=== PATIENT | female | born 1945 | race African-American/Black ===

== ENCOUNTER → 2020-05-03 09:38 | Outpatient (BNVA) | payer MEDICARE, SELFPAY | PROVIDERS: PCP Internal Medicine; Referring Provider Internal Medicine; Visit Provider Internal Medicine Cardiovascular Disease | DX: I50.22 Chronic systolic (congestive) heart failure (principal); I42.8 Other cardiomyopathies; I48.0 Paroxysmal atrial fibrillation; Z79.899 Other long term (current) drug therapy; Z95.818 Presence of other cardiac implants and grafts; Z45.02 Encounter for adjustment and management of automatic implantable cardiac defibrillator | CPT/HCPCS: 99212 ==

== ENCOUNTER 2020-05-27 10:33 | Outpatient (REF) | payer MEDICARE, SELFPAY ==
[2020-05-27 13:47] LABS: Hematocrit 39.3 % (37-47); Hemoglobin 12.1 g/dl (12.0-16.0); Mean Corpuscular HGB Conc 30.8 g/dl (31.0-35.0); Mean Corpuscular Hemoglobin 27.8 pg (27.0-33.0); Mean Corpuscular Volume 90.1 fL (80-98); Mean Platelet Volume 11.4 fL (9.4-12.3); Platelet Count 170 X10*3/uL (160-400); Red Blood Count 4.36 X10*6/uL (4.20-5.50); Red Cell Distribution Width 13.9 % (11.0-16.0); White Blood Count 3.6 X10*3/uL (4.8-10.8)
[2020-05-27 14:15] LABS: B Type Natriuretic Peptide 44 pg/mL (<100)
== END 2020-05-27 10:34 | disposition home or self-care (01) ==
LOC: HO.10HDL 10:33
PROVIDERS: Visit Provider Internal Medicine Cardiovascular Disease
DX: I13.0 Hypertensive heart and chronic kidney disease with heart failure and stage 1 through stage 4 chronic kidney disease, or unspecified chronic kidney disease (principal); N18.9 Chronic kidney disease, unspecified; I50.22 Chronic systolic (congestive) heart failure; Z95.810 Presence of automatic (implantable) cardiac defibrillator; I48.0 Paroxysmal atrial fibrillation
CPT/HCPCS: 36415; 83880; 85027

== ENCOUNTER → 2020-07-27 12:47 | Outpatient (BNVA) | payer OTHER, SELFPAY | PROVIDERS: Visit Provider Internal Medicine Cardiovascular Disease | DX: Z45.02 Encounter for adjustment and management of automatic implantable cardiac defibrillator (principal); I50.22 Chronic systolic (congestive) heart failure; I42.8 Other cardiomyopathies; I48.0 Paroxysmal atrial fibrillation | CPT/HCPCS: 93005 ==

== ENCOUNTER → 2021-01-18 08:28 | Outpatient (REF) | payer OTHER, SELFPAY ==
--- NOTE | 2021-01-18 08:32 | CA_ITS ---
Transthoracic Echocardiogram Patient (Last, First, Middle): Gale Oden, Gender: Female Date of : 1945 Age: 75 Procedure Date: 01/18/2021 Procedure Type: Transthoracic Echocardiogram Location: OP Height: 157.48 cm Weight: 87.09 kg BSA: 1.88 m2 Heart Rate: bpm BP: 138 / 76 mmHg [employer]ia Food Server: Ruba MD: Toño Noel MD Regulatory Affairs Spec: Toño Noel MD Symptoms: I50.22 - Chronic systolic (congestive) heart failure Study Quality: Good ECG Rhythm: Sinus Conclusions: - 1. Moderately dilated left ventricle with moderate LV systolic dysfunction with pseudonormal filling pattern 2. Mild aortic and mild mitral regurgitation 3. mild left atrial enlargement 4. Mildly elevated right ventricular systolic pressure 5. No gross pericardial effusion Findings Left Ventricle Moderately increased left ventricular cavity size. There is normal left ventricular wall thickness. The left ventricular systolic function is moderately decreased. The visually estimated ejection fraction is between 35 40%. There is moderate global hypokinesis. Spectral Doppler is indicative of a pseudonormal filling pattern. Elevated left ventricular end diastolic pressure. E/E prime ratio is between 8 and 15 consistent with indeterminate filling pressures. Right Ventricle Normal right ventricular cavity size and systolic function. Atria The left atrium is mildly dilated. There is no evidence of interatrial shunt. The right atrium is likely dilated. Aortic Valve There is mild thickening of the aortic valve. There is no aortic valve stenosis. There is mild aortic valve regurgitation. Mitral Valve There is mild anterior and posterior mitral leaflet thickening. There is mild mitral valve regurgitation. There is no mitral valve stenosis. Pulmonic Valve The pulmonic valve is likely normal. There is trace pulmonic valve regurgitation. Tricuspid Valve There is mild tricuspid valve regurgitation. Normal right atrial pressure. Mild pulmonary hypertension is present. Great Vessels All visible segments of the aorta are normal in size. The pulmonary artery was not well visualized. Venous The inferior vena cava is normal in size and collapses greater than 50% with inspiration. Pericardium/Pleural There is no evidence of pericardial effusion. Prior Study Comparison Changes noted compared to prior study dated: 12/15/2019. LV systolic function is marginally improved Measurements 2D Linear Measurements RVIDd: 4.20 RVIDd Index: 2.23 IVSd: 0.86 0.6-0.9/0.6-1.0 cm LVIDd: 6.33 3.9-5.3/4.2-5.9 cm LVIDd Index: 3.37 2.4-3.2/2.2-3.1 cm/m2 LVIDs: 5.30 2.0-3.6 cm LVPWd: 1.12 0.7-1.1 cm Ao Root: 3.00 2.1-3.5 cm LA Diam: 5.10 2.7-3.8/3.0-4.0 cm LAIDs Index: 2.71 1.5-2.3 cm/m2 LV Mass: 333.46 67-162/88-224 g LV Mass Index: 177.37 43-95/49-115 g/m2 LVOT Diam: 2.20 3.0+(-)1.3 cm 2D Systolic Function EF 4C: 40.00 >55% EF 2C: 44.20 >55% EF BiP: 41.30 >55% Mitral Valve MV Pk E: 0.80 MV PK A: 0.48 MV Decel Time: 235.00 E/A: 1.70 E'Lateral: 9.30 E'Medial: 3.68 E/E' Med: 21.70 E/E' Lat: 8.60 MR Vol - PW Dopp: 12.53 MR VTI: 1.79 MR ERO: 7.00 MR Alias Khoa: 0.31 MR RAD: 0.40 Aortic Valve AoV Pk Khoa: 1.95 AoV Mn Khoa: 1.25 AoV VTI: 0.48 AoV Pk Grad: 15.00 Aov Mn Grad: 8.00 [place] Cont.VTI: 1.33 LVOT LVOT Pk Khoa: 0.69 LVOT Mn Khoa: 0.51 LVOT VTI: 0.17 LVOT Pk Grad: 2.00 LVOT Mn Grad: 1.00 LVOT Diam: 2.20 LVOT Area: 3.80 Diastolic Function MV Pk E: 0.80 MV Pk A: 0.48 E/A: 1.70 E'Medial: 3.68 E/E' Med: 21.70 E' Laterial: 9.30 E/E' Lat: 8.60 Right Ventricle TAPSE (mm): 17.00 TVS' Khoa: 5.70 Tricuspid Valve TR Pk Khoa: 3.08 TR Pk Grad: 38.00 RA Press: 3.00 RVSP: 41.00 Great Vessels Aorta Ao Root-2D: 3.00 2.0-3.7 cm Ao Asc: 3.50 2.1-3.4 cm Ao Arch: 3.00 Updated in Other Vendor System with Status of Final Toño Noel MD electronically signed on 01/19/2021 2:46:44 PM with status of Final
== END ==
LOC: HO.CARD 08:28
PROVIDERS: PCP Internal Medicine; Visit Provider Internal Medicine Cardiovascular Disease
DX: I42.8 Other cardiomyopathies (principal); I48.0 Paroxysmal atrial fibrillation; I50.22 Chronic systolic (congestive) heart failure
CPT/HCPCS: 93306

== ENCOUNTER → 2021-01-27 08:41 | Outpatient (BNVA) | payer OTHER, SELFPAY | PROVIDERS: PCP Internal Medicine; Visit Provider Internal Medicine Cardiovascular Disease | DX: I50.22 Chronic systolic (congestive) heart failure (principal); I48.0 Paroxysmal atrial fibrillation; I13.0 Hypertensive heart and chronic kidney disease with heart failure and stage 1 through stage 4 chronic kidney disease, or unspecified chronic kidney disease; I10 Essential (primary) hypertension; I42.8 Other cardiomyopathies; I49.01 Ventricular fibrillation; N18.9 Chronic kidney disease, unspecified; Z95.810 Presence of automatic (implantable) cardiac defibrillator | CPT/HCPCS: 93005 ==

== ENCOUNTER → 2021-02-28 11:44 | Outpatient (BNVA) | payer OTHER, SELFPAY | PROVIDERS: PCP Internal Medicine; Visit Provider Internal Medicine Cardiovascular Disease ==

== ENCOUNTER 2021-07-18 08:22 | Outpatient (REF) | payer OTHER, SELFPAY ==
--- NOTE | ~2021-07-18 | XR_ITS ---
EXAMINATION: XR CHEST CLINICAL INFORMATION: Paroxysmal A. fib COMPARISON: Chest x-ray 11/24/2019 TECHNIQUE: 2 views of the chest were obtained. FINDINGS: Cardiac silhouette is stable in size. Unchanged orientation of single pacing wire projecting superficial to the sternum. The lungs are well aerated. There is no lobar consolidation. No pleural effusion or pneumothorax. Surgical clips project over the left axilla. Mild to moderate degenerative changes of the spine. Partially visualized retrievable IVC filter. XR/XR chest 2V IMPRESSION: No acute pulmonary pathology.
[2021-07-18 09:51] LABS: Hematocrit 39.1 % (37.0-47.0); Mean Corpuscular HGB Conc 30.7 g/dl (31.0-35.0); Mean Corpuscular Volume 88.1 fL (80.0-98.0); Mean Platelet Volume 11.4 fL (9.4-12.3); Platelet Count 186 X10*3/uL (160-400); Red Blood Count 4.44 X10*6/uL (4.20-5.50)
[2021-07-18 10:15] LABS: Alanine Aminotransferase 13 U/L (0-31); Albumin Level 4.2 g/dL (3.5-5.0); Alkaline Phosphatase 61 U/L (39-117); Anion Gap 11 (12-20); Aspartate Amino Transferase 18 U/L (5-31); Bilirubin Direct < 0.2 mg/dL (0.0-0.5); Bilirubin Total 0.5 mg/dL (0.0-1.0); Blood Urea Nitrogen 19 mg/dL (9-16); Calcium 9.8 mg/dL (8.4-10.2); Carbon Dioxide 32 mmol/L (22-29); Chloride 103 mmol/L (96-108); Estimated Glomerular Filt Rate 39; Glucose Random 99 mg/dL (60-115); Magnesium 2.2 mg/dL (1.6-2.6); Potassium 4.2 mmol/L (3.3-5.1); Sodium 142 mmol/L (135-145); Total Protein 7.4 g/dL (6.5-8.0)
[2021-07-18 10:36] LABS: TSH reflex Free T4 3.98 uIU/mL (0.32-4.0)
== END 2021-07-18 08:23 | disposition home or self-care (01) ==
LOC: HO.XRAY 08:22
PROVIDERS: PCP Internal Medicine; Visit Provider Internal Medicine Cardiovascular Disease
DX: I48.0 Paroxysmal atrial fibrillation (principal); I50.22 Chronic systolic (congestive) heart failure; Z95.810 Presence of automatic (implantable) cardiac defibrillator
CPT/HCPCS: 36415; 71046; 80048; 80076; 83735; 84443; 85027; 93005

== ENCOUNTER → 2021-08-02 12:18 | Outpatient (BNVA) | payer OTHER, SELFPAY | PROVIDERS: Visit Provider Internal Medicine Cardiovascular Disease ==

== ENCOUNTER 2021-10-24 12:21 | Outpatient (REF) | payer OTHER, SELFPAY ==
--- NOTE | ~2021-10-24 | XR_ITS ---
EXAMINATION: XR CHEST CLINICAL INFORMATION: Chronic systolic CHF COMPARISON: Chest x-ray 07/18/2021 TECHNIQUE: 2 views of the chest were obtained. FINDINGS: The lungs are somewhat expanded and clear of acute pneumonic process. There is no pleural effusion or thickening. Heart size is borderline enlarged. There is a solitary pacing electrode midline anterior to sternum is unchanged. The hardware lies along the left lateral chest wall. The pulmonary vascularity is normal. There are left axillary can from previous intervention. No gross bony abnormality seen. The soft tissues are normal. XR/XR chest 2V IMPRESSION: No acute pulmonary process. No major change from 07/18/2021.
[2021-10-24 13:10] LABS: Hematocrit 37.2 % (37.0-47.0); Hemoglobin 11.5 g/dl (12.0-16.0); Mean Corpuscular HGB Conc 30.9 g/dl (31.0-35.0); Mean Corpuscular Hemoglobin 27.4 pg (27.0-33.0); Mean Corpuscular Volume 88.6 fL (80.0-98.0); Mean Platelet Volume 11.2 fL (9.4-12.3); Platelet Count 265 X10*3/uL (160-400); Red Cell Distribution Width 13.7 % (11.0-16.0); White Blood Count 6.6 X10*3/uL (4.8-10.8)
[2021-10-24 13:34] LABS: Alanine Aminotransferase 15 U/L (0-31); Albumin Level 4.4 g/dL (3.5-5.0); Alkaline Phosphatase 83 U/L (39-117); Anion Gap 13 (12-20); Aspartate Amino Transferase 17 U/L (5-31); Bilirubin Direct 0.2 mg/dL (0.0-0.5); Bilirubin Total 0.5 mg/dL (0.0-1.0); Blood Urea Nitrogen 24 mg/dL (9-16); Calcium 10.1 mg/dL (8.4-10.2); Carbon Dioxide 35 mmol/L (22-29); Chloride 97 mmol/L (96-108); Estimated Glomerular Filt Rate 32; Glucose Random 88 mg/dL (60-115); Potassium 3.6 mmol/L (3.3-5.1); Sodium 141 mmol/L (135-145)
[2021-10-24 13:37] LABS: B Type Natriuretic Peptide 124 pg/mL (<100)
== END 2021-10-24 12:22 | disposition home or self-care (01) ==
LOC: HO.XRAY 12:21
PROVIDERS: PCP Internal Medicine; Visit Provider Internal Medicine Cardiovascular Disease
DX: I48.0 Paroxysmal atrial fibrillation (principal); I50.22 Chronic systolic (congestive) heart failure
CPT/HCPCS: 36415; 71046; 80048; 80076; 83880; 85027; 99212

== ENCOUNTER → 2021-10-26 08:29 | Outpatient (REF) | payer OTHER, SELFPAY ==
--- NOTE | 2021-10-26 08:32 | CA_ITS ---
Transthoracic Echocardiogram Patient (Last, First, Middle): Gale Oden, Gender: Female Date of : 1945 Age: 76 Procedure Date: 10/26/2021 Procedure Type: Transthoracic Echocardiogram Location: OP Height: 157.48 cm Weight: 83.46 kg BSA: 1.84 m2 Heart Rate: bpm BP: 112 / 70 mmHg Religious Studies Professor: GRACE Referring MD: Toño Noel MD Symptoms: I42.9 - Cardiomyopathy, unspecified Study Quality: Fair ECG Rhythm: Sinus Conclusions: - The left ventricular systolic function is moderately decreased. The calculated ejection fraction is 38% by biplane method. - Evidence suggests grade III (severe) diastolic dysfunction. - Moderate pulmonary hypertension is present. Findings Left Ventricle Moderately increased left ventricular cavity size. There is mildly increased left ventricular wall thickness. The left ventricular systolic function is moderately decreased. The calculated ejection fraction is 38% by biplane method. There is moderate global hypokinesis. E/E prime ratio is >15, consistent with elevated filling pressures. Evidence suggests grade III (severe) diastolic dysfunction. Right Ventricle Normal right ventricular cavity size and systolic function. Tricuspid Valve There is moderate tricuspid valve regurgitation. The right ventricular systolic pressure is 49 mmHg. Moderate pulmonary hypertension is present. Venous The inferior vena cava is normal in size and collapses greater than 50% with inspiration. Prior Study Comparison No significant change compared to prior study dated: 01/18/2021. Measurements 2D Linear Measurements IVSd: 1.14 0.6-0.9/0.6-1.0 cm LVIDd: 6.22 3.9-5.3/4.2-5.9 cm LVIDd Index: 3.38 2.4-3.2/2.2-3.1 cm/m2 LVIDs: 5.03 2.0-3.6 cm LVPWd: 1.07 0.7-1.1 cm LV Mass: 372.77 67-162/88-224 g LV Mass Index: 202.59 43-95/49-115 g/m2 2D Systolic Function EF 4C: 33.70 >55% EF 2C: 41.10 >55% EF BiP: 38.00 >55% Mitral Valve MV Pk E: 1.02 MV PK A: 0.46 MV Decel Time: 280.00 E/A: 2.20 E'Lateral: 7.51 E'Medial: 5.11 E/E' Med: 20.00 E/E' Lat: 13.60 PHT: 82.00 MVA PHT: 2.68 Decel Cross: 3.64 Diastolic Function MV Pk E: 1.02 MV Pk A: 0.46 E/A: 2.20 E'Medial: 5.11 E/E' Med: 20.00 E' Laterial: 7.51 E/E' Lat: 13.60 Tricuspid Valve TR Pk Khoa: 3.39 TR Pk Grad: 46.00 RA Press: 3.00 RVSP: 49.00 Updated in Other Vendor System with Status of Final Claudio Newman MD electronically signed on 10/28/2021 2:13:39 PM with status of Final
== END ==
LOC: HO.CARD 08:29
PROVIDERS: PCP Internal Medicine; Visit Provider Internal Medicine Cardiovascular Disease
DX: I42.9 Cardiomyopathy, unspecified (principal); I50.22 Chronic systolic (congestive) heart failure
CPT/HCPCS: 93308

== ENCOUNTER 2022-01-03 12:54 | Outpatient (REF) | payer OTHER, SELFPAY ==
[2022-01-03 13:37] LABS: COVID-19 Test Negative (Negative)
== END 2022-01-03 12:55 | disposition home or self-care (01) ==
LOC: HO.LAB 12:54
PROVIDERS: Visit Provider Internal Medicine
DX: Z20.822 Contact with and (suspected) exposure to COVID-19 (principal)
CPT/HCPCS: 87635; C9803

== ENCOUNTER → 2022-01-12 07:29 | Outpatient (REF) | payer OTHER, SELFPAY ==
--- NOTE | 2022-01-12 07:31 | CA_ITS ---
Transthoracic Echocardiogram Patient (Last, First, Middle): Gale Oden, Gender: Female Date of : 1945 Age: 76 Procedure Date: 01/12/2022 Procedure Type: Transthoracic Echocardiogram Location: OP Height: 157.48 cm Weight: 86.18 kg BSA: 1.87 m2 Heart Rate: bpm BP: 145 / 86 mmHg Cnc Mill And Lathe Operator: DALI Referring MD: Toño Noel MD Operations Intern: Toño Noel MD Symptoms: I50.22 - Chronic systolic (congestive) heart failure Study Quality: Fair ECG Rhythm: Sinus Conclusions: - 1. Mildly dilated left ventricle with [id number] LV systolic dysfunction with grade 2 diastolic dysfunction with LVEF of 40-45% 2. Moderately dilated left atrium 3. Eyva-nd-irdvifyw mitral regurgitation and mild aortic regurgitation 4. Moderately elevated right ventricular systolic pressure 5. No pericardial effusion Findings Left Ventricle Mildly increased left ventricular cavity size. There is normal left ventricular wall thickness. The left ventricular systolic function is mild to moderately decreased. The visually estimated ejection fraction is between 40-45%. Spectral Doppler is indicative of a pseudonormal filling pattern. E/E prime ratio is >15, consistent with elevated filling pressures. Evidence suggests grade II (moderate) diastolic dysfunction. Right Ventricle Normal right ventricular cavity size and systolic function. Atria The left atrium is moderately dilated. There is no evidence of interatrial shunt. The right atrium is mildly dilated. Aortic Valve There is mild calcification of the aortic valve. There is no aortic valve stenosis. There is mild aortic valve regurgitation. Mitral Valve There is mild anterior and posterior mitral leaflet thickening. There is mild to moderate mitral valve regurgitation. There is no mitral valve stenosis. Pulmonic Valve The pulmonic valve is likely normal. Tricuspid Valve Normal tricuspid valve structure. There is mild to moderate tricuspid valve regurgitation. Normal right atrial pressure. Moderate pulmonary hypertension is present. Great Vessels All visible segments of the aorta are normal in size. The pulmonary artery was not well visualized. Venous The inferior vena cava is normal in size and collapses greater than 50% with inspiration. Pericardium/Pleural There is no evidence of pericardial effusion. Prior Study Comparison Changes noted compared to prior study dated: 10/26/2021. LV systolic function is marginally improved Measurements 2D Linear Measurements IVSd: 1.20 0.6-0.9/0.6-1.0 cm LVIDd: 5.89 3.9-5.3/4.2-5.9 cm LVIDd Index: 3.15 2.4-3.2/2.2-3.1 cm/m2 LVIDs: 5.50 2.0-3.6 cm LVPWd: 1.02 0.7-1.1 cm LA Diam: 4.10 2.7-3.8/3.0-4.0 cm LAIDs Index: 2.19 1.5-2.3 cm/m2 LV Mass: 342.24 67-162/88-224 g LV Mass Index: 183.02 43-95/49-115 g/m2 LVOT Diam: 2.10 3.0+(-)1.3 cm 2D Systolic Function EF 4C: 46.80 >55% EF 2C: 44.00 >55% Mitral Valve MV Pk E: 1.13 MV PK A: 0.53 MV Decel Time: 188.00 E/A: 2.20 E'Lateral: 9.14 E'Medial: 4.79 E/E' Med: 23.60 E/E' Lat: 12.40 PHT: 55.00 MVA PHT: 4.00 Decel [place]: 6.01 MR Vol - PW Dopp: 10.50 MR VTI: 2.10 MR ERO: 5.00 MR Alias Khoa: 0.42 MR RAD: 0.30 Aortic Valve AoV Pk Khoa: 1.82 AoV Mn Khoa: 1.36 AoV VTI: 0.45 AoV Pk Grad: 13.00 Aov Mn Grad: 8.00 [place] Cont.VTI: 1.60 AI Pk Khoa: 4.15 AI [place]: 1.79 LVOT LVOT Pk Khoa: 0.85 LVOT Mn Khoa: 0.59 LVOT VTI: 0.21 LVOT Pk Grad: 3.00 LVOT Mn Grad: 2.00 LVOT Diam: 2.10 LVOT Area: 3.46 Diastolic Function MV Pk E: 1.13 MV Pk A: 0.53 E/A: 2.20 E'Medial: 4.79 E/E' Med: 23.60 E' Laterial: 9.14 E/E' Lat: 12.40 Right Ventricle TAPSE (mm): 23.50 TVS' Khoa: 8.92 Tricuspid Valve TR Pk Khoa: 3.75 TR Pk Grad: 56.00 RA Press: 3.00 RVSP: 59.00 Great Vessels Aorta Sinus of Valsalva: 3.20 2.0-3.5 cm Ao Asc: 3.60 2.1-3.4 cm Updated in Other Vendor System with Status of Final Toño Noel MD electronically signed on 01/13/2022 5:54:35 PM with status of Final
== END ==
LOC: HO.CARD 07:29
PROVIDERS: PCP Internal Medicine; Visit Provider Internal Medicine
DX: I50.22 Chronic systolic (congestive) heart failure (principal)
CPT/HCPCS: 93306

== ENCOUNTER → 2022-01-23 12:09 | Outpatient (BNVA) | payer OTHER, SELFPAY | PROVIDERS: PCP Internal Medicine; Referring Provider Internal Medicine; Visit Provider Internal Medicine Cardiovascular Disease | DX: I50.22 Chronic systolic (congestive) heart failure (principal); I48.0 Paroxysmal atrial fibrillation; Z95.810 Presence of automatic (implantable) cardiac defibrillator; Z79.899 Other long term (current) drug therapy | CPT/HCPCS: 93005; 99212 ==

== ENCOUNTER 2022-01-26 11:26 | Outpatient (REF) | payer OTHER, SELFPAY ==
[2022-01-26 12:37] LABS: Anion Gap 16 (12-20); Blood Urea Nitrogen 20 mg/dL (9-16); Calcium 9.3 mg/dL (8.4-10.2); Carbon Dioxide 29 mmol/L (22-29); Chloride 101 mmol/L (96-108); Estimated Glomerular Filt Rate 33; Glucose Random 95 mg/dL (60-115); Potassium 3.5 mmol/L (3.3-5.1); Sodium 142 mmol/L (135-145)
[2022-01-26 12:40] LABS: B Type Natriuretic Peptide 151 pg/mL (<100)
== END 2022-01-26 11:27 | disposition home or self-care (01) ==
LOC: HO.LAB 11:26
PROVIDERS: PCP Internal Medicine; Visit Provider Internal Medicine Cardiovascular Disease
DX: I50.22 Chronic systolic (congestive) heart failure (principal)
CPT/HCPCS: 36415; 80048; 83880

== ENCOUNTER 2022-05-12 15:10 | Outpatient (REF) | payer OTHER, SELFPAY ==
[2022-05-12 15:47] LABS: COVID-19 Test Negative (Negative); IDNOW Serial# 16C4AD1C
== END 2022-05-12 15:11 | disposition home or self-care (01) ==
LOC: HO.LAB 15:10
PROVIDERS: Visit Provider Internal Medicine
DX: Z20.822 Contact with and (suspected) exposure to COVID-19 (principal)
CPT/HCPCS: 87635; C9803

== ENCOUNTER → 2022-08-01 11:57 | Outpatient (BNVA) | payer OTHER, SELFPAY | PROVIDERS: PCP Internal Medicine; Referring Provider Internal Medicine; Visit Provider Internal Medicine Cardiovascular Disease | DX: Z45.02 Encounter for adjustment and management of automatic implantable cardiac defibrillator (principal); I50.22 Chronic systolic (congestive) heart failure; I48.0 Paroxysmal atrial fibrillation | CPT/HCPCS: 93005; 99212 ==

== ENCOUNTER 2022-08-12 14:21 | Emergency (ER) | payer OTHER, SELFPAY ==
--- NOTE | ~2022-08-12 | US_ITS ---
EXAMINATION: US VENOUS ULTRASOUND WITH DOPPLER LOWER EXTREMITY, RIGHT CLINICAL INFORMATION: Right lower extremity pain. COMPARISON: Bilateral lower extremity DVT ultrasound 11/22/2013. TECHNIQUE: Ultrasound of the deep veins is performed from the hip to the calf with compression sonography and color and pulse Doppler assessment. Spectral analysis with color-flow imaging is performed. FINDINGS: There is normal venous compression and respiratory variation and augmented flow. The visualized common femoral vein, superficial femoral vein, profunda femoral vein, popliteal vein, and the trifurcation region shows no evidence of deep venous thrombosis. There is no significant popliteal fossa cyst. If the patient's symptoms persist, followup ultrasound in 5 days 7 days might be of value to exclude proximal propagation from a non-visualized calf vein. US/US venous duplex LE RT IMPRESSION: No DVT demonstrated in the right lower extremity.
--- NOTE | ~2022-08-12 | XR_ITS ---
EXAMINATION: XR HIP, RIGHT CLINICAL INFORMATION: Right hip pain COMPARISON: None TECHNIQUE: Two views of the right hip. FINDINGS: AP pelvis: There is normal symmetry of bilateral hip joints and SI joints. No visible acute fracture, dislocation or subluxation seen. The pubic symphysis is normal. XR/XR hip RT w [id number] IMPRESSION: Normal AP pelvis and right hip.
[2022-08-12 14:24] VITALS: BP 135/96; PULSE 56; RESP 17; TEMP 35.7; O2SAT 96; BMI 34.5
--- NOTE | 2022-08-12 14:24 | ED.GENADULT ---
HPI - General Adult General Chief complaint: Extremity Problem <Ashley Treadwell CNP - Last Filed: 08/12/22 15:00> Stated complaint: leg pain no known inj <Ashley Treadwell CNP - Last Filed: 08/12/22 15:00> Time Seen by Provider: 08/12/22 15:19 <Ashley Treadwell CNP - Last Filed: 08/12/22 15:00> History of Present Illness HPI narrative: Patient complains of right gluteal pain radiating down to the right foot for 2-3 days with no injury there is no weakness no incontinence no changes to bowel or bladder no dysuria, no fever no IV drug use There is some pain to the right calf and it does ache, she does have a remote history of a DVT, she has no shortness of breath denies any calf swelling or redness and she has no chest pain <ALEX Moore - Last Filed: 08/12/22 18:05> Related Data Home medications: Home Medications Medication Instructions Recorded Confirmed ferrous sulfate 325 mg (65 mg 325 mg PO DAILY 07/27/20 08/01/22 iron) tablet Previous Rx's Medication Instructions Recorded aspirin 81 mg tablet,delayed 81 mg PO DAILY #90 tabs 12/02/21 release carvedilol 12.5 mg tablet 12.5 mg PO BID 90 days #180 tabs 12/27/21 torsemide 20 mg tablet 40 mg PO BID 90 days #360 tabs 01/16/22 sacubitril 24 mg-valsartan 26 mg 1 tab PO BID #60 tabs 05/22/22 tablet (Entresto) amiodarone 200 mg tablet 200 mg PO DAILY #90 tabs 05/29/22 acetaminophen 500 mg capsule 1,000 mg PO TID PRN pain #30 caps 08/12/22 oxycodone 5 mg tablet 5 mg PO Q6H PRN pain #14 tabs 08/12/22 <Ashley Treadwell CNP - Last Filed: 08/12/22 15:00> Allergies/adverse reactions: Allergies Allergy/AdvReac Type Severity Reaction Status Date / Time valacyclovir [VALACYCLOVIR] Allergy Intermediate AMS Verified 07/18/21 08:27 rivaroxaban [From Xarelto] AdvReac Severe GI bleed Verified 07/18/21 08:27 PHENOTHYLINE Allergy Unknown BLISTERS Uncoded 07/18/21 08:27 <Ashley Treadwell CNP - Last Filed: 08/12/22 15:00> FORMERLY [facility] Past Medical History Source: nursing notes reviewed <ALEX Moore - Last Filed: 08/12/22 18:05> Medical History: Medical History Chronic HFrEF (heart failure with reduced ejection fraction) CKD (chronic kidney disease) GI bleed HTN (hypertension) ICD (implantable cardioverter-defibrillator) in place Nonischemic cardiomyopathy Paroxysmal atrial fibrillation Presence of Watchman left atrial appendage closure device VF (ventricular fibrillation) <Ashley Treadwell CNP - Last Filed: 08/12/22 15:00> Surgical History: Surgical History History of cardiac pacemaker (~2017) <Ashley Treadwell CNP - Last Filed: 08/12/22 15:00> Family History Family History: Family History Father No problems noted. Mother No problems noted. <Ashley Treadwell CNP - Last Filed: 08/12/22 15:00> Social History Social History: Social History Alcohol intake: never Patient Tobacco Use Status: Never used Tobacco Advance Directives: Yes Advance Directives Information Provided: No Advance Directives on File: No <Ashley Treadwell CNP - Last Filed: 08/12/22 15:00> Physical Exam ED Vital Signs: Vital Signs - 24 hr 08/12/22 14:24 Temperature 96.3 F L Pulse Rate 56 Respiratory Rate 17 Blood Pressure 135/96 H Pulse Oximetry 96 Oxygen Delivery Method Room Air BMI result Body Mass Index 34.5 <Ashley Treadwell CNP - Last Filed: 08/12/22 15:00> Vital Signs - 24 hr 08/12/22 14:24 Temperature 96.3 F L Pulse Rate 56 Respiratory Rate 17 Blood Pressure 135/96 H Pulse Oximetry 96 Oxygen Delivery Method Room Air BMI result Body Mass Index 34.5 <ALEX Moore - Last Filed: 08/12/22 18:05> General appearance no distress comfortable cooperative Head is normocephalic atraumatic Neck is supple nontender Chest clear to auscultation bilateral no respiratory distress Heart no murmur Abdomen soft nontender The back there was right gluteal tenderness, skin was normal there is no focal bony tenderness no CVA tenderness, there was some discomfort with bending Extremities is full range of motion x4 The right calf was mildly tender but there was no redness or swelling Skin no rash Neuro gait and balance are normal, motor is 5/5 x4 and symmetrical, patient can walk on toes walk on heels, sensation is intact and symmetrical <ALEX Moore - Last Filed: 08/12/22 18:05> Course Course Course Narrative: This is an RME: Additional HPI, ROS, PE not included below will be deferred to primary provider. Patient is a 77-year-old female who presents to the emergency department for evaluation of a traumatic right leg pain. Pain some left mid calf extending all the way up itchy the hip with the lateral aspect. Onset was 3 weeks ago and has been intermittent. Described as a numb and aching pain. Yesterday pain became more severe and is intolerable today. At time is made worse with movement of right hip. Denies any precipitating injury or fall. Was evaluated by primary care provider 2 weeks ago received prescription for tizanidine, which has not provided any relief. Denies any back pain, bladder bowel dysfunction. Ambulatory with steady gait. <Ashley Treadwell CNP - Last Filed: 08/12/22 15:00> This is an RME: Additional HPI, ROS, PE not included below will be deferred to primary provider. Patient is a 77-year-old female who presents to the emergency department for evaluation of a traumatic right leg pain. Pain some left mid calf extending all the way up itchy the hip with the lateral aspect. Onset was 3 weeks ago and has been intermittent. Described as a numb and aching pain. Yesterday pain became more severe and is intolerable today. At time is made worse with movement of right hip. Denies any precipitating injury or fall. Was evaluated by primary care provider 2 weeks ago received prescription for tizanidine, which has not provided any relief. Denies any back pain, bladder bowel dysfunction. Ambulatory with steady gait. Ultrasound was done of the right leg because of the calf pain and the history of DVT, ultrasound was negative There were no neurologic deficits no changes to bowel or bladder and well-appearing patient likely has a pinched nerve in the gluteal area and sciatica and was discharged to follow with her doctor ambulating easily uncomfortable <ALEX Moore - Last Filed: 08/12/22 18:05> Medications Administered Discontinued Medications Generic Name Dose Route Start Last Admin Trade Name Freq PRN Reason Stop Dose Admin Acetaminophen 975 mg 08/12/22 16:56 08/12/22 17:06 Acetaminophen 325 Mg Tablet PO 08/12/22 16:57 975 mg ONCE ONE Administration <Ashlye Treadwell CNP - Last Filed: 08/12/22 15:00> Medications Administered Discontinued Medications Generic Name Dose Route Start Last Admin Trade Name Freq PRN Reason Stop Dose Admin Acetaminophen 975 mg 08/12/22 16:56 08/12/22 17:06 Acetaminophen 325 Mg Tablet PO 08/12/22 16:57 975 mg ONCE ONE Administration <ALEX Moore - Last Filed: 08/12/22 18:05> Discharge Plan Discharge Clinical Impression: Sciatica <Ashley Treadwell CNP - Last Filed: 08/12/22 15:00> Patient Disposition: Home, Self-Care <Ashley Treadwell CNP - Last Filed: 08/12/22 15:00> Additional Instructions: Ultrasound of the leg was negative meaning there is no DVT Your exam is consistent with a pinched nerve in the gluteal or low back area causing sciatica which is pain shooting down the leg Follow with primary doctor Return to ER any time for any worse condition or any concerns <Ashley Treadwell CNP - Last Filed: 08/12/22 15:00> Prescriptions: New oxycodone 5 mg tablet 5 mg PO Q6H PRN (Reason: pain) Qty: 14 0RF Rx Instructions: Partial Fill upon patient request. acetaminophen 500 mg capsule 1,000 mg PO TID PRN (Reason: pain) Qty: 30 0RF No Action aspirin 81 mg tablet,delayed release (DR/EC) 81 mg PO DAILY Qty: 90 3RF carvedilol 12.5 mg tablet 12.5 mg PO BID 90 Days Qty: 180 2RF torsemide 20 mg tablet 40 mg PO BID 90 Days Qty: 360 1RF Entresto 24-26 mg tablet 1 tab PO BID Qty: 60 6RF amiodarone 200 mg tablet 200 mg PO DAILY Qty: 90 2RF ferrous sulfate 325 mg (65 mg iron) tablet 325 mg PO DAILY <Ashley Treadwell CNP - Last Filed: 08/12/22 15:00>
[2022-08-12] MEDS: Acetaminophen 325 MG TABLET 975 MG PO (17:06)
== END 2022-08-12 18:27 | disposition home or self-care (01) ==
PROVIDERS: Emergency Provider Emergency Medicine; PCP Internal Medicine
DX: M54.41 Lumbago with sciatica, right side (principal); M79.661 Pain in right lower leg; I48.0 Paroxysmal atrial fibrillation; I13.0 Hypertensive heart and chronic kidney disease with heart failure and stage 1 through stage 4 chronic kidney disease, or unspecified chronic kidney disease; N18.9 Chronic kidney disease, unspecified; I50.30 Unspecified diastolic (congestive) heart failure; Z86.718 Personal history of other venous thrombosis and embolism; Z79.82 Long term (current) use of aspirin; Z79.899 Other long term (current) drug therapy
CPT/HCPCS: 73502; 93971; 99283; 99284

== ENCOUNTER 2022-08-22 12:20 | Emergency (ER) | payer OTHER, SELFPAY ==
--- NOTE | ~2022-08-22 | CT_ITS ---
EXAMINATION: CT LUMBAR SPINE WITHOUT CONTRAST CLINICAL INFORMATION: Back pain radiating to the right leg. COMPARISON: 03/08/2018 TECHNIQUE: Multidetector volumetric imaging of the lumbar spine performed without IV contrast. Coronal and sagittal reformatted images are obtained and reviewed. This CT examination was performed using dose optimization techniques as appropriate, variously including the following: *Automated exposure control *Adjustment of mA and/or kV according to patient size (this includes techniques or standardized protocols for targeted exams where dose is matched to indication/reason for exam; i.e. extremities or head) *Use of iterative reconstruction technique DLP; 527 mGy-cm FINDINGS: No fracture or subluxation. Vertebral body height and alignment maintained. Disc space narrowing at L1-L2, L4-L5, and L5-S1 with vacuum disc phenomenon as well. Evaluation of the disc levels is limited on this CT . Small disc bulge at L1-L2 without spinal canal or neuroforaminal narrowing. Small bulge at L3-L4 without spinal canal or neuroforaminal narrowing. Small disc bulge at L4-L5 with mild narrowing of the spinal canal. No significant neuroforaminal narrowing. Mild facet arthropathy throughout. The sacroiliac joints are symmetric. The visualized sacrum is intact. Normal bowel gas pattern. Colonic diverticulosis noted. IVC filter. Scattered atherosclerotic calcifications. CT/CT lumbar spine wo IV con IMPRESSION: No acute osseous abnormality. Mild degenerative changes throughout the lumbar spine. Mild spinal canal narrowing at L4-L5. No significant neuroforaminal narrowing.
[2022-08-22 12:51] VITALS: BP 106/61; PULSE 64; RESP 18; TEMP 37.2; O2SAT 98; BMI 34.7
--- NOTE | 2022-08-22 16:28 | ED.BACK ---
HPI - Back Pain/Injury General Chief Complaint: Back Pain/Injury Stated Complaint: severe pain R side of body Time Seen by Provider: 08/22/22 15:39 Source: patient and family Mode of arrival: ambulatory Limitations: no limitations History of Present Illness HPI Narrative: 77yoF with a PMHx of hypertension, nonischemic cardiomyopathy, atrial fibrillation, ventricular fibrillation, Watchman left atrial appendage closure device, ICD, CKD and CHF who is presenting to the ER with friend at bedside who is an Internal Medicine retired MD with complaints of persistent lower back pain/hip/buttocks pain that is radiating down her right leg worse with ambulation. Reports that she is having significant pain with walking although she is able to walk she is not having any weakness. She denies any dizziness, change in vision, rashes, recent falls or trauma, paresthesias, chest pain or shortness of breath, abdominal pain, flank pain, dysuria, hematuria, abnormal vaginal discharge, black or bloody stools, diarrhea constipation, urinary bowel incontinence or retention, saddle anesthesias, IV drug use, recent travel or falls, lower extremity edema or calf tenderness or any other symptoms complaints or concerns at this time. MD elicited complaint: back pain Pertinent past history: prior back pain Onset (ago): week(s) (3 weeks worse in past few days ) Timing: constant and progressively worsening Severity: moderate Similar Symptoms Previously: Yes Quality: sharp and aching Location: lumbar spine and right lower back Radiation: right leg below the knee Exacerbating factors: movement, walking and lifting Relieving factors: immobilization Associated symptoms: denies other symptoms Treatments prior to arrival: other (She has taken Motrin, Tylenol and muscle relaxants and no symptomatic relief) Work related injury: No Related Data Home Medications Medication Instructions Recorded Confirmed ferrous sulfate 325 mg (65 mg 325 mg PO DAILY 07/27/20 08/01/22 iron) tablet Previous Rx's Medication Instructions Recorded aspirin 81 mg tablet,delayed 81 mg PO DAILY #90 tabs 12/02/21 release carvedilol 12.5 mg tablet 12.5 mg PO BID 90 days #180 tabs 12/27/21 torsemide 20 mg tablet 40 mg PO BID 90 days #360 tabs 01/16/22 sacubitril 24 mg-valsartan 26 mg 1 tab PO BID #60 tabs 05/22/22 tablet (Entresto) amiodarone 200 mg tablet 200 mg PO DAILY #90 tabs 05/29/22 acetaminophen 500 mg capsule 1,000 mg PO TID PRN pain #14 caps 08/12/22 acetaminophen 500 mg capsule 1,000 mg PO TID PRN pain #30 caps 08/12/22 oxycodone 5 mg tablet 5 mg PO Q6H PRN pain #10 tabs 08/12/22 oxycodone 5 mg tablet 5 mg PO Q6H PRN pain #14 tabs 08/12/22 acetaminophen 500 mg tablet 1,000 mg PO QID PRN fever or pain 08/22/22 (Tylenol Extra Strength) #14 tabs cyclobenzaprine 10 mg tablet 10 mg PO Q8H #14 tabs 08/22/22 oxycodone 5 mg tablet 5 mg PO Q6H PRN pain #14 tabs 08/22/22 prednisone 20 mg tablet 40 mg PO DAILY inflammation 5 days 08/22/22 #10 tabs Allergies Allergy/AdvReac Type Severity Reaction Status Date / Time valacyclovir [VALACYCLOVIR] Allergy Intermediate AMS Verified 07/18/21 08:27 rivaroxaban [From Xarelto] AdvReac Severe GI bleed Verified 07/18/21 08:27 PHENOTHYLINE Allergy Unknown BLISTERS Uncoded 07/18/21 08:27 Review of Systems Review of Systems: Constitutional : No trauma, No Weight loss, No Fever, No Chills, ENT/Mouth : No Hearing loss, No Ear Pain, No Nasal Congestion, No Sinus Pain, No Hoarseness, No sore throat, No Rhinorrhea, No Swallowing Difficulty Cardiovascular : No Chest Pain, No SOB Respiratory : No Cough, No Dyspnea Gastrointestinal : No Nausea, No Vomiting, No Diarrhea, No abdominal Pain, No Hematochezia, No Melena Genitourinary : No Dysuria, No Urinary Frequency, No Hematuria, No Urinary or Bowel Incontinence/retention Musculoskeletal : + Back pain, No neck pain, No joint stiffness, No joint swelling Skin : No Skin Lesions, No rash or signs of infection Neuro : No Weakness, No Numbness, No Paresthesias, No headache, no loss of bowel or bladder incontinence, no saddle anesthesia, Focal weakness, + radiation Denies history of IV drug usage. Yes all other systems are reviewed and are negative PMFSH Past Medical History Attestation statement: The following information was validated with the patient. Source: old records reviewed, obtained from family and nursing notes reviewed Medical History Chronic HFrEF (heart failure with reduced ejection fraction) CKD (chronic kidney disease) GI bleed HTN (hypertension) ICD (implantable cardioverter-defibrillator) in place Nonischemic cardiomyopathy Paroxysmal atrial fibrillation Presence of Watchman left atrial appendage closure device VF (ventricular fibrillation) Surgical History History of cardiac pacemaker (~2018) Family History Family History Father No problems noted. Mother No problems noted. Social History Social History Alcohol intake: never Patient Tobacco Use Status: Never used Tobacco Advance Directives: No Advance Directives Information Provided: Yes Physical Exam Vital Signs: Vital Signs: Last Vital Signs Temp 98.9 F 08/22/22 12:51 Pulse 64 08/22/22 12:51 Resp 18 08/22/22 12:51 BP 106/61 08/22/22 12:51 Pulse Ox 98 08/22/22 12:51 O2 Del Method 08/22/22 12:51 BMI result Body Mass Index 34.7 vital signs have been reviewed as normal and appeared to be correct. Blood pressure normal. Heart rate normal. Respiration rate normal. Temperature normal. Oxygen saturation normal. Appearance: Alert. Oriented X3. No acute distress. Head: Normal external exam. Normocephalic. Atraumatic. No Travis signs noted. No raccoon eyes noted Eyes: PERRLA. EOMI. Conjunctiva and sclera normal. Eyelids normal. ENT: EAC normal. TM's Normal. Pharynx normal. Uvula midline. Moist mucous membranes. No trismus noted. No drooling noted. No muffled voice noted. Neck: Normal inspection. Neck supple. FROM. No adenopathy. Thyroid Normal. No meningeal signs. No neck mass noted. CVS: Normal heart rate and rhythm. Heart sound normal. No murmurs noted. Pulses normal throughout. Respiratory: No respiratory distress. Painless inspiration. Breath sounds normal. No wheezes/rales/rhonchi noted. Chest nontender. No accessory muscle usage noted or decreased air movement noted. Abdomen: Soft and nontender. Bowel sounds normal in all 4 quadrants. No distention noted. No organomegaly noted. No visible injury noted. Back: No CVA tenderness. Full range of motion noted. No obvious deformities, or edema. Mild para-spinal muscular tenderness from lumbar region to coccyx. Full ROM in back and lower extremities. 5/5 strength hip extension/flexion, abduction, adduction. Mild Lumbar pain with hip flexion against resistance. Straight leg raise test negative on right; Straight leg raise test negative on left; Reflexes normal ankle and knee bilaterally; EHL motor strength normal bilaterally. No rashes/lesion/induration/fluctuance or signs infection noted. Skin: Skin warm and dry. Normal skin color. Normal skin turgor. No rashes/lesions/lacerations noted. Extremities: No lower extremity edema. Extremities exhibit normal range of motion. Extremities nontender. Neuro: Oriented X 3. No motor deficit. No sensory deficit. Reflexes normal. Patient has a normal steady gait. Course Course Course Narrative: Pt c likely muscular pain, but could be herniated disc. Neuro exam shows no deficits. Not c/w AAA/epidural abscess/dissection.No high risk Hx (Incont, fever, immunosupp, recent surgery/LP, coag, signif trauma, wt loss, puls mass, TB, or IVDU) to warrant MRI today. Not c/w Pyelo/UTI/kidney stone/spinal fx. Not cauda equina syndrome. Patient reports she has not had any imaging of her lower back only of her hip and pelvis and ultrasound of her lower leg when she was seen here on 08/12/2022 therefore at this time else CT scan was obtained and revealed bulging this and degenerative changes of lumbar spine otherwise no other acute processes. Patient was given symptomatic treatment and patient reports mild symptomatic relief at this time. Will DC home with pain medication instructions to follow up with spinal surgeon and to return if any new or worsening symptoms. Patient with friend at bedside who is an MD understand agree the plan. Medications Administered Discontinued Medications Generic Name Dose Route Start Last Admin Trade Name Freq PRN Reason Stop Dose Admin Diazepam 2 mg 08/22/22 15:52 08/22/22 16:32 Diazepam 2 Mg Tablet PO 08/22/22 15:53 2 mg ONCE ONE Administration Ketorolac Tromethamine 30 mg 08/22/22 15:52 08/22/22 16:31 Ketorolac Tromethamine 30 Mg/Ml Vial IM 08/22/22 15:53 30 mg ONCE ONE Administration Methylprednisolone Sodium Succinate 60 mg 08/22/22 15:52 08/22/22 16:31 Methylprednisolone Sod Succ 125 Mg/2 Ml Vial IM 08/22/22 15:53 60 mg ONCE ONE Administration Oxycodone HCl 5 mg 08/22/22 15:52 08/22/22 16:31 Oxycodone Hcl Immed Release 5 Mg Tablet PO 08/22/22 15:53 5 mg ONCE ONE Administration Medical Decision Making Independent Interpretation I performed an independent interpretation of an: CT Scan (CT scan of lumbar spine reviewed by myself discussed with patient ) Radiology Impression Discussion of test interpretation with radiology: I have reviewed the radiologist's reading. Radiologist Impression: FINDINGS: No fracture or subluxation. Vertebral body height and alignment maintained. Disc space narrowing at L1-L2, L4-L5, and L5-S1 with vacuum disc phenomenon as well. Evaluation of the disc levels is limited on this CT . Small disc bulge at L1-L2 without spinal canal or neuroforaminal narrowing. Small bulge at L3-L4 without spinal canal or neuroforaminal narrowing. Small disc bulge at L4-L5 with mild narrowing of the spinal canal. No significant neuroforaminal narrowing. Mild facet arthropathy throughout. The sacroiliac joints are symmetric. The visualized sacrum is intact. Normal bowel gas pattern. Colonic diverticulosis noted. IVC filter. Scattered atherosclerotic calcifications.? CT/CT lumbar spine wo IV con IMPRESSION: No acute osseous abnormality. Mild degenerative changes throughout the lumbar spine. Mild spinal canal narrowing at L4-L5. No significant neuroforaminal narrowing. ? Independent Historian Clinical information obtained from an independent historian. History obtained from or confirmed by: Friend External Record Review External record reviewed: Inpatient record, Office record, Outpatient record, Prior outpatient labs, Prior outpatient radiology, Primary care record and Outside ED record All patient labs/imaging prior visits and notes that are accessible in our system reviewed by myself Prescription Management I considered prescription management with: Pain Medication (Patient will be discharged with oxycodone, prednisone and Flexeril) Chronic Conditions Patient?s care impacted by: Hypertension and Other (CKD, CHF) Discharge Plan Discharge Clinical Impression: Lumbar radiculopathy, Sciatica, Bulging lumbar disc, Degenerative joint disease (DJD) of lumbar spine Patient Disposition: Home, Self-Care Instructions: Lumbar Radiculopathy (ED), Degenerative Disc Disease (ED), Lower Back Exercises (ED) Prescriptions: New acetaminophen [Tylenol Extra Strength] 500 mg tablet 1,000 mg PO QID PRN (Reason: fever or pain) Qty: 14 0RF cyclobenzaprine 10 mg tablet 10 mg PO Q8H Qty: 14 0RF oxycodone 5 mg tablet 5 mg PO Q6H PRN (Reason: pain) Qty: 14 0RF Rx Instructions: Partial Fill upon patient request. prednisone 20 mg tablet 40 mg PO DAILY 5 Days Qty: 10 0RF No Action aspirin 81 mg tablet,delayed release (DR/EC) 81 mg PO DAILY Qty: 90 3RF carvedilol 12.5 mg tablet 12.5 mg PO BID 90 Days Qty: 180 2RF torsemide 20 mg tablet 40 mg PO BID 90 Days Qty: 360 1RF Entresto 24-26 mg tablet 1 tab PO BID Qty: 60 6RF amiodarone 200 mg tablet 200 mg PO DAILY Qty: 90 2RF oxycodone 5 mg tablet 5 mg PO Q6H PRN (Reason: pain) Qty: 14 0RF Rx Instructions: Partial Fill upon patient request. acetaminophen 500 mg capsule 1,000 mg PO TID PRN (Reason: pain) Qty: 30 0RF oxycodone 5 mg tablet 5 mg PO Q6H PRN (Reason: pain) Qty: 10 0RF Rx Instructions: Partial Fill upon patient request. acetaminophen 500 mg capsule 1,000 mg PO TID PRN (Reason: pain) Qty: 14 0RF ferrous sulfate 325 mg (65 mg iron) tablet 325 mg PO DAILY Referrals: Yoana Mckeon MD [Primary Care Provider] - 2 days
[2022-08-22] MEDS: methylPREDNISolone Sod Succ 125 MG/2 ML VIAL 60 MG IM (16:31)
[2022-08-22] MEDS: Ketorolac Tromethamine 30 MG/ML VIAL IM (16:31)
[2022-08-22] MEDS: oxyCODONE HCl Immed Release 5 MG TABLET PO (16:31)
[2022-08-22] MEDS: diazePAM 2 MG TABLET PO (16:32)
== END 2022-08-22 16:41 | disposition home or self-care (01) ==
PROVIDERS: Emergency Provider Emergency Medicine; PCP Internal Medicine
DX: M47.26 Other spondylosis with radiculopathy, lumbar region (principal); M54.41 Lumbago with sciatica, right side; I13.0 Hypertensive heart and chronic kidney disease with heart failure and stage 1 through stage 4 chronic kidney disease, or unspecified chronic kidney disease; N18.9 Chronic kidney disease, unspecified; I50.22 Chronic systolic (congestive) heart failure; I48.0 Paroxysmal atrial fibrillation; Z79.82 Long term (current) use of aspirin; Z79.899 Other long term (current) drug therapy
CPT/HCPCS: 72131; 96372; 99283; 99284; J1885; J2930

== ENCOUNTER 2022-10-03 10:36 | Outpatient (REF) | payer OTHER, SELFPAY ==
--- NOTE | ~2022-10-03 | XR_ITS ---
EXAMINATION: XR CHEST CLINICAL INFORMATION: I48.0 - Paroxysmal atrial fibrillation. On amiodarone therapy. COMPARISON: Chest radiographs 10/24/2021, 07/18/2021. TECHNIQUE: 2 views of the chest were obtained. FINDINGS: The cardiopericardial silhouette is borderline enlarged similar to prior exam. Vascularity normal. There is a defibrillator generator and lead overlying the chest similar to prior study. There are no interval fibrotic changes. No coarsening interstitial markings, airspace consolidation, groundglass opacity. The costophrenic sulci are clear. No effusion. The hilar and mediastinal contours and bony structures are similar to prior exam. XR/XR chest 2V IMPRESSION: No acute intrathoracic disease. No fibrotic changes, airspace opacity, or effusion.
== END 2022-10-03 10:37 | disposition home or self-care (01) ==
LOC: HO.XRAY 10:36
PROVIDERS: PCP Internal Medicine; Visit Provider Internal Medicine Cardiovascular Disease
DX: I48.0 Paroxysmal atrial fibrillation (principal)
CPT/HCPCS: 71046

== ENCOUNTER → 2023-01-17 07:46 | Outpatient (REF) | payer OTHER, SELFPAY ==
--- NOTE | 2023-01-17 07:50 | CA_ITS ---
Transthoracic Echocardiogram Patient (Last, First, Middle): Gale Oden, Gender: Female Date of : 1945 Age: 77 Procedure Date: 01/17/2023 Procedure Type: Transthoracic Echocardiogram Location: OP Height: 157.48 cm Weight: 86.18 kg BSA: 1.87 m2 Heart Rate: bpm BP: 130 / 80 mmHg Pulp And Paper Tester: TO Referring MD: Toño Noel MD Flatcar Whacker: Toño Noel MD Symptoms: I50.22 - Chronic systolic (congestive) heart failure Study Quality: Fair ECG Rhythm: Sinus Conclusions: - 1. Mildly dilated left ventricle with LVEF of 45-50% with through normal filling pattern 2. Moderate biatrial enlargement 3. Mild aortic regurgitation stenosis 4. Mild mitral regurgitation 5. Upper limits of normal RV systolic pressure 6. Mildly dilated ascending aorta 3.7 cm 7. No gross pericardial effusion Findings Left Ventricle Mildly increased left ventricular cavity size. There is normal left ventricular wall thickness. The left ventricular systolic function is mildly decreased. The visually estimated ejection fraction is between 45-50%. Spectral Doppler is indicative of a pseudonormal filling pattern. E/E prime ratio is between 8 and 15 consistent with indeterminate filling pressures. Peak GLS is -13.7%, which is moderately reduced. Right Ventricle Mildly increased right ventricular cavity size. There is normal right ventricular systolic function. Atria The left atrium is moderately dilated. Interatrial shunt cannot be excluded. The right atrium is moderately dilated. Aortic Valve The aortic valve was not well visualized. There is mild calcification of the aortic valve. There is mild aortic valve stenosis. There is mild aortic valve regurgitation. Mitral Valve There is mild anterior and posterior mitral leaflet thickening. There is mild mitral valve regurgitation. There is no mitral valve stenosis. Pulmonic Valve The pulmonic valve is likely normal. Tricuspid Valve Normal tricuspid valve structure. There is mild to moderate tricuspid valve regurgitation. The right ventricular systolic pressure is 37 mmHg. Normal right atrial pressure. There is no evidence of pulmonary hypertension. Great Vessels The pulmonary artery was not well visualized. There is mild dilatation of the ascending aorta measuring 3.70 cm. Venous The inferior vena cava is normal in size and collapses greater than 50% with inspiration. Pericardium/Pleural There is no evidence of pericardial effusion. Prior Study Comparison Changes noted compared to prior study dated: 01/12/2022. LV systolic function is marginally improved. RV systolic pressure have improved Measurements 2D Linear Measurements IVSd: 1.26 0.6-0.9/0.6-1.0 cm LVIDd: 6.28 3.9-5.3/4.2-5.9 cm LVIDd Index: 3.36 2.4-3.2/2.2-3.1 cm/m2 LVIDs: 4.97 2.0-3.6 cm LVPWd: 0.95 0.7-1.1 cm LA Diam: 4.20 2.7-3.8/3.0-4.0 cm LAIDs Index: 2.25 1.5-2.3 cm/m2 LV Mass: 377.73 67-162/88-224 g LV Mass Index: 202.00 43-95/49-115 g/m2 LVOT Diam: 2.00 3.0+(-)1.3 cm 2D Systolic Function EF 4C: 49.20 >55% EF 2C: 41.50 >55% EF BiP: 46.20 >55% Mitral Valve MV VTI: 0.35 MV Pk Khoa: 0.99 MV Mn Khoa: 0.57 MV Pk Grad: 4.00 MV Mn Grad: 1.00 MV Pk E: 0.73 MV PK A: 0.53 MV Decel Time: 332.00 E/A: 1.40 E'Lateral: 10.20 E'Medial: 4.24 E/E' Med: 17.20 E/E' Lat: 7.10 PHT: 97.00 MVA PHT: 2.27 MVA Continuity: 1.77 Decel Cottle: 2.20 Aortic Valve AoV Pk Khoa: 2.27 AoV Mn Khoa: 1.51 AoV VTI: 0.52 AoV Pk Grad: 21.00 Aov Mn Grad: 10.00 [place] Cont.VTI: 1.17 LVOT LVOT Pk Khoa: 0.80 LVOT Mn Khoa: 0.54 LVOT VTI: 0.20 LVOT Pk Grad: 3.00 LVOT Mn Grad: 1.00 LVOT Diam: 2.00 LVOT Area: 3.14 Diastolic Function MV Pk E: 0.73 MV Pk A: 0.53 E/A: 1.40 E'Medial: 4.24 E/E' Med: 17.20 E' Laterial: 10.20 E/E' Lat: 7.10 Right Ventricle TAPSE (mm): 23.90 TVS' Khoa: 7.45 Tricuspid Valve TR Pk Khoa: 2.92 TR Pk Grad: 34.00 RA Press: 3.00 RVSP: 37.00 Great Vessels Aorta Sinus of Valsalva: 3.09 2.0-3.[address] [place]: 2.15 1.7-3.4 cm Ao Asc: 3.70 2.1-3.4 cm Updated in Other Vendor System with Status of Final Toño Noel MD electronically signed on 01/17/2023 3:45:00 PM with status of Final
== END ==
LOC: HO.CARD 07:46
PROVIDERS: PCP Internal Medicine; Visit Provider Internal Medicine Cardiovascular Disease
DX: I50.22 Chronic systolic (congestive) heart failure (principal)
CPT/HCPCS: 93306; 93356

== ENCOUNTER → 2023-01-17 07:50 | Outpatient (BNV) | payer OTHER, SELFPAY | PROVIDERS: PCP Internal Medicine; Visit Provider Internal Medicine Cardiovascular Disease | DX: I35.2 Nonrheumatic aortic (valve) stenosis with insufficiency (principal) | CPT/HCPCS: 93306 ==

== ENCOUNTER 2023-01-29 12:11 | Outpatient (AMB) | payer OTHER, SELFPAY ==
[2023-01-29 13:03] VITALS: BP 114/70; PULSE 59; BMI 33.5
--- NOTE | 2023-01-29 13:03 | A.OFFVIS_ITS ---
Intake Vital Signs 01/29/23 13:03 Height 5 ft 2 in Weight 183 lb BMI 33.5 BP 114/70 Blood Pressure Location Lt brachial Position Sitting Pulse 59 Intake Visit Reasons: [facility] Intake Note: [facility] Claims Processor Required: No Allergies valacyclovir [VALACYCLOVIR] Allergy (Intermediate, Verified 01/29/23 13:05) AMS rivaroxaban [From Xarelto] Adverse Reaction (Severe, Verified 01/29/23 13:05) GI bleed PHENOTHYLINE Allergy (Unknown, Uncoded 07/18/21 08:27) BLISTERS Medication List - Last Reviewed 01/29/23 by Marlin Villarreal acetaminophen 1,000 mg (2 x 500 mg) PO TID PRN acetaminophen 1,000 mg (2 x 500 mg) PO TID PRN acetaminophen (Tylenol Extra Strength) 1,000 mg (2 x 500 mg) PO QID PRN amiodarone 200 mg PO DAILY aspirin 81 mg PO DAILY carvedilol 12.5 mg PO BID 90 days cyclobenzaprine 10 mg PO Q8H ferrous sulfate 325 mg PO DAILY oxycodone 5 mg PO Q6H PRN oxycodone 5 mg PO Q6H PRN oxycodone 5 mg PO Q6H PRN prednisone 40 mg (2 x 20 mg) PO DAILY 5 days sacubitril-valsartan 24-26 mg (Entresto) 1 tab PO BID torsemide 40 mg (2 x 20 mg) PO BID 90 days HPI HPI Comments History of Present Illness Details Gale comes for follow-up. She has been doing very well from cardiac perspective. She has not had worsening heart failure symptoms. She remains very active and denies any worsening shortness of breath. No orthopnea, PND, leg edema. Currently taking all her medications. No palpitations, lightheadedness, syncope, ICD discharge. No prolonged irregular heartbeat. No neurologic events. [facility] Medical History Chronic HFrEF (heart failure with reduced ejection fraction) CKD (chronic kidney disease) GI bleed HTN (hypertension) ICD (implantable cardioverter-defibrillator) in place Nonischemic cardiomyopathy Paroxysmal atrial fibrillation Presence of Watchman left atrial appendage closure device VF (ventricular fibrillation) Surgical History History of cardiac pacemaker (~2018) Family History Father No problems noted. Mother No problems noted. Social History Alcohol intake: never Patient Tobacco Use Status: Never used Tobacco Review of Systems ENT Reports dizziness Card Denies chest pain, Denies chest pain at rest, Denies chest pain with activity, Denies rapid heart rate, Denies pedal edema, Denies edema, Denies leg edema, Denies lightheadedness, Denies palpitations, Denies dyspnea, Denies dyspnea on exertion and Denies orthopnea Resp Denies cough, Denies dyspnea and Denies dyspnea on exertion GI Denies hematochezia and Denies change in stool character Musc Denies abnormal gait, Reports limited range of motion, Reports muscle cramps, Denies muscle weakness, Denies numbness, Denies radiating pain into limb, Denies stiffness and Denies tingling Neuro Denies abnormal gait, Reports dizziness, Denies numbness and Denies tingling Endo Denies palpitations Physical Exam Vital Signs: Last Vital Signs Pulse 59 01/29/23 13:03 BP 114/70 01/29/23 13:03 BMI result Body Mass Index 33.5 Const General: cooperative, comfortable, no acute distress, alert and awake Nutritional Appearance: obese Orientation/consciousness: patient oriented x3 Limitations: no limitations Neck Neck: Yes trachea midline, Yes supple and Yes no JVD Chest Chest palpation & inspection: other (Bilateral mastectomies) Resp Effort & Inspection: normal respiratory effort Auscultation: clear to auscultation bilaterally Cardio Jugular venous distension: no JVD Rate: regular rate Rhythm: regular rhythm Heart sounds: S1 normal heart sound present, S2 normal heart sound present, no click, no gallops, Murmur heart sound present systolic early, decrescendo and crescendo and no rubs GI Auscultation: normal bowel sounds Skin General skin exam: no rashes or lesions noted Neuro General: patient oriented x3 and no focal motor deficits Extrem General: Yes no clubbing, cyanosis or edema Office Procedures Cardiac Device Check Cardiac Device Check Details: [employer] subcutaneous ICD in place. Sensing impedances excellent. Softer was updated due to recent advisory. Battery life is at 37%. Two very brief episodes of atrial fibrillation noted. [id number] Device Interrogation, implantable defibrillator Procedure code (CPT) selection complete EKG Details: EKG shows sinus bradycardia first-degree AV block with left axis deviation [id number], Complete Assessment & Plan Assessment & Plan (1) Chronic HFrEF (heart failure with reduced ejection fraction): Code(s): I50.22 - Chronic systolic (congestive) heart failure Plan: Heart failure with reduced ejection fraction with much improved LV ejection fraction current neurohormonal modulation with maintenance of rhythm. She is doing very well from this perspective. Continue current neurohormonal modulation with carvedilol as well as Entresto therapy. Continue current diuretic dose but will reduce torsemide to total of 60 mg daily. Management of heart failure was discussed daily weight monitoring avoidance of salt loading was discussed. Advised to call me any worsening symptoms. Will check for blood work today. (2) Paroxysmal atrial fibrillation: Code(s): I48.0 - Paroxysmal atrial fibrillation Plan: Paroxysmal atrial fibrillation, remained suppressed. She is on amiodarone therapy for VF. She has done well with amiodarone therapy with maintenance rhythm. Continue the same. Annual check for amiodarone toxicity should be pursued. Status post Watchman device. Continue low-dose aspirin therapy. (3) ICD (implantable cardioverter-defibrillator) in place: Code(s): Z95.810 - Presence of automatic (implantable) cardiac defibrillator Plan: ICD in place initially placed for primary prevention, status post VF event and currently on amiodarone therapy. Currently being used for secondary prevention. Will check remotely for battery check. Follow up in the clinic in 1 year's time. (4) Aortic stenosis: Code(s): I35.0 - Nonrheumatic aortic (valve) stenosis Plan: Aortic stenosis mild. Continue monitor clinically. Follow-up echocardiogram in 1 year's time. Continue aggressive risk factor modification. Blood pressure is currently well optimized advised to monitor blood pressure at home maintain a log. Goal LDL less than 100 mg/dL. Will follow up in the clinic in 6 months time, sooner p.r.n.. Thank you for allowing me to partake in her care Orders: Orders Basic Metabolic Panel Today I50.22 - Chronic systolic (congestive) heart failure B Type Natriuretic Peptide Today I50.22 - Chronic systolic (congestive) heart failure Liver Panel Today I50.22 - Chronic systolic (congestive) heart failure Magnesium Today I50.22 - Chronic systolic (congestive) heart failure, I50.30 - Unspecified diastolic (congestive) heart failure TSH reflex Free T4 Today I50.22 - Chronic systolic (congestive) heart failure Complete Blood Count no Diff Today I50.22 - Chronic systolic (congestive) heart failure Coding Level of Care Code Est Pt Level 4 (19227) Diagnoses Chronic HFrEF (heart failure with reduced ejection fraction) I50.22 Paroxysmal atrial fibrillation I48.0 ICD (implantable cardioverter-defibrillator) in place Z95.810 Aortic stenosis I35.0 CPT Codes Cardiac Device Check - Cardiac Device 9: [id number] Device Interrogation, implantable defibrillator ([id number]) EKG - CPT: 23356-[id number], Complete ([id number])
== END 2023-01-29 13:18 | disposition home or self-care (01) ==
LOC: HO.HCS 12:12
PROVIDERS: PCP Internal Medicine; Referring Provider Internal Medicine; Visit Provider Internal Medicine Cardiovascular Disease
DX: I50.22 Chronic systolic (congestive) heart failure (principal); I48.0 Paroxysmal atrial fibrillation; Z95.810 Presence of automatic (implantable) cardiac defibrillator; I35.0 Nonrheumatic aortic (valve) stenosis; I44.0 Atrioventricular block, first degree
CPT/HCPCS: 93010; 93289; 99214

== ENCOUNTER → 2023-01-29 12:11 | Outpatient (BNVA) | payer OTHER, SELFPAY | PROVIDERS: PCP Internal Medicine; Referring Provider Internal Medicine; Visit Provider Internal Medicine Cardiovascular Disease | DX: I44.0 Atrioventricular block, first degree (principal); I48.0 Paroxysmal atrial fibrillation; I35.0 Nonrheumatic aortic (valve) stenosis; I13.0 Hypertensive heart and chronic kidney disease with heart failure and stage 1 through stage 4 chronic kidney disease, or unspecified chronic kidney disease; I50.22 Chronic systolic (congestive) heart failure; N18.9 Chronic kidney disease, unspecified; Z79.891 Long term (current) use of opiate analgesic; Z79.82 Long term (current) use of aspirin; Z79.52 Long term (current) use of systemic steroids; Z45.02 Encounter for adjustment and management of automatic implantable cardiac defibrillator | CPT/HCPCS: 93005; 99212 ==

== ENCOUNTER 2023-02-16 05:41 | Emergency (ER) | payer OTHER, SELFPAY ==
--- NOTE | ~2023-02-16 | XR_ITS ---
EXAMINATION: XR CHEST CLINICAL INFORMATION: Cough. COMPARISON: 10/03/2022 TECHNIQUE: 2 views of the chest were obtained. FINDINGS: The cardiac silhouette is enlarged but stable. There is no focal lung consolidation or pleural effusion. Left axillary surgical clips are noted. There is no acute osseous abnormality or soft tissue abnormality. Defibrillator generator overlies the left chest wall stable in position compared to previous. XR/XR chest 2V IMPRESSION: No active cardiopulmonary disease. No significant change compared to most recent exam.
[2023-02-16 05:55] VITALS: BP 107/53; PULSE 58; RESP 18; TEMP 36.4; O2SAT 98; BMI 33.5
[2023-02-16 06:08] VITALS: BP 125/65; PULSE 55; RESP 18; TEMP 37.2; O2SAT 95
--- NOTE | 2023-02-16 07:07 | ED.URI ---
HPI - URI/Sore Throat General Chief Complaint: Upper Respiratory Symptoms Stated Complaint: Coughing Time Seen by Provider: 02/16/23 07:02 Source: patient and old records reviewed Mode of arrival: ambulatory Limitations: no limitations History of Present Illness HPI Narrative: 77 yo female with PMH of nonischemic cardiomyopathy, aortic stenosis, PAF, ICD, HTN, CKD notes she went to a last week and on Sunday developed runny nose and a lot of snot she has no chest pain, fevers, n/v/d or difficulty breathing. She is vaccinated against COVID she did test positive for COVID but unsure of symptoms. She came in mostly due to nasal drainage and cough at night. She tried to call her doctor last weekend but no one called back to get paxlovid. Day 8 of symptoms. MD elicited complaint: cough and rhinorrhea Onset (ago): day(s) (8) Consistency: intermittent Severity: mild Description of mucous: clear and watery Able to tolerate fluids by mouth: Yes Exacerbating factors: nothing Relieving factors: nothing Context: sick contacts Associated symptoms: rhinorrhea and cough Treatments prior to arrival: none Related Data Home Medications Medication Instructions Recorded Confirmed ferrous sulfate 325 mg (65 mg 325 mg PO DAILY 07/27/20 01/29/23 iron) tablet Previous Rx's Medication Instructions Recorded carvedilol 12.5 mg tablet 12.5 mg PO BID 90 days #180 tabs 12/27/21 sacubitril 24 mg-valsartan 26 mg 1 tab PO BID #60 tabs 05/22/22 tablet (Entresto) amiodarone 200 mg tablet 200 mg PO DAILY #90 tabs 05/29/22 acetaminophen 500 mg capsule 1,000 mg (2 x 500 mg) PO TID PRN 08/12/22 pain #14 caps acetaminophen 500 mg capsule 1,000 mg (2 x 500 mg) PO TID PRN 08/12/22 pain #30 caps oxycodone 5 mg tablet 5 mg PO Q6H PRN pain #10 tabs 08/12/22 oxycodone 5 mg tablet 5 mg PO Q6H PRN pain #14 tabs 08/12/22 acetaminophen 500 mg tablet 1,000 mg (2 x 500 mg) PO QID PRN 08/22/22 (Tylenol Extra Strength) fever or pain #14 tabs cyclobenzaprine 10 mg tablet 10 mg PO Q8H #14 tabs 08/22/22 oxycodone 5 mg tablet 5 mg PO Q6H PRN pain #14 tabs 08/22/22 prednisone 20 mg tablet 40 mg (2 x 20 mg) PO DAILY 08/22/22 inflammation 5 days #10 tabs aspirin 81 mg tablet,delayed 81 mg PO DAILY #90 tabs 01/19/23 release torsemide 20 mg tablet 40 mg (2 x 20 mg) PO .COMPLEX 90 01/29/23 days #360 tabs benzonatate 100 mg capsule 100 mg PO TID PRN cough #20 caps 02/16/23 Allergies Allergy/AdvReac Type Severity Reaction Status Date / Time valacyclovir [VALACYCLOVIR] Allergy Intermediate AMS Verified 01/29/23 13:05 rivaroxaban [From Xarelto] AdvReac Severe GI bleed Verified 01/29/23 13:05 PHENOTHYLINE Allergy Unknown BLISTERS Uncoded 07/18/21 08:27 Review of Systems Review of Systems: Constitutional : No Fever, No Chills, No Fatigue ENT/Mouth : No sore throat, pos Rhinorrhea Eyes: No Eye Pain, No Swelling, No Redness Cardiovascular : No Chest Pain, No SOB, No Dyspnea on Exertion Respiratory :pos Cough, No Sputum Gastrointestinal : No Nausea, No Vomiting, No Diarrhea, No abdominal Pain Genitourinary : No Dysuria, No Urinary Frequency, No Hematuria, Musculoskeletal : No joint pain, No Myalgias, No Joint Swelling Skin : No Skin Lesions, No rash Neuro : No Weakness, No Numbness, No Dizziness, no Headache All other systems reviewed and are negative [facility] Past Medical History Attestation statement: The following information was validated with the patient. Source: old records reviewed Medical History GI bleed HTN (hypertension) CKD (chronic kidney disease) VF (ventricular fibrillation) ICD (implantable cardioverter-defibrillator) in place Paroxysmal atrial fibrillation Nonischemic cardiomyopathy Chronic HFrEF (heart failure with reduced ejection fraction) Presence of Watchman left atrial appendage closure device Surgical History History of cardiac pacemaker (~2017) Family History Family History Father No problems noted. Mother No problems noted. Social History Social History Alcohol intake: never Patient Tobacco Use Status: Never used Tobacco Advance Directives: No Advance Directives Information Provided: No Physical Exam Vital Signs: Vital Signs: Last Vital Signs Temp 98.9 F 02/16/23 06:08 Pulse 55 02/16/23 06:08 Resp 18 02/16/23 06:08 BP 125/65 02/16/23 06:08 Pulse Ox 95 02/16/23 06:08 O2 Del Method Room Air 02/16/23 06:08 BMI result Body Mass Index 33.5 Appearance: Alert. Oriented X3. No acute distress. Eyes: Pupils equal, round and reactive to light. ENT: Pharynx normal. TMs normal bilaterally - clear nasal drainage Neck: Normal inspection. Neck supple. CVS: Normal heart rate and rhythm. Pulses normal. Respiratory: No respiratory distress. Breath sounds normal. Abdomen: Soft and nontender. Skin: Skin warm and dry. Normal skin color. Normal skin turgor. Extremities: No lower extremity edema. No calf ttp Neuro: Oriented X 3. No motor deficit. No sensory deficit. Medical Decision Making Medical Decision Making [facility] Narrative: 77 yo female with PMH of nonischemic cardiomyopathy, aortic stenosis, PAF, ICD, HTN, CKD here with c/o URI symptoms but no CP/SOB and COVID test at home she is vaccinated. She is on day 8 of symptoms not a candidate for Paxlovid. At this time will confirm COVID test. She looks not toxic and is not hypoxic. She can be managed at home symptomatically. Differential Diagnosis Differential Diagnoses: The differential diagnosis associated with the presentation includes sinusitis, viral syndrome, pneumonia, COVID Admission/Observation Consideration of admission/observation: Escalation of care including admission/observation considered no hypoxia clear lungs can be managed as outpatient Lab Data [facility] Lab Attestation statement: I reviewed the patient's lab results. Labs: Lab Results 02/16/23 Range/Units 07:22 COVID-19 (AHMET) Positive A (Negative) COVID-19 Clin Com See Note Independent Interpretation I performed an independent interpretation of an: Plain X-Ray (no pneumonia) Radiology Impression Discussion of test interpretation with radiology: I have reviewed the radiologist's reading. External Record Review External record reviewed: Inpatient record Prescription Management I considered prescription management with: Antiviral (day 8 of symptoms) Discharge Plan Discharge Clinical Impression: COVID-19 Patient Disposition: Home, Self-Care Instructions: COVID-19 (Coronavirus Disease 2019) (ED) Additional Instructions: the next two days are important - please monitor your breathing. if you feel so short of breath and cannot walk to your own bathroom seek medical care. your COVID test is positive. If you have chest pain, confusion, vomiting and cannot eat or drink seek medical care. you are unfortunately out of the window for paxlovid as you are on day 8 of symptoms. fortunately your chest xray is negative. you can use honey hot water and lemon for your cough or try the medication we gave your. there is not treatment for this other than time. Prescriptions: New benzonatate 100 mg capsule 100 mg PO TID PRN (Reason: cough) Qty: 20 0RF No Action carvedilol 12.5 mg tablet 12.5 mg PO BID 90 Days Qty: 180 2RF Entresto 24-26 mg tablet 1 tab PO BID Qty: 60 6RF amiodarone 200 mg tablet 200 mg PO DAILY Qty: 90 2RF aspirin 81 mg tablet,delayed release (DR/EC) 81 mg PO DAILY Qty: 90 3RF oxycodone 5 mg tablet 5 mg PO Q6H PRN (Reason: pain) Qty: 14 0RF Rx Instructions: Partial Fill upon patient request. acetaminophen 500 mg capsule 1,000 mg PO TID PRN (Reason: pain) Qty: 30 0RF oxycodone 5 mg tablet 5 mg PO Q6H PRN (Reason: pain) Qty: 10 0RF Rx Instructions: Partial Fill upon patient request. acetaminophen 500 mg capsule 1,000 mg PO TID PRN (Reason: pain) Qty: 14 0RF acetaminophen [Tylenol Extra Strength] 500 mg tablet 1,000 mg PO QID PRN (Reason: fever or pain) Qty: 14 0RF cyclobenzaprine 10 mg tablet 10 mg PO Q8H Qty: 14 0RF oxycodone 5 mg tablet 5 mg PO Q6H PRN (Reason: pain) Qty: 14 0RF Rx Instructions: Partial Fill upon patient request. prednisone 20 mg tablet 40 mg PO DAILY 5 Days Qty: 10 0RF ferrous sulfate 325 mg (65 mg iron) tablet 325 mg PO DAILY torsemide 20 mg tablet 40 mg PO .COMPLEX 90 Days Qty: 360 1RF Rx Instructions: 40 mg orally Two tabs in the morning and 1 tab at noon time;
[2023-02-16 07:36] LABS: COVID-19 Test Positive (Negative); IDNOW Serial# 6674DD1D
== END 2023-02-16 08:13 | disposition home or self-care (01) ==
PROVIDERS: Emergency Provider Emergency Medicine; PCP Internal Medicine
DX: U07.1 COVID-19 (principal); I13.0 Hypertensive heart and chronic kidney disease with heart failure and stage 1 through stage 4 chronic kidney disease, or unspecified chronic kidney disease; N18.9 Chronic kidney disease, unspecified; I50.9 Heart failure, unspecified
CPT/HCPCS: 71046; 87635; 99283

== ENCOUNTER → 2023-04-01 23:59 | Outpatient (BNV) | payer OTHER, SELFPAY ==
--- NOTE | 2023-04-03 15:18 | A.OFFVIS_ITS ---
Intake Intake Visit Reasons: Remote ICD Check- [facility] Allergies valacyclovir [VALACYCLOVIR] Allergy (Intermediate, Verified 04/03/23 13:15) AMS rivaroxaban [From Xarelto] Adverse Reaction (Severe, Verified 04/03/23 13:15) GI bleed PHENOTHYLINE Allergy (Unknown, Uncoded 04/03/23 13:15) BLISTERS PFSH Medical History GI bleed HTN (hypertension) CKD (chronic kidney disease) VF (ventricular fibrillation) ICD (implantable cardioverter-defibrillator) in place Paroxysmal atrial fibrillation Nonischemic cardiomyopathy Chronic HFrEF (heart failure with reduced ejection fraction) Presence of Watchman left atrial appendage closure device Surgical History History of cardiac pacemaker (~2018) Family History Father No problems noted. Mother No problems noted. Social History (System 04/03/23 @ 13:15 by Selina Walker) Alcohol intake: never Patient Tobacco Use Status: Never used Tobacco Office Procedures Cardiac Device Check Cardiac Device Check Details: Remote subcutaneous ICD report generated 04/01/2023. Battery life is at 35%. Impedance is within acceptable limits. No arrhythmias noted [id number] Cardiac Interrogation, implant defibrillator w/interim Procedure code (CPT) selection complete Coding Level of Care Code Procedure Only CPT Codes Cardiac Device Check - Cardiac Device 13: [id number] Cardiac Interrogation, implant defibrillator w/interim ([id number])
== END ==
PROVIDERS: PCP Internal Medicine; Visit Provider Internal Medicine Cardiovascular Disease
DX: I25.5 Ischemic cardiomyopathy (principal); Z95.810 Presence of automatic (implantable) cardiac defibrillator
CPT/HCPCS: 93295

== ENCOUNTER 2023-04-02 06:59 | Outpatient (REF) | payer OTHER, SELFPAY ==
[2023-04-02 07:48] LABS: Hematocrit 36.9 % (37.0-47.0); Hemoglobin 11.4 g/dl (12.0-16.0); Mean Corpuscular HGB Conc 30.9 g/dl (31.0-35.0); Mean Corpuscular Hemoglobin 27.1 pg (27.0-33.0); Mean Corpuscular Volume 87.9 fL (80.0-98.0); Mean Platelet Volume 11.2 fL (9.4-12.3); Platelet Count 207 X10*3/uL (160-400); Red Cell Distribution Width 14.7 % (11.0-16.0); White Blood Count 4.4 X10*3/uL (4.8-10.8)
[2023-04-02 08:32] LABS: B Type Natriuretic Peptide 144 pg/mL (<100)
[2023-04-02 08:36] LABS: Alanine Aminotransferase 13 U/L (0-31); Albumin Level 4.3 g/dL (3.5-5.0); Alkaline Phosphatase 67 U/L (39-117); Anion Gap 13 (12-20); Aspartate Amino Transferase 17 U/L (5-31); Bilirubin Direct 0.2 mg/dL (0.0-0.5); Bilirubin Total 0.5 mg/dL (0.0-1.0); Blood Urea Nitrogen 21 mg/dL (9-16); Calcium 10.1 mg/dL (8.4-10.2); Carbon Dioxide 30 mmol/L (22-29); Chloride 104 mmol/L (96-108); Estimated Glomerular Filt Rate 41; Glucose Random 89 mg/dL (60-115); Magnesium 1.9 mg/dL (1.6-2.6); Potassium 3.9 mmol/L (3.3-5.1); Sodium 143 mmol/L (135-145); Total Protein 7.8 g/dL (6.5-8.0)
[2023-04-02 08:52] LABS: TSH reflex Free T4 4.43 uIU/mL (0.32-4.0)
[2023-04-02 09:33] LABS: Free T4 (Free Thyroxine) 1.04 ng/dL (0.71-1.85)
== END 2023-04-02 07:00 | disposition home or self-care (01) ==
LOC: HO.LAB 06:59
PROVIDERS: PCP Internal Medicine; Visit Provider Internal Medicine Cardiovascular Disease
DX: I50.22 Chronic systolic (congestive) heart failure (principal); I50.30 Unspecified diastolic (congestive) heart failure
CPT/HCPCS: 36415; 80048; 80076; 83735; 83880; 84439; 84443; 85027

== ENCOUNTER → 2023-07-02 23:59 | Outpatient (BNV) | payer OTHER, SELFPAY ==
--- NOTE | 2023-07-03 12:29 | MHC.OFFVIS ---
Intake Intake Visit Reasons: Remote ICD Check- [employer] Allergies valacyclovir [VALACYCLOVIR] Allergy (Intermediate, Verified 04/03/23 13:15) AMS rivaroxaban [From Xarelto] Adverse Reaction (Severe, Verified 04/03/23 13:15) GI bleed PHENOTHYLINE Allergy (Unknown, Uncoded 04/03/23 13:15) BLISTERS PFSH Medical History GI bleed HTN (hypertension) CKD (chronic kidney disease) VF (ventricular fibrillation) ICD (implantable cardioverter-defibrillator) in place Paroxysmal atrial fibrillation Nonischemic cardiomyopathy Chronic HFrEF (heart failure with reduced ejection fraction) Presence of Watchman left atrial appendage closure device Surgical History History of cardiac pacemaker (~2018) Family History Father No problems noted. Mother No problems noted. Social History (System 04/03/23 @ 13:15 by Selina Walker) Alcohol intake: never Patient Tobacco Use Status: Never used Tobacco Office Procedures Cardiac Device Check Cardiac Device Check Details: Remote ICD report generated 07/03/2023. Battery life is at 13%. Schedule for pulse generator change on 07/04/2023. No significant episodes of atrial fibrillation noted. Sensing configuration is stable [id number] Cardiac Interrogation, implant defibrillator w/interim Procedure code (CPT) selection complete Assessment & Plan Assessment & Plan (1) ICD (implantable cardioverter-defibrillator) battery depletion: Code(s): Z45.02 - Encounter for adjustment and management of automatic implantable cardiac defibrillator Plan: See above Coding Level of Care Code Procedure Only Diagnoses ICD (implantable cardioverter-defibrillator) battery depletion Z45.02 CPT Codes Cardiac Device Check - Cardiac Device 13: [id number] Cardiac Interrogation, implant defibrillator w/interim ([id number])
== END ==
PROVIDERS: PCP Internal Medicine; Visit Provider Internal Medicine Cardiovascular Disease
DX: I42.8 Other cardiomyopathies (principal); Z95.810 Presence of automatic (implantable) cardiac defibrillator
CPT/HCPCS: 93295

== ENCOUNTER 2023-07-14 07:50 | Outpatient (REF) | payer OTHER, SELFPAY ==
[2023-07-14 08:25] LABS: MANUAL DIFF FLAG NO
[2023-07-14 09:15] LABS: Basophils Percent Auto 0.7 % (0-2); Eosinophils Absolute Auto 0.1 X10*3/uL (0.0-0.4); Eosinophils Percent Auto 1.4 % (0-4); Hematocrit 37.8 % (37.0-47.0); Hemoglobin 11.8 g/dl (12.0-16.0); Imm Gran Abs Auto 0.01 X10*3/uL (0.00-0.03); Imm Gran Pct Auto 0.2 % (0.0-0.4); Lymphocytes Absolute Auto 1.5 X10*3/uL (1.2-4.9); Lymphocytes Percent Auto 35.9 % (20-40); Mean Corpuscular HGB Conc 31.2 g/dl (31.0-35.0); Mean Corpuscular Hemoglobin 27.6 pg (27.0-33.0); Mean Corpuscular Volume 88.3 fL (80.0-98.0); Mean Platelet Volume 11.9 fL (9.4-12.3); Monocytes Absolute Auto 0.3 X10*3/uL (0.1-1.2); Monocytes Percent Auto 8.1 % (2-11); Neutrophils Absolute Auto 2.2 x10*3/uL (2.0-8.3); Neutrophils Percent Auto 53.7 % (45-73); Platelet Count 187 X10*3/uL (160-400); Red Blood Count 4.28 X10*6/uL (4.20-5.50); Red Cell Distribution Width 14.5 % (11.0-16.0); White Blood Count 4.2 X10*3/uL (4.8-10.8)
[2023-07-14 09:17] LABS: Prothrombin Time 11.7 SEC (11.1-13.3)
[2023-07-14 10:09] LABS: Anion Gap 14 (12-20); Blood Urea Nitrogen 28 mg/dL (9-16); Calcium 9.9 mg/dL (8.4-10.2); Carbon Dioxide 30 mmol/L (22-29); Chloride 103 mmol/L (96-108); Estimated Glomerular Filt Rate 38; Glucose Random 91 mg/dL (60-115); Potassium 4.2 mmol/L (3.3-5.1); Sodium 143 mmol/L (135-145)
== END 2023-07-14 07:51 | disposition home or self-care (01) ==
LOC: HO.LAB 07:50
PROVIDERS: Visit Provider Internal Medicine Cardiovascular Disease
DX: Z45.02 Encounter for adjustment and management of automatic implantable cardiac defibrillator (principal)
CPT/HCPCS: 36415; 80048; 85025; 85610

== ENCOUNTER 2023-07-18 10:15 | Day surgery (SDC) | payer OTHER, SELFPAY ==
--- NOTE | 2023-07-17 08:57 | HO.ANESPROP2 ---
HPI - Anesthesia Eval Consult details Narrative: 78yo for ICD Generator Change ICD in situ for post-VF event, Nonischemic CMP Afib s/p watchman PMFSH Active Problems Active Problems: All Active Problems (Updated 05/15/23 @ 17:59 by Yolie Neil, CLOTH CHECKER-C) ICD (implantable cardioverter-defibrillator) battery depletion (Acute) COVID-19 (Acute) Aortic stenosis (Acute) Chronic HFrEF (heart failure with reduced ejection fraction) (Acute) Nonischemic cardiomyopathy (Acute) Paroxysmal atrial fibrillation (Acute) ICD (implantable cardioverter-defibrillator) in place (Acute) Presence of Watchman left atrial appendage closure device (Acute) HTN (hypertension) (Acute) CKD (chronic kidney disease) (Acute) Past Medical History Medical History GI bleed HTN (hypertension) CKD (chronic kidney disease) VF (ventricular fibrillation) ICD (implantable cardioverter-defibrillator) in place Paroxysmal atrial fibrillation Nonischemic cardiomyopathy Chronic HFrEF (heart failure with reduced ejection fraction) Presence of Watchman left atrial appendage closure device Family History Family History Father No problems noted. Mother No problems noted. Surgical History Surgical History (Updated 07/18/23 @ 10:40 by Mai Lucero RN) H/O mastectomy History of cardiac pacemaker (~2018) Social History Social History (System 04/03/23 @ 13:15 by Selina Walker) Alcohol intake: never Patient Tobacco Use Status: Never used Tobacco Use of substances other than those prescribed or required for medical reasons: No Are you DNR?: No Advance Directives: No Advance Directives Information Provided: Yes Patient : No Meds Allergies Allergy/AdvReac Type Severity Reaction Status Date / Time valacyclovir [VALACYCLOVIR] Allergy Intermediate AMS Verified 07/18/23 10:32 rivaroxaban [From Xarelto] AdvReac Severe GI bleed Verified 07/18/23 10:32 PHENOTHYLINE Allergy Unknown BLISTERS Uncoded 07/18/23 10:32 Home Medications Medication Instructions Recorded Confirmed Last Taken Type ferrous sulfate 325 mg (65 mg 325 mg PO DAILY 07/27/20 07/18/23 07/18/23 History iron) tablet Exam Pertinent Lab Results Pertinent Lab Results: Laboratory Tests 07/14/23 08:23 WBC 4.2 L Hgb 11.8 L Hct 37.8 Plt Count 187 Sodium 143 Potassium 4.2 Chloride 103 Carbon Dioxide 30 H BUN 28 H Creatinine 1.35 Narrative Narrative: Cardiac Device Check 02/2023 Details: [employer] subcutaneous ICD in place. Sensing impedances excellent. Softer was updated due to recent advisory. Battery life is at 37%. Two very brief episodes of atrial fibrillation noted. [id number] Device Interrogation, implantable defibrillator Procedure code (CPT) selection complete EKG 02/2023 Details: EKG shows sinus bradycardia first-degree AV block with left axis deviation ECHO 01/2023 Conclusions: - 1. Mildly dilated left ventricle with LVEF of 45-50% with through normal filling pattern 2. Moderate biatrial enlargement 3. Mild aortic regurgitation stenosis 4. Mild mitral regurgitation 5. Upper limits of normal RV systolic pressure 6. Mildly dilated ascending aorta 3.7 cm 7. No gross pericardial effusion Assessment and Plan Assessment Anesthesia Assessment: Chart Reviewed
[2023-07-18 10:27] VITALS: BMI 32.2
[2023-07-18 10:41] VITALS: BP 139/82; PULSE 62; RESP 16; TEMP 36.4; O2SAT 98
[2023-07-18] MEDS: Lactated Ringers 1,000 ML 50 ML IVCONT (10:43)
--- NOTE | 2023-07-18 11:19 | P.CONAN_ITS ---
[facility] Active Problems Active Problems: All Active Problems (Updated 05/15/23 @ 17:59 by Yolie Neil NP-C) ICD (implantable cardioverter-defibrillator) battery depletion (Acute) COVID-19 (Acute) Aortic stenosis (Acute) Chronic HFrEF (heart failure with reduced ejection fraction) (Acute) Nonischemic cardiomyopathy (Acute) Paroxysmal atrial fibrillation (Acute) ICD (implantable cardioverter-defibrillator) in place (Acute) Presence of Watchman left atrial appendage closure device (Acute) HTN (hypertension) (Acute) CKD (chronic kidney disease) (Acute) Past Medical History Medical History GI bleed HTN (hypertension) CKD (chronic kidney disease) VF (ventricular fibrillation) ICD (implantable cardioverter-defibrillator) in place Paroxysmal atrial fibrillation Nonischemic cardiomyopathy Chronic HFrEF (heart failure with reduced ejection fraction) Presence of Watchman left atrial appendage closure device Functional capacity: independent ambulation Patient : No Family History Family History Father No problems noted. Mother No problems noted. Family history of problems with anesthesia: No Surgical History Surgical History (Updated 07/18/23 @ 10:40 by Mai Lucero, RN) H/O mastectomy History of cardiac pacemaker (~2017) History of Problems with Anesthesia: No Social History Social History (System 04/03/23 @ 13:15 by Selina Walker) Alcohol intake: never Patient Tobacco Use Status: Never used Tobacco Meds Allergies Allergy/AdvReac Type Severity Reaction Status Date / Time valacyclovir [VALACYCLOVIR] Allergy Intermediate AMS Verified 07/18/23 10:32 rivaroxaban [From Xarelto] AdvReac Severe GI bleed Verified 07/18/23 10:32 PHENOTHYLINE Allergy Unknown BLISTERS Uncoded 07/18/23 10:32 Active Medications: Current Medications Lactated Ringer's (Lr) 1,000 mls @ 50 mls/hr IVCONT .Q20H DURAN Last Admin: 07/18/23 10:43 Dose: 50 mls/hr Home Medications Medication Instructions Recorded Confirmed Last Taken Type ferrous sulfate 325 mg (65 mg 325 mg PO DAILY 07/27/20 07/18/23 07/18/23 History iron) tablet Exam Height,Weight and Vital Signs: Height 5 ft 2.5 in Weight 81.193 kg Last Vital Signs Temp 97.6 F 07/18/23 10:41 Pulse 62 07/18/23 10:41 Resp 16 07/18/23 10:41 BP 139/82 07/18/23 10:41 Pulse Ox 98 07/18/23 10:41 O2 Del Method Room Air 07/18/23 10:41 Airway Mallampati Class: II TM Dist: >3cm Neck ROM: Full Denture: Upper Heart: RRR Lungs: CTA Assessment and Plan Assessment Anesthesia Assessment: Anesthesia Plan Discussed Final Anesthetic Review Family History of Problems with Anesthesia: No History of Problems with Anesthesia: No NPO: Yes ASA Class: III Final Preanesthetic Review: Meds/Allgs Chart Reviewed, Consent Obtained/Reviewed and Anes Risks/Benef Reviewed Patient Risk: Intermediate Procedure Risk: Low Anesthetic Plan Anesthetic Plan: MAC: Disposition: Standard PACU
--- NOTE | 2023-07-18 12:29 | P.OP_ITS ---
Operative Note Operative Note Date of Service: 07/18/23 Narrative: NAME OF PROCEDURE: ? Subcutaneous ICD Generator Changeout INDICATION FOR PROCEDURE:??Device at [facility] ? SEDATION:??Monitored Anaesthesia Control Description of Procedure:??Patient was identified brought to the electrophysiology laboratory in a postabsorptive state.??The left sided chest region extending laterally to the left posterior axillary line and through the left axilla. was prepped and draped in usual sterile fashion,?The initial incision was made lateral to the left of the pectoralis major muscle in a diagonal approach and was carried to the level of the pectoralis fascia in a diagonal approach and was carried to the level of the muscle.? Dissection was then carried down posteriorly along the thoracic cage deep to the latissimus omayra si muscle, where hemostasis was assured inside the pocket to accommodate the ICD pulse generator. The patient received IV Antibiotics prior to the case for surgical prophylaxis. Hemostasis was obtained with electrocautery. With further careful dissection the leads were freed from adhesions in the pocket. The old pulse generator was extracted. The new ICD pulse generator was programmed and was attached to the lead, with the lead being appropriately and fully inserted into the header of the device and the set screw was tightened using the torque wrench.? The ICD was then placed into the ICD pocket with the lead posterior to the pulse generator.? The head of the ICD was secured to the latissimus dorsi fascia using Ethibond suture.?Patient was adequately sedated and DFT was done which was successful The pockets were then closed with 3 layers of absorbable sutures.?? Patient tolerated the procedure well.??There were no complications. ? IMPLANTED HARDWARE:?? Pulse generator:??[employer] [place] Narrative , model name is [email or web address] MRI S- ICD, EXPLANTED HARDWARE: Pulse generator:??[employer] [place] Narrative , model name is [email or web address] MRI S-ICD, ? IMPRESSION: ? Subcutaneous ICD Generator Changeout? Successful DFT testing PLAN: ? 1.?Routine postprocedure monitoring. 2.?Likely Discharge today
[2023-07-18 13:49] VITALS: BP 99/51; PULSE 59; RESP 16; TEMP 36.1; O2SAT 98
[2023-07-18 14:04] VITALS: BP 114/60; PULSE 50; RESP 16; O2SAT 100
[2023-07-18 14:17] VITALS: BP 113/56; PULSE 50; RESP 16; TEMP 36.2; O2SAT 99
== END 2023-07-18 15:32 | disposition home or self-care (01) ==
PROVIDERS: PCP Internal Medicine; Visit Provider Internal Medicine Cardiovascular Disease
PROC: 0JPT0PZ Removal of Cardiac Rhythm Related Device from Trunk Subcutaneous Tissue and Fascia, Open Approach (ICD-10-PCS; principal; 2023-07-18 12:00)
DX: Z45.02 Encounter for adjustment and management of automatic implantable cardiac defibrillator (principal); I13.0 Hypertensive heart and chronic kidney disease with heart failure and stage 1 through stage 4 chronic kidney disease, or unspecified chronic kidney disease; I50.22 Chronic systolic (congestive) heart failure; N18.9 Chronic kidney disease, unspecified; I48.0 Paroxysmal atrial fibrillation; I49.01 Ventricular fibrillation; I42.8 Other cardiomyopathies; Z95.818 Presence of other cardiac implants and grafts; Z88.8 Allergy status to other drugs, medicaments and biological substances
CPT/HCPCS: 33262; C1722; J0665; J0690; J2250; J2371; J2704; J3010; J3370

== ENCOUNTER 2023-07-31 12:33 | Outpatient (AMB) | payer OTHER, SELFPAY ==
--- NOTE | 2023-07-31 12:48 | MHC.OFFVIS ---
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: No Allergies valacyclovir [VALACYCLOVIR] Allergy (Intermediate, Verified 07/18/23 10:32) AMS rivaroxaban [From Xarelto] Adverse Reaction (Severe, Verified 07/18/23 10:32) GI bleed PHENOTHYLINE Allergy (Unknown, Uncoded 07/18/23 10:32) BLISTERS Medication List - Last Reconciled 07/31/23 by Toño Noel MD amiodarone 200 mg PO DAILY aspirin 81 mg PO DAILY atorvastatin 40 mg PO DAILY carvedilol 12.5 mg PO BID ferrous sulfate 325 mg PO DAILY sacubitril-valsartan 24-26 mg (Entresto) 1 tab PO BID 90 days torsemide 40 mg orally Two tabs in the morning and 1 tab at noon time; 90 days HPI HPI Comments History of Present Illness Details Gale comes for follow-up. She has been doing very well from cardiac perspective. Last echocardiogram 6 months ago showed mildly reduced LV ejection fraction of 45-50%. She is doing well. No heart failure symptoms. No palpitations, lightheadedness, syncope. ICD battery change, batteries working well. She denies any bleeding issues or neurologic events. No orthopnea, PND, leg edema. Not exercising regularly. [facility] Medical History (Updated 07/31/23 @ 13:28 by Toño Noel MD) ICD (implantable cardioverter-defibrillator) battery depletion GI bleed HTN (hypertension) CKD (chronic kidney disease) VF (ventricular fibrillation) ICD (implantable cardioverter-defibrillator) in place Paroxysmal atrial fibrillation Nonischemic cardiomyopathy Chronic HFrEF (heart failure with reduced ejection fraction) Presence of Watchman left atrial appendage closure device Surgical History H/O mastectomy History of cardiac pacemaker (~2018) Family History Father No problems noted. Mother No problems noted. Social History Alcohol intake: never Patient Tobacco Use Status: Never used Tobacco Review of Systems Const Denies chills, Denies fatigue, Denies fever(s), Denies frequent falls, Denies weakness, Denies weight gain and Denies weight loss ENT Denies dizziness Card Denies chest pain, Denies leg edema, Denies lightheadedness, Denies palpitations, Denies dyspnea, Denies dyspnea on exertion, Denies orthopnea and Denies other (loss of consciousness) Resp Denies cough, Denies dyspnea and Denies dyspnea on exertion GI Denies hematochezia and Denies change in stool character Musc Denies abnormal gait, Denies muscle weakness, Denies numbness, Denies radiating pain into limb and Denies tingling Neuro Denies abnormal gait, Denies dizziness, Denies frequent falls, Denies numbness, Denies tingling and Denies weakness Endo Denies fatigue and Denies palpitations Physical Exam Vital Signs: Last Vital Signs Pulse 56 07/31/23 12:49 BP 120/70 07/31/23 12:49 BMI result Body Mass Index 32.5 Const General: cooperative, comfortable, no acute distress, alert and awake Nutritional Appearance: obese Orientation/consciousness: patient oriented x3 Limitations: no limitations Neck Neck: Yes trachea midline, Yes supple and Yes no JVD Chest Chest palpation & inspection: other (Bilateral mastectomies) Resp Effort & Inspection: normal respiratory effort Auscultation: clear to auscultation bilaterally Cardio Jugular venous distension: no JVD Rate: regular rate Rhythm: regular rhythm Heart sounds: S1 normal heart sound present, S2 normal heart sound present, no click, no gallops, Murmur heart sound present systolic early, decrescendo and crescendo and no rubs GI Auscultation: normal bowel sounds Skin General skin exam: no rashes or lesions noted Neuro General: patient oriented x3 and no focal motor deficits Extrem General: Yes no clubbing, cyanosis or edema Office Procedures Cardiac Device Check Cardiac Device Check Details: Subcutaneous [employer] ICD in place. System impedance is within normal limits battery life is 100%. No arrhythmias noted. [id number] Device Interrogation, implantable defibrillator Procedure code (CPT) selection complete EKG Details: EKG shows normal sinus rhythm first-degree AV block with incomplete left bundle-branch block with left axis deviation with ST T wave changes suggestive of repolarization abnormality 60824-[id number], Complete Assessment & Plan Assessment & Plan (1) Chronic HFrEF (heart failure with reduced ejection fraction): Code(s): I50.22 - Chronic systolic (congestive) heart failure Plan: Heart failure with reduced ejection fraction, clinically euvolemic and well compensated with NYHA class 1 symptoms. LV ejection fraction is improved with neurohormonal modulation. Continue current Entresto as well as carvedilol therapy. Continue current diuretic regimen. Daily weight monitoring avoidance of salt loading was discussed. Importance of regular physical activity was discussed. Additional diuretics as need be. Advised to call me with any worsening symptoms. Follow-up echocardiogram in 6 months time. (2) Paroxysmal atrial fibrillation: Code(s): I48.0 - Paroxysmal atrial fibrillation Plan: Paroxysmal atrial fibrillation status post cardioversion currently on amiodarone therapy with maintenance rhythm. Has done well with rhythm control approach will continue pursue rhythm control approach. Status post Watchman device. Currently on aspirin therapy. Annual check for toxicity. (3) ICD (implantable cardioverter-defibrillator) in place: Code(s): Z95.810 - Presence of automatic (implantable) cardiac defibrillator Plan: ICD in place working well with new battery. Battery life is excellent. On amiodarone for both AFib but also for VF with ICD discharge. Doing well with no recurrent ventricular arrhythmias. Avoidance of stimulants was discussed. Follow up remotely and in the clinic in 6 months time. (4) Aortic stenosis: Code(s): I35.0 - Nonrheumatic aortic (valve) stenosis Plan: Aortic stenosis which is mild. Advised to continue to monitor. Continue aspirin therapy. Continue aggressive vascular risk factor modification. Continue high-intensity statin therapy with target goal LDL less than 70 mg/dL. Follow up in the clinic in 6 months time, sooner p.r.n.. Thank you for allowing me to partake in the care Coding Level of Care Code Est Pt Level 4 (59076) Diagnoses Chronic HFrEF (heart failure with reduced ejection fraction) I50.22 Paroxysmal atrial fibrillation I48.0 ICD (implantable cardioverter-defibrillator) in place Z95.810 Aortic stenosis I35.0 CPT Codes Cardiac Device Check - Cardiac Device 9: [id number] Device Interrogation, implantable defibrillator ([id number]) EKG - CPT: 86215-Dbdlicoialpvblvuw, Complete ([id number])
[2023-07-31 12:49] VITALS: BP 120/70; PULSE 56; BMI 32.5
== END 2023-07-31 13:33 | disposition home or self-care (01) ==
PROVIDERS: PCP Internal Medicine; Visit Provider Internal Medicine Cardiovascular Disease
DX: I50.22 Chronic systolic (congestive) heart failure (principal); I48.0 Paroxysmal atrial fibrillation; Z95.810 Presence of automatic (implantable) cardiac defibrillator; I35.0 Nonrheumatic aortic (valve) stenosis; I44.0 Atrioventricular block, first degree
CPT/HCPCS: 93010; 93289; 99214

== ENCOUNTER → 2023-07-31 12:33 | Outpatient (BNVA) | payer OTHER, SELFPAY | PROVIDERS: PCP Internal Medicine; Visit Provider Internal Medicine Cardiovascular Disease | DX: Z45.02 Encounter for adjustment and management of automatic implantable cardiac defibrillator (principal); I50.22 Chronic systolic (congestive) heart failure; I48.0 Paroxysmal atrial fibrillation; I35.0 Nonrheumatic aortic (valve) stenosis | CPT/HCPCS: 93005; 99212 ==

== ENCOUNTER → 2023-10-01 23:59 | Outpatient (BNV) | payer OTHER, SELFPAY ==
--- NOTE | 2023-10-02 16:38 | MHC.OFFVIS ---
Intake Visit Reasons: Remote ICD check- [employer] Allergies valacyclovir [VALACYCLOVIR] Allergy (Intermediate, Verified 07/18/23 10:32) AMS rivaroxaban [From Xarelto] Adverse Reaction (Severe, Verified 07/18/23 10:32) GI bleed PHENOTHYLINE Allergy (Unknown, Uncoded 07/18/23 10:32) BLISTERS PFSH Medical History (Updated 07/31/23 @ 13:28 by Toño Noel MD) ICD (implantable cardioverter-defibrillator) battery depletion GI bleed HTN (hypertension) CKD (chronic kidney disease) VF (ventricular fibrillation) ICD (implantable cardioverter-defibrillator) in place Paroxysmal atrial fibrillation Nonischemic cardiomyopathy Chronic HFrEF (heart failure with reduced ejection fraction) Presence of Watchman left atrial appendage closure device Surgical History H/O mastectomy History of cardiac pacemaker (~2017) Family History Father No problems noted. Mother No problems noted. Social History Alcohol intake: never Patient Tobacco Use Status: Never used Tobacco Office Procedures Cardiac Device Check Cardiac Device Check Details: Remote subcutaneous ICD report generated 10/01/2023. Battery life is at 98%. No significant arrhythmias detected. Sensing parameters are adequate [id number] Cardiac Interrogation, implant defibrillator w/interim Procedure code (CPT) selection complete Assessment & Plan Assessment & Plan (1) ICD (implantable cardioverter-defibrillator) in place: Code(s): Z95.810 - Presence of automatic (implantable) cardiac defibrillator Category: Medical Plan: See above Coding Level of Care Code Procedure Only Diagnoses ICD (implantable cardioverter-defibrillator) in place Z95.810 CPT Codes Cardiac Device Check - Cardiac Device 13: [id number] Cardiac Interrogation, implant defibrillator w/interim ([id number])
== END ==
PROVIDERS: PCP Internal Medicine; Visit Provider Internal Medicine Cardiovascular Disease
DX: Z45.02 Encounter for adjustment and management of automatic implantable cardiac defibrillator (principal)
CPT/HCPCS: 93295

== ENCOUNTER → 2023-12-31 23:59 | Outpatient (BNV) | payer OTHER, SELFPAY ==
--- NOTE | 2024-01-02 15:30 | MHC.OFFVIS ---
Intake Visit Reasons: Remote device check- [employer] Allergies valacyclovir [VALACYCLOVIR] Allergy (Intermediate, Verified 07/18/23 10:32) AMS rivaroxaban [From Xarelto] Adverse Reaction (Severe, Verified 07/18/23 10:32) GI bleed PHENOTHYLINE Allergy (Unknown, Uncoded 07/18/23 10:32) BLISTERS PFSH Medical History (Updated 07/31/23 @ 13:28 by Toño Noel MD) ICD (implantable cardioverter-defibrillator) battery depletion GI bleed HTN (hypertension) CKD (chronic kidney disease) VF (ventricular fibrillation) ICD (implantable cardioverter-defibrillator) in place Paroxysmal atrial fibrillation Nonischemic cardiomyopathy Chronic HFrEF (heart failure with reduced ejection fraction) Presence of Watchman left atrial appendage closure device Surgical History H/O mastectomy History of cardiac pacemaker (~2018) Family History Father No problems noted. Mother No problems noted. Social History Alcohol intake: never Patient Tobacco Use Status: Never used Tobacco Office Procedures Cardiac Device Check Cardiac Device Check Details: Remote ICD report generated 12/31/2023. Battery life is at 95%. Sensing factors are adequate [id number] Cardiac Interrogation, implant defibrillator w/interim Procedure code (CPT) selection complete Assessment & Plan Assessment & Plan (1) ICD (implantable cardioverter-defibrillator) in place: Code(s): Z95.810 - Presence of automatic (implantable) cardiac defibrillator Category: Medical Plan: See above Coding Level of Care Code Procedure Only Diagnoses ICD (implantable cardioverter-defibrillator) in place Z95.810 CPT Codes Cardiac Device Check - Cardiac Device 13: [id number] Cardiac Interrogation, implant defibrillator w/interim ([id number])
== END ==
PROVIDERS: PCP Internal Medicine; Visit Provider Internal Medicine Cardiovascular Disease
DX: Z45.02 Encounter for adjustment and management of automatic implantable cardiac defibrillator (principal)
CPT/HCPCS: 93295

== ENCOUNTER → 2024-01-25 10:51 | Outpatient (REF) | payer OTHER, SELFPAY ==
--- NOTE | 2024-01-25 10:53 | CA_ITS ---
Transthoracic Echocardiogram Patient (Last, First, Middle): Gale Oden, Gender: Female Date of : 1945 Age: 78 Procedure Date: 01/25/2024 Procedure Type: Transthoracic Echocardiogram Location: OP Height: 157.48 cm Weight: 84.82 kg BSA: 1.86 m2 Heart Rate: 54 bpm BP: 140 / 80 mmHg Commercial Development Manager: BRADY Referring MD: Toño Noel MD Symptoms: I50.22 - Chronic systolic (congestive) heart failure Study Quality: Fair ECG Rhythm: Bradycardia Conclusions: - The left ventricular systolic function is mildly decreased. The visually estimated ejection fraction is between 40-45%. - The left atrium is severely dilated. - Early aortic stenosis. - There is mild mitral valve regurgitation. - There is mild tricuspid valve regurgitation. - There is mild dilatation of the ascending aorta measuring 3.90 cm. Findings Left Ventricle Normal left ventricular cavity size. There is mildly increased left ventricular wall thickness. The left ventricular systolic function is mildly decreased. The visually estimated ejection fraction is between 40-45%. There is mild global hypokinesis. Evidence suggests grade II (moderate) diastolic dysfunction. LV peak GLS -13.3%. Right Ventricle Normal right ventricular cavity size. There is mildly decreased right ventricular systolic function. Atria The left atrium is severely dilated. The right atrium is mildly dilated. Aortic Valve There is a normal trileaflet aortic valve. There is mild calcification of the aortic valve. There is no aortic valve regurgitation. Early aortic stenosis. Mitral Valve The mitral valve appears normal. There is mild mitral valve regurgitation. There is no mitral valve stenosis. Pulmonic Valve The pulmonic valve is likely normal. Tricuspid Valve There is mild tricuspid valve regurgitation. There is no evidence of pulmonary hypertension. Great Vessels The aortic arch is normal in size. There is mild dilatation of the ascending aorta measuring 3.90 cm. Small plaque is seen in the sino tubular ridge. Venous The inferior vena cava is normal in size and collapses greater than 50% with inspiration. Pericardium/Pleural There is no evidence of pericardial effusion. Prior Study Comparison No significant change compared to prior study dated: 01/17/2023. Measurements 2D Linear Measurements IVSd: 1.03 0.6-0.9/0.6-1.0 cm LVIDd: 5.13 3.9-5.3/4.2-5.9 cm LVIDd Index: 2.76 2.4-3.2/2.2-3.1 cm/m2 LVIDs: 3.98 2.0-3.6 cm LVPWd: 1.08 0.7-1.1 cm LA Diam: 4.50 2.7-3.8/3.0-4.0 cm LAIDs Index: 2.42 1.5-2.3 cm/m2 LV Mass: 254.28 67-162/88-224 g LV Mass Index: 136.71 43-95/49-115 g/m2 LVOT Diam: 2.40 3.0+(-)1.3 cm 2D Systolic Function EF 4C: 40.70 >55% EF 2C: 49.30 >55% EF BiP: 44.00 >55% Mitral Valve MV Pk E: 1.00 MV PK A: 0.49 MV Decel Time: 210.00 E/A: 2.00 E'Lateral: 13.10 E'Medial: 5.22 E/E' Med: 19.10 E/E' Lat: 7.60 PHT: 62.00 MVA PHT: 3.55 Decel Bent: 4.75 Aortic Valve AoV Pk Khoa: 2.17 AoV Mn Khoa: 1.52 AoV VTI: 0.53 AoV Pk Grad: 19.00 Aov Mn Grad: 11.00 [place] Cont.VTI: 2.09 LVOT LVOT Pk Khoa: 1.05 LVOT Mn Khoa: 0.71 LVOT VTI: 0.25 LVOT Pk Grad: 4.00 LVOT Mn Grad: 2.00 LVOT Diam: 2.40 LVOT Area: 4.52 Diastolic Function MV Pk E: 1.00 MV Pk A: 0.49 E/A: 2.00 E'Medial: 5.22 E/E' Med: 19.10 E' Laterial: 13.10 E/E' Lat: 7.60 Right Ventricle TAPSE (mm): 15.70 TVS' Khoa: 7.72 Tricuspid Valve TR Pk Khoa: 2.76 TR Pk Grad: 30.00 RA Press: 3.00 RVSP: 33.00 Great Vessels Aorta Sinus of Valsalva: 3.30 2.0-3.5 cm Ao Asc: 3.90 2.1-3.4 cm Ao Arch: 3.50 Pulmonary Valve PV Pk Khoa: 1.05 Peak PV Grad: 4.00 Updated in Other Vendor System with Status of Final Claudio Newman MD electronically signed on 01/27/2024 12:27:44 PM with status of Final
== END ==
LOC: HO.CARD 10:51
PROVIDERS: PCP Internal Medicine; Visit Provider Internal Medicine Cardiovascular Disease
DX: I50.22 Chronic systolic (congestive) heart failure (principal)
CPT/HCPCS: 93306; 93356

== ENCOUNTER → 2024-01-25 10:53 | Outpatient (BNV) | payer OTHER, SELFPAY | PROVIDERS: PCP Internal Medicine; Visit Provider Internal Medicine | DX: I35.0 Nonrheumatic aortic (valve) stenosis (principal); I34.0 Nonrheumatic mitral (valve) insufficiency; I36.1 Nonrheumatic tricuspid (valve) insufficiency | CPT/HCPCS: 93306; 93356 ==

== ENCOUNTER 2024-01-28 12:13 | Outpatient (AMB) | payer OTHER, SELFPAY ==
[2024-01-28 12:42] VITALS: BP 110/70; PULSE 56
--- NOTE | 2024-01-28 12:42 | MHC.OFFVIS ---
Vital Signs 01/28/24 12:42 Height 5 ft 2.5 in BMI Reason not done Patient refused/unable BP 110/70 Blood Pressure Location Lt brachial Position Sitting Pulse 56 Pulse Source Monitor Intake Visit Reasons: 6 mth w/ [facility] s/p; echo Intake Note: 6 mth f/up echo Business Intelligence Etl Developer Required: No Accompanied by: Self / Same As Patient Allergies valacyclovir [VALACYCLOVIR] Allergy (Intermediate, Verified 07/18/23 10:32) AMS rivaroxaban [From Xarelto] Adverse Reaction (Severe, Verified 07/18/23 10:32) GI bleed PHENOTHYLINE Allergy (Unknown, Uncoded 07/18/23 10:32) BLISTERS Medication List - Last Reconciled 01/28/24 by Toño Noel MD amiodarone 200 mg PO DAILY aspirin 81 mg PO DAILY atorvastatin 40 mg PO DAILY carvedilol 12.5 mg PO BID ferrous sulfate 325 mg PO DAILY sacubitril-valsartan 24-26 mg (Entresto) 1 tab PO BID 90 days torsemide 40 mg orally Two tabs in the morning and 1 tab at noon time; 90 days HPI Comments Details: Gale comes for follow-up. She has been doing very well. She has not been exercising routinely because of recent weather but says that she finds no restriction. Recent echocardiogram shows stable LV ejection fraction 40-45% with early mild aortic stenosis. She denies any prolonged palpitation irregular heartbeat. Denies any worsening shortness of breath, orthopnea, PND, leg edema. Denies any exertional chest pain. No lightheadedness, syncope, ICD discharge. Takes all her medications. [facility] Medical History ICD (implantable cardioverter-defibrillator) battery depletion GI bleed HTN (hypertension) CKD (chronic kidney disease) VF (ventricular fibrillation) ICD (implantable cardioverter-defibrillator) in place Paroxysmal atrial fibrillation Nonischemic cardiomyopathy Chronic HFrEF (heart failure with reduced ejection fraction) Presence of Watchman left atrial appendage closure device Surgical History H/O mastectomy History of cardiac pacemaker (~2018) Family History Father No problems noted. Mother No problems noted. Social History Alcohol intake: never Patient Tobacco Use Status: Never used Tobacco Review of Systems Const Denies chills, Denies fatigue, Denies fever(s), Denies frequent falls, Denies weakness, Denies weight gain and Denies weight loss ENT Denies dizziness Card Denies chest pain, Denies leg edema, Denies lightheadedness, Denies palpitations, Denies dyspnea and Denies dyspnea on exertion Resp Denies cough, Denies dyspnea and Denies dyspnea on exertion GI Denies hematochezia Musc Denies abnormal gait, Denies muscle weakness, Denies numbness, Denies radiating pain into limb and Denies tingling Neuro Denies abnormal gait, Denies dizziness, Denies frequent falls, Denies numbness, Denies tingling and Denies weakness Endo Denies fatigue and Denies palpitations Physical Exam Vital Signs: Last Vital Signs Pulse 56 01/28/24 12:42 BP 110/70 01/28/24 12:42 Const General: cooperative, comfortable, no acute distress, alert and awake Nutritional Appearance: obese Orientation/consciousness: patient oriented x3 Limitations: no limitations Neck Neck: Yes trachea midline, Yes supple and Yes no JVD Chest Chest palpation & inspection: other (Bilateral mastectomies) Resp Effort & Inspection: normal respiratory effort Auscultation: clear to auscultation bilaterally Cardio Jugular venous distension: no JVD Rate: regular rate Rhythm: regular rhythm Heart sounds: S1 normal heart sound present, S2 normal heart sound present, no click, no gallops, Murmur heart sound present systolic early, decrescendo and crescendo and no rubs GI Auscultation: normal bowel sounds Skin General skin exam: no rashes or lesions noted Neuro General: patient oriented x3 and no focal motor deficits Extrem General: Yes no clubbing, cyanosis or edema Office Procedures Cardiac Device Check Cardiac Device Check Details: [employer] subcutaneous ICD in place. Battery status is at 95%. Few brief episodes of atrial fibrillation noted. System impedance is within normal limits. 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 Heart failure symptoms have remained stable and she has done well. Continue current treatment with carvedilol as well as Entresto. Use torsemide for decongestive therapy. Management of heart failure was discussed importance of regular physical activity was discussed with her. Daily weight monitoring avoidance of salt loading was discussed. Additional torsemide as need be. Continue rhythm control approach. (2) Paroxysmal atrial fibrillation: Code(s): I48.0 - Paroxysmal atrial fibrillation Category: Medical Plan: Paroxysmal atrial fibrillation overall significantly improved burden with amiodarone therapy. Continue amiodarone therapy. Annual check for amiodarone toxicity. Status post Watchman device for recurrent significant bleeding episodes. Has done well and currently on low-dose aspirin therapy. Continue rhythm control approach. (3) ICD (implantable cardioverter-defibrillator) in place: Code(s): Z95.810 - Presence of automatic (implantable) cardiac defibrillator Category: Medical Plan: ICD in place for primary prevention status post ICD discharge for VFib event. On amiodarone therapy for the same. Continue the same. Continue check for amiodarone toxicity on a annual basis. Will continue monitor remotely as well as in office in 6 months. (4) Aortic stenosis: Code(s): I35.0 - Nonrheumatic aortic (valve) stenosis Category: Medical Plan: Aortic stenosis which is mild. Continue low-dose aspirin therapy. Continue aggressive blood pressure control which is currently well optimized. Continue statin therapy target goal LDL less than 70 mg/dL. Will follow up in the clinic in 6 months time, sooner p.r.n.. Thank you for allowing me to partake in his care Orders: Orders Basic Metabolic Panel Today I48.0 - Paroxysmal atrial fibrillation TSH reflex Free T4 Today I48.0 - Paroxysmal atrial fibrillation XR chest 2V Today I48.0 - Paroxysmal atrial fibrillation Complete Blood Count no Diff Today I48.0 - Paroxysmal atrial fibrillation Liver Panel Today I48.0 - Paroxysmal atrial fibrillation Coding Level of Care Code Est Pt Level 4 (94764) Diagnoses Chronic HFrEF (heart failure with reduced ejection fraction) I50.22 Paroxysmal atrial fibrillation I48.0 ICD (implantable cardioverter-defibrillator) in place Z95.810 Aortic stenosis I35.0 CPT Codes Cardiac Device Check - Cardiac Device 9: [id number] Device Interrogation, implantable defibrillator ([id number]) EKG - CPT: 72154-Dryryehptagmdtiub, Complete ([id number])
== END 2024-01-28 13:09 | disposition home or self-care (01) ==
PROVIDERS: PCP Internal Medicine; Visit Provider Internal Medicine Cardiovascular Disease
DX: I50.22 Chronic systolic (congestive) heart failure (principal); I48.0 Paroxysmal atrial fibrillation; Z95.810 Presence of automatic (implantable) cardiac defibrillator; I35.0 Nonrheumatic aortic (valve) stenosis; I44.0 Atrioventricular block, first degree
CPT/HCPCS: 93010; 93260; 99214

== ENCOUNTER → 2024-01-28 12:13 | Outpatient (BNVA) | payer OTHER, SELFPAY | PROVIDERS: PCP Internal Medicine; Visit Provider Internal Medicine Cardiovascular Disease | DX: I48.0 Paroxysmal atrial fibrillation (principal); I35.0 Nonrheumatic aortic (valve) stenosis; I50.22 Chronic systolic (congestive) heart failure; Z95.810 Presence of automatic (implantable) cardiac defibrillator | CPT/HCPCS: 93005; 99212 ==

== ENCOUNTER 2024-02-05 06:57 | Outpatient (REF) | payer OTHER, SELFPAY ==
--- NOTE | ~2024-02-05 | XR_ITS ---
EXAMINATION: XR CHEST CLINICAL INFORMATION: Paroxysmal A. fib. COMPARISON: Chest radiograph dated 02/16/2023. TECHNIQUE: 2 views of the chest were obtained. FINDINGS: Minimal linear scarring within the left midlung. No large consolidation. Stable cardiomediastinal silhouette. No pleural effusion or pneumothorax. Left chest wall stimulator with its lead overlying the central mediastinum. Left axilla surgical clips. XR/XR chest 2V IMPRESSION: No acute cardiopulmonary findings. Electronically signed by: Sam Will MD 02/25/2024 08:56 PM EDT
[2024-02-05 07:32] LABS: Hematocrit 37.5 % (37.0-47.0); Hemoglobin 11.7 g/dl (12.0-16.0); Mean Corpuscular HGB Conc 31.2 g/dl (31.0-35.0); Mean Corpuscular Hemoglobin 27.5 pg (27.0-33.0); Mean Platelet Volume 11.5 fL (9.4-12.3); Platelet Count 165 X10*3/uL (160-400); Red Blood Count 4.26 X10*6/uL (4.20-5.50); Red Cell Distribution Width 14.4 % (11.0-16.0); White Blood Count 4.3 X10*3/uL (4.8-10.8)
[2024-02-05 07:59] LABS: Alanine Aminotransferase 16 U/L (0-31); Albumin Level 4.4 g/dL (3.5-5.0); Alkaline Phosphatase 63 U/L (39-117); Anion Gap 14 (12-20); Aspartate Amino Transferase 20 U/L (5-31); Bilirubin Direct 0.2 mg/dL (0.0-0.5); Bilirubin Total 0.5 mg/dL (0.0-1.0); Blood Urea Nitrogen 16 mg/dL (9-16); Calcium 9.9 mg/dL (8.4-10.2); Carbon Dioxide 31 mmol/L (22-29); Chloride 103 mmol/L (96-108); Estimated Glomerular Filt Rate 39; Glucose Random 100 mg/dL (60-115); Potassium 3.4 mmol/L (3.3-5.1); Sodium 145 mmol/L (135-145); Total Protein 7.7 g/dL (6.5-8.0)
[2024-02-05 08:16] LABS: TSH reflex Free T4 3.19 uIU/mL (0.32-4.0)
== END 2024-02-05 06:58 | disposition home or self-care (01) ==
LOC: HO.LAB 06:57
PROVIDERS: PCP Internal Medicine; Visit Provider Internal Medicine Cardiovascular Disease
DX: I48.0 Paroxysmal atrial fibrillation (principal)
CPT/HCPCS: 36415; 71046; 80048; 80076; 84443; 85027

== ENCOUNTER → 2024-03-31 23:59 | Outpatient (BNV) | payer OTHER, SELFPAY ==
--- NOTE | 2024-04-14 17:10 | MHC.OFFVIS ---
Intake Visit Reasons: Remote device check- [employer] Allergies valacyclovir [VALACYCLOVIR] Allergy (Intermediate, Verified 07/18/23 10:32) AMS rivaroxaban [From Xarelto] Adverse Reaction (Severe, Verified 07/18/23 10:32) GI bleed PHENOTHYLINE Allergy (Unknown, Uncoded 07/18/23 10:32) BLISTERS PFSH Medical History ICD (implantable cardioverter-defibrillator) battery depletion GI bleed HTN (hypertension) CKD (chronic kidney disease) VF (ventricular fibrillation) ICD (implantable cardioverter-defibrillator) in place Paroxysmal atrial fibrillation Nonischemic cardiomyopathy Chronic HFrEF (heart failure with reduced ejection fraction) Presence of Watchman left atrial appendage closure device Surgical History H/O mastectomy History of cardiac pacemaker (~2018) Family History Father No problems noted. Mother No problems noted. Social History Alcohol intake: never Patient Tobacco Use Status: Never used Tobacco Office Procedures Cardiac Device Check Cardiac Device Check Details: Remote ICD function generated 04/03/2024. ICD function is adequate. Battery life is at 92%. No arrhythmias detected [id number] Cardiac Interrogation, implant defibrillator w/interim Procedure code (CPT) selection complete Assessment & Plan Assessment & Plan (1) ICD (implantable cardioverter-defibrillator) in place: Code(s): Z95.810 - Presence of automatic (implantable) cardiac defibrillator Category: Medical Plan: See above Coding Level of Care Code Procedure Only Diagnoses ICD (implantable cardioverter-defibrillator) in place Z95.810 CPT Codes Cardiac Device Check - Cardiac Device 13: [id number] Cardiac Interrogation, implant defibrillator w/interim ([id number])
== END ==
PROVIDERS: PCP Internal Medicine; Visit Provider Internal Medicine Cardiovascular Disease
DX: Z45.02 Encounter for adjustment and management of automatic implantable cardiac defibrillator (principal)
CPT/HCPCS: 93295

== ENCOUNTER → 2024-06-30 23:59 | Outpatient (BNV) | payer OTHER, SELFPAY ==
--- NOTE | 2024-07-01 13:41 | MHC.OFFVIS ---
Intake Visit Reasons: REmote ICD check- [employer] Allergies valacyclovir [VALACYCLOVIR] Allergy (Intermediate, Verified 07/18/23 10:32) AMS rivaroxaban [From Xarelto] Adverse Reaction (Severe, Verified 07/18/23 10:32) GI bleed PHENOTHYLINE Allergy (Unknown, Uncoded 07/18/23 10:32) BLISTERS PFSH Medical History ICD (implantable cardioverter-defibrillator) battery depletion GI bleed HTN (hypertension) CKD (chronic kidney disease) VF (ventricular fibrillation) ICD (implantable cardioverter-defibrillator) in place Paroxysmal atrial fibrillation Nonischemic cardiomyopathy Chronic HFrEF (heart failure with reduced ejection fraction) Presence of Watchman left atrial appendage closure device Surgical History H/O mastectomy History of cardiac pacemaker (~2017) Family History Father No problems noted. Mother No problems noted. Social History Alcohol intake: never Patient Tobacco Use Status: Never used Tobacco Office Procedures Cardiac Device Check Cardiac Device Check Details: Remote ICD report generated 06/30/2023. ICD function is adequate. Battery life is 90%. No arrhythmias noted [id number] Cardiac Interrogation, implant defibrillator w/interim Procedure code (CPT) selection complete Assessment & Plan Assessment & Plan (1) ICD (implantable cardioverter-defibrillator) in place: Code(s): Z95.810 - Presence of automatic (implantable) cardiac defibrillator Category: Medical Plan: See above Coding Level of Care Code Procedure Only Diagnoses ICD (implantable cardioverter-defibrillator) in place Z95.810 CPT Codes Cardiac Device Check - Cardiac Device 13: [id number] Cardiac Interrogation, implant defibrillator w/interim ([id number])
== END ==
PROVIDERS: PCP Internal Medicine; Visit Provider Internal Medicine Cardiovascular Disease
DX: Z45.02 Encounter for adjustment and management of automatic implantable cardiac defibrillator (principal)
CPT/HCPCS: 93295

== ENCOUNTER 2024-07-29 12:21 | Outpatient (AMB) | payer OTHER, SELFPAY ==
[2024-07-29 12:49] VITALS: BP 120/70
--- NOTE | 2024-07-29 12:49 | MHC.OFFVIS ---
Vital Signs 07/29/24 12:49 Height 5 ft 2.5 in BP 120/70 Blood Pressure Location Lt brachial Position Sitting Intake Visit Reasons: 6 mth f/up Intake Note: 6 month follow-up with [employer] check and ekg feeling good Ropewalk Rope Maker Required: No Allergies valacyclovir [VALACYCLOVIR] Allergy (Intermediate, Verified 07/18/23 10:32) AMS rivaroxaban [From Xarelto] Adverse Reaction (Severe, Verified 07/18/23 10:32) GI bleed PHENOTHYLINE Allergy (Unknown, Uncoded 07/18/23 10:32) BLISTERS Medication List - Last Reconciled 07/29/24 by Toño Noel MD amiodarone 200 mg PO DAILY 90 days aspirin 81 mg PO DAILY 90 days atorvastatin 40 mg PO DAILY carvedilol 12.5 mg PO BID ferrous sulfate 325 mg PO DAILY sacubitril-valsartan 24-26 mg (Entresto) 1 tab PO BID 90 days torsemide 40 mg orally Two tabs in the morning and 1 tab at noon time; 90 days HPI Comments Details: Gale comes for follow-up. She has been doing very well from cardiac perspective. She denies any worsening cardiac symptoms. Denies any prolonged irregular heartbeat or palpitations. Denies any lightheadedness, syncope, ICD discharge. Denies any worsening heart failure symptoms with no evidence of orthopnea, PND, leg edema. Denies any exertional chest pain. Takes all her medications. No bleeding issues or neurologic events. [facility] Medical History ICD (implantable cardioverter-defibrillator) battery depletion GI bleed HTN (hypertension) CKD (chronic kidney disease) VF (ventricular fibrillation) ICD (implantable cardioverter-defibrillator) in place Paroxysmal atrial fibrillation Nonischemic cardiomyopathy Chronic HFrEF (heart failure with reduced ejection fraction) Presence of Watchman left atrial appendage closure device Surgical History H/O mastectomy History of cardiac pacemaker (~2018) Family History Father No problems noted. Mother No problems noted. Social History Alcohol intake: never Patient Tobacco Use Status: Never used Tobacco Review of Systems Const Denies chills, Denies fatigue, Denies fever(s), Denies frequent falls, Denies weakness, Denies weight gain and Denies weight loss ENT Denies dizziness Card Denies chest pain, Denies leg edema, Denies lightheadedness, Denies palpitations, Denies dyspnea, Denies dyspnea on exertion, Denies orthopnea and Denies other (loss of consciousness) Resp Denies cough, Denies dyspnea and Denies dyspnea on exertion GI Denies hematochezia and Denies change in stool character Musc Denies abnormal gait, Denies muscle weakness, Denies numbness, Denies radiating pain into limb and Denies tingling Neuro Denies abnormal gait, Denies dizziness, Denies frequent falls, Denies numbness, Denies tingling and Denies weakness Endo Denies fatigue and Denies palpitations Physical Exam Vital Signs: Last Vital Signs BP 120/70 07/29/24 12:49 Const General: cooperative, comfortable, no acute distress, alert and awake Nutritional Appearance: obese Orientation/consciousness: patient oriented x3 Limitations: no limitations Neck Neck: Yes trachea midline, Yes supple and Yes no JVD Chest Chest palpation & inspection: other (Bilateral mastectomies) Resp Effort & Inspection: normal respiratory effort Auscultation: clear to auscultation bilaterally Cardio Jugular venous distension: no JVD Rate: regular rate Rhythm: regular rhythm Heart sounds: S1 normal heart sound present, S2 normal heart sound present, no click, no gallops, Murmur heart sound present systolic early, decrescendo and crescendo and no rubs GI Auscultation: normal bowel sounds Skin General skin exam: no rashes or lesions noted Neuro General: patient oriented x3 and no focal motor deficits Extrem General: Yes no clubbing, cyanosis or edema Office Procedures Cardiac Device Check Cardiac Device Check Details: [employer] scientific subcutaneous ICD in place. Battery status is good at 89%. Couple of episodes of atrial fibrillation noted self-limiting. Sensing configurations are adequate. 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 Clinically euvolemic and well compensated current diuretic dose. Daily weight monitoring avoidance salt loading was discussed additional diuretics as need be. Continue neurohormonal modulation with carvedilol as well as Entresto. Semi annual renal function test should be pursued. Advised to call me with worsening symptoms. Continue rhythm control approach. (2) Paroxysmal atrial fibrillation: Code(s): I48.0 - Paroxysmal atrial fibrillation Category: Medical Plan: Paroxysmal atrial fibrillation, currently suppressed on amiodarone therapy. Amiodarone was also being used for prevention of recurrent ventricular arrhythmias. detention possibility of toxicity was discussed. Status post Watchman device. Continue low-dose aspirin therapy. (3) ICD (implantable cardioverter-defibrillator) in place: Code(s): Z95.810 - Presence of automatic (implantable) cardiac defibrillator Category: Medical Plan: ICD in place, working well. Reprogrammed for adequate function. Follow-up remotely as well as in the clinic in 6 months time. (4) Aortic stenosis: Code(s): I35.0 - Nonrheumatic aortic (valve) stenosis Category: Medical Plan: Aortic stenosis which is mild. Continue to monitor clinically. Continue risk factor modifications above. Follow-up echocardiogram in 6 months time. Will follow up in the clinic in 6 months time, sooner p.r.n.. Thank you for allowing me to partake in his care Orders: Orders CA echo transthoracic complete 6 Months I42.8 - Other cardiomyopathies Basic Metabolic Panel Today I48.0 - Paroxysmal atrial fibrillation Coding Level of Care Code Est Pt Level 4 (49565) Complex EM visit Add On G2211 Diagnoses Chronic HFrEF (heart failure with reduced ejection fraction) I50.22 Paroxysmal atrial fibrillation I48.0 ICD (implantable cardioverter-defibrillator) in place Z95.810 Aortic stenosis I35.0 CPT Codes Cardiac Device Check - Cardiac Device 9: [id number] Device Interrogation, implantable defibrillator ([id number]) EKG - CPT: 33291-Izgwnsxrrfhzplfwq, Complete ([id number])
--- OUTSIDE RECORDS SUMMARY | 2024-07-29 13:13 | XMS_ITS | Encounter Summary ---
Author Organization [facility] Address [address] [place] [address] Care Team Providers Care Data Entry Representative Name Role Phone Yoana Mckeon MD Primary Care Provider Reason for Visit * Reason Comments Atrial Fibrillation GOUT Encounter Details Date Type Department Care Team (Late st Contact Info) Description 07/10/2024 8:15 AM EST Office Visit Adult Medicine [facility] [address] [place] [address] Yoana Mckeon MD [address] [place] [id number] Longstanding persistent atrial fibrillation (CMS/HCC) (Primary Dx); Chronic HFrEF (heart failure with reduced ejection fraction) (CMS/HCC); Hypercholesterolemia; Non-ischemic cardiomyopathy (CMS/HCC); Vitamin D deficiency; Need for prophylactic vaccination and inoculation against influenza; Crohn's disease without complication, unspecified gastrointestinal tract location (CMS/HCC) Social History Tobacco Use Types Packs/Day Years Used Date Smoking Tobacco: Never Smokeless Tobacco: Never Tobacco Cessation:Counseling Given: Not Answered Alcohol Use Standard Drinks/Week Comments Never 0 [...] Sign Reading Time Taken Comments Blood Pressure 120/68 07/10/2024 9:06 AM EST Pulse 56 07/10/2024 9:06 AM EST Temperature 36.2 ??C (97.1 ??F) 07/10/2024 9:06 AM ES T Respiratory Rate 16 07/10/2024 9:06 AM EST Oxygen Saturation 97% 07/10/2024 9:06 AM EST Inhaled Oxygen Concentration - - Weight 79.2 kg (174 lb 8 oz) 07/10/2024 9:06 AM EST Height 158.8 cm (5' 2.5 ) 07/10/2024 9:06 AM EST Body Mass Index 31.41 07/10/2024 9:06 AM EST documented in this encounter Ordered Prescriptions Prescription Sig Dispense Quantity Refills Last Filled Start Date End Date torsemide (DEMADEX) 20 mg tablet 1 tab am 2 tabs pm 270 tablet 1 07/10/2024 atorvastatin (LIPITOR) 40 mg tablet Take 1 tablet (40 mg total) by mouth at bedtime. 90 each 1 07/10/2024 carvediloL (COREG) 12.5 mg tablet Take 1 tablet (12.5 mg total) by mouth 2 (two) times a day. 180 tablet 1 07/10/2024 PARoxetine (PAXIL) 10 mg tablet Take 1 tablet (10 mg total) by mouth 1 (one) time each day in the morning. 90 tablet 1 07/10/2024 documented in this encounter Progress Notes * Yoana Mckeon MD - 07/10/2024 8:15 AM EST Chief Complaint: Chief Complaint Patient presents with Atrial Fibrillation GOUT IDENTIFIER: Gale Oden is a 79 y.o. old female HPI She comes for evaluation with atrial fibrillation, cardiomyopathy and congestive heart failure, elevated cholesterol, chron's disease, breast cancer. She has an ICD in place that has not fired. She denies any GI issues or bleeding, is declining GI evaluation at present. She continues with chronic torsemide, Entresto and amiodarone, not having any episodes of palpitations, chest pain or shortness of breath. She does not believe she has been taking paroxetine but she would like to start back on it. She continues on Lipitor for her cholesterol as well as Coreg. She has not yet had the flu vaccine which is given to her today and has not yet had the RSV vaccine which is recommended to her today as well. ROS: General: No malaise, significant weight loss or fever Respiratory: No cough, wheezing or shortness of breath Cardiovascular: No chest pain, palpitations, no orthopnea Past Medical History: Patient Active Problem List Diagnosis Date Noted Gout 03/26/2023 Chronic HFrEF (heart failure with reduced ejection fraction) ([facility]) 04/05/2022 Post herpetic neuralgia 03/07/2019 Nonsustained ventricular tachycardia ([facility]) 02/06/2019 Vitamin D deficiency 05/29/2018 Atrial fibrillation ([facility]) 04/29/2018 Tuberculosis 04/29/2018 AICD (automatic cardioverter/defibrillator) present 08/09/2017 Lower GI bleed 04/23/2014 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 COLONOSCOPY 09/24/2008 : Up to cecum, adequate preparation, multiple polypoid lesions at cecum(bx, not removed):inflammatory changes and prominet submucosal adipose tissue,no adenoma. Polyp and ulceration descending-bx andtattoo:Ulcerated inflammatory polyp, rectal polyp remove COLONOSCOPY 04/1999 MASTECTOMY left, breast cancer UPPER GASTROINTESTINAL ENDOSCOPY 04/16/2014 ; small . Family History: Family History Problem Relation Name Age of Onset Breast cancer Aunt great mat great aunt Hypertension Mother lupus Diabetes Brother hypertension, CAD, Other (Other: dermoid lupus) Sister arthritis Diabetes Maternal Grandmother hypertension Hypertension Son 2 sons Other (Other: unknown) Father Other (Other: lupus) Brother Other (Other: sarcoid) Brother hypertension Hypertension Brother CAD Hypertension Sister arthritis Ovarian cancer Other first cousin Liver cancer Brother Breast cancer Mother's side mat cousin 57 Colon cancer Neg Hx Social History: Social History Tobacco Use Smoking status: Never Smokeless tobacco: Never Substance Use Topics Alcohol use: Never Allergies: Amoxicillin-pot clavulanate and Phenolphthalein Medications: Outpatient Medications Marked as Taking for the 07/10/24 encounter (Office Visit) with Yoana Mckeon MD Medication Sig Dispense Refill amiodarone (PACERONE) 200 mg tablet Take 200 mg by mouth daily. aspirin 81 mg EC tablet Take 81 mg by mouth daily. atorvastatin (LIPITOR) 40 mg tablet Take 1 tablet (40 mg total) by mouth at bedtime. 90 each 1 carvediloL (COREG) 12.5 mg tablet Take 1 tablet (12.5 mg total) by mouth 2 (two) times a day. 180 tablet 1 diclofenac (VOLTAREN) 1 % topical gel APPLY 4 GRAMS TOPICALLY TO AFFECTED AREA FOUR TIMES DAILY NEEDED ferrous sulfate 325 mg (65 mg elemental iron) tablet Take 325 mg by mouth daily. lidocaine (LIDODERM) 5 % patch UNWRAP AND APPLY 1 PATCH TO SKIN EVERY DAY 12 HOURS ON AND 12 HOURS OFF PARoxetine (PAXIL) 10 mg tablet Take 1 tablet (10 mg total) by mouth 1 (one) time each day in the morning. 90 tablet 1 sacubitriL-valsartan (Entresto) 24-26 mg per tablet Take 1 tablet by mouth 2 (two) times a day. torsemide (DEMADEX) 20 mg tablet 1 tab am 2 tabs pm 270 tablet 1 [DISCONTINUED] atorvastatin (LIPITOR) 40 mg tablet Take 1 Tablet by mouth daily for 360 days. [DISCONTINUED] carvediloL (COREG) 12.5 mg tablet Take 1 tablet (12.5 mg total) by mouth 2 (two) times a day. [DISCONTINUED] torsemide (DEMADEX) 20 mg tablet Take 3 Tablets by mouth daily. 1 tab qa, & 2 tabs afternoon Medication Discontinued/Reordered: Medications Discontinued During This Encounter Medication Reason atorvastatin (LIPITOR) 40 mg tablet Reorder torsemide (DEMADEX) 20 mg tablet Reorder PARoxetine (PAXIL) 10 mg tablet Reorder carvediloL (COREG) 12.5 mg tablet Reorder Vitals: Blood pressure 120/68, pulse 56, temperature 36.2 ??C (97.1 ??F), temperature source Temporal, resp. rate 16, height 1.588 m (62.5 ), weight 79.2 kg (174 lb 8 oz), SpO2 97%. Body mass index is 31.41 kg/m??.Plan is deferred because the patient is aged 65 or older and a weight gain/reduction plan would complicate other health conditions Physical Exam: General: patient is in no acute distress. Neck supple without adenopathy, no thyromegaly. Lungs clear with auscultation. Heart: regular S1S2 without murmur, rub or gallop. Extremities without cyanosis, clubbing or edema. Labs: Lipid studies, CBC, chemistries ordered Impression: 1. Longstanding persistent atrial fibrillation (CMS/HCC) 2. Chronic HFrEF (heart failure with reduced ejection fraction) (CMS/HCC) 3. Hypercholesterolemia 4. Non-ischemic cardiomyopathy (CMS/HCC) 5. Vitamin D deficiency 6. Need for prophylactic vaccination and inoculation against influenza 7. Crohn's disease without complication, unspecified gastrointestinal tract location (CMS/HCC) Assessment and Plan: She is updated with flu vaccine and recommended to pursue the RSV vaccine through the pharmacy. Bhaskar start back on paroxetine and continue through cardiology on the amiodarone and Entresto, lab work to be done today as noted. She is not having any symptoms suggestive of cardiac decompensation, continue with low-cholesterol diet and vitamin D replacement. She is up-to-date with oncology with regards to breast cancer. She will start back on the paroxetine, return in 6 months, sooner if needed. Myself and my colleagues have maintained a long-term, longitudinal relationship with this patient, overseeing care of chronic conditions including cardiomyopathy, congestive heart failure, atrial fibrillation, Crohn's disease, vitamin D deficiency, elevated cholesterol. This care relationship has si gnificantly influenced my decision making and treatment plans during today's encounter. * Sheryl Dickens MA - 07/10/2024 8:15 AM EST INFLUENZA VACCINE The patient acknowledges that they will be receiving the Influenza (Flu) vaccine today: yes Flu vaccine formulation is: Fluad High Dose (for age 65 and over): Patient denies allergy to eggs, neomycin, kanamycin, hydrocortisone or previous flu vaccine. yes Immunization tab reviewed: Patient acknowledges they have NOT received a flu vaccine for the . yes Denies history of Guillain-Aurora Syndrome (severe muscle weakness). yes Acknowledges reviewing the VIS Seasonal Flu (copy made available). yes Patient Denies moderate or severe illness or fever of >100 degrees F. yes Agrees to wait in the office/car for 20 minutes after receiving the influenza injection. yes No restriction for Influenza vaccine administered IM See Imm/Inj tab. Electronically signed by: Sheryl Dickens MA 07/10/2024 12:59 PM EST documented in this encounter Plan of Treatment Upcoming Encounters Date Type Department Care Team (Late st Contact Info) Description 01/12/2025 8:15 AM EDT Office Visit Adult Medicine [facility] [address] [place] [address] Yoana Mckeon MD [address] [place] [address] 02/25/2025 1:15 PM EDT [facility] [address] [place] [address] Danna Medina MD [address] [place] [address] documented as of this encounter Results * (ABNORMAL) Lipid panel with reflex to direct LDL (07/14/2024 8:05 AM EST) Cholesterol 242(H) 0 - 200 mg/dL LAB CHEMISTRY METHOD 07/14/2024 11:09 AM [facility] Triglycerides 89 0 - 150 mg/dL LAB CHEMISTRY METHOD 07/14/2024 11:09 AM [facility] HDL 82 >=40 mg/dL LAB CHEMISTRY METHOD 07/14/2024 11:09 AM [facility] LDL Calculated 142(H) 0 - 100 mg/dL LAB CHEMISTRY METHOD 07/14/2024 11:09 AM [facility] VLDL Cholesterol Mynor 17.8 mg/dL LAB CHEMISTRY METHOD 07/14/2024 11:09 AM [facility] Non HDL Chol. (LDL+VLDL) 160(H) <145 mg/dL LAB CHEMISTRY METHOD 07/14/2024 11:09 AM [facility] Chol/HDL Ratio 3.0 0.0 - 4.4 LAB CHEMISTRY METHOD 07/14/2024 11:09 AM [facility] Blood Venous blood specimen / Unknown Venipuncture / Unknown 07/14/2024 8:05 AM EST 07/14/2024 8:05 AM EST us Yoana Mckeon MD LAB BLOOD ORDERABLES Final Resul t [facility] [address] [place] [address], * (ABNORMAL) Basic metabolic panel (07/14/2024 8:05 AM EST) Sodium 139 133 - 145 mmol/L LAB CHEMISTRY METHOD 07/14/2024 11:09 AM [facility] Potassium 3.9 3.5 - 5.5 mmol/L LAB CHEMISTRY METHOD 07/14/2024 11:09 AM [facility] Chloride 104 96 - 110 mmol/L LAB CHEMISTRY METHOD 07/14/2024 11:09 AM [facility] CO2 30 21 - 32 mmol/L LAB CHEMISTRY METHOD 07/14/2024 11:09 AM [facility] Anion Gap 5 3 - 11 LAB CHEMISTRY METHOD 07/14/2024 11:09 AM [facility] Glucose 101(H) 70 - 100 mg/dL LAB CHEMISTRY METHOD 07/14/2024 11:09 AM [facility] BUN 27(H) 5 - 25 mg/dL LAB CHEMISTRY METHOD 07/14/2024 11:09 AM [facility] Creatinine 1.51(H) 0.50 - 1.10 mg/dL LAB CHEMISTRY METHOD 07/14/2024 11:09 AM [facility] eGFR 35(L) >=60 mL/min/1. 73m2 LAB CHEMISTRY METHOD 07/14/2024 11:09 AM EST [facility] Comment:Calculation based on the??Chronic Kidney Disease Epidemiology Collaboration (CKD-EPI) equation refit??without adjustment for race. BUN/Creatinine Ratio 17.9 LAB CHEMISTRY METHOD 07/14/2024 11:09 AM [facility] Calcium 9.6 8.5 - 10.5 mg/dL LAB CHEMISTRY METHOD 07/14/2024 11:09 AM EST [facility] Blood Venous blood specimen / Unknown Venipuncture / Unknown 07/14/2024 8:05 AM EST 07/14/2024 8:05 AM EST us Yoana Mckeon MD LAB BLOOD ORDERABLES Final Resul t [facility] [address] [place] [address], documented in this encounter Visit Diagnoses Diagnosis Longstanding persistent atrial fibrillation (CMS/HCC)- Primary Chronic HFrEF (heart failure with reduced ejection fraction) (CMS/HCC) Hypercholesterolemia Pure hypercholesterolemia Non-ischemic cardiomyopathy (CMS/HCC) Other primary cardiomyopathies Vitamin D deficiency Need for prophylactic vaccination and inoculation against influenza Crohn's disease without complication, unspecified gastrointestinal tract location (CMS/HCC) documented in this encounter Discontinued Medications Medication Sig Discontinue Reason Start Date End Da te atorvastatin (LIPITOR) 40 mg tablet Take 1 Tablet by mouth daily for 360 days. Reorder 07/16/2023 07/10/2024 torsemide (DEMADEX) 20 mg tablet Take 3 Tablets by mouth daily. 1 tab qa, & 2 tabs afternoon Reorder 07/10/2024 PARoxetine (PAXIL) 10 mg tablet Take 1 tablet (10 mg total) by mouth 1 (one) time each day in the morning. Reorder 06/30/2022 07/10/2024 carvediloL (COREG) 12.5 mg tablet Take 1 tablet (12.5 mg total) by mouth 2 (two) times a day. Reorder 12/27/2021 07/10/2024 documented as of this encounter Orders Immunization/Injection Count Last Ordered Date First Ordered Date INFLUENZA TRIVALENT, 0.5ML ( FLUAD) 65YO AND OLDER 1 07/10/2024 documented in this encounter Care Teams Data Entry Representative Relationship Specialty Start Date End Date Yoana Mckeon MD [address] [place] [address] PCP - General 03/02/1997 documented as of this encounter
--- OUTSIDE RECORDS SUMMARY | 2024-07-29 13:13 | XMS_ITS | Encounter Summary ---
Author Organization [facility] Address [address] [place] [address] Care Team Providers Care Transmission And Coordination Engineer Name Role Phone Yoana Mckeon MD Primary Care Provider [phone] Encounter Details Date Type Department Care Team (Late st Contact Info) Description 03/18/2024 8:18 AM EDT Hospital Encounter TH HISTORIC ENCOUNTERS EASTERN CONVERSION ONLY Davion Garcia MD [address] [place] [id number] Social History Tobacco Use Types Packs/Day Years [...] HPI: Patient is a very pleasant 78-year-old -Swiss female, who had invasive carcinoma of left breast diagnosed 33 years ago, patient had mastectomy, patient couple years ago found to have 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 ? 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 78-year-old -Swiss female who had locally advanced invasive carcinoma [...] 8:15 AM EDT Office Visit Adult Medicine [facility] [address] [place] [address] Yoana Mckeon MD [address] [place] [address] 02/25/2025 1:15 PM EDT Office Visit [facility] [address] [place] [phone] Danna Medina MD [address] [place] [address] documented as of this encounter Visit Diagnoses Not on filedocumented in this encounter Care Teams Transmission And Coordination Engineer Relationship Specialty Start Date End Date Yoana Mckeon MD [address] [place] [id number] PCP - General 03/02/1997 documented as of this encounter
--- OUTSIDE RECORDS SUMMARY | 2024-07-29 13:13 | XMS_ITS | Clinical Summary ---
Author Organization [facility] Address [address] [place] [id number] Care Team Providers Care Internal Wholesaler Name Role Phone Yoana Mckeon MD Primary Care Provider [phone] Allergies Active Allergy Reactions Criticality Noted Date Comments Other Unknown/Patient and Family Unable to Define Medium 03/15/2018 Phenethylamine Medications Medication Sig Dispensed Refills Start Date End Date Status cetirizine (ZyrTEC) 10 MG tabletIndications:A bnormal LFTs Take 1 tablet (10 mg total) by mouth daily. 30 tablet 04/05/2018 Active ethambutol (MYAMBUTOL) 400 mg tabletIndications:A bnormal LFTs Take 2 tablets (800 mg total) by mouth every 24 hours around the clock. 60 tablet 04/05/2018 Active isoniazid (NYDRAZID) 300 MG tabletIndications:A bnormal LFTs Take 1 tablet (300 mg total) by mouth every 24 hours around the clock. 30 tablet 04/04/2018 Active pyrazinamide 500 MG tabletIndications:A bnormal LFTs Take 4 tablets (2,000 mg total) by mouth every 24 hours around the clock. 120 tablet 04/05/2018 Active riFAmpin (RIFADIN) 300 MG capsuleIndications: Abnormal LFTs Take 2 capsules (600 mg total) by mouth every 24 hours around the clock. Take on an empty stomach with a glass of water. 60 capsule 04/05/2018 Active carvedilol (COREG) 3.125 MG tabletIndications:A bnormal LFTs Take 1 tablet (3.125 mg total) by mouth 2 (two) times a day with meals. 60 tablet 04/04/2018 Active digoxin (LANOXIN) 0.25 mg tabletIndications:A bnormal LFTs Take 1 tablet (0.25 mg total) by mouth daily. 30 tablet 04/04/2018 Active miconazole (ZEASORB-AF) 2 % powderIndications:A bnormal LFTs Apply topically 2 (two) times a day. 43 g 04/04/2018 Active furosemide (LASIX) 40 MG tabletIndications:A bnormal LFTs Take 1 tablet (40 mg total) by mouth daily. 30 tablet 04/04/2018 Active nystatin (MYCOSTATIN) 749923 UNIT/ML suspensionIndicatio ns:Abnormal LFTs Take 5 mL (500,000 Units total) by mouth 4 (four) times a day. 60 mL 04/04/2018 Active fluticasone (FloNASE) 50 mcg/spray nasal sprayIndications:Ab normal LFTs 1 spray into each nostril daily. 15.8 Bottle 04/05/2018 Active ergocalciferol (VITAMIN D2,DRISDOL) 55376 units CapIndications:Abno rmal LFTs Take 1 capsule (50,000 Units total) by mouth once a week. 4 capsule 04/04/2018 Active pyridoxine (B-6) 50 MG tabletIndications:A bnormal LFTs Take 1 tablet (50 mg total) by mouth daily. 30 tablet 04/05/2018 Active rivaroxaban (XARELTO) 15 MG tabletIndications:A bnormal LFTs Take 1 tablet (15 mg total) by mouth every evening with dinner. Take with meals. 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/21/2018 Pancytopenia 03/16/2018 Chronic HFrEF (heart failure with reduced ejection fraction) 03/16/2018 Diarrhea 03/16/2018 Chronic a-fib 03/16/2018 HTN (hypertension) 03/16/2018 Jaundice 03/15/2018 Resolved Problems Problem Noted Date Diagnosed Date Resolved Date Fever 03/20/2018 08/23/2023 Immunizations Name Administration Dates Next Due Influenza Inactivated/Split Preservative Free IM 03/29/2018() Family History Medical History Relation Name Comments Liver cancer Brother 2 Lupus Other Niece Polymyositis Sister Rheumatoid arthritis Sister Relation Name Status Comments Brother 1 had connective tissue disease Brother 2 Mother Other Niece (Age 23) Sister Alive Social History Tobacco Use Types Packs/Day Years Used Date Smoking Tobacco: Never Smokeless Tobacco: Never Alcohol Use Standard Drinks/Week Comments No 0 (1 standard drink = 0.6 oz pur e alcohol) AUDIT-C Answer Date Recorded Frequency of Alcohol Consumption Never 03/15/2018 Average Number of Drinks Not on file 018 Frequency of Binge Drinking Not on file 10/2017 Sex and Gender Information Value Date Recorded Sex Assigned at Not on file Gender Identity Not on file Sexual Orientation Not on file Last Filed Vital Signs Vital Sign Reading Time Taken Comments Blood Pressure 108/56 04/05/2018 1:31 PM EDT Pulse 62 04/05/2018 1:31 PM EDT Temperature 38 ??C (100.4 ??F) 04/05/2018 1:31 PM EDT Respiratory Rate 18 04/05/2018 1:31 PM EDT Oxygen Saturation 100% 04/05/2018 1:31 PM EDT Inhaled Oxygen Concentration - - Weight 73.3 kg (161 lb 11.2 oz) 04/04/2018 5:27 AM EDT Height 157.5 cm (5' 2 ) 03/26/2018 8:51 AM EDT Body Mass Index 29.58 03/26/2018 8:51 AM EDT Plan of Treatment Health Maintenance Due Date Last Done Comments Hepatitis C Virus Screening 1945 DTaP/Tdap/Td Vaccines (1 - Tdap) 1965 Pneumococcal Vaccines 50+ (1 of 2 - PCV) 1965 Zoster (Shingles) Vaccine (1 of 2) 1996 DXA Bone Density (Females,Ag es 65 and older) 2011 RSV Vaccine 60 years and old er and Patients (1 - 1-dose 75+ series) 2021 Influenza Vaccine 01/10/2024 COVID-19 Vaccine ( - 2023-2 5 season) 2024 Hepatitis B Vaccines Aged Out No long er eligible based on patient's age to complete this topic Advance Directives * Full Code (Latest Code Status on File) Date Activated Date Inactivated Comments 03/15/2018 1:04 PM Care Teams Internal Wholesaler Relationship Specialty Start Date End Date Yoana Mckeon MD [address] [place] [address] PCP - General 03/15/18
--- OUTSIDE RECORDS SUMMARY | 2024-07-29 13:13 | XMS_ITS | Clinical Summary ---
Author Organization [facility] [address] [place] [address] [place] [phone] Phone Care Team Providers Care Hall Worker Name Role Phone Yoana Mckeon MD Primary Care Provider [phone] Allergies Active Allergy Reactions Criticality Noted Date Comments Amoxicillin-Pot Clavulanate 07/08/19 19 rash Phenolphthalein 05/23/2005 Medications diclofenac (VOLTAREN) 1 % topical gel APPLY 4 GRAMS TOPICALLY TO AFFECTED AREA FOUR TIMES DAILY NEEDED 4 Active lidocaine (LIDODERM) 5 % patch UNWRAP AND APPLY 1 PATCH TO SKIN EVERY DAY 12 HOURS ON AND 12 HOURS OFF 4 Active sacubitriL-vals dawood (Entresto) 24-26 mg per tablet Take 1 tablet by mouth 2 (two) times a day. 1 Active aspirin 81 mg EC tablet Take 81 mg by mouth daily. 1 Active amiodarone (PACERONE) 200 mg tablet Take 200 mg by mouth daily. 9 Active ferrous sulfate 325 mg (65 mg elemental iron) tablet Take 325 mg by mouth daily. Active PARoxetine (PAXIL) 10 mg tablet Take 1 tablet (10 mg total) by mouth 1 (one) time each day in the morning. 90 tablet 1 5 Active carvediloL (COREG) 12.5 mg tablet Take 1 tablet (12.5 mg total) by mouth 2 (two) times a day. 180 tablet 1 5 Active atorvastatin (LIPITOR) 40 mg tablet Take 1 tablet (40 mg total) by mouth at bedtime. 90 each 1 5 Active torsemide (DEMADEX) 20 mg tablet 1 tab am 2 tabs pm 270 tablet 1 5 Active atorvastatin (LIPITOR) 40 mg tablet Take 1 Tablet by mouth daily for 360 days. 4 07/10/19 25 Discontinu ed(Reorder ) torsemide (DEMADEX) 20 mg tablet Take 3 Tablets by mouth daily. 1 tab qa, & 2 tabs afternoon 07/10/19 25 Discontinu ed(Reorder ) PARoxetine (PAXIL) 10 mg tablet Take 1 tablet (10 mg total) by mouth 1 (one) time each day in the morning. 3 07/10/19 25 Discontinu ed(Reorder ) carvediloL (COREG) 12.5 mg tablet Take 1 tablet (12.5 mg total) by mouth 2 (two) times a day. 2 07/10/19 25 Discontinu ed(Reorder ) Active Problems Problem Noted Date Diagnosed Date Gout 03/26/2023 Chronic HFrEF (heart failure with reduced ejection fraction) 04/05/2022 Overview (03/26/2024): Dr. 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 Garcia) Hypercholesterolemia 05/23/2005 Non-ischemic cardiomyopathy 05/23/2005 Overview (03/26/2024): 01/2021: EF 35-45% (Dr. Nole) 08/2016: EF 15-20% 11/2013: EF 40-45% Encounters Date Type Department Care Team Description 07/10/2024 8:15 AM EST Office Visit Adult Medicine [address] [phone] Yoana Mckeon MD Longstanding persistent atrial fibrillation (CMS/HCC) (Primary Dx); Chronic HFrEF (heart failure with reduced ejection fraction) (CMS/HCC); Hypercholesterolemia; Non-ischemic cardiomyopathy (CMS/HCC); Vitamin D deficiency; Need for prophylactic vaccination and inoculation against influenza; Crohn's disease without complication, unspecified gastrointestinal tract location (CMS/HCC) from Last 3 Months Immunizations Name Administration Dates Next Due Influenza trivalent, 0.5mL ( Fluad) 65yo and older 07/10/2024,03/26/2023,04/05/2022,2020,03/18/2020,03/06/2019,03/08/2017,1 ,03/17/2014 PPD Test 12/08/2009 Pfizer SARS-CoV-2 COVID-19, mRNA, LNP-S, preservative free 03/22/2022,03/22/2021,08/12/2020,2020 Pneumococcal conjugate 13 va lent (Prevnar 13, PCV13) 2mo and older 03/08/2017 Td Tetanus diptheria (Tdvax) 7yo and older 08/09/2017,11/09/1997 Tdap Tetanus diptheria acell ular pertussis (Boostrix; Adacel) 7yo and older 11/06/2007 Zoster recombinant (Shingrix ) 19yo and older 02/17/2021,12/22/2019 Surgical History Surgery Date Site/Laterality Comments MASTECTOMY left, breast cancer COLONOSCOPY 04/2014 done at ; old crohns in cecum. COLONOSCOPY 09/24/2008 : Up to cecum, adequate preparation, multiple polypoid lesions at cecum(bx, not removed):inflammatory changes and prominet submucosal adipose tissue,no adenoma. Polyp and ulceration descending-bx and tattoo:Ulcerated inflammatory polyp, rectal polyp remove COLONOSCOPY 04/1999 UPPER GASTROINTESTINAL ENDOSCOPY 04/16/2014 ; small HH. BREAST BIOPSY lt.bx.-cancer 1990 Medical History Medical History Date Comments Congestive heart failure, unspecified 05/23/2005 Pure hypercholesterolemia 05/23/2005 AICD (automatic cardioverter/defibrillator) present 08/09/2017 Atrial fibrillation ([facility]) 04/29/2018 Vitamin D deficiency 05/29/2018 Tuberculosis 04/29/2018 Nonsustained ventricular tac hycardia ([facility]/HCC) 02/06/201901/27 syncope, AICD fired Post herpetic neuralgia 03/07/2019 Gout 03/26/2023 Breast cancer ([facility]) 05/23/2005 1991: Le ft mastectomy, chemo with adriamycin - declines BRCA testing 07/2021: right breast carcinoma in situ; right mastectomy 02/2022: declining aromatase inhibitor therapy (Dr. Garcia) Crohn's disease ([facility]/HCC) 12/08/2008 In rem ission Non-ischemic cardiomyopathy ([facility]/HCC) 05/23/200501/2021: EF 35-45% (Dr. Noel) 08/2016: EF 15-20% 11/2013: EF 40-45% Family History Medical History Relation Name Comments Breast cancer Aunt great mat great aunt Diabetes Brother 1 hypertension, C AD, Other: lupus Brother 2 Other: sarcoid Brother 3 hypertension Hypertension Brother 4 CAD Liver cancer Brother 5 Other: unknown Father Diabetes Maternal Grandmother hyperte nsion Hypertension Mother lupus Breast cancer Mother's side mat cousin 57 Ovarian cancer Other first cousin Other: dermoid lupus Sister 1 arthrit is Hypertension Sister 2 arthritis Hypertension Son 2 sons Colon cancer Neg Hx Relation Name Status Comments Aunt great mat Brother 1 Brother 2 Brother 3 Brother 4 Brother 5 Father Maternal Grandmother Mother Mother's side mat cousin 57 Alive Other Sister 1 Sister 2 Son Social History Tobacco Use Types Packs/Day Years [...] on file Sexual Orientation Not on file Obstetrics History Last Filed Vital Signs Vital Sign Reading [...] Mass Index 31.41 07/10/2024 9:06 AM EST Plan of Treatment Upcoming Encounters Date Type Department Care Team (Late st Contact Info) Description 01/12/2025 8:15 AM EDT Office Visit Adult Medicine [facility] [address] [place] [phone] Yoana Mckeon MD [address] [place] [address] 02/25/2025 1:15 PM EDT Office Visit Breast [facility] [address] [place] [phone] Danna Medina MD [address] [place] [address] Health Maintenance Due Date Last Done Comments Pneumococcal Vaccine: 50+ Years (2 of 2 - PPSV23) 05/03/2017 03/08/2017 RSV Immunization Patients 60+ Years Old (1 - 1-dose 75+ series) 2021 Falls Risk Assessment 05/19/2022 Hepatitis C Screening 05/19/2022 Osteoporosis Screening (Bone Density Screening) 05/19/2022 Social Influencers of Health Screening 05/19/2022 COVID-19 Vaccine ( season) 2024 08/02/2023, 03/22/2022, 03/22/2021, Additional history exists Depression Screening 07/16/2024 07/16/2023 Hypertension/CHF/CAD Annual BMP Blood Test 07/14/2025 07/14/2024, 10/31/2023, 10/31/2023 DTaP,Tdap,and Td Vaccines (4 - Td or Tdap) 08/10/2027 08/09/2017, 11/06/2007, 11/09/1997 Cholesterol Screening (Lipid Panel) 07/14/2029 07/14/2024, 10/31/2023, 10/31/2023 Zoster Vaccines Completed 02/17/2021, 12/22/2019 Influenza Vaccine Completed 07/10/2024, , 04/05/2022, Additional history exists HIB Vaccines Aged Out No longer eligi ble based on patient's age to complete this topic HPV Vaccines Aged Out No longer eligi ble based on patient's age to complete this topic Hepatitis A Vaccines Aged Out No long er eligible based on patient's age to complete this topic Hepatitis B Vaccines Aged Out No long er eligible based on patient's age to complete this topic IPV Vaccines Aged Out No longer eligi ble based on patient's age to complete this topic MMR Vaccines Aged Out No longer eligi ble based on patient's age to complete this topic Meningococcal ACWY Vaccine Aged Out N o longer eligible based on patient's age to complete this topic Meningococcal B Vacine Aged Out No lo nger eligible based on patient's age to complete this topic RSV Immunization Patients Under 20 months Aged Out No longer eligible based on patient's age to complete this topic Varicella Vaccines Aged Out No longer eligible based on patient's age to complete this topic Procedures Procedure Name Priority Date/Time Associated Diagnosis Comments CBC WITH AUTO DIFFERENTIAL Routine 07/14/2024 8:05 AM EST Longstanding persistent atrial fibrillation (CMS/HCC) Chronic HFrEF (heart failure with reduced ejection fraction) (CMS/HCC) LIPID PANEL WITH REFLEX TO DIRECT LDL Routine 07/14/2024 8:05 AM EST Hypercholesterolemia BASIC METABOLIC PANEL Routine 07/14/2024 8:05 AM EST Chronic HFrEF (heart failure with reduced ejection fraction) (CMS/HCC) CBC AND DIFFERENTIAL Routine 07/14/2024 8:05 AM EST Longstanding persistent atrial fibrillation (CMS/HCC) Chronic HFrEF (heart failure with reduced ejection fraction) (CMS/HCC) HM DEPRESSION SCREENING Routine 07/16/2023 from Last 3 Months or Most Recently Relevant to Health Maintenance Results * (ABNORMAL) Lipid panel with reflex to direct LDL (07/14/2024 8:05 AM EST) Cholesterol 242(H) 0 - 200 mg/dL LAB CHEMISTRY METHOD 07/14/2024 11:09 AM [facility] Triglycerides 89 0 - 150 mg/dL LAB CHEMISTRY METHOD 07/14/2024 11:09 AM [facility] HDL 82 >=40 mg/dL LAB CHEMISTRY METHOD 07/14/2024 11:09 AM [facility] LDL Calculated 142(H) 0 - 100 mg/dL LAB CHEMISTRY METHOD 07/14/2024 11:09 AM [facility] VLDL Cholesterol Mynor 17.8 mg/dL LAB CHEMISTRY METHOD 07/14/2024 11:09 AM [facility] Non HDL Chol. (LDL+VLDL) 160(H) <145 mg/dL LAB CHEMISTRY METHOD 07/14/2024 11:09 AM [facility] Chol/HDL Ratio 3.0 0.0 - 4.4 LAB CHEMISTRY METHOD 07/14/2024 11:09 AM [facility] Blood Venous blood specimen / Unknown Venipuncture / Unknown 07/14/2024 8:05 AM EST 07/14/2024 8:05 AM EST us Yoana Mckeon MD LAB BLOOD ORDERABLES Final Resul t [facility] [address] [place] [address], * (ABNORMAL) CBC auto differential (07/14/2024 8:05 AM EST) WBC 4.3(L) 4.8 - 10.8 K/mcL LAB HEMETOLOGY METHOD 07/14/2024 10:37 AM [facility] RBC 4.30 3.80 - 4.80 M/mcL LAB HEMETOLOGY METHOD 07/14/2024 10:37 AM [facility] Hemoglobin 11.5 11.5 - 16.0 g/dL LAB HEMETOLOGY METHOD 07/14/2024 10:37 AM [facility] Hematocrit 38.5 35.0 - 47.0 % LAB HEMETOLOGY METHOD 07/14/2024 10:37 AM [facility] MCV 89.7 79.0 - 98.0 FL LAB HEMETOLOGY METHOD 07/14/2024 10:37 AM [facility] MCH 26.8(L) 27.0 - 32.0 pcg LAB HEMETOLOGY METHOD 07/14/2024 10:37 AM [facility] MCHC 29.9(L) 32.0 - 37.0 g/dL LAB HEMETOLOGY METHOD 07/14/2024 10:37 AM [facility] RDW 14.6 11.0 - 15.0 % LAB HEMETOLOGY METHOD 07/14/2024 10:37 AM [facility] Platelets 180 130 - 400 K/mcL LAB HEMETOLOGY METHOD 07/14/2024 10:37 AM [facility] MPV 11.8(H) 7.0 - 11.0 FL LAB HEMETOLOGY METHOD 07/14/2024 10:37 AM [facility] NRBC 0.0 <1.0 % LAB HEMETOLOGY METHOD 07/14/2024 10:37 AM [facility] NRBC Absolute 0.00 <0.10 K/mcL LAB HEMETOLOGY METHOD 07/14/2024 10:37 AM [facility] Neutrophils Relative 59.6 % LAB HEMETOLOGY METHOD 07/14/2024 10:37 AM [facility] Lymphocytes Relative 29.1 % LAB HEMETOLOGY METHOD 07/14/2024 10:37 AM [facility] Monocytes Relative 6.9 % LAB HEMETOLOGY METHOD 07/14/2024 10:37 AM [facility] Eosinophils Relative 2.3 % LAB HEMETOLOGY METHOD 07/14/2024 10:37 AM [facility] Basophils Relative 0.7 % LAB HEMETOLOGY METHOD 07/14/2024 10:37 AM [facility] Immature Granulocytes Relative 1.4 % LAB HEMETOLOGY METHOD 07/14/2024 10:37 AM [facility] Neutrophils Absolute 2.58 1.50 - 7.00 K/mcL LAB HEMETOLOGY METHOD 07/14/2024 10:37 AM [facility] Lymphocytes Absolute 1.26 1.00 - 5.00 K/mcL LAB HEMETOLOGY METHOD 07/14/2024 10:37 AM [facility] Monocytes Absolute 0.30 0.20 - 1.00 K/mcL LAB HEMETOLOGY METHOD 07/14/2024 10:37 AM [facility] Eosinophils Absolute 0.10 0.00 - 0.50 K/mcL LAB HEMETOLOGY METHOD 07/14/2024 10:37 AM [facility] Basophils Absolute 0.03 0.00 - 0.20 K/[facility] LAB HEMETOLOGY METHOD 07/14/2024 10:37 AM [facility] Immature Granulocytes Absolute 0.06(H) 0.00 - 0.03 K/[facility] LAB HEMETOLOGY METHOD 07/14/2024 10:37 AM EST [facility] Blood Venous blood specimen / Unknown Venipuncture / Unknown 07/14/2024 8:05 AM EST 07/14/2024 8:05 AM EST us Yoana Mckeon MD LAB BLOOD ORDERABLES Final Resul t [facility] [address] [place] [address], * (ABNORMAL) Basic metabolic panel (07/14/2024 8:05 AM EST) Sodium 139 133 - 145 mmol/L LAB CHEMISTRY METHOD 07/14/2024 11:09 AM [facility] Potassium 3.9 3.5 - 5.5 mmol/L LAB CHEMISTRY METHOD 07/14/2024 11:09 AM [facility] Chloride 104 96 - 110 mmol/L LAB CHEMISTRY METHOD 07/14/2024 11:09 AM [facility] CO2 30 21 - 32 mmol/L LAB CHEMISTRY METHOD 07/14/2024 11:09 AM [facility] Anion Gap 5 3 - 11 LAB CHEMISTRY METHOD 07/14/2024 11:09 AM [facility] Glucose 101(H) 70 - 100 mg/dL LAB CHEMISTRY METHOD 07/14/2024 11:09 AM [facility] BUN 27(H) 5 - 25 mg/dL LAB CHEMISTRY METHOD 07/14/2024 11:09 AM [facility] Creatinine 1.51(H) 0.50 - 1.10 mg/dL LAB CHEMISTRY METHOD 07/14/2024 11:09 AM [facility] eGFR 35(L) >=60 mL/min/1. 73m2 LAB CHEMISTRY METHOD 07/14/2024 11:09 AM [facility] Comment:Calculation based on the??Chronic Kidney Disease Epidemiology Collaboration (CKD-EPI) equation refit??without adjustment for race. BUN/Creatinine Ratio 17.9 LAB CHEMISTRY METHOD 07/14/2024 11:09 AM [facility] Calcium 9.6 8.5 - 10.5 mg/dL LAB CHEMISTRY METHOD 07/14/2024 11:09 AM [facility] Blood Venous blood specimen / Unknown Venipuncture / Unknown 07/14/2024 8:05 AM EST 07/14/2024 8:05 AM EST us Yoana Mckeon MD LAB BLOOD ORDERABLES Final Resul t [facility] [address] [place] [address], * Depression Screening (07/16/2023) Health system Depression Screening abstracted Historical Provider HEALTH MAINTENANCE Final Result from Last 3 Months or Most Recently Relevant to Health Maintenance Insurance MEDICAID - [place] [facility] Care Teams Hall Worker Relationship Specialty Start Date End Date Yoana Mckeon MD [address] [place] [address] PCP - General 03/02/1997
--- OUTSIDE RECORDS SUMMARY | 2024-07-29 13:14 | XMS_ITS ---
Author Name Kandis [facility]. Karissa Address [address] [place] [address] Phone [phone] [facility] Care Team Providers Care Human Resource Officer Name Role Phone Karissa Marquis Unavailable [phone] Unavailable Unavailable Unavailable RAUL BIRD Unavailable [phone] KHADIJAH FRY Unavailable [phone] Unavailable Unavailable Unavailable Yoana Mckeon Unavailable [phone] Reason for Referral Not Available Allergies, adverse reactions, alerts Allergen Type Reaction Severity Status Onset Date Augmentin Allergy to substance (disorder) Unknown Active N/A Phenolphthalein Allergy to substance (disorder) Un known Active N/A History of medication use Medication Class Instructions Start Date End Date Aspirin EC 81 mg Tab delayed rel take 1 tablet by mouth daily 2022-03-31 No Data Available Aspirin Low Dose 81 mg Tab delayed rel TAKE 1 TABLET BY MOUTH EVERY DAY 2020-10-11 No Data Available Entresto 24/26 mg Tab TAKE 1 TABLET BY M OUTH TWICE DAILY 2021-09-21 No Data Available Amiodarone 200 mg Tab TAKE 1 TABLET BY M OUTH DAILY 2021-11-04 No Data Available Carvedilol 12.5 mg Tab TAKE 1 TABLET BY MOUTH TWICE DAILY 2021-12-27 No Data Available Torsemide 20 mg Tab TAKE 2 TABLETS BY MO UTH TWICE DAILY 2022-01-16 No Data Available Lidocaine 5 % Patch UNWRAP AND APPLY 1 P ATCH TO SKIN EVERY DAY 12 HOURS ON AND 12 HOURS OFF 2022-02-22 No Data Available Arthritis Pain Relieving 0.0 75 % Crm APPLY EXTERNALLY TO THE AFFECTED AREA FOUR TIMES DAILY 2022-02-22 No Data Available PARoxetine 10 mg Tab TAKE 1 TABLET BY MO UT EVERY MORNING 2022-06-30 2022-10-17 Ketorolac Tromethamine 0.5 % Solution INSTILL 1 DROP IN RIGHT EYE THREE TIMES DAILY. START 2 DAYS BEFORE SURGERY 2022-07-11 2022-10-17 Atorvastatin Calcium 40 mg Tab TAKE 1 TA BLET BY MOUTH DAILY 2022-07-13 No Data Available oxyCODONE 5 mg Tab TAKE 1 TABLET BY ADEEL TH EVERY 6 HOURS NEEDED FOR PAIN 2022-08-12 No Data Available Acetaminophen Extra Strength 500 mg Tab TAKE 2 TABLET BY MOUTH FOUR TIMES DAILY NEEDED FOR FEVER OR PAIN 2022-08-12 No Data Available predniSONE 20 mg Tab TAKE 2 TABLETS BY M OUTH DAILY FOR 5 DAYS FOR INFLAMMATION 2022-08-17 2022-10-17 Cyclobenzaprine 10 mg Tab TAKE 1 TABLET BY MOUTH EVERY 8 HOURS 2022-08-22 No Data Available ALPRAZolam 0.5 mg Tab TAKE 1 TABLET BY M OUTH 1 HOUR PRIOR TO INJECTION 2022-08-24 2022-10-17 Amoxicillin 500 mg Tab TAKE 4 TABLETS BY MOUTH DIRECTED DAY OF INJECTION 2022-08-24 No Data Available Gabapentin 300 mg Cap TAKE 1 CAPSULE BY MOUTH EVERY DAY AT BEDTIME prn 2022-08-24 No Data Available BINAXNOW COVID-[address] KIT TEST DIRECTED TODAY 2022-09-21 2022-10-17 Ketorolac Tromethamine 0.5 % Solution INSTILL 1 DROP IN RIGHT EYE THREE TIMES DAILY. START 2 DAYS BEFORE SURGERY 2022-07-11 No Data Available Benzonatate 100 mg Cap TAKE 1 CAPSULE BY MOUTH THREE TIMES DAILY NEEDED FOR COUGH 2023-02-16 No Data Available predniSONE 20 mg Tab No Data Available 2023-02-20 No Data Available Diclofenac Sodium 1 % Gel 4 grams topica lly to affected area 4 times per day PRN 2023-06-19 No Data Available Iron 325 (65 Fe) MG Tab 1 tablet po daily 2024-03-26 No Data Available Problem List Problem Status Onset Date Resolved Date Sacroiliitis, not elsewhere classifiedOsteoarthritis A ctive 2022-10-17 N/A Post herpetic neuralgia Active 2023-06-19 N/A Crohn's disease, unspecified, without complications Ac tive 2024-03-26 N/A 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 Active 2022-03-31 N/A Gout Active 2024-03-26 N/A Atrial fibrillation & Hyperc oagulability due to atrial fibrillation Active 2022-04-03 N/A History of breast cancer Active 2022-03-31 N/A History of ventricular fibrillation Active 03-26 N/A Obesity Active 2024-03-26 N/A Other problems related to nh dical facilities and other health care Active 2024-03-26 N/A Chronic kidney disease, stage 3b Active N/A Encounters Encounters Type Facility Date of Service Diagnosis/Co mplaint Medication List Documented (1159F) [facility] ([place] Medication List Documented (1159F) [facility] Medication List Documented (1159F) [facility] Medication List Documented (1159F) [facility] Medication List Documented (1159F) [facility] Medication List Documented (1159F) [facility] Unspecified systolic (conges tive) heart failureUnspecified atrial fibrillationChronic kidney disease, unspecifiedPersonal history of malignant neoplasm of breast Medication List Documented (1159F) [facility] ([place] Medication List Documented (1159F) [facility] No Data Available [facility] Hyp hrt & chr kdny dis w hrt fail and stg 1-4/unsp chr kdnyUnspecified systolic (congestive) heart failureChronic kidney disease, stage 3bSecondary hyperaldosteronismMalignant neoplasm of unspecified site of unspecified female breastOther thrombophiliaUnspecified atrial fibrillationSacroiliitis, not elsewhere classifiedUnspecified osteoarthritis, unspecified site No Data Available [facility] No Data Available [facility] No Data Available [facility] No Data Available [facility] No Data Available [facility] No Data Available [facility] ([place] 10[place]17/[place] No Data Available [facility] No Data Available [facility] No Data Available [facility] Estab. patient 10-29min; 1 minor problem; add add modifier 95 for video, modifier 93 for phone [facility] 02[place]2023 Hypertensive heart disease w ith heart failureUnspecified systolic (congestive) heart failureSecondary hyperaldosteronismSacroiliitis, not elsewhere classifiedUnspecified osteoarthritis, unspecified site Estab. patient 10-29min; 1 minor problem; add add modifier 95 for video, modifier 93 for phone [facility] [place] 02/26/2023 Estab. patient 10-29min; 1 minor problem; add add modifier 95 for video, modifier 93 for phone [facility] [place] 02/26/2023 Estab. patient 10-29min; 1 minor problem; add add modifier 95 for video, modifier 93 for phone [facility] [place] 02/26/2023 Estab. patient 10-29min; 1 minor problem; add add modifier 95 for video, modifier 93 for phone [facility] [place] 02/26/2023 Estab. patient 10-29min; 1 minor problem; add add modifier 95 for video, modifier 93 for phone [facility] [place] 02/26/2023 Unlisted special service; to be used for medical record reviews and reporting CPTII codes (1111F, etc) [facility] ([place] 05/10/2023 Unspecified systolic (conges tive) heart failureHyp hrt & chr kdny dis w hrt fail and stg 1-4/unsp chr kdnySecondary hyperaldosteronismPersonal history of malignant neoplasm of breastChronic kidney disease, stage 3bOther thrombophiliaUnspecified atrial fibrillationSacroiliitis, not elsewhere classifiedUnspecified osteoarthritis, unspecified siteOther reduced mobility Unlisted special service; to be used for medical record reviews and reporting CPTII codes (1111F, etc) [facility] ([place]10/2023 Unlisted special service; to be used for medical record reviews and reporting CPTII codes (1111F, etc) [facility] ([place]/10/2023 Unlisted special service; to be used for medical record reviews and reporting CPTII codes (1111F, etc) [facility] ([place] 05/10/2023 Unlisted special service; to be used for medical record reviews and reporting CPTII codes (1111F, etc) [facility] ([place] 06/19/2023 Hyp hrt & chr kdny dis w hrt fail and stg 1-4/unsp chr kdnyUnspecified systolic (congestive) heart failureChronic kidney disease, stage 3bSecondary hyperaldosteronismMalignant neoplasm of unspecified site of unspecified female breastOther thrombophiliaUnspecified atrial fibrillationUnspecified osteoarthritis, unspecified siteSacroiliitis, not elsewhere classifiedOther reduced mobilityOther postherpetic nervous system involvement Unlisted special service; to be used for medical record reviews and reporting CPTII codes (1111F, etc) [facility] to be used for medical record reviews and reporting CPTII codes (1111F, etc) [facility] [facility] to be used for medical record reviews and reporting CPTII codes (1111F, etc) [facility] ([place] 06/19/2023 Estab. patient 30-39min; chronic exacerbation, 2 stable chronic or 1 acute illness add add modifier 95 for video, (do not use for phone, instead use [id number]) [facility] ([place] 03/26/2024 Heart failure, unspecifiedSecondary hyperaldosteronismChronic kidney disease, stage 3bUnspecified atrial fibrillationOther thrombophiliaSacroiliitis, not elsewhere classifiedCrohn's disease, unspecified, without complicationsObesity, unspecifiedBody mass index (bmi) 31.0-31.9, adultUnspecified osteoarthritis, unspecified siteOther reduced mobilityOther postherpetic nervous system involvementPersonal history of malignant neoplasm of breastPersonal history of other diseases of the circulatory systemGout, unspecifiedOther problems related to medical facilities and other health care Estab. patient 30-39min; chronic exacerbation, 2 stable chronic or 1 acute illness add add modifier 95 for video, (do not use for phone, instead use [id number]) [facility] ([place] 03[place] Estab. patient 30-39min; chronic exacerbation, 2 stable chronic or 1 acute illness add add modifier 95 for video, (do not use for phone, instead use [id number]) [facility] ([place] 03/26/20[place] Estab. patient 30-39min; chronic exacerbation, 2 stable chronic or 1 acute illness add add modifier 95 for video, (do not use for phone, instead use [id number]) [facility] ([place] 03/26/20[place] Estab. patient 30-39min; chronic exacerbation, 2 stable chronic or 1 acute illness add add modifier 95 for video, (do not use for phone, instead use [id number]) [facility] ([place] 03/26/20[place] Estab. patient 30-39min; chronic exacerbation, 2 stable chronic or 1 acute illness add add modifier 95 for video, (do not use for phone, instead use [id number]) [facility] ([place] 03/26/2024 Estab. patient 30-39min; chronic exacerbation, 2 stable chronic or 1 acute illness add add modifier 95 for video, (do not use for phone, instead use [id number]) [facility] ([place] 03/26/2024 Vital Signs Date of Collection Vitals 2022-03-31 07:07:39 Height - 157.48 cmWe ight - 83.92 kgBody Mass Index (BMI) - 33.84 kg/m2BP Diastolic - 76.0 mm[Hg]BP Systolic - 112.0 mm[Hg] 2022-10-17 07:08:00 Height - 157.48 cmWe ight - 86.18 kgBody Mass Index (BMI) - 34.75 kg/m2BP Diastolic - 60.0 mm[Hg]BP Systolic - 112.0 mm[Hg] 2023-02-26 06:46:46 Weight - 83.01 kgBod y Mass Index (BMI) - 33.47 kg/m2Pain Scale - 4.0 {score} 2023-05-10 08:13:55 Height - 157.48 cmWe ight - 82.55 kgBody Mass Index (BMI) - 33.29 kg/m2 2024-03-26 06:48:28 Weight - 78.02 kgBod y Mass Index (BMI) - 31.46 kg/m2BP Diastolic - 80.0 mm[Hg]BP Systolic - 120.0 mm[Hg]Pain Scale - 0.0 {score} Social History Social History Social History Observation Description Effec tive Time Current Smoking Status Never smoker 2024-07-12 8 Sex Female Gender identity Woman History of Procedures Procedures Service Procedure code Service date Servicing provider Phone# Medication List Documented (1159F) 1159F 2022-03-31 No Data Available No Data Aletha ilable Medication Review by prescribing provider or pharmacist documented (1160F) 1160F 2022-03-31 No Data Available No Data Aletha ilable Functional Status Assessed (1170F) 1170F 2022-03-31 No Data Available No Data Avail able Advance Care Directive Advance care planning discussion documented in the medical record (1158F) 1158F 2022-03-31 No Data Available No Data Availa ble BMI obtained (3008F) 3008F 2022-03-31 No Data Availab le No Data Available New patient,40-59min; chronic exacerbation, 2 stable chronic or 1 acute illness add add modifier 95 for video (do not use for phone, instead use [id number]) 30016 2022-03-31 No Data Available No Data Availa ble SBP < 130 (3074F) 3074F 2022-03-31 No Data Available No Data Available DBP <80 (3078F) 3078F 2022-03-31 No Data Available No Data Available No Data Available 58157 2022-10-17 No Data Available No Data Available Medication List Documented (1159F) 1159F 2022-10-17 No Data Available No Data Aletha ilable Medication Review by prescribing provider or pharmacist documented (1160F) 1160F 2022-10-17 No Data Available No Data Aletha ilable Functional Status Assessed (1170F) 1170F 2022-10-17 No Data Available No Data Avail able Pain Assessment - Pain Documented on a Pain Scale (1125F) 1125F 2022-10-17 No Data Available No Data Aletha ilable Advance Care Directive Advance care planning discussion documented in the medical record (1158F) 1158F 2022-10-17 No Data Available No Data Availa ble BMI obtained (3008F) 3008F 2022-10-17 No Data Availab le No Data Available SBP < 130 (3074F) 3074F 2022-10-17 No Data Available No Data Available DBP <80 (3078F) 3078F 2022-10-17 No Data Available No Data Available Advance care planning discussed and documented ? advance care plan or surrogate decision-maker was documented in the medical record. (1123F) 1123F 2022-10-17 No Data Available No Data Availa ble Estab. patient 10-29min; 1 minor problem; add add modifier 95 for video, modifier 93 for phone 82316 2023-02-26 No Data Available No Data Availa ble Pain Assessment - Pain Documented on a Pain Scale (1125F) 1125F 2023-02-26 No Data Available No Data Aletha ilable BMI obtained (3008F) 3008F 2023-02-26 No Data Availab le No Data Available Medication List Documented (1159F) 1159F 2023-02-26 No Data Available No Data Aletha ilable Medication List Documented (1159F) 1159F 2023-02-26 No Data Available No Data Aletha ilable Functional Status Assessed (1170F) 1170F 2023-02-26 No Data Available No Data Avail able Unlisted special service; to be used for medical record reviews and reporting CPTII codes (1111F, etc) 77793 2023-05-10 No Data Available No Data Availa ble BMI obtained (3008F) 3008F 2023-05-10 No Data Availab le No Data Available Medication List Documented (1159F) 1159F 2023-05-10 No Data Available No Data Aletha ilable Functional Status Assessed (1170F) 1170F 2023-05-10 No Data Available No Data Avail able Unlisted special service; to be used for medical record reviews and reporting CPTII codes (1111F, etc) 61204 2023-06-19 No Data Available No Data Availa ble Medication List Documented (1159F) 1159F 2023-06-19 No Data Available No Data Aletha ilable Functional Status Assessed (1170F) 1170F 2023-06-19 No Data Available No Data Avail able Pain Assessment - Pain Documented on a Pain Scale (1125F) 1125F 2023-06-19 No Data Available No Data Aletha ilable Estab. patient 30-39min; chronic exacerbation, 2 stable chronic or 1 acute illness add add modifier 95 for video, (do not use for phone, instead use [id number]) 80021 2024-03-26 No Data Available No Data Availa ble BMI obtained (3008F) 3008F 2024-03-26 No Data Availab le No Data Available Pain Assessment - NO pain present (1126F) 1126F 2024-03-26 No Data Available No Data A vailable Medication List Documented (1159F) 1159F 2024-03-26 No Data Available No Data Aletha ilable Advance Care Directive Advance care planning discussion documented in the medical record (1158F) 1158F 2024-03-26 No Data Available No Data Availa ble Advance care planning discussed and documented ? advance care plan or surrogate decision-maker was documented in the medical record. (1123F) 1123F 2024-03-26 No Data Available No Data Availa ble Functional Status Assessed (1170F) 1170F 2024-03-26 No Data Available No Data Avail able Functional Status Functional Category Effective Dates Do you feel unsteady on your feet? No 03-04-16 DME used with ambulation: Cane 2024-03-11 6 How many falls within the last 6 months? None 2024-03-26 IADL: Medication Needs Mellisa tance , Meal Prep Needs Assistance , Shopping Needs Assistance , Driving or Public Transport Needs Assistance , Housework Needs Assistance 2024-03-26 Do you worry about falling? No 2024-03-11 6 Near falls within the last 6 months? Non e 2024-03-26 ADL: Bathing Needs Assistanc e , Dressing Needs Assistance , Eating Independent , Ambulation Needs Assistance , Transferring Independent and Toileting Independent 2024-03-26 Social Supports - # of Inter actions with Friends/Family in a typical week: 2024-03-26 Mental Status Status Date Cognition Status: Oriented to Person, Pl kaci and Time 2024-03-26 Assessments Date of Service Assessments 2022-03-31 07:07:39 Heart failure with r educed ejection fraction, NYHA class IIAtrial fibrillationBreast cancerPost herpetic neuralgiaCKD (chronic kidney disease) 2022-10-17 07:08:00 Heart failure with r educed ejection fraction, NYHA class IIHypertensive heart failureSecondary hyperaldosteronismBreast cancerCKD (chronic kidney disease) stage 3, GFR 30-59 ml/minOther thrombophiliaHypercoagulability due to atrial fibrillationSacroiliitis, not elsewhere classifiedOsteoarthritis 2023-02-26 06:46:46 Heart failure with r educed ejection fraction, NYHA class IIHypertensive heart failureSecondary hyperaldosteronismSacroiliitis, not elsewhere classifiedOsteoarthritis 2023-05-10 08:13:55 Heart failure with r educed ejection fraction, NYHA class IIHypertensive heart failureSecondary hyperaldosteronismBreast cancerCKD (chronic kidney disease) stage 3, GFR 30-59 ml/minOther thrombophiliaHypercoagulability due to atrial fibrillationSacroiliitis, not elsewhere classifiedOsteoarthritis 2023-06-19 12:03:45 Heart failure with r educed ejection fraction, NYHA class IIHypertensive heart failureSecondary hyperaldosteronismBreast cancerCKD (chronic kidney disease) stage 3, GFR 30-59 ml/minOther thrombophiliaHypercoagulability due to atrial fibrillationSacroiliitis, not elsewhere classifiedOsteoarthritisPost herpetic neuralgia 2024-03-26 06:48:28 CHF (congestive hear t failure) with Secondary hyperaldosteronismHistory of breast cancerChronic kidney disease, stage 3bAtrial fibrillation & Hypercoagulability due to atrial fibrillationSacroiliitis, not elsewhere classifiedOsteoarthritisPost herpetic neuralgiaCrohn's disease, unspecified, without complicationsHistory of ventricular fibrillationObesityGoutOther problems related to medical facilities and other health care Plan of Care Date of Service Plans 2022-03-31 07:07:39 Medication Review by prescribing provider or pharmacist documented (1160F)Medication List Documented (1159F)Functional Status Assessed (1170F)Advance Care Directive Advance care planning discussion documented in the medical record (1158F)BMI obtained (3008F)SBP < 130 (3074F)DBP <80 (3078F)Televideo new patient,40-59min; chronic exacerbation, 2 stable chronic or 1 acute illness add modifier 95Continue to see PCP. Follow-up with [facility] as needed for any acute or disease education needs that may arise.on torsemide ef 25%amiodaronecarvedilolsp mastectomy in mastectomy was in 1990from shingles 4 years agomed list states gabapentin , but per pt she does not take, unaware of what this ishas used capscacin cream in past but painful continues to struggle with pain from thistorsemide for chfrenally dose meds 2022-10-17 07:08:00 Medication Review by prescribing provider or pharmacist documented (1160F)Medication List Documented (1159F)Functional Status Assessed (1170F)Advance Care Directive Advance care planning discussion documented in the medical record (1158F)BMI obtained (3008F)SBP < 130 (3074F)DBP <80 (3078F)Advance care planning discussed and documented ? advance care plan or surrogate decision-maker was documented in the medical record. (1123F)Phone (patient, parent, or guardian); 21-30 minutes of medical discussion (no modifier 95)Pain Assessment - NO pain documented (1126F)Continue to see PCP. Follow-up with [facility] as needed for any acute or disease education needs that may arise.Amiodarone 200 mg Tab TAKE 1 TABLET BY MOUTH DAILYCarvedilol 12.5 mg Tab TAKE 1 TABLET BY MOUTH TWICE DAILYEntresto 24/26 mg Tab TAKE 1 TABLET BY MOUTH TWICE DAILYTorsemide 20 mg Tab TAKE 2 TABLETS BY MOUTH TWICE DAILYpt reports no issues or s/sx of exacerbation labs and plan of care as per PCP, cardiono acute issues or concernss/p mastectomy mastectomy was in 1990pt to continue follow up and plan of care as per PCP, onctorsemide for chfGFR 43 3avoid nephrotoxic substanceslabs and plan of care as per PCPatrial fibrillation with CHADsVASc score=4 (female gender, >75 years of age, heart failure)daily ASAright hip injection gabapentin prnconservative measures 2023-02-26 06:46:46 BMI obtained (3008F) Medication List Documented (1159F)Pain Assessment - Pain Documented (1125F)Televideo 10-29min; 1 minor problem; add modifier 95Continue to see PCP. Follow-up with [facility] as needed for any acute or disease education needs that may arise 01/01.Contingency plan:Current diuretic usage: NoneNormal oxygen flow rate: NoneFor worsening symptoms: Increase torsemide (Demadex) to 40 mg PO twice daily for 3 days and Order chest x-rayAmiodarone 200 mg Tab TAKE 1 TABLET BY MOUTH DAILYCarvedilol 12.5 mg Tab TAKE 1 TABLET BY MOUTH TWICE DAILYEntresto 24/26 mg Tab TAKE 1 TABLET BY MOUTH TWICE DAILYTorsemide 20 mg Tab TAKE 2 TABLETS BY MOUTH TWICE DAILYpt reports no issues or s/sx of exacerbation labs and plan of care as per PCP, cardio 02/26/23: Stable. Continue current treatment plan as directed. Follow up as indicated.right hip injection gabapentin prnconservative measures 02/26/23: Stable. Encouraged pain management and relaxation techniques as needed. Maintain safety and fall precautions. Follow up as indicated. 2023-05-10 08:13:55 Phone (patient, pare nt, or guardian); 5-10 minutes of medical discussion (no modifier 95)BMI obtained (3008F)Continue to see PCP. Follow-up with [facility] as needed for any acute or disease education needs that may arise 01/01.Contingency plan:Current diuretic usage: NoneNormal oxygen flow rate: NoneFor worsening symptoms: Increase torsemide (Demadex) to 40 mg PO twice daily for 3 days and Order chest x-rayAmiodarone 200 mg Tab TAKE 1 TABLET BY MOUTH DAILYCarvedilol 12.5 mg Tab TAKE 1 TABLET BY MOUTH TWICE DAILYEntresto 24/26 mg Tab TAKE 1 TABLET BY MOUTH TWICE DAILYTorsemide 20 mg Tab TAKE 2 TABLETS BY MOUTH TWICE DAILYpt reports no issues or s/sx of exacerbation labs and plan of care as per PCP, cardio 05/09/23: Stable. Continue current treatment plan as directed. Follow up as indicated.no acute issues or concernss/p mastectomy 09/2021first mastectomy was in 1991pt to continue follow up and plan of care as per PCP, onctorsemide for chfGFR 43 07/12/2022void nephrotoxic substanceslabs and plan of care as per PCPatrial fibrillation with CHADsVASc score=4 (female gender, >75 years of age, heart failure)daily ASAright hip injection gabapentin prnconservative measures 02/26/23: Stable. Encouraged pain management and relaxation techniques as needed. Maintain safety and fall precautions. Follow up as indicated.05/10/23: Requesting bedside commode due to sacroiliitis, hip and back pain, with mobility impairment. DME task placed. Z74.09, M19.90, M46.1 2023-06-19 12:03:45 Phone (patient, pare nt, or guardian); 5-10 minutes of medical discussion (no modifier 95)Continue to see PCP. Follow-up with [facility] as needed for any acute or disease education needs that may arise 01/01.Contingency plan:Current diuretic usage: NoneNormal oxygen flow rate: NoneFor worsening symptoms: Increase torsemide (Demadex) to 40 mg PO twice daily for 3 days and Order chest x-rayAmiodarone 200 mg Tab TAKE 1 TABLET BY MOUTH DAILYCarvedilol 12.5 mg Tab TAKE 1 TABLET BY MOUTH TWICE DAILYEntresto 24/26 mg Tab TAKE 1 TABLET BY MOUTH TWICE DAILYTorsemide 20 mg Tab TAKE 2 TABLETS BY MOUTH TWICE DAILYpt reports no issues or s/sx of exacerbation labs and plan of care as per PCP, cardio Stable. Continue current treatment plan as directed. Follow up as indicated.no acute issues or concernss/p mastectomy mastectomy was in to continue follow up and plan of care as per PCP, onctorsemide for chfGFR 43 3avoid nephrotoxic substanceslabs and plan of care as per PCPatrial fibrillation with CHADsVASc score=4 (female gender, >75 years of age, heart failure)daily ASAright hip injection gabapentin prnconservative measures 02/26/23: Stable. Encouraged pain management and relaxation techniques as needed. Maintain safety and fall precautions. Follow up as indicated.05/10/23: Requesting bedside commode due to sacroiliitis, hip and back pain, with mobility impairment. DME task placed. Z74.09, M19.90, M46.1Voltaren Gel 2024-03-26 06:48:28 Televideo 30-39min; chronic exacerbation, 2 stable chronic or 1 acute illness add modifier 95Functional Status Assessed (1170F)Pain Assessment - NO pain documented (1126F)BMI obtained (3008F)Advance Care Directive Advance care planning discussion documented in the medical record (1158F)Advance care planning discussed and documented ? advance care plan or surrogate decision-maker was documented in the medical record. (1123F)Medication Review by prescribing provider or pharmacist documented (1160F)Medication List Documented (1159F)SBP < 130 (3074F)DBP <80 (3078F)Continue to see PCP. Follow-up with [facility] as needed for any acute or disease education needs that may arise.Rx: Amiodarone ,Carvedilol , Entresto ,Torsemide -important for patient to have a low Na Diet or no sodium, daily weights, no alcohol, no smoking, importance of exercise, and weight loss.no acute issues or concernss/p mastectomy 09/2021first mastectomy was in 1990Patient reports that she is continuing to follow with PCP- but oncologist cleared her last week and doesn't have to follow with him any longer. 03/26/2024Outside care 10/31/2023 gfr = 42Avoid nephrotoxic medications (NSAIDS, high dose Gabapentin, Baclofen, Fleet Enema, Morphine/Codeine)atrial fibrillation with CHADsVASc score=4 (female gender, >75 years of age, heart failure)daily ASAright hip injection gabapentin prnconservative measures 02/26/23: Stable. Encouraged pain management and relaxation techniques as needed. Maintain safety and fall precautions. Follow up as indicated.05/10/23: Requesting bedside commode due to sacroiliitis, hip and back pain, with mobility impairment. DME task placed. Z74.09, M19.90, M46.1Voltaren GelEducation on exercising regularly, eating a healthy diet, and quitting smoking. Reducing stress can also help prevent flare ups. In addition, avoiding problem foods such as :Caffeine, alcohol, and spicy foods may make symptoms worse, reduce dairy, limit fiber, avoid large meals. Stay hydrated and drink plenty of water.Noted in Outside careContinue to follow with PCPBMI: 31.46Education provided as follows: Eat a healthy diet. Limit portion sizes. Do not drink sweetened sodas or tea. Walk as often as able. Follow up with PCP as scheduled.Recommend medication compliance and low purine diet. Avoid beer/alcohol, high fructose corn syrup, wild game meat, red meat, liver, shellfish, shrimp, anchovies, and turkey. Stay well hydrated.HYPERTENSION CONTINGENCY PLANLast updated: 03/26/2024Member to call for the following symptoms: BP >180/100??/ Chest pain??/ Headache/ HR <50??/ HR >100??Planned intervention: Assess for signs of end organ damage (headache, vision changes, chest pain)/ Harvest Worker on proper BP monitoring technique and reassess/ Increase current medication dose:/ Encourage low sodium diet/ Discuss breathing exercises/ Encourage medication adherence Goals Date Goal 2022-03-31 Remember to fu with pcp 2022-03-31 Call me if you have any questions or concerns 2022-03-31 Keep taking medicati ons as prescribed 2023-02-26 Remember to follow u p with PCP and specialists as directed.Call if you have any questions, comments, or concerns.Keep taking your medications as prescribed. 2024-03-26 Continue taking medi cations as directed and keep all follow up appointments with established PCP and Specialist. Health Concerns Date Concern 2024-03-26 Visit completed miller davis audio/video. Informed verbal consent was obtained from this patient to communicate and provide care using virtual and other telecommunications tools. This patient has been explained the risks, if any, related to the encounter. I explained that care provided through video or audio communication cannot replace the need for physical examination or an in-person visit for some disorders or urgent problems. Patient/Guardian agreed to visit via telehealth. Today, patient has chief complaint of: follow up care and comprehensive review. 2024-03-26 Most recent hospital stay(s) or ER visit(s) and precipitating factors: Denies Er or hospital visits
== END 2024-07-29 13:30 | disposition home or self-care (01) ==
PROVIDERS: PCP Internal Medicine; Visit Provider Internal Medicine Cardiovascular Disease
DX: I50.22 Chronic systolic (congestive) heart failure (principal); I48.0 Paroxysmal atrial fibrillation; Z95.810 Presence of automatic (implantable) cardiac defibrillator; I35.0 Nonrheumatic aortic (valve) stenosis; I44.0 Atrioventricular block, first degree
CPT/HCPCS: 93010; 93260; 99214; G2211

== ENCOUNTER → 2024-07-29 12:21 | Outpatient (BNVA) | payer OTHER, SELFPAY | PROVIDERS: PCP Internal Medicine; Visit Provider Internal Medicine Cardiovascular Disease | DX: I50.22 Chronic systolic (congestive) heart failure (principal); I48.0 Paroxysmal atrial fibrillation; I42.8 Other cardiomyopathies; I35.0 Nonrheumatic aortic (valve) stenosis; Z95.810 Presence of automatic (implantable) cardiac defibrillator | CPT/HCPCS: 93005; 99212 ==

== ENCOUNTER 2024-07-31 06:44 | Outpatient (REF) | payer OTHER, SELFPAY ==
--- OUTSIDE RECORDS SUMMARY | 2024-07-31 06:47 | XMS_ITS | Encounter Summary ---
Author Organization [facility] Address [address] [place] [address] Care Team Providers Care Wedger Name Role Phone Yoana Mckeon MD Primary Care Provider [phone] Reason for Visit * Reason Onset Date Comments Faxed Order 04/29/2018 Encounter Details Date Type Department Care Team Description 04/29/2018 Telephone Adult Medicine [address] [phone] Yoana Mckeon MD [address] [place] [address] [phone] Faxed Order Social History Tobacco Use Types Packs/Day Years Used Date Smoking Tobacco: Never Smokeless Tobacco: Never Alcohol Use Standard Drinks/Week Comments No 0 (1 standard drink = 0.6 oz pur e alcohol) Sex Assigned at Date Recorded Not on file Job Start Date Occupation Industry Not on file Not on file Not on file documented as of this encounter Miscellaneous Notes * Telephone Encounter - Sweta Alexandra - 04/29/2018 3:07 PM EST Modified order for Dr Yoana Mckeon's signature documented in this encounter Plan of Treatment Not on file documented as of this encounter Visit Diagnoses Not on filedocumented in this encounter Additional Health Concerns Infection Onset Date Last Indicated Resolved Time COVID-19 Comment:Patient reporting positive test from Sunday 02/1102/11/2023 02/13/2023 documented as of this encounter Care Teams Wedger Relationship Specialty Start Date End Date Yoana Mckeon MD [address] [place] [address] PCP - General 03/02/1997 documented as of this encounter
--- OUTSIDE RECORDS SUMMARY | 2024-07-31 06:47 | XMS_ITS | Encounter Summary ---
Author Organization [facility] Address [address] [place] [address] Care Team Providers Care Svp Programmatic Tv Name Role Phone Yoana Mckeon MD Primary Care Provider Encounter Details Date Type Department Care Team Description 11/21/2013 Night Triage Doc Medical Records [address] [place] [id number] Abstract, Provider Social History Tobacco Use Types Packs/Day Years Used Date Smoking Tobacco: Never Smokeless Tobacco: Never Alcohol Use Standard Drinks/Week Comments No 0 (1 standard drink = 0.6 oz pur e alcohol) Sex Assigned at Date Recorded Not on file Job Start Date Occupation Industry Not on file Not on file Not on file documented as of this encounter Plan of Treatment Not on file documented as of this encounter Visit Diagnoses Not on filedocumented in this encounter Additional Health Concerns Infection Onset Date Last Indicated Resolved Time COVID-19 Comment:Patient reporting positive test from Sunday 02/1102/11/2023 02/13/2023 documented as of this encounter Care Teams Svp Programmatic Tv Relationship Specialty Start Date End Date Yoana Mckeon MD [address] [place] [address] PCP - General 03/02/1997 documented as of this encounter
--- OUTSIDE RECORDS SUMMARY | 2024-07-31 06:47 | XMS_ITS | Encounter Summary ---
Author Organization [facility] Address [address] [place] [address] Care Team Providers Care Systems Integration Engineer Name Role Phone Yoana Mckeon MD Primary Care Provider [phone] Encounter Details Date Type Department Care Team Description 07/23/2017 Hospital Medical Records [address] [place] [address] Christos Nichols MD Social History Tobacco Use Types Packs/Day Years [...] documented as of this encounter Care Teams Systems Integration Engineer Relationship Specialty Start Date End Date Yoana Mckeon MD [address] [place] [address] PCP - General 03/02/1997 documented as of this encounter
--- OUTSIDE RECORDS SUMMARY | 2024-07-31 06:47 | XMS_ITS | Encounter Summary ---
Author Organization [facility] Address [address] [place] [address] Care Team Providers Care Early Morning Name Role Phone Yoana Mckeon MD Primary Care Provider [phone] Encounter Details Date Type Department Care Team Description 05/01/2018 Release of Information Medical Records [address] [place] [address] Abstract, Provider Social History Tobacco Use Types [...] documented as of this encounter Care Teams Early Morning Relationship Specialty Start Date End Date Yoana Mckeon MD [address] [place] [address] PCP - General 03/02/1997 documented as of this encounter
--- OUTSIDE RECORDS SUMMARY | 2024-07-31 06:47 | XMS_ITS | Encounter Summary ---
Author Organization [facility] Address [address] [place] [address] Care Team Providers Care Small Business Sales Representative Name Role Phone Yoana Mckeon MD Primary Care Provider [phone] Encounter Details Date Type Department Care Team Description 07/23/2017 Hospital Medical Records [address] [place] [address] Betty Villarreal NP Social History Tobacco Use Types Packs/Day Years [...] documented as of this encounter Care Teams Small Business Sales Representative Relationship Specialty Start Date End Date Yoana Mckeon MD [address] [place] [address] [phone] PCP - General 03/02/1997 documented as of this encounter
--- OUTSIDE RECORDS SUMMARY | 2024-07-31 06:47 | XMS_ITS | Encounter Summary ---
[facility] Organization [facility] Address [address] [place] [address] Care Team Providers Care Professor Of Social Work Name Role Phone Yoana Mckeon MD Primary Care Provider [phone] Encounter Details Date Type Department Care Team Description 08/02/2017 Home Companion Report Medical Records [address] [place] [address] Toño Noel MD Social History Tobacco Use Types Packs/Day [...] documented as of this encounter Care Teams Professor Of Social Work Relationship Specialty Start Date End Date Yoana Mckeon MD [address] [place] [address] PCP - General 03/02/1997 documented as of this encounter
--- OUTSIDE RECORDS SUMMARY | 2024-07-31 06:47 | XMS_ITS | Encounter Summary ---
[facility] Address [address] [place] [address] Care Team Providers Care Desktop Support Manager Name Role Phone Yoana Mcekon MD Primary Care Provider [phone] Encounter Details Date Type Department Care Team Description 11/22/2013 [facility] Medical Records [address] [place] [address] Donnie Das MD Social History Tobacco Use Types Packs/Day [...] documented as of this encounter Care Teams Desktop Support Manager Relationship Specialty Start Date End Date Yoana Mckeon MD [address] [place] [address] PCP - General 03/02/1997 documented as of this encounter
--- OUTSIDE RECORDS SUMMARY | 2024-07-31 06:47 | XMS_ITS | Encounter Summary ---
Author Organization [facility] Address [address] [place] [address] Care Team Providers Care Travel Med Surg Rn Name Role Phone Yoana Mckeon MD Primary Care Provider [phone] Encounter Details Date Type Department Care Team Description 04/29/2018 Release of Information Medical Records [address] [place] [address] Abstract, Provider Social History Tobacco Use Types [...] documented as of this encounter Care Teams Travel Med Surg Rn Relationship Specialty Start Date End Date Yoana Mckeon MD [address] [place] [address] PCP - General 03/02/1997 documented as of this encounter
--- OUTSIDE RECORDS SUMMARY | 2024-07-31 06:47 | XMS_ITS | Encounter Summary ---
Author Organization [facility] Address [address] [place] [address] Care Team Providers Care Commercial Sheet Metal Foreman Name Role Phone Yoana Mckeon MD Primary Care Provider [phone] Encounter Details Date Type Department Care Team Description 01/15/2020 International Flight Attendant Report Medical Records [address] [place] [address] Homa Nunez MD Social History Tobacco Use Types Packs/Day [...] documented as of this encounter Care Teams Commercial Sheet Metal Foreman Relationship Specialty Start Date End Date Yoana Mckeon MD [address] [place] [address] PCP - General 03/02/1997 documented as of this encounter
--- OUTSIDE RECORDS SUMMARY | 2024-07-31 06:47 | XMS_ITS | Encounter Summary ---
Author Organization [facility] Address [address] [place] [address] Care Team Providers Care Parquet Floor Layer'S Helper Name Role Phone Yoana Mckeon MD Primary Care Provider [phone] Reason for Visit * Reason Onset Date Comments Faxed Refill 09/25/2013 Encounter Details Date Type Department Care Team Description 09/25/2013 Refill Adult Medicine [address] [phone] Yoana Mckeon MD [address] [place] [address] [phone] Faxed Refill Social History Tobacco Use Types Packs/Day Years [...] * Telephone Encounter - Sweta Alexandra - 09/26/2013 1:33 PM EDT Voicemail left for pt to callback to schedule appt * Telephone Encounter - Yoana Mckeon MD - 09/25/2013 11:37 AM EDT She needs appt for December scheduled before I will refill - can have 90 days without refills * Telephone Encounter - Margareth Bronson M.A. - 09/25/2013 11:02 AM EDT Component Value Date CHOL 299 06/16/2013 LDL 218 06/16/2013 HDL 66 06/16/2013 TRIG 78 06/16/2013 SGOT 20 07/19/2012 SGPT 19 07/19/2012 * Telephone Encounter - Sweta Alexandra - 09/25/2013 10:57 AM EDT Patient would like script to be: E-PRESCRIBED/FAXED TO PHARMACY WHEN WAS THE PATIENT'S LAST APPOINTMENT IN ADULT MEDICINE? 06-26-13 WHEN WAS THE LAST TIME THE PATIENT SAW THEIR PCP? Same as above Does patient have an upcoming appointment? No-unable to reach left [facility] to call for appointment due to refill request. Appt due [facility] (THE MEDICATION REQUESTED IS ON THE MED LIST ABOVE) All of the medications requested were on the historical MEDS list Did you check the Pharmacy information above?: YES Patient wants: 90 -day supply Is this a mail order prescription request ? NO Patients current insurance carrier is: Pay[place]: [place] Plan[place] Product Type: MEDICARE [id number] documented in this encounter Plan of Treatment Not on file documented as of this encounter Visit Diagnoses Not on filedocumented in this encounter Additional Health Concerns Infection Onset Date Last Indicated Resolved Time COVID-19 Comment:Patient reporting positive test from Sunday 02/1102/11/2023 02/13/2023 documented as of this encounter Care Teams Parquet Floor Layer'S Helper Relationship Specialty Start Date End Date Yoana Mckeon MD [address] [place] [address] PCP - General 03/02/1997 documented as of this encounter
--- OUTSIDE RECORDS SUMMARY | 2024-07-31 06:47 | XMS_ITS | Encounter Summary ---
Author Organization [facility] Address [address] [place] [address] Care Team Providers Care Fur Tinter Name Role Phone Yoana Mckeon MD Primary Care Provider [phone] Encounter Details Date Type Department Care Team Description 07/24/2017 Hospital Medical Records [address] [place] [address] Bhutanese, Gretta, DO Social History Tobacco Use Types Packs/Day Years [...] documented as of this encounter Care Teams Fur Tinter Relationship Specialty Start Date End Date Yoana Mckeon MD [address] [place] [address] PCP - General 03/02/1997 documented as of this encounter
--- OUTSIDE RECORDS SUMMARY | 2024-07-31 06:47 | XMS_ITS | Encounter Summary ---
Author Organization [facility] Address [address] [place] [address] Care Team Providers Care Combination Machine Tool Setter Name Role Phone Yoana Mckeon MD Primary Care Provider [phone] Encounter Details Date Type Department Care Team Description 02/27/2017 Supervisor Reinforced Steel Placing Report Medical Records [address] [place] [address] Toño Noel MD Social History Tobacco Use [...] documented as of this encounter Care Teams Combination Machine Tool Setter Relationship Specialty Start Date End Date Yoana Mckeon MD [address] [place] [address] PCP - General 03/02/1997 documented as of this encounter
--- OUTSIDE RECORDS SUMMARY | 2024-07-31 06:47 | XMS_ITS | Encounter Summary ---
[facility] Address [address] [place] [address] Care Team Providers Care Tooth Cutter Spur Name Role Phone Yoana Mckeon MD Primary Care Provider [phone] Encounter Details Date Type Department Care Team Description 03/15/2018 Hospital Medical Records [address] [place] [address] Ashlyn Mckeon Social History Tobacco Use Types Packs/Day Years [...] documented as of this encounter Care Teams Tooth Cutter Spur Relationship Specialty Start Date End Date Yoana Mckeon MD [address] [place] [address] [phone] PCP - General 03/02/1997 documented as of this encounter
--- OUTSIDE RECORDS SUMMARY | 2024-07-31 06:47 | XMS_ITS | Clinical Summary ---
Author Organization [facility] [address] [place] [address] [place] [phone] Phone Care Team Providers Care Supervisor Conditioning Yard Name Role Phone Yoana Mckeon MD Primary Care Provider [phone] Allergies Active Allergy Reactions Criticality Noted Date [...] 05/23/2005 Overview (03/26/2024): 01/2021: EF 35-45% (Dr. Noel) 08/2016: EF 15-20% 11/2013: EF 40-45% Encounters Date Type Department Care Team Description 07/10/2024 8:15 AM EST Office Visit Adult Medicine [address] [phone] Yoana Mckeon MD Longstanding persistent atrial fibrillation [...] AICD (automatic cardioverter/defibrillator) present 08/09/2017 Atrial fibrillation ([facility]) 04/29/2018 Vitamin D deficiency 05/29/2018 Tuberculosis 04/29/2018 Nonsustained ventricular tac hycardia ([facility]) 02/06/201901/27 syncope, AICD fired Post herpetic neuralgia 03/07/2019 Gout 03/26/2023 Breast cancer ([facility]) 05/23/2005 1991: Le ft mastectomy, chemo with adriamycin - declines BRCA testing 07/2021: right breast carcinoma in situ; right mastectomy 02/2022: declining aromatase inhibitor therapy (Dr. Garcia) Crohn's disease ([facility]) 12/08/2008 In rem ission Non-ischemic cardiomyopathy ([facility]) 05/23/200501/2021: EF 35-45% (Dr. Noel) 08/2016: EF [...] 8:15 AM EDT Office Visit Adult Medicine [facility] [address] [place] [address] Yoana Mckeon MD [address] [place] [address] 02/25/2025 1:15 PM EDT Office Visit [facility] [address] [place] [phone] Danna Medina MD [address] [facility] [address] [place] [address] Health Maintenance Due Date Last Done Comments [...] mg/dL LAB CHEMISTRY METHOD 07/14/2024 11:09 AM [facility] Triglycerides 89 0 - 150 mg/dL LAB CHEMISTRY METHOD 07/14/2024 11:09 AM [facility] HDL 82 >=40 mg/dL LAB CHEMISTRY METHOD 07/14/2024 11:09 AM [facility] LDL Calculated 142(H) 0 - 100 mg/dL LAB CHEMISTRY METHOD 07/14/2024 11:09 AM [facility] VLDL Cholesterol Mynor 17.8 mg/dL LAB CHEMISTRY METHOD 07/14/2024 11:09 AM [facility] Non HDL Chol. (LDL+VLDL) 160(H) <145 mg/dL LAB CHEMISTRY METHOD 07/14/2024 11:09 AM [facility] Chol/HDL Ratio 3.0 0.0 - 4.4 LAB CHEMISTRY METHOD 07/14/2024 11:09 AM [facility] Blood Venous blood specimen / Unknown Venipuncture / Unknown 07/14/2024 8:05 AM EST 07/14/2024 8:05 AM EST us Yoana Mckeon MD LAB BLOOD ORDERABLES Final Resul t [facility] [address] [place] [address], * (ABNORMAL) CBC auto differential (07/14/2024 8:05 AM EST) WBC 4.3(L) 4.8 - 10.8 K/mcL LAB HEMETOLOGY METHOD 07/14/2024 10:37 AM [facility] RBC 4.30 3.80 - 4.80 M/mcL LAB HEMETOLOGY METHOD 07/14/2024 10:37 AM [facility] Hemoglobin 11.5 11.5 - 16.0 g/dL LAB HEMETOLOGY METHOD 07/14/2024 10:37 AM [facility] Hematocrit 38.5 35.0 - 47.0 % LAB HEMETOLOGY METHOD 07/14/2024 10:37 AM [facility] MCV 89.7 79.0 - 98.0 FL LAB HEMETOLOGY METHOD 07/14/2024 10:37 AM [facility] MCH 26.8(L) 27.0 - 32.0 pcg LAB HEMETOLOGY METHOD 07/14/2024 10:37 AM [facility] MCHC 29.9(L) 32.0 - 37.0 g/dL LAB HEMETOLOGY METHOD 07/14/2024 10:37 AM [facility] RDW 14.6 11.0 - 15.0 % LAB HEMETOLOGY METHOD 07/14/2024 10:37 AM [facility] Platelets 180 130 - 400 K/mcL LAB HEMETOLOGY METHOD 07/14/2024 10:37 AM [facility] MPV 11.8(H) 7.0 - 11.0 FL LAB HEMETOLOGY METHOD 07/14/2024 10:37 AM [facility] NRBC 0.0 <1.0 % LAB HEMETOLOGY METHOD 07/14/2024 10:37 AM [facility] NRBC Absolute 0.00 <0.10 K/mcL LAB HEMETOLOGY METHOD 07/14/2024 10:37 AM [facility] Neutrophils Relative 59.6 % LAB HEMETOLOGY METHOD 07/14/2024 10:37 AM [facility] Lymphocytes Relative 29.1 % LAB HEMETOLOGY METHOD 07/14/2024 10:37 AM [facility] Monocytes Relative 6.9 % LAB HEMETOLOGY METHOD 07/14/2024 10:37 AM [facility] Eosinophils Relative 2.3 % LAB HEMETOLOGY METHOD 07/14/2024 10:37 AM [facility] Basophils Relative 0.7 % LAB HEMETOLOGY METHOD 07/14/2024 10:37 AM [facility] Immature Granulocytes Relative 1.4 % LAB HEMETOLOGY METHOD 07/14/2024 10:37 AM [facility] Neutrophils Absolute 2.58 1.50 - 7.00 K/mcL LAB HEMETOLOGY METHOD 07/14/2024 10:37 AM [facility] Lymphocytes Absolute 1.26 1.00 - 5.00 K/mcL LAB HEMETOLOGY METHOD 07/14/2024 10:37 AM [facility] Monocytes Absolute 0.30 0.20 - 1.00 K/mcL LAB HEMETOLOGY METHOD 07/14/2024 10:37 AM [facility] Eosinophils Absolute 0.10 0.00 - 0.50 K/mcL LAB HEMETOLOGY METHOD 07/14/2024 10:37 AM [facility] Basophils Absolute 0.03 0.00 - 0.20 K/[facility] LAB HEMETOLOGY METHOD 07/14/2024 10:37 AM [facility] Immature Granulocytes Absolute 0.06(H) 0.00 - 0.03 K/[facility] LAB HEMETOLOGY METHOD 07/14/2024 10:37 AM EST [facility] Blood Venous blood specimen / Unknown Venipuncture / Unknown 07/14/2024 8:05 AM EST 07/14/2024 8:05 AM EST us Yoana Mckeon MD LAB BLOOD ORDERABLES Final Resul t [facility] [address] [place] [address], * (ABNORMAL) Basic metabolic panel (07/14/2024 8:05 AM EST) Sodium 139 133 - 145 mmol/L LAB CHEMISTRY METHOD 07/14/2024 11:09 AM [facility] Potassium 3.9 3.5 - 5.5 mmol/L LAB CHEMISTRY METHOD 07/14/2024 11:09 AM [facility] Chloride 104 96 - 110 mmol/L LAB CHEMISTRY METHOD 07/14/2024 11:09 AM [facility] CO2 30 21 - 32 mmol/L LAB CHEMISTRY METHOD 07/14/2024 11:09 AM [facility] Anion Gap 5 3 - 11 LAB CHEMISTRY METHOD 07/14/2024 11:09 AM [facility] Glucose 101(H) 70 - 100 mg/dL LAB CHEMISTRY METHOD 07/14/2024 11:09 AM [facility] BUN 27(H) 5 - 25 mg/dL LAB CHEMISTRY METHOD 07/14/2024 11:09 AM [facility] Creatinine 1.51(H) 0.50 - 1.10 mg/dL LAB CHEMISTRY METHOD 07/14/2024 11:09 AM [facility] eGFR 35(L) >=60 mL/min/1. 73m2 LAB CHEMISTRY METHOD 07/14/2024 11:09 AM [facility] Comment:Calculation based on the??Chronic Kidney Disease Epidemiology Collaboration (CKD-EPI) equation refit??without adjustment for race. BUN/Creatinine Ratio 17.9 LAB CHEMISTRY METHOD 07/14/2024 11:09 AM [facility] Calcium 9.6 8.5 - 10.5 mg/dL LAB CHEMISTRY METHOD 07/14/2024 11:09 AM [facility] Blood Venous blood specimen / Unknown Venipuncture / Unknown 07/14/2024 8:05 AM EST 07/14/2024 8:05 AM EST us Yoana Mckeon MD LAB BLOOD ORDERABLES Final Resul t [facility] [address] [place] [address], * Depression Screening (07/16/2023) [facility] Depression Screening abstracted Historical Provider HEALTH MAINTENANCE Final Result from Last 3 Months or Most Recently Relevant to Health Maintenance Insurance MEDICAID - [place] [facility] Care Teams Supervisor Conditioning Yard Relationship Specialty Start Date End Date Yoana Mckeon MD [address] [place] [address] PCP - General 03/02/1997
--- OUTSIDE RECORDS SUMMARY | 2024-07-31 06:48 | XMS_ITS | Clinical Summary ---
Author Organization [facility] Address [address] [place] [address] Care Team Providers Care Instructional Consultant Name Role Phone Yoana Mckeon MD Primary Care Provider [phone] Allergies Active Allergy Reactions Criticality Noted Date [...] daily. 30 tablet 04/04/2018 Active nystatin (MYCOSTATIN) 873335 UNIT/ML suspensionIndicatio ns:Abnormal LFTs Take 5 mL (500,000 Units total) by mouth 4 (four) times a day. 60 mL 04/04/2018 Active fluticasone (FloNASE) 50 mcg/spray nasal sprayIndications:Ab normal LFTs 1 spray into each nostril daily. 15.8 Bottle 04/05/2018 Active ergocalciferol (VITAMIN D2,DRISDOL) 21357 units CapIndications:Abno rmal LFTs Take 1 capsule [...] Inactivated Comments 03/15/2018 1:04 PM Care Teams Instructional Consultant Relationship Specialty Start Date End Date Yoana Mckeon MD [address] [place] [address] PCP - General 03/15/18
--- OUTSIDE RECORDS SUMMARY | 2024-07-31 06:48 | XMS_ITS | Encounter Summary ---
Author Organization [facility] Address [address] [place] [address] Care Team Providers Care Tool Repair Technician Name Role Phone Yoana Mckeon MD Primary Care Provider Encounter Details Date Type Department Care Team Description 08/21/2018 Business Doc Medical Records [address] [place] [id number] Abstract, Provider Social History Tobacco Use Types [...] documented as of this encounter Care Teams Tool Repair Technician Relationship Specialty Start Date End Date Yoana Mckeon MD [address] [place] [address] PCP - General 03/02/1997 documented as of this encounter
--- OUTSIDE RECORDS SUMMARY | 2024-07-31 06:48 | XMS_ITS | Encounter Summary ---
Author Organization [facility] Address [address] [place] [address] Care Team Providers Care Shuttle Fixer Name Role Phone Yoana Mckeon MD Primary Care Provider [phone] Encounter Details Date Type Department Care Team Description 07/18/2021 Head Paper Tester Report Medical Records [address] [place] [address] Toño Noel MD Social History Tobacco Use [...] documented as of this encounter Care Teams Shuttle Fixer Relationship Specialty Start Date End Date Yoana Mckeon MD [address] [place] [phone] PCP - General 03/02/1997 documented as of this encounter
--- OUTSIDE RECORDS SUMMARY | 2024-07-31 06:48 | XMS_ITS | Encounter Summary ---
Author Organization [facility] Address [address] [place] [address] Care Team Providers Care Metal Ceiling Builder Name Role Phone Yoana Mckeon MD Primary Care Provider [phone] Encounter Details Date Type Department Care Team Description 09/03/2018 Hospital Medical Records [address] [place] [id number] DesiletsPower MD Social History Tobacco Use Types Packs/Day [...] documented as of this encounter Care Teams Metal Ceiling Builder Relationship Specialty Start Date End Date Yoana Mckeon MD [address] [place] [address] PCP - General 03/02/1997 documented as of this encounter
--- OUTSIDE RECORDS SUMMARY | 2024-07-31 06:48 | XMS_ITS | Encounter Summary ---
Author Organization [facility] Address [address] [place] [address] Care Team Providers Care Carpenter Assistant Installer Name Role Phone Yoana Mckeon MD Primary Care Provider [phone] Encounter Details Date Type Department Care Team Description 01/31/2019 Orders Only Adult Medicine [address] [phone] Yoana Mckeon MD [address] [place] [phone] Preoperative examination; Screening for deficiency anemia; watermelon inspector current use of anticoagulant therapy Social History Tobacco Use Types Packs/Day Years [...] on file documented as of this encounter Results * (ABNORMAL) THROMBOPLASTIN TIME, PARTIAL (05/02/2019 10:37 AM EST) Partial Thromboplastin Time 39.5(H) 24.1 - 39.3 sec 05/02/2019 12:45 PM EST [facility] 05/02/2019 10:3 7 AM EST 05/02/2019 10:37 AM EST Yoana Mckeon MD LAB [facility] * (ABNORMAL) PROTHROMBIN TIME (05/02/2019 10:37 AM EST) Prothrombin Time 30.1(H) 10.6 - 13.9 SEC 05/02/2019 12:45 PM EST [facility] INR 2.53 05/02/2019 12:45 PM EST [facility] 05/02/2019 10:3 7 AM EST 05/02/2019 10:37 AM EST Yoana Mckeon MD LAB Performing Organization Address [facility]/ZIP Co de Phone Number [facility] * (ABNORMAL) BASIC METABOLIC PANEL (05/02/2019 10:37 AM EST) GLUCOSE 91 70 - 100 mg/dL 05/02/2019 12:43 PM EST [facility] Comment:Reference range appl icable to fasting specimens only Blood Urea Nitrogen 39(H) 5 - 25 mg/dL 05/02/2019 12:43 PM EST [facility] CREAT 1.71(H) 0.5 - 1.1 mg/dL 05/02/2019 12:43 PM EST [facility] GLOMERULAR FILTRATION RATE 29 05/02/2019 12:43 PM EST [facility] Comment: If patient is -Canadian, multiply result by 1.21 Chronic Kidney Disease: < 60 ml/min/1.73 square meters Kidney Failure: < 15 ml/min/1.73 square meters NA 138 135 - 145 mEq/L 05/02/2019 12:43 PM EST [facility] K 5.0 3.5 - 5.5 mmol/L 05/02/2019 12:43 PM EST [facility] CL 103 96 - 110 mmol/L 05/02/2019 12:43 PM EST [facility] CARBON DIOXIDE (CO2) 32 21 - 32 mmol/L 05/02/2019 12:43 PM EST [facility] ANION GAP 3 3 - 11 05/02/2019 12:43 PM EST [facility] CALCIUM 9.7 8.5 - 10.5 mg/dL 05/02/2019 12:43 PM EST [facility] 05/02/2019 10:3 7 AM EST 05/02/2019 10:37 AM EST Yoana Mckeon MD LAB [facility] * (ABNORMAL) CBC (AUTO DIFF PLATELET) (05/02/2019 10:37 AM EST) WHITE BLOOD COUNT 3.3(L) 4.8 - 10.8 x10-3/uL 05/02/2019 12:28 PM EST [facility] RED BLOOD COUNT 4.6 3.8 - 4.8 x10-6/uL 05/02/2019 12:28 PM EST [facility] Hemoglobin 11.4(L) 11.5 - 16.0 g/dL 05/02/2019 12:28 PM EST [facility] Hematocrit 39.1 35 - 47 % 05/02/2019 12:28 PM EST [facility] MEAN CORPUSCULAR VOLUME 85.2 79 - 98 fL 05/02/2019 12:28 PM EST [facility] MEAN CORPUSCULAR HEMOGLOBIN 24.8(L) 27 - 32 pg 05/02/2019 12:28 PM EST [facility] MEAN CORPUSCULAR HGB CONC 29.2(L) 32 - 37 g/dL 05/02/2019 12:28 PM EST [facility] RED CELL DISTRIBUTION WIDTH 16.3(H) 11 - 15 % 05/02/2019 12:28 PM EST [facility] PLT COUNT 224 130 - 400 x10-3/uL 05/02/2019 12:28 PM EST [facility] MEAN PLATELET VOLUME 12.3(H) 7 - 11 fL 05/02/2019 12:28 PM EST [facility] NRBC % AUTO 0.0 <1 % 05/02/2019 12:28 PM EST [facility] NEUTROPHILS % 56.9 % 05/02/2019 12:28 PM EST [facility] LYMPH % 29.6 % 05/02/2019 12:28 PM EST [facility] MONO % 10.5 % 05/02/2019 12:28 PM EST [facility] EOS % 2.1 % 05/02/2019 12:28 PM EST [facility] BASO % 0.6 % 05/02/2019 12:28 PM EST [facility] IMMATURE GRANULOCYTES % 0.3 % 05/02/2019 12:28 PM EST [facility] NRBC # AUTO 0.00 <0.1 x10-3/uL 05/02/2019 12:28 PM EST [facility] NEUT # 1.90 1.5 - 7.0 x10-3/uL 05/02/2019 12:28 PM EST [facility] LYMPH # 0.99(L) 1 - 5.0 x10-3/uL 05/02/2019 12:28 PM EST [facility] MONO # 0.35 0.2 - 1.0 x10-3/uL 05/02/2019 12:28 PM EST [facility] EOS # 0.07 0 - 0.5 x10-3/uL 05/02/2019 12:28 PM EST [facility] BASO # 0.02 0 - 0.2 x10-3/uL 05/02/2019 12:28 PM EST [facility] IMMATURE GRANULOCYTES # 0.01 0 - 0.03 x10-3/uL 05/02/2019 12:28 PM EST [facility] 05/02/2019 10:3 7 AM EST 05/02/2019 10:37 AM EST Yoana Mckeon MD LAB [facility] documented in this encounter Visit Diagnoses Diagnosis Preoperative examination Preoperative examination, unspecified Screening for deficiency anemia Screening for other and unspecified deficiency anemia watermelon inspector current use of anticoagulant therapy documented in this encounter Additional Health Concerns Infection Onset Date Last Indicated Resolved Time COVID-19 Comment:Patient reporting positive test from Sunday 02/1102/11/2023 02/13/2023 documented as of this encounter Care Teams Carpenter Assistant Installer Relationship Specialty Start Date End Date Yoana Mckeon MD [address] [place] [phone] PCP - General 03/02/1997 documented as of this encounter
--- OUTSIDE RECORDS SUMMARY | 2024-07-31 06:48 | XMS_ITS | Encounter Summary ---
Author Organization [facility] Address [address] [place] [address] Care Team Providers Care Square Cutter Name Role Phone Yoana Mckeon MD Primary Care Provider Encounter Details Date Type Department Care Team Description 09/29/2021 Orders Only Medical Records [address] [place] [address] Danna Medina MD [address] [place] [address] Social History Tobacco Use Types Packs/Day Years Used Date Smoking Tobacco: Never Smokeless Tobacco: Never Alcohol Use Standard Drinks/Week Comments No 0 (1 standard drink = 0.6 oz pur e alcohol) Sex Assigned at Date Recorded Not on file Job Start Date Occupation Industry Not on file Not on file Not on file COVID-19 Exposure Response Date Recorded In the last 10 days, have yo u been in contact with someone who was confirmed or suspected to have Coronavirus/COVID-19? No / Unsure 09/27/2021 9:32 AM EDT documented as of this encounter Plan of Treatment Not on file documented as of this encounter Procedures Procedure Name Priority Date/Time Associated Diagnosis Comments OUTSIDE PATHOLOGY Routine 09/27/2021 documented in this encounter Results * OUTSIDE PATHOLOGY (09/27/2021) Danna Medina MD OUTSIDE LAB documented in this encounter Visit Diagnoses Not on filedocumented in this encounter Additional Health Concerns Infection Onset Date Last Indicated Resolved Time COVID-19 Comment:Patient reporting positive test from Sunday 02/1102/11/2023 02/13/2023 documented as of this encounter Care Teams Square Cutter Relationship Specialty Start Date End Date Yoana Mckeon MD [address] [place] [id number] PCP - General 03/02/1997 documented as of this encounter
--- OUTSIDE RECORDS SUMMARY | 2024-07-31 06:48 | XMS_ITS | Encounter Summary ---
Author Organization [email or web address] Address [address] [place] [address] Care Team Providers Care Bank Credit Card Collection Clerk Name Role Phone Yoana Mckeon MD Primary Care Provider [phone] Encounter Details Date Type Department Care Team Description 06/16/2013 Business Doc Medical Records [address] [place] [id number] Abstract, Provider Social History Tobacco Use Types [...] documented as of this encounter Care Teams Bank Credit Card Collection Clerk Relationship Specialty Start Date End Date Yoana Mckeon MD [address] [place] [address] PCP - General 03/02/1997 documented as of this encounter
--- OUTSIDE RECORDS SUMMARY | 2024-07-31 06:48 | XMS_ITS | Clinical Summary ---
Author Organization [facility] Address [address] [place] [address] Care Team Providers Care Medical Records Assistant Name Role Phone Yoana Mckeon MD Primary Care Provider [phone] Allergies No known active allergies Medications Medication Sig Dispensed Refills Start Date End Date Status sacubitril-valsartan (ENTRESTO) 24-26 MG per tablet Take by mouth. 0 Active carvedilol (COREG) 12.5 MG tablet Take 1 tablet (12.5 mg total) by mouth 2 (two) times a day with meals. 0 Active lidocaine (LIDODERM) 5 % Place 1 patch onto the skin daily. Remove & Discard patch within 12 hours or as directed by MD 0 Active torsemide (DEMADEX) 20 MG tablet Take 1 tablet (20 mg total) by mouth daily. 0 Active aspirin EC 81 MG tablet Take 1 tablet (81 mg total) by mouth daily. 0 Active ferrous sulfate 325 (65 FE) MG tablet Take 1 tablet (325 mg total) by mouth every morning with breakfast. 0 Active atorvastatin (LIPITOR) tablet 40 mg Take 1 tablet (40 mg total) by mouth daily. 0 Active amiodarone (PACERONE) 200 MG tablet Take 1 tablet (200 mg total) by mouth daily. 0 Active Active Problems No known active problems Social History Tobacco Use Types Packs/Day Years Used Date Smoking Tobacco: Never Smokeless Tobacco: Never Alcohol Use Standard Drinks/Week Comments Never 0 (1 standard drink = 0.6 oz pur e alcohol) Sex and Gender Information Value Date Recorded Sex Assigned at Not on file Gender Identity Not on file Sexual Orientation Not on file Job Start Date Occupation Industry Not on file Not on file Not on file Last Filed Vital Signs Vital Sign Reading Time Taken Comments Blood Pressure 138/84 03/18/2024 8:35 AM EDT Pulse 49 03/18/2024 8:35 AM EDT Temperature 35.8 ??C (96.5 ??F) 03/18/2024 8:35 AM ED T Respiratory Rate - - Oxygen Saturation 100% 03/18/2024 8:35 AM EDT Inhaled Oxygen Concentration - - Weight 79.9 kg (176 lb 3.2 oz) 03/18/2024 8:35 A M EDT Height - - Body Mass Index - - Plan of Treatment Health Maintenance Due Date Last Done Comments Hepatitis C Screening 1945 Depression Screening 1958 Preventative Health Evaluation 1964 Fall Risk Assessment 2011 Osteoporosis Screening (DEXA Scan) 2011 Pneumococcal Vaccine (2 of 2 - PPSV23 or PCV20) 05/03/2017 03/08/2017 DTap / Tdap / Td (2 - Td or Tdap) 11/05/2017 11/06/2007 RSV Adult > 60+ Yrs or (1 - 1-dose 75+ series) 2021 COVID-19 Vaccine ( season) 2024 03/22/2022, 03/22/2021, 08/12/2020, Additional history exists Influenza Vaccine (#1) 2024 3, 03/26/2023, 04/05/2022, Additional history exists Shingrix-Zoster Vaccine Completed 02/17/2021, 12/21 Hepatitis B Vaccines Aged Out No long er eligible based on patient's age to complete this topic RSV Ped < 20 months Aged Out No longe r eligible based on patient's age to complete this topic Care Teams Medical Records Assistant Relationship Specialty Start Date End Date Yoana Mckeon MD PCP - General Internal Medicine 08/18/21
--- OUTSIDE RECORDS SUMMARY | 2024-07-31 06:48 | XMS_ITS | Encounter Summary ---
Author Organization [facility] Address [address] [place] [address] Care Team Providers Care Biztalk Administrator Name Role Phone Yoana Mckeon MD Primary Care Provider Encounter Details Date Type Department Care Team Description 01/28/2019 Hospital Medical Records [address] [place] [address] Denny Rosario Social History Tobacco Use Types Packs/Day Years [...] documented as of this encounter Care Teams Biztalk Administrator Relationship Specialty Start Date End Date Yoana Mckeon MD [address] [place] [address] [phone] PCP - General 03/02/1997 documented as of this encounter
--- OUTSIDE RECORDS SUMMARY | 2024-07-31 06:48 | XMS_ITS | Encounter Summary ---
Author Organization [facility] Address [address] [place] [address] Care Team Providers Care Lockstitch Lining Setter Name Role Phone Yoana Mckeon MD Primary Care Provider [phone] Encounter Details Date Type Department Care Team Description 09/06/2018 Telephone OBGYN - [place] [address] Tavia Torres MD Social History Tobacco Use Types Packs/Day [...] encounter Miscellaneous Notes * Telephone Encounter - Tahmina Vasquez M.A. - 09/06/2018 2:29 PM EDT Left patient voicemail to return call, please schedule patient for EMB.-B.A * Telephone Encounter - Tahmina Vasquez M.A. - 09/06/2018 2:29 PM EDT ----- Message from Tavia Torres MD sent at 09/06/2018 10:22 AM EDT ----- Call patient and schedule EMB. Thanks! Spoke with patient yesterday regarding thickened EMS. Recommend EMB for further evaluation. She is in agreement and had the opportunity to ask all questions and concerns. documented in this encounter Plan of Treatment Not on file documented as of this encounter Visit Diagnoses Not on filedocumented in this encounter Additional Health Concerns Infection Onset Date Last Indicated Resolved Time COVID-19 Comment:Patient reporting positive test from Sunday 02/1102/11/2023 02/13/2023 documented as of this encounter Care Teams Lockstitch Lining Setter Relationship Specialty Start Date End Date Yoana Mckeon MD [address] [place] [address] PCP - General 03/02/1997 documented as of this encounter
--- OUTSIDE RECORDS SUMMARY | 2024-07-31 06:48 | XMS_ITS | Encounter Summary ---
Author Organization [facility] Address [address] [place] [address] Care Team Providers Care Wax Bleacher Name Role Phone Yoana Mckeon MD Primary Care Provider [phone] Encounter Details Date Type Department Care Team Description 08/05/2021 Night Triage Doc Medical Records [address] [place] [address] Abstract, Provider Social History Tobacco Use Types Packs/Day Years Used Date Smoking Tobacco: Never Smokeless Tobacco: Never Alcohol Use Standard Drinks/Week Comments No 0 (1 standard drink = 0.6 oz pur e alcohol) Sex Assigned at Date Recorded Not on file Job Start Date Occupation Industry Not on file Not on file Not on file COVID-19 Exposure Response Date Recorded In the last month, have you been in contact with someone who was confirmed or suspected to have Coronavirus / COVID-19? No / Unsure 07/25/2021 3:05 PM EST documented as of this encounter Plan of Treatment Not on file documented as of this encounter Visit Diagnoses Not on filedocumented in this encounter Additional Health Concerns Infection Onset Date Last Indicated Resolved Time COVID-19 Comment:Patient reporting positive test from Sunday 02/1102/11/2023 02/13/2023 documented as of this encounter Care Teams Wax Bleacher Relationship Specialty Start Date End Date Yoana Mckeon MD [address] [place] [address] PCP - General 03/02/1997 documented as of this encounter
--- OUTSIDE RECORDS SUMMARY | 2024-07-31 06:48 | XMS_ITS | Encounter Summary ---
Author Organization [facility] Address [address] [place] [address] Care Team Providers Care Pie Filling Mixer Name Role Phone Yoana Mckeon MD Primary Care Provider [phone] Encounter Details Date Type Department Care Team Description 04/16/2019 Home Health Certification Medical Records [address] [place] [address] Vna, [facility] [address] [place], [place] [id number] Social History Tobacco Use Types Packs/Day Years [...] documented as of this encounter Care Teams Pie Filling Mixer Relationship Specialty Start Date End Date Yoana Mckeon MD [address] [place], [place] [phone] PCP - General 03/02/1997 documented as of this encounter
--- OUTSIDE RECORDS SUMMARY | 2024-07-31 06:48 | XMS_ITS | Encounter Summary ---
Author Organization [facility] Address [address] [place] [address] Care Team Providers Care Internal Carver Name Role Phone Yoana Mckeon MD Primary Care Provider [phone] Encounter Details Date Type Department Care Team Description 02/03/2019 Release of Information Medical Records [address] [place] [address] Abstract, Provider Social History Tobacco Use Types [...] documented as of this encounter Care Teams Internal Carver Relationship Specialty Start Date End Date Yoana Mckeon MD [address] [place] [address] PCP - General 03/02/1997 documented as of this encounter
--- OUTSIDE RECORDS SUMMARY | 2024-07-31 06:48 | XMS_ITS | Encounter Summary ---
Author Organization [facility] Address [address] [place] [address] Care Team Providers Care Equipment Operator Wage Hand Name Role Phone Yoana Mckeon MD Primary Care Provider [phone] Encounter Details Date Type Department Care Team Description 09/12/2018 [facility] Medical Records [address] [place] [address] [facility] Social History Tobacco Use Types Packs/Day Years [...] documented as of this encounter Care Teams Equipment Operator Wage Hand Relationship Specialty Start Date End Date Yoana Mckeon MD [address] [place] [address] [phone] PCP - General 03/02/1997 documented as of this encounter
--- OUTSIDE RECORDS SUMMARY | 2024-07-31 06:48 | XMS_ITS | Encounter Summary ---
Author Organization [facility] Address [address] [place] [address] Care Team Providers Care Lpn Home Health Name Role Phone Yoana Mckeon MD Primary Care Provider [phone] Reason for Visit * Reason Onset Date Comments Annual Wellness Outreach 04/22/2021 Encounter Details Date Type Department Care Team Description 04/22/2021 Telephone Adult Medicine [address] [phone] Nicholas Wang DO Annual Wellness Outreach Social History Tobacco Use Types Packs/Day Years [...] encounter Miscellaneous Notes * Telephone Encounter - Oma Christensen - 04/22/2021 3:46 PM EST Ms. Oden was contacted by telephone. First attempt utr lvm documented in this encounter Plan of Treatment Not on file documented as of this encounter Visit Diagnoses Not on filedocumented in this encounter Additional Health Concerns Infection Onset Date Last Indicated Resolved Time COVID-19 Comment:Patient reporting positive test from Sunday 02/1102/11/2023 02/13/2023 documented as of this encounter Care Teams Lpn Home Health Relationship Specialty Start Date End Date Yoana Mckeon MD [address] [place] [address] PCP - General [birth year]/02/1997 documented as of this encounter
--- OUTSIDE RECORDS SUMMARY | 2024-07-31 06:48 | XMS_ITS | Encounter Summary ---
Author Organization [facility] Address [address] [place] [address] Care Team Providers Care Pulling Machine Operator Name Role Phone Yoana Mckeon MD Primary Care Provider [phone] Encounter Details Date Type Department Care Team Description 04/10/2022 Telephone OBGYN - [facility] [address] [place] [address] Lindy Craig MD [address] [place] [address] [phone] Social History Tobacco Use Types Packs/Day Years [...] Recorded In the last 10 days, have demi doyle been in contact with someone who was confirmed or suspected to have Coronavirus/COVID-19? No / Unsure 04/05/2022 9:52 AM EDT documented as of this encounter Miscellaneous Notes * Telephone Encounter - Lindy Craig MD - 04/14/2022 1:09 PM EDT I called and spoke with Gale re: my recommendation to return to the office for further evaluation. I explained that in reviewing her chart, it seems that we had discussed having a further hysteroscopy for postmenopausal bleeding prior to her endometrial biopsy in 12/2020. However, when the letter was sent to her to inform her of there normal pathology on biopsy, it also included a sentence indicating that no further follow up was needed at this time. I explained that, unfortunately, this is a templated letter and that, as we discussed at her preceding visit, it was instead my intention that she should follow up for further evalution with hysteroscopy to ensure no precancerous or cancerous cells were inside the uterus. I explained that when ALEX Gandhi saw her in the office last week, she contacted me to clarify if she needed follow up or not, and it was discovered that she had not come back for additional evaluation. I apologized for this clerical error and explained that it would still be my recommendation for her to follow up with hysteroscopy based on previous US findings.She stated that she had been feeling angry and upset that this was missed and that she would liketo avoid any further procedures given she has had no further bleeding and is tired of surgery, as she underwent mastectomy earlier this year for recurrence of her breast cancer. I explained that, unfo rtunately, lack of bleeding does not mean she does not have precancerous or cancerous cells in her uterus. She was counseled that at the very least, she would need a repeat pelvic US. If the endometrial lining was very thin (<4mm), no further evaluation would be necessary, but if not, I would still recommend hysteroscopy to ensure there are no precancerous or cancerous cells within the uterus.I explained the hysteroscopy procedure and the anesthesia that would likely be required if necessary. She voiced understanding and was most interested in getting an US performed first. I placed the order and she agreed to call Radiology to get this scheduled. She was counseled that I will call her to discuss results when available and we can discuss next recommended steps. She voiced understanding of the above, was appreciative for the call, and agreed. * Telephone Encounter - Estefany Olivares L.P.N. - 04/13/2022 1:[address] Craig, I spoke with patient she is very confused and frustrated as she doesn't understand why she is receiving a call over a year later to follow up when she received a letter (01/03/21) thather test results were normal . Reports she did not call into the office in regards to this and is upset that it's now been over a year and if something was missed or never done this could affect her health. Denies ever being told that she will need a hysteroscopy and does not want surgery if this is not needed. Denies any current vaginal bleeding. She is aware you are out of the office until 04/18/22. I apologized for the confusion and she is aware I would send a message to you for review. Thank you. * Telephone Encounter - Estefany Olivares L.P.N. - 04/13/2022 1:37 PM EDT Images from the original note were not included. Celina Hough Interior Decorator Paperhanging Triage 3 days ago MH Needs appt/telehealth with Dr. Craig. * Telephone Encounter - Celina Fraser R.N. - 04/10/2022 12:07 PM EDT Call to patient per provider request; advised that Dr. Craig would like for patient to either come in to be seen or to have a telehealth appointment, as she did not follow up for her hysteroscopy. Patient stated she received a letter from Dr. Craig's office that she did not need to have any further testing or be seen any further. Advised that last letter received from 12/24/20 was for recent labwork done : with benign endometrial biopsy result. Patient out at a restaurant, and will stop by. Per provider plan: From 12/23/20 appt: I counseled Gale that based on my sample today when correlated with thickened endometrium on ultrasound, I do not feel this is adequate sampling to rule out hyperplasia or malignancy. We will await biopsy result early next week, but I would recommend she undergo diagnostic hysteroscopy for complete evaluation. She voiced understanding and agreed. documented in this encounter Plan of Treatment Not on file documented as of this encounter Results * SONO PELVIS COMPLETE (06/15/2022 6:48 PM EST) 06/16/2022 11:0 2 AM EST Impressions MATTHEW CHAMPION OTHER EXTERNAL - 06/16/2022 11:05 AM EST abnormal appearance of the endometrium with poorly defined borders heterogeneous echotexture and significant thickening. ??Clinical correlation is recommended. ??Possibility of neoplastic process should be considered. Narrative MATTHEW CHAMPION OTHER EXTERNAL - 06/16/2022 11:05 AM EST Pelvic ultrasound. History:Postmenopausal bleeding. COMPARISON prior pelvic ultrasounds, latest from 11/30/2020. The pelvis was scanned transabdominally for maximum [id number], and then transvaginally for optimum delineation of the uterus and ovaries. The uterus measures 7.3 x 3.2 x 3.6 cm. There is no appreciable myometrial abnormalities. ??Endometrium is poorly defined, heterogeneous in echotexture and markedly thickened measuring up to 1.6 cm. The ovaries are not visualized. Procedure Note Mariangel Gordillo MD - 06/16/2022 Pelvic ultrasound. History:Postmenopausal bleeding. COMPARISON prior pelvic ultrasounds, latest from 11/30/2020. The pelvis was scanned transabdominally for maximum [id number], andthen transvaginally for optimum delineation of the uterus and ovaries. The uterus measures 7.3 x3.2 x 3.6 cm. There is no appreciable myometrial abnormalities. Endometrium is poorly defined,heterogeneous in echotexture and markedly thickened measuring up to 1.6 cm. The ovaries are not visualized. IMPRESSION abnormal appearance of the endometrium with poorly defined bordersheterogeneous echotexture and significant thickening. Clinical correlation isrecommended. Possibility of neoplastic process should be considered. Lindy Craig MD ULTRASOUND [facility] OTHER EXTERNAL documented in this encounter Visit Diagnoses Diagnosis Recurrent postmenopausal bleeding- Primary Postmenopausal bleeding Recurrent postmenopausal bleeding Postmenopausal bleeding documented in this encounter Additional Health Concerns Infection Onset Date Last Indicated Resolved Time COVID-19 Comment:Patient reporting positive test from Sunday 02/1102/11/2023 02/13/2023 documented as of this encounter Care Teams Pulling Machine Operator Relationship Specialty Start Date End Date Yoana Mckeon MD [address] [place] [address] PCP - General 03/02/1997 documented as of this encounter
--- OUTSIDE RECORDS SUMMARY | 2024-07-31 06:48 | XMS_ITS | Encounter Summary ---
Author Organization [facility] Address [address] [place] [address] Care Team Providers Care Telecom Specialist Name Role Phone Yoana Mckeon MD Primary Care Provider [phone] Encounter Details Date Type Department Care Team Description 11/19/2018 Sharepoint Application Architect Report Medical Records [address] [place] [address] Kassie Washington Social History Tobacco Use Types Packs/Day Years [...] documented as of this encounter Care Teams Telecom Specialist Relationship Specialty Start Date End Date Yoana Mckeon MD [address] [place] [address] [phone] PCP - General 03/02/1997 documented as of this encounter
--- OUTSIDE RECORDS SUMMARY | 2024-07-31 06:48 | XMS_ITS | Encounter Summary ---
Author Organization [facility] Address [address] [place] [address] Care Team Providers Care Dinkey Engine Firer Name Role Phone Yoana Mckeon MD Primary Care Provider [phone] Encounter Details Date Type Department Care Team Description 08/27/2018 Records Administrator Report Medical Records [address] [place] [address] Natasha Mann Np Social History Tobacco Use Types Packs/Day Years [...] documented as of this encounter Care Teams Dinkey Engine Firer Relationship Specialty Start Date End Date Yoana Mckeon MD [address] [place] [address] [phone] PCP - General 03/02/1997 documented as of this encounter
--- OUTSIDE RECORDS SUMMARY | 2024-07-31 06:48 | XMS_ITS | Encounter Summary ---
Author Organization [facility] Address [address] [place] [address] Care Team Providers Care Charter Pilot Name Role Phone Yoana Mckeon MD Primary Care Provider [phone] Encounter Details Date Type Department Care Team Description 07/26/2020 Old Medical Records Medical Records [address] [place] [address] Abstract, Provider Social History Tobacco Use Types [...] have Coronavirus / COVID-19? No / Unsure 07/16/2020 9:56 AM EST documented as of this encounter Plan of Treatment Not on file documented as of this encounter Visit Diagnoses Not on filedocumented in this encounter Additional Health Concerns Infection Onset Date Last Indicated Resolved Time COVID-19 Comment:Patient reporting positive test from Sunday 02/1102/11/2023 02/13/2023 documented as of this encounter Care Teams Charter Pilot Relationship Specialty Start Date End Date Yoana Mckeon MD [address] [place] [address] PCP - General [birth year]/02/1997 documented as of this encounter
--- OUTSIDE RECORDS SUMMARY | 2024-07-31 06:48 | XMS_ITS | Encounter Summary ---
Author Organization [facility] Address [address] [place] [address] Care Team Providers Care Fire Extinguisher Sprinkler Inspector Name Role Phone Yoana Mckeon MD Primary Care Provider [phone] Encounter Details Date Type Department Care Team Description 09/22/2021 Hospital Medical Records [address] [place] [address] Danna Medina MD [address] [place] [address] Social History Tobacco Use Types Packs/Day Years [...] suspected to have Coronavirus/COVID-19? No / Unsure 09/14/2021 8:10 AM EDT documented as of this encounter Plan of Treatment Not on file documented as of this encounter Visit Diagnoses Not on filedocumented in this encounter Additional Health Concerns Infection Onset Date Last Indicated Resolved Time COVID-19 Comment:Patient reporting positive test from Sunday 02/1102/11/2023 02/13/2023 documented as of this encounter Care Teams Fire Extinguisher Sprinkler Inspector Relationship Specialty Start Date End Date Yoana Mckeon MD [address] [place] [address] PCP - General 03/02/1997 documented as of this encounter
--- OUTSIDE RECORDS SUMMARY | 2024-07-31 06:48 | XMS_ITS | Encounter Summary ---
Author Organization [facility] Address [address] [place] [address] Care Team Providers Care Elementary Secretary Name Role Phone Yoana Mckeon MD Primary Care Provider [phone] Encounter Details Date Type Department Care Team Description 08/17/2021 Orders Only Medical Records [address] [place] [address] Ora Bill MD [address] [place] [address] Social History Tobacco Use Types Packs/Day Years [...] have Coronavirus / COVID-19? No / Unsure 08/16/2021 2:58 PM EST documented as of this encounter Plan of Treatment Not on file documented as of this encounter Procedures Procedure Name Priority Date/Time Associated Diagnosis Comments OUTSIDE PATHOLOGY Routine 08/15/2021 documented in this encounter Results * OUTSIDE PATHOLOGY (08/15/2021) Ora Bill MD OUTSIDE LAB documented in this encounter Visit Diagnoses Not on filedocumented in this encounter Additional Health Concerns Infection Onset Date Last Indicated Resolved Time COVID-19 Comment:Patient reporting positive test from Sunday 02/1102/11/2023 02/13/2023 documented as of this encounter Care Teams Elementary Secretary Relationship Specialty Start Date End Date Yoana Mckeon MD [address] [place] [address] PCP - General [birth year]/02/1997 documented as of this encounter
--- OUTSIDE RECORDS SUMMARY | 2024-07-31 06:48 | XMS_ITS | Encounter Summary ---
Author Organization [facility] Address [address] [place] [address] Care Team Providers Care Tin Pot Operator Name Role Phone Yoana Mckeon MD Primary Care Provider [phone] Encounter Details Date Type Department Care Team Description 10/06/2021 Medical Lab Scientist Report Medical Records [address] [place] [address] Davion Garcia MD Social History Tobacco Use Types Packs/Day [...] suspected to have Coronavirus/COVID-19? No / Unsure 10/05/2021 1:38 PM EDT documented as of this encounter Plan of Treatment Not on file documented as of this encounter Visit Diagnoses Not on filedocumented in this encounter Additional Health Concerns Infection Onset Date Last Indicated Resolved Time COVID-19 Comment:Patient reporting positive test from Sunday 02/1102/11/2023 02/13/2023 documented as of this encounter Care Teams Tin Pot Operator Relationship Specialty Start Date End Date Yoana Mckeon MD [address] [place] [address] PCP - General [birth year]/02/1997 documented as of this encounter
--- OUTSIDE RECORDS SUMMARY | 2024-07-31 06:48 | XMS_ITS | Encounter Summary ---
Author Organization [facility] Address [address] [place] [address] Care Team Providers Care Windows Server Engineer Name Role Phone Yoaan Mckeon MD Primary Care Provider [phone] Encounter Details Date Type Department Care Team Description 03/17/2019 Old Medical Records Medical Records [address] [place] [address] Abstract, Provider Social History Tobacco Use Types [...] documented as of this encounter Care Teams Windows Server Engineer Relationship Specialty Start Date End Date Yoana Mckeon MD [address] [place] [address] PCP - General 03/02/1997 documented as of this encounter
--- OUTSIDE RECORDS SUMMARY | 2024-07-31 06:48 | XMS_ITS | Encounter Summary ---
Author Organization [facility] Address [address] [place] [address] Care Team Providers Care Film Color Tester Name Role Phone Yoana Mckeon MD Primary Care Provider [phone] Encounter Details Date Type Department Care Team Description 01/27/2019 [facility] Medical Records [address] [place] [address] Betty Villarreal NP Social History Tobacco Use [...] documented as of this encounter Care Teams Film Color Tester Relationship Specialty Start Date End Date Yoana Mckeon MD [address] [place] [address] [phone] PCP - General 03/02/1997 documented as of this encounter
--- OUTSIDE RECORDS SUMMARY | 2024-07-31 06:48 | XMS_ITS | Encounter Summary ---
Author Organization [facility] Address [address] [place] [address] Care Team Providers Care Electrical Equipment Tester Name Role Phone Yoana Mckeon MD Primary Care Provider Encounter Details Date Type Department Care Team Description 01/14/2019 Senior Technical Business Analyst Report Medical Records [address] [place] [address] Social History Tobacco Use Types Packs/Day Years [...] documented as of this encounter Care Teams Electrical Equipment Tester Relationship Specialty Start Date End Date Yoana Mckeon MD [address] [place] [address] [phone] PCP - General 03/02/1997 documented as of this encounter
--- OUTSIDE RECORDS SUMMARY | 2024-07-31 06:48 | XMS_ITS | Encounter Summary ---
Author Organization [facility] Address [address] [place] [address] Care Team Providers Care Cafe Operator Name Role Phone Yoana Mckeon MD Primary Care Provider [phone] Encounter Details Date Type Department Care Team Description 03/04/2019 Old Medical Records Medical Records [address] [place] [address] Abstract, Provider Social History Tobacco Use Types [...] documented as of this encounter Care Teams Cafe Operator Relationship Specialty Start Date End Date Yoana Mckeon MD [address] [place] [address] PCP - General [birth year]/02/1997 documented as of this encounter
--- OUTSIDE RECORDS SUMMARY | 2024-07-31 06:48 | XMS_ITS | Encounter Summary ---
Author Organization [facility] Address [address] [place] [address] Care Team Providers Care Supervisor Testing Name Role Phone Yoana Mckeon MD Primary Care Provider [phone] Reason for Visit * Reason Onset Date Comments VNA Call 04/23/2019 [facility] Encounter Details Date Type Department Care Team Description 04/23/2019 Telephone Adult Medicine [address] [phone] Yoana Mckeon MD [address] [place] [address] [phone] VNA Call (porch[facility]) Social History Tobacco Use Types Packs/Day Years [...] encounter Miscellaneous Notes * Telephone Encounter - Cira Layton R.N. - 04/23/2019 1:53 PM EST Anthony White pt is not going to cardiac rehab. She is seeing cardiology for stress test. FYI * Telephone Encounter - Yoana Mckeon MD - 04/23/2019 1:32 PM EST I do not see mention of cardiac rehab in last cardiology note; please call pt to ask if she is in cardiac rehab if this information is needed. * Telephone Encounter - Merline Shetty R.N. - 04/23/2019 12:21 PM EST Spoke with Odin. Unable to find a note that Pt active ith cardiac rehab. Odin states Pt was discharged from nursing services. * Telephone Encounter - Paty Cobos - 04/23/2019 11:31 AM EST VNA CALL Which [facility]NA office is calling? [facility] Full name of caller: odin The caller is A nurse Is the caller at the patients home?: YES Reason for call: [facility]. Please call Odin @ [phone] Does caller need an urgent call back? yes Was CONTACT Telephone # obtained above?: YES Fax #: documented in this encounter Plan of Treatment Not on file documented as of this encounter Visit Diagnoses Not on filedocumented in this encounter Additional Health Concerns Infection Onset Date Last Indicated Resolved Time COVID-19 Comment:Patient reporting positive test from Sunday 02/1102/11/2023 02/13/2023 documented as of this encounter Care Teams Supervisor Testing Relationship Specialty Start Date End Date Yoana Mckeon MD [address] [place] [address] PCP - General 03/02/1997 documented as of this encounter
--- OUTSIDE RECORDS SUMMARY | 2024-07-31 06:48 | XMS_ITS | Encounter Summary ---
Author Organization [facility] Address [address] [place] [address] Care Team Providers Care Camera Systems Engineer Name Role Phone Yoana Mckeon MD Primary Care Provider [phone] Reason for Visit * Reason Onset Date Comments Bleeding, Post Menopausal 04/15/2019 Encounter Details Date Type Department Care Team Description 04/15/2019 Telephone OBGYN - [address] [id number] Kellie Castellon DO Bleeding, Post Menopausal Social History Tobacco Use Types Packs/Day Years [...] encounter Miscellaneous Notes * Telephone Encounter - Pat Hannah R.N. - 04/15/2019 4:52 PM EST Detailed msg left on pt voicemail. * Telephone Encounter - Kellie Castellon DO - 04/15/2019 4:36 PM EST I do not think anything further needs done before she sees me - I am going to recommend hysteroscopy with [facility]on[facility]C, regardless, because of the imaging result in august and continued bleeding; I can talk to her about this on the , but if bleeding becomes heavier in the meantime please have her call. Thanks! Telephone Information: * Telephone Encounter - Pat Camden Trimble - 04/15/2019 4:00 PM EST I spoke with Gale. She was last seen for PMB on 03/14/19 by . She is now calling stating that she has been having some bleeding going on that started a week ago, not heavy. Says it is enough to fill a panty liner (really thin pads) x 2-3 days. Would change once a day and change again atnight (night one would not be full). Since then she thinks that it is a little heavier though stillonly using two thin panty liners. No pain or cramping. Reports that the blood is bright red, no clots. I reviewed plan from last visit with her. She is asking to see in office before making any decisions, did not want to schedule procedure at this time. I scheduled her for 04/25 at 9am with as she only wants to see her. Is there anythingthat needs to be done prior to her appt with you? Do you want update pelvic sono? - last one done on record was 09/04/2018. Please advise. PLAN: Patients imaging and last visit with dr. Torres reviewed. She had negative EMB in September, and no bleeding until yesterday. Isolated incidence of bleeding after a negative EMB within the past year does not require acute intervention, as long as this episode of bleeding is, in fact, isolated. No bleeding seen on exam today.Patient counseled that, should she have any further episodes of bleeding, I would recommend hysteroscopy with D&C to further evaluate the endometrium. Patient reporetd understanding and will call the office if she notices any further vaginal bleeding so that this procedure can be scheduled. Patient reassured by our conversation and will call with any further questions/concerns. * Telephone Encounter - Lida Bailon - 04/15/2019 3:31 PM EST Chief Complaint/problem: Patient saw Dr Castellon 03/14 for pmb - it stopped for awhile and now has been bleeding again for 5 days - not sure if she should be seen again How long has the patient had this problem? - Pt???s PRODUCT SAFETY HEAD provider: Kellie Castellon, DO Last menstrual period (LMP) or EDC (due date): N/A documented in this encounter Plan of Treatment Not on file documented as of this encounter Visit Diagnoses Not on filedocumented in this encounter Additional Health Concerns Infection Onset Date Last Indicated Resolved Time COVID-19 Comment:Patient reporting positive test from Sunday 02/1102/11/2023 02/13/2023 documented as of this encounter Care Teams Camera Systems Engineer Relationship Specialty Start Date End Date Yoana Mckeon MD [address] [place] [address] PCP - General 03/02/1997 documented as of this encounter
--- OUTSIDE RECORDS SUMMARY | 2024-07-31 06:48 | XMS_ITS | Encounter Summary ---
Author Organization [facility] Address [address] [place] [address] Care Team Providers Care Rivet Sorter Name Role Phone Yoana Mckeon MD Primary Care Provider [phone] Reason for Visit * Reason Onset Date Comments Faxed Order 04/09/2019 Encounter Details Date Type Department Care Team Description 04/09/2019 Telephone Adult Medicine [address] [phone] Yoana Mckeon MD [address] [place] [address] [phone] Faxed Order Social History Tobacco Use Types [...] * Telephone Encounter - Sweta Alexandra - 04/09/2019 11:51 AM EDT Home Health Certification and plan of care for Dr. Yoana Mckeon's signature documented in this encounter Plan of Treatment Not on file documented as of this encounter Visit Diagnoses Not on filedocumented in this encounter Additional Health Concerns Infection Onset Date Last Indicated Resolved Time COVID-19 Comment:Patient reporting positive test from Sunday 02/1102/11/2023 02/13/2023 documented as of this encounter Care Teams Rivet Sorter Relationship Specialty Start Date End Date Yoana Mckeon MD [address] [place] [address] 364[address] PCP - General 03/02/1997 documented as of this encounter
--- OUTSIDE RECORDS SUMMARY | 2024-07-31 06:49 | XMS_ITS | Encounter Summary ---
Author Organization [facility] Address [address] [place] [address] Care Team Providers Care Director Of Food And Nutrition Name Role Phone Yoana Mckeon MD Primary Care Provider [phone] Encounter Details Date Type Department Care Team Description 04/22/2014 Security Software Engineer Report Medical Records [address] [place] [address] Janice Boone MD Social History Tobacco Use Types Packs/Day [...] documented as of this encounter Care Teams Director Of Food And Nutrition Relationship Specialty Start Date End Date Yoana Mckeon MD [address] [place] [address] [phone] PCP - General 03/02/1997 documented as of this encounter
--- OUTSIDE RECORDS SUMMARY | 2024-07-31 06:49 | XMS_ITS | Encounter Summary ---
Author Organization [facility] Address [address] [place] [address] Care Team Providers Care Veneer Grader Name Role Phone Yoana Mckeon MD Primary Care Provider [phone] Encounter Details Date Type Department Care Team Description 09/08/2010 Business Doc Medical Records [address] [place] [address] Abstract, Provider Social History Tobacco Use Types Packs/Day Years Used Date Smoking Tobacco: Never Alcohol Use Standard Drinks/Week Comments [...] documented as of this encounter Care Teams Veneer Grader Relationship Specialty Start Date End Date Yoana Mckeon MD [address] [place] [address] PCP - General 03/02/1997 documented as of this encounter
--- OUTSIDE RECORDS SUMMARY | 2024-07-31 06:49 | XMS_ITS | Encounter Summary ---
Author Organization [employer] [facility] Address [address] [place] [address] Care Team Providers Care Human Resources Representative Name Role Phone Yoana Mckeon MD Primary Care Provider [phone] Encounter Details Date Type Department Care Team Description 11/09/2011 Business Doc Medical Records [address] [place] [address] Abstract, Provider Social History Tobacco Use Types [...] documented as of this encounter Care Teams Human Resources Representative Relationship Specialty Start Date End Date Yoana Mckeon MD [address] [place] [address] PCP - General 03/02/1997 documented as of this encounter
--- OUTSIDE RECORDS SUMMARY | 2024-07-31 06:49 | XMS_ITS | Encounter Summary ---
Author Organization [facility] Address [address] [place] [address] Care Team Providers Care Owner Operator Name Role Phone Yoana Mckeon MD Primary Care Provider [phone] Encounter Details Date Type Department Care Team Description 07/23/2018 Crimp Setter Report Medical Records [address] [place] [address] Social History Tobacco Use Types Packs/Day Years [...] documented as of this encounter Care Teams Owner Operator Relationship Specialty Start Date End Date Yoana Mckeon MD [address] [place] [address] [phone] PCP - General 03/02/1997 documented as of this encounter
--- OUTSIDE RECORDS SUMMARY | 2024-07-31 06:49 | XMS_ITS | Encounter Summary ---
Author Organization [facility] Address [address] [place] [address] Care Team Providers Care Water Quality Control Engineer Name Role Phone Yoana Mckeon MD Primary Care Provider [phone] Encounter Details Date Type Department Care Team Description 06/18/2018 Transitional Living Specialist Report Medical Records [address] [place] [address] Abstract, Provider Social History Tobacco Use Types [...] documented as of this encounter Care Teams Water Quality Control Engineer Relationship Specialty Start Date End Date Yoana Mckeon MD [address] [place] [address] PCP - General 03/02/1997 documented as of this encounter
--- OUTSIDE RECORDS SUMMARY | 2024-07-31 06:49 | XMS_ITS | Encounter Summary ---
Author Organization [facility] Address [address] [place] [address] Care Team Providers Care Estate Planning Attorney Name Role Phone Yoana Mckeon MD Primary Care Provider [phone] Reason for Visit * Reason Onset Date Comments Faxed Order 06/05/2018 Encounter Details Date Type Department Care Team Description 06/05/2018 Telephone Adult Medicine [address] [phone] Yoana Mckeon MD [address] [place] [address] [phone] Faxed Order Social History Tobacco Use Types [...] encounter Miscellaneous Notes * Telephone Encounter - Mana Kiran - 06/05/2018 10:08 AM EST Faxed order received from [facility]. Please sign, and fax back documented in this encounter Plan of Treatment Not on file documented as of this encounter Visit Diagnoses Not on filedocumented in this encounter Additional Health Concerns Infection Onset Date Last Indicated Resolved Time COVID-19 Comment:Patient reporting positive test from Sunday 02/1102/11/2023 02/13/2023 documented as of this encounter Care Teams Estate Planning Attorney Relationship Specialty Start Date End Date Yoana Mckeon MD [address] [place] [address] PCP - General 03/02/1997 documented as of this encounter
--- OUTSIDE RECORDS SUMMARY | 2024-07-31 06:49 | XMS_ITS | Encounter Summary ---
Author Organization [facility] Address [address] [place] [address] Care Team Providers Care Clerk Carrier Name Role Phone Yoana Mckeon MD Primary Care Provider [phone] Encounter Details Date Type Department Care Team Description 02/11/2023 Night Triage Doc Medical Records [address] [place] [address] Abstract, Provider Social History Tobacco Use Types [...] suspected to have Coronavirus/COVID-19? No / Unsure 01/26/2023 8:19 AM EDT documented as of this encounter Plan of Treatment Not on file documented as of this encounter Visit Diagnoses Not on filedocumented in this encounter Additional Health Concerns Infection Onset Date Last Indicated Resolved Time COVID-19 Comment:Patient reporting positive test from Sunday 02/1102/11/2023 02/13/2023 documented as of this encounter Care Teams Clerk Carrier Relationship Specialty Start Date End Date Yoana Mckeon MD [address] [place] [address] [phone] PCP - General 03/02/1997 documented as of this encounter
--- OUTSIDE RECORDS SUMMARY | 2024-07-31 06:49 | XMS_ITS | Encounter Summary ---
Author Organization [facility] Address [address] [place] [address] Care Team Providers Care Online Content Coordinator Name Role Phone Yoana Mckeon MD Primary Care Provider Encounter Details Date Type Department Care Team Description 09/29/2016 Concrete Float Maker Report Medical Records [address] [place] [address] Toño Noel MD Social History Tobacco Use [...] documented as of this encounter Care Teams Online Content Coordinator Relationship Specialty Start Date End Date Yoana Mckeon MD [address] [place] [address] PCP - General 03/02/1997 documented as of this encounter
--- OUTSIDE RECORDS SUMMARY | 2024-07-31 06:49 | XMS_ITS | Encounter Summary ---
Author Organization [facility] Address [address] [place] [address] Care Team Providers Care Sheet Rock Sander Name Role Phone Yoana Mckeon MD Primary Care Provider [phone] Encounter Details Date Type Department Care Team Description 06/29/2022 Orders Only Medical Records [address] [place] [address] Lindy Craig MD [address] [place] [address] [phone] Social History Tobacco Use Types Packs/Day Years [...] suspected to have Coronavirus/COVID-19? No / Unsure 06/15/2022 6:26 PM EST documented as of this encounter Plan of Treatment Not on file documented as of this encounter Procedures Procedure Name Priority Date/Time Associated Diagnosis Comments OUTSIDE PATHOLOGY Routine 06/27/2022 documented in this encounter Results * OUTSIDE PATHOLOGY (06/27/2022) Lindy Craig MD OUTSIDE LAB documented in this encounter Visit Diagnoses Not on filedocumented in this encounter Additional Health Concerns Infection Onset Date Last Indicated Resolved Time COVID-19 Comment:Patient reporting positive test from Sunday 02/1102/11/2023 02/13/2023 documented as of this encounter Care Teams Sheet Rock Sander Relationship Specialty Start Date End Date Yoana Mckeon MD [address] [place] [address] PCP - General 03/02/1997 documented as of this encounter
--- OUTSIDE RECORDS SUMMARY | 2024-07-31 06:49 | XMS_ITS | Encounter Summary ---
Author Organization [facility] Address [address] [place] [address] Care Team Providers Care System Administration Advisor Name Role Phone Yoana Mckeon MD Primary Care Provider [phone] Encounter Details Date Type Department Care Team Description 04/18/2014 Hospital Medical Records [address] [place] [address] Prydeinig, Gretta, DO Social History Tobacco Use Types [...] documented as of this encounter Care Teams System Administration Advisor Relationship Specialty Start Date End Date Yoana Mckeon MD [address] [place] [address] PCP - General 03/02/1997 documented as of this encounter
--- OUTSIDE RECORDS SUMMARY | 2024-07-31 06:49 | XMS_ITS | Encounter Summary ---
Author Organization [facility] Address [address] [place] [address] Care Team Providers Care Chief Revenue Officer Name Role Phone Yoana Mckeon MD Primary Care Provider [phone] Encounter Details Date Type Department Care Team Description 07/15/2019 Release of Information Medical Records [address] [place] [address] Abstract, Provider Social History Tobacco Use Types [...] documented as of this encounter Care Teams Chief Revenue Officer Relationship Specialty Start Date End Date Yoana Mckeon MD [address] [place] [address] PCP - General 03/02/1997 documented as of this encounter
--- OUTSIDE RECORDS SUMMARY | 2024-07-31 06:49 | XMS_ITS | Encounter Summary ---
Author Organization [facility] Address [address] [place] [address] Care Team Providers Care Woodworking Bench Carpenter Name Role Phone Yoana Mckeon MD Primary Care Provider [phone] Encounter Details Date Type Department Care Team Description 09/06/2016 Hospital Medical Records [address] [place] [address] Donnie Das MD Social History Tobacco Use [...] documented as of this encounter Care Teams Woodworking Bench Carpenter Relationship Specialty Start Date End Date Yoana Mckeon MD [address] [place] [address] PCP - General 03/02/1997 documented as of this encounter
--- OUTSIDE RECORDS SUMMARY | 2024-07-31 06:49 | XMS_ITS ---
Author Name [facility] Address [address] [place] [address] Phone [phone] [facility] Care Team Providers Care Farm Crops Teacher Name Role Phone Karissa Marquis Unavailable [phone] Unavailable Unavailable Unavailable RAUL BIRD Unavailable [phone] KHADIJAH FRY Unavailable [phone] Unavailable Unavailable Unavailable Yoana Mckeon Unavailable [phone] Reason for Referral Not Available Allergies, adverse [...] Active 2024-03-26 N/A Other problems related to co dical facilities and other health care Active 2024-03-26 N/A Chronic kidney disease, stage 3b Active N/A Encounters Encounters Type Facility Date of Service Diagnosis/Co mplaint Medication List Documented (1159F) [facility]20[place] Medication List Documented (1159F[place] [facility] Medication List Documented (1159F[place] [facility] Medication List Documented (1159F) [facility] Medication List Documented (1159F) [facility] Medication List Documented (1159F) [facility]20[place] Unspecified systolic (conges tive) heart failureUnspecified atrial fibrillationChronic kidney disease, unspecifiedPersonal history of malignant neoplasm of breast Medication List Documented (1159F) [facility]2022 Medication List Documented (1159F) [facility]2022 No Data Available [facility]/17[place]2022 Hyp hrt & chr kdny dis w hrt fail and stg 1-4/unsp chr kdnyUnspecified systolic (congestive) heart failureChronic kidney disease, stage 3bSecondary hyperaldosteronismMalignant neoplasm of unspecified site of unspecified female breastOther thrombophiliaUnspecified atrial fibrillationSacroiliitis, not elsewhere classifiedUnspecified osteoarthritis, unspecified site No Data Available [facility] [place] 10[place]2022 No Data Available [facility] [place]2022 No Data Available [facility] [place]20[place] No Data Available [facility] [place]20[place] No Data Available [facility] [place] No Data Available [facility] [place] No Data Available [facility] [place]2022 No Data Available [facility] [place] 10/17/2022 No Data Available [facility] [place] 10/17/2022 Estab. patient 10-29min; 1 minor problem; add add modifier 95 for video, modifier 93 for phone [facility] [place] 02/26/2023 Hypertensive heart disease w ith heart failureUnspecified systolic (congestive) heart failureSecondary hyperaldosteronismSacroiliitis, not elsewhere classifiedUnspecified osteoarthritis, unspecified site Estab. patient 10-29min; 1 minor problem; add add modifier 95 for video, modifier 93 for phone [facility] [place] 02/26/2023 Estab. patient 10-29min; 1 minor problem; add add modifier 95 for video, modifier 93 for phone [facility] [place] 02/26/2023 Estab. patient 10-29min; 1 minor problem; add add modifier 95 for video, modifier 93 for phone [facility] [place] 02/26/2023 Estab. patient 10-29min; 1 minor problem; add add modifier 95 for video, modifier 93 for phone [facility] [place] 02/26/2023 Estab. patient 10-29min; 1 minor problem; add add modifier 95 for video, modifier 93 for phone [facility] [place] 02/26/2023 Unlisted special service; to be used for medical record reviews and reporting CPTII codes (1111F, etc) [facility] [place] 05/10/2023 Unspecified systolic (conges tive) heart failureHyp hrt & chr kdny dis w hrt fail and stg 1-4/unsp chr kdnySecondary hyperaldosteronismPersonal history of malignant neoplasm of breastChronic kidney disease, stage 3bOther thrombophiliaUnspecified atrial fibrillationSacroiliitis, not elsewhere classifiedUnspecified osteoarthritis, unspecified siteOther reduced mobility Unlisted special service; to be used for medical record reviews and reporting CPTII codes (1111F, etc) [facility] ([place] 05/10/2023 Unlisted special service; to be used for medical record reviews and reporting CPTII codes (1111F, etc) [facility] [place] 05/10/2023 Unlisted special service; to be used for medical record reviews and reporting CPTII codes (1111F, etc) [facility] [place] 05/10/2023 Unlisted special service; to be used for medical record reviews and reporting CPTII codes (1111F, etc) [facility] [place] 06/19/2023 Hyp hrt & chr kdny dis w hrt fail and stg 1-4/unsp chr kdnyUnspecified systolic (congestive) heart failureChronic kidney disease, stage 3bSecondary hyperaldosteronismMalignant neoplasm of unspecified site of unspecified female breastOther thrombophiliaUnspecified atrial fibrillationUnspecified osteoarthritis, unspecified siteSacroiliitis, not elsewhere classifiedOther reduced mobilityOther postherpetic nervous system involvement Unlisted special service; to be used for medical record reviews and reporting CPTII codes (1111F, etc) [facility] [facility]; to be used for medical record reviews and reporting CPTII codes (1111F, etc) [facility] [place] [facility]20[facility] to be used for medical record reviews and reporting CPTII codes (1111F, etc) [facility] ([place] 06/19/2023 Estab. patient 30-39min; chronic exacerbation, 2 stable chronic or 1 acute illness add add modifier 95 for video, (do not use for phone, instead use 66938-07) [facility] ([place] 03/26/2024 Heart failure, unspecifiedSecondary hyperaldosteronismChronic kidney disease, [...] (do not use for phone, instead use 70668-56) [facility] [place] 03/26/2024 Estab. patient 30-39min; chronic exacerbation, 2 stable chronic or 1 acute illness add add modifier 95 for video, (do not use for phone, instead use 42653-32) [facility] [place] 03/26/2024 Estab. patient 30-39min; chronic exacerbation, 2 stable chronic or 1 acute illness add add modifier 95 for video, (do not use for phone, instead use 82636-18) [facility] [place] 03/26/2024 Estab. patient 30-39min; chronic exacerbation, 2 stable chronic or 1 acute illness add add modifier 95 for video, (do not use for phone, instead use 86774-46) [facility] [place] 03/26/2024 Estab. patient 30-39min; chronic exacerbation, 2 stable chronic or 1 acute illness add add modifier 95 for video, (do not use for phone, instead use 98129-73) [facility] [place] 03/26/2024 Estab. patient 30-39min; chronic exacerbation, 2 stable chronic or 1 acute illness add add modifier 95 for video, (do not use for phone, instead use 61510-86) [facility] [place] 03/26/2024 Vital Signs Date of Collection Vitals [...] tive Time Current Smoking Status Never smoker 2024-07-13 0 Sex Female Gender identity Woman History of [...] (do not use for phone, instead use 98105-30) 74292 2022-03-31 No Data Available No Data Availa ble SBP < 130 (3074F) 3074F 2022-03-31 No Data Available No Data Available DBP <80 (3078F) 3078F 2022-03-31 No Data Available No Data Available No Data Available 35522 2022-10-17 No Data Available No Data Available [...] 95 for video, modifier 93 for phone 56975 2023-02-26 No Data Available No Data Availa [...] reviews and reporting CPTII codes (1111F, etc) 48986 2023-05-10 No Data Available No Data Availa ble BMI obtained (3008F) 3008F 2023-05-10 No Data Availab le No Data Available Medication List Documented (1159F) 1159F 2023-05-10 No Data Available No Data Aletha ilable Functional Status Assessed (1170F) 1170F 2023-05-10 No Data Available No Data Avail able Unlisted special service; to be used for medical record reviews and reporting CPTII codes (1111F, etc) 00272 2023-06-19 No Data Available No Data Availa [...] (do not use for phone, instead use 01624-10) 45486 2024-03-26 No Data Available No Data Availa [...] organ damage (headache, vision changes, chest pain)/ Concrete Panel Installer on proper BP monitoring technique and reassess/ [...]
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
--- OUTSIDE RECORDS SUMMARY | 2024-07-31 06:49 | XMS_ITS | Encounter Summary ---
Author Organization [facility] Address [address] [place] [address] Care Team Providers Care Advertising Display Rotator Name Role Phone Yoana Mckeon MD Primary Care Provider [phone] Encounter Details Date Type Department Care Team Description 04/16/2014 Hospital Medical Records [address] [place] [address] Janice Boone MD Social History Tobacco Use [...] documented as of this encounter Care Teams Advertising Display Rotator Relationship Specialty Start Date End Date Yoana Mckeon MD [address] [place] [address] [phone] PCP - General 03/02/1997 documented as of this encounter
--- OUTSIDE RECORDS SUMMARY | 2024-07-31 06:49 | XMS_ITS | Encounter Summary ---
Author Organization [employer] [facility] Address [address] [place] [address] Care Team Providers Care Gameplay Programmer Name Role Phone Yoana Mckeon MD Primary Care Provider [phone] Encounter Details Date Type Department Care Team Description 06/28/2018 Strategic Consultant Report Medical Records [address] [place] [address] Abstract, Provider Social History Tobacco Use Types [...] documented as of this encounter Care Teams Gameplay Programmer Relationship Specialty Start Date End Date Yoana Mckeon MD [address] [place] [address] PCP - General 03/02/1997 documented as of this encounter
--- OUTSIDE RECORDS SUMMARY | 2024-07-31 06:49 | XMS_ITS | Encounter Summary ---
Author Organization [facility] Address [address] [place] [address] Care Team Providers Care Geodesist Name Role Phone Yoana Mckeon MD Primary Care Provider [phone] Encounter Details Date Type Department Care Team Description 09/07/2016 Hospital Medical Records [address] [place] [address] Ashlyn Mckeon Social History Tobacco Use Types [...] documented as of this encounter Care Teams Geodesist Relationship Specialty Start Date End Date Yoana Mckeon MD [address] [place] [address] [phone] PCP - General 03/02/1997 documented as of this encounter
--- OUTSIDE RECORDS SUMMARY | 2024-07-31 06:49 | XMS_ITS | Encounter Summary ---
Author Organization [facility] Address [address] [place] [address] Care Team Providers Care Dampener Name Role Phone oYana Mckeon MD Primary Care Provider Reason for Visit * Reason Comments Atrial Fibrillation GOUT Encounter Details Date Type Department Care Team (Late st Contact Info) Description 07/10/2024 8:15 AM EST Office Visit Adult Medicine [facility] [address] [place] [address] Yoana Mckeon MD [address] [place] [address] Longstanding persistent atrial fibrillation (CMS/HCC) (Primary Dx); [...] HFrEF (heart failure with reduced ejection fraction) ([facility]) 04/05/2022 Post herpetic neuralgia 03/07/2019 Nonsustained ventricular tachycardia ([facility]) 02/06/2019 Vitamin D deficiency 05/29/2018 Atrial fibrillation ([facility]) 04/29/2018 Tuberculosis 04/29/2018 AICD (automatic cardioverter/defibrillator) present 08/09/2017 Lower GI bleed 04/23/2014 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 Crohn's disease ([facility]) 12/08/2008 Tubular adenoma 10/08/2008 Breast cancer ([facility]) 05/23/2005 Hypercholesterolemia 05/23/2005 Non-ischemic cardiomyopathy ([facility]) 05/23/2005 Surgical History: Past Surgical History: Procedure [...] for the . yes Denies history of Guillain-Brooklyn Syndrome (severe muscle weakness). yes Acknowledges reviewing [...] 8:15 AM EDT Office Visit Adult Medicine [facility] [address] [place] [address] Yoana Mckeon MD [address] [place] [address] 02/25/2025 1:15 PM EDT Office Visit [facility] Care [facility] [address] [facility] [address] [place] [address] Danna Medina MD [address] [facility] [address] [place] [address] documented as of this encounter Results * (ABNORMAL) Lipid panel with reflex to direct LDL (07/14/2024 8:05 AM EST) Cholesterol 242(H) 0 - 200 mg/dL LAB CHEMISTRY METHOD 07/14/2024 11:09 AM [facility] Triglycerides 89 0 - 150 mg/dL LAB CHEMISTRY METHOD 07/14/2024 11:09 AM [facility] HDL 82 >=40 mg/dL LAB CHEMISTRY METHOD 07/14/2024 11:09 AM [facility] LDL Calculated 142(H) 0 - 100 mg/dL LAB CHEMISTRY METHOD 07/14/2024 11:09 AM [facility] VLDL Cholesterol Mynor 17.8 mg/dL LAB CHEMISTRY METHOD 07/14/2024 11:09 AM [facility] Non HDL Chol. (LDL+VLDL) 160(H) <145 mg/dL LAB CHEMISTRY METHOD 07/14/2024 11:09 AM [facility] Chol/HDL Ratio 3.0 0.0 - 4.4 LAB CHEMISTRY METHOD 07/14/2024 11:09 AM [facility] Blood Venous blood specimen / Unknown Venipuncture / Unknown 07/14/2024 8:05 AM EST 07/14/2024 8:05 AM EST us Yoana Mckeon MD LAB BLOOD ORDERABLES Final Resul t [facility] [address] [place] [address], * (ABNORMAL) Basic metabolic panel (07/14/2024 8:05 AM EST) Sodium 139 133 - 145 mmol/L LAB CHEMISTRY METHOD 07/14/2024 11:09 AM [facility] Potassium 3.9 3.5 - 5.5 mmol/L LAB CHEMISTRY METHOD 07/14/2024 11:09 AM [facility] Chloride 104 96 - 110 mmol/L LAB CHEMISTRY METHOD 07/14/2024 11:09 AM [facility] CO2 30 21 - 32 mmol/L LAB CHEMISTRY METHOD 07/14/2024 11:09 AM [facility] Anion Gap 5 3 - 11 LAB CHEMISTRY METHOD 07/14/2024 11:09 AM [facility] Glucose 101(H) 70 - 100 mg/dL LAB CHEMISTRY METHOD 07/14/2024 11:09 AM [facility] BUN 27(H) 5 - 25 mg/dL LAB CHEMISTRY METHOD 07/14/2024 11:09 AM [facility] Creatinine 1.51(H) 0.50 - 1.10 mg/dL LAB CHEMISTRY METHOD 07/14/2024 11:09 AM [facility] eGFR 35(L) >=60 mL/min/1. 73m2 LAB CHEMISTRY METHOD 07/14/2024 11:09 AM EST [facility] Comment:Calculation based on the??Chronic Kidney Disease Epidemiology Collaboration (CKD-EPI) equation refit??without adjustment for race. BUN/Creatinine Ratio 17.9 LAB CHEMISTRY METHOD 07/14/2024 11:09 AM [facility] Calcium 9.6 8.5 - 10.5 mg/dL LAB CHEMISTRY METHOD 07/14/2024 11:09 AM EST [facility] Blood Venous blood specimen / Unknown Venipuncture / Unknown 07/14/2024 8:05 AM EST 07/14/2024 8:05 AM EST us Yoana Mckeon MD LAB BLOOD ORDERABLES Final Resul t [facility] [address] [place] [address], documented in this encounter Visit Diagnoses Diagnosis [...] 07/10/2024 documented in this encounter Care Teams Dampener Relationship Specialty Start Date End Date Yoana Mckeon MD [address] [place] [address] PCP - General 03/02/1997 documented as of this encounter
--- OUTSIDE RECORDS SUMMARY | 2024-07-31 06:49 | XMS_ITS | Encounter Summary ---
Author Organization [employer] [facility] Address [address] [place] [address] Care Team Providers Care Floor Inspector Name Role Phone Yoana Mckeon MD Primary Care Provider [phone] Encounter Details Date Type Department Care Team Description 02/11/2023 Night Triage Doc Medical Records [address] [place] [id number] Abstract, Provider Social History Tobacco Use Types [...] documented as of this encounter Care Teams Floor Inspector Relationship Specialty Start Date End Date Yonaa Mckeon MD [address] [place] [address] [phone] PCP - General 03/02/1997 documented as of this encounter
--- OUTSIDE RECORDS SUMMARY | 2024-07-31 06:49 | XMS_ITS | Clinical Summary ---
Author Organization [facility] Address [address] [place] [address] Care Team Providers Care Rehabilitation Specialist Name Role Phone Yoana Mckeon MD Primary Care Provider [phone] Allergies Active Allergy Reactions Severity Noted Date Comments Augmentin 07/08/2018 rash Phenolphthalein 05/23/2005 Phenolphthalein 01/10/2023 skin itching Medications Medication Sig Dispensed Refills Start Date End Date Status ferrous sulfate 325 (65 Fe) MG tablet Take 325 mg by mouth daily. 0 Active amiodarone (PACERONE) 200 MG tablet Take 200 mg by mouth daily. 0 04/26/2019 Active ENTRESTO 24-26 MG Tab TAKE 1 TABLET BY MOUTH TWICE DAILY 0 07/13/2020 Active ASPIRIN LOW DOSE 81 MG EC tablet Take 81 mg by mouth daily. 0 06/20/2020 Active carvedilol (COREG) 12.5 MG tablet TAKE 1 TABLET BY MOUTH TWICE DAILY 0 12/27/2021 Active paroxetine (Paxil) 10 MG tablet Take 1 Tablet by mouth every morning. 30 Tablet 3 06/30/2022 Active torsemide (DEMADEX) 20 MG tablet Take 3 Tablets by mouth daily. 1 tab qa, & 2 tabs afternoon 0 Active atorvastatin (LIPITOR) 40 MG tablet Take 1 Tablet by mouth daily for 360 days. 90 Tablet 3 07/16/2023 Active lidocaine (LIDODERM) 5 % UNWRAP AND APPLY 1 PATCH TO SKIN EVERY DAY 12 HOURS ON AND 12 HOURS OFF 90 Patch 1 07/16/2023 Active Diclofenac Sodium 1 % Gel APPLY 4 GRAMS TOPICALLY TO AFFECTED AREA FOUR TIMES DAILY NEEDED 0 06/19/2023 Active Active Problems Patient Care Coordination No te Formatting of this note is d ifferent from the original. Checking Your Weight Please check your weight every day. Please make sure to check your weight at the same time every day. Your Weight Goal Your weight should not change more than 2-3 pounds in a day or 5 pounds in a week Use the Results ?? Write your weight down on a log sheet or record book. Bring them to your appointments Your Results and your Goals Your Result / Date of Completion Your Goal / How Often to Assess BP Readings from Last 1 Encounters: 04/23/14 120/80 Less than 130/80--- once per year Component Value Date LDL 155 12/03/2013 LDL less than 100--- once per year Wt Readings from Last 1 Encounters: 04/23/14 196 lb (88.905 kg) Dry Weight: 203---- daily Heart Ultrasound (Echocardiogram) Every 2 years (discuss with your physician) Health Maintenance Due Topic Date Due ? ? Adult Immunization: Pneumovax For High Risk Patients (#1) 2011 ? ? Chf Care Plan 08/16/2012 Your Action Plan Symptoms Action No shortness of breath, weight gain, chest pain, worsening leg swelling or change in your usual symptoms Continue to weigh yourself daily, take your medicines, eat a low salt diet and go to your doctor appointments Any of These Findings or Symptoms Action Weight gain of 2-3 pounds in a day Weight gain of 5 pounds in a week Increased leg swelling or cough Increased number of pillows to sleep Shortness of breath with activity Call your doctor for instructions Any of These Findings or Symptoms Action Weight gain of more than 5 lbs in 1 week Dizziness or falling Waking at night due to shortness of breath Shortness of breath at rest Chest tightness or wheezing Call your doctor today to report your symptoms and request an appointment Your congestive heart failure is well controlled and no changes are required to your current plan. Check your weight daily. Write down results. Contact me if you experience any barriers to care such as inability to purchase your medication, difficulty getting to your appointments or difficulty understanding your care plan Please get your yearly flu shot Educational Resources [employer] [employer] (www.heart.org) This care plan was created in collaboration with Gale Oden on 04/23/2014 Problem Noted Date Gout 03/26/2023 Chronic HFrEF (heart failure with reduce d ejection fraction) 04/05/2022 Overview: Dr. 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 Garcia) Non-ischemic cardiomyopathy 05/23/2005 Overview: 01/2021: EF 35-45% (Dr. Noel) 08/2016: EF 15-20% 11/2013: EF 40-45% HYPERCHOLESTEROLEMIA 05/23/2005 Resolved Problems Problem Noted Date Resolved Date History of postmenopausal bleeding 06/19/2022 07/03/2022 Recurrent postmenopausal bleeding 07/16/2020 07/03/2022 Last Assessment & Plan: I counseled Gale that based on my sample today when correlated with thickened endometrium on ultrasound, I do not feel this is adequate sampling to rule out hyperplasia or malignancy. We will await biopsy result early next week, but I would recommend she undergo diagnostic hysteroscopy for complete evaluation. She voiced understanding and agreed. Thickened endometrium 09/06/2018 07/03/2022 Last Assessment & Plan: Repeat US Anticoagulated on Coumadin 02/13/201404/23 Overview: PE Status post mastectomy 12/10/2007 7 CONGESTIVE HEART FAILURE 05/23/2005 022 Overview: IMO update Immunizations Name Administration Dates Next Due COVID-19 (Pfizer) 03/22/2022,,08/12/2020,2020 Influenza (> 6 Months) 03/11/2015,03/17/2014 Influenza vaccine high dose age 65 and over 03/26/2023,04/05/2022,03/29/2021,2019,03/06/2019,03/08/2017,03/11/2015,1 PPD-RBMG 12/08/2009 Pneumococcal Conjugate PCV-13 03/08/2017 Shingrix (Recombinant zoster vaccine) 02/17/2021 ,12/22/2019 TD (STATE SUPPLIED FOR ADULT S AND CHILDREN) 08/09/2017,11/09/1997 Tdap 11/06/2007 Family History Medical History Relation Name Comments CA Breast Aunt great mat great aunt Diabetes Brother 1 hypertension, C AD, lupus Brother 2 sarcoid Brother 3 hypertension Hypertension Brother 4 CAD Cancer of the Liver Brother 5 unknown Father Diabetes Maternal Grandmother hyperte nsion Hypertension Mother lupus CA Breast Mother's side mat cousin 57 CA Ovarian Other first cousin dermoid lupus Sister 1 arthritis Hypertension Sister 2 arthritis Hypertension Son 2 sons CA Colon Negative Hx Relation Name Status Comments Aunt great mat Brother 1 Brother 2 Brother 3 Brother 4 Brother 5 Father Maternal Grandmother Mother Mother's side mat cousin 57 Alive Other Sister 1 Sister 2 Son Social History Tobacco Use Types Packs/Day Years Used Date Smoking Tobacco: Never Smokeless Tobacco: Never Tobacco Cessation:Counseling Given: Not Answered Alcohol Use Standard Drinks/Week Comments No 0 (1 standard drink = 0.6 oz pur e alcohol) Sex Assigned at Date Recorded Not on file Job Start Date Occupation Industry Not on file Not on file Not on file Last Filed Vital Signs Vital Sign Reading Time Taken Comments Blood Pressure 137/73 02/20/2024 2:45 PM EDT Pulse 63 02/20/2024 2:45 PM EDT Temperature 37.1 ??C (98.7 ??F) 02/20/2024 2:45 PM ED T Respiratory Rate 14 10/31/2023 8:12 AM EDT Oxygen Saturation 95% 02/22/2022 8:31 AM EDT Inhaled Oxygen Concentration - - Weight 83.9 kg (185 lb) 10/31/2023 8:12 AM EDT Height 157.5 cm (5' 2 ) 10/31/2023 8:12 AM EDT Body Mass Index 33.84 10/31/2023 8:12 AM EDT Plan of Treatment Health Maintenance Due Date Last Done Comments FALL RISK ASSESSMENT 04/05/2023 04/05/2022, 01/30/2018, 09/14/2016, Additional history exists Covid-19 Vaccine ( season) 2024 03/22/2022, 03/22/2021, 08/12/2020, Additional history exists INFLUENZA (#1) 2024 03/26/2023, 03/12, 03/29/2021, Additional history exists BMI CHECK/ADVISE 06/11/2024 02/20/2024, , 07/16/2023, Additional history exists DEPRESSION SCREEN 07/16/2024 07/16/2023, , 04/05/2022, Additional history exists BONE DENSITY SCREENING 03/26/2025 (Refused), 03/18/2020 (Refused), 03/08/2017 (Refused), Additional history exists DTAP/TDAP/TD (3 - Td or Tdap) 08/10/2027 08/09/2017, 11/06/2007, 11/09/1997 CHOLESTEROL SCREENING 10/30/2028 10/31/2023 , 01/26/2023, 07/12/2022, Additional history exists HEPATITIS C SCREENING Addressed 06/16/2013 (Refused ) Overridden with the intention of not completing the topic PNEUMOCOCCAL VACCINE Addressed 03/08/2017, 09/14/2016 (Refused) Overridden with the intention of not completing the topic SHINGLES VACCINE Completed 02/17/2021, 12/22/2019 Additional Health Concerns Infection Onset Date Last Indicated COVID-19 Comment:Patient reporting positive test from Sunday 02/1102/11/2023 02/13/2023 Care Teams Rehabilitation Specialist Relationship Specialty Start Date End Date Yoana Mckeon MD [address] [place] [address] PCP - General 03/02/1997
--- OUTSIDE RECORDS SUMMARY | 2024-07-31 06:49 | XMS_ITS | Encounter Summary ---
Author Organization [employer] [facility] Address [address] [place] [address] Care Team Providers Care Grocery Clerk Checking Name Role Phone Yoana Mckeon MD Primary Care Provider [phone] Encounter Details Date Type Department Care Team Description 08/15/2016 Business Doc Medical Records [address] [place] [address] Abstract, Provider Social History Tobacco Use Types [...] documented as of this encounter Care Teams Grocery Clerk Checking Relationship Specialty Start Date End Date Yoana Mckeon MD [address] [place] [address] PCP - General 03/02/1997 documented as of this encounter
--- OUTSIDE RECORDS SUMMARY | 2024-07-31 06:49 | XMS_ITS | Encounter Summary ---
Author Organization [employer] [facility] Address [address] [place] [address] Care Team Providers Care Marketing Trainee Name Role Phone Yoana Mckeon MD Primary Care Provider [phone] Encounter Details Date Type Department Care Team Description 03/23/2015 Transfer Records Medical Records [address] [place] [address] Social History Tobacco Use Types Packs/Day Years [...] documented as of this encounter Care Teams Marketing Trainee Relationship Specialty Start Date End Date Yoana Mckeon MD [address] [place] [address] PCP - General 03/02/1997 documented as of this encounter
--- OUTSIDE RECORDS SUMMARY | 2024-07-31 06:49 | XMS_ITS | Encounter Summary ---
Author Organization [facility] Address [address] [place] [address] Care Team Providers Care Surveyor Instrument Assistant Name Role Phone Yoana Mckeon MD Primary Care Provider [phone] Encounter Details Date Type Department Care Team (Late st Contact Info) Description 03/18/2024 8:18 AM EDT Hospital Encounter TH HISTORIC ENCOUNTERS EASTERN CONVERSION ONLY Davion Garcia MD [address] [place] [address] Social History Tobacco Use Types Packs/Day Years [...] HPI: Patient is a very pleasant 78-year-old -[place] female, who had invasive carcinoma of left breast diagnosed 33 years ago, patient had mastectomy, patient couple years ago found to have subcentimeter ER/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 [...] DUCT CARCINOMA OF RIGHT FEMALE BREAST 78-year-old -[place] female who had locally advanced invasive carcinoma [...] EDT Office Visit Adult Medicine [facility] [address] [place] [address] Yoana Mckeon MD [address] [place] [address] 02/25/2025 1:15 PM EDT Office Visit [facility] [address] [facility] [address] [place] [phone] Danna Medina MD [address] [facility] [address] [place] [address] documented as of this encounter Visit Diagnoses Not on filedocumented in this encounter Care Teams Surveyor Instrument Assistant Relationship Specialty Start Date End Date Yoana Mckeon MD [address] [place] [address] PCP - General 03/02/1997 documented as of this encounter
--- OUTSIDE RECORDS SUMMARY | 2024-07-31 06:49 | XMS_ITS | Encounter Summary ---
Author Organization [facility] Address [address] [place] [address] Care Team Providers Care Fruit Sprayer Name Role Phone Yonaa Mckeon MD Primary Care Provider Encounter Details Date Type Department Care Team Description 11/26/2019 [facility] Medical Records [address] [place] [address] Toño Noel MD Social History Tobacco Use [...] documented as of this encounter Care Teams Fruit Sprayer Relationship Specialty Start Date End Date Yoana Mckeon MD [address] [place] [address] PCP - General 03/02/1997 documented as of this encounter
--- OUTSIDE RECORDS SUMMARY | 2024-07-31 06:49 | XMS_ITS | Encounter Summary ---
Author Organization [employer] [facility] Address [address] [place] [address] Care Team Providers Care Gas Utility Worker Name Role Phone Yoana Mckeon MD Primary Care Provider [phone] Encounter Details Date Type Department Care Team Description 08/16/2022 Dryland Farmer Report Medical Records [address] [place] [id number] Abstract, Provider Social History Tobacco Use Types [...] suspected to have Coronavirus/COVID-19? No / Unsure 08/09/2022 11:29 AM EST documented as of this encounter Plan of Treatment Not on file documented as of this encounter Visit Diagnoses Not on filedocumented in this encounter Additional Health Concerns Infection Onset Date Last Indicated Resolved Time COVID-19 Comment:Patient reporting positive test from Sunday 02/1102/11/2023 02/13/2023 documented as of this encounter Care Teams Gas Utility Worker Relationship Specialty Start Date End Date Yoana Mckeon MD [address] [place] [address] PCP - General 03/02/1997 documented as of this encounter
--- OUTSIDE RECORDS SUMMARY | 2024-07-31 06:49 | XMS_ITS | Encounter Summary ---
Author Organization [facility] Address [address] [place] [address] Care Team Providers Care Peel Oven Tender Name Role Phone Yoana Mckeon MD Primary Care Provider [phone] Encounter Details Date Type Department Care Team Description 07/31/2019 Unleavened Dough Mixer Report Medical Records [address] [place] [phone] Toño Noel MD Social History Tobacco Use [...] documented as of this encounter Care Teams Peel Oven Tender Relationship Specialty Start Date End Date Yoana Mckeon MD [address] [place] [address] PCP - General 03/02/1997 documented as of this encounter
--- OUTSIDE RECORDS SUMMARY | 2024-07-31 06:49 | XMS_ITS | Encounter Summary ---
Author Organization [facility] Address [address] [place] [address] Care Team Providers Care Resident Care Manager Name Role Phone Yoana Mckeon MD Primary Care Provider [phone] Encounter Details Date Type Department Care Team Description 06/30/2022 Telephone OBGYN - [facility] [address] [place] [address] Lindy Craig MD [address] [place] [address] [phone] Social History Tobacco Use Types Packs/Day Years [...] suspected to have Coronavirus/COVID-19? No / Unsure 07/03/2022 8:40 AM EST documented as of this encounter Miscellaneous Notes * Telephone Encounter - Sandra Ghosh - 08/03/2022 4:57 PM EST I called Gale and left a message on her answering machine asking that she call us to schedule a follow up appointment with Dr Craig. * Telephone Encounter - Lindy Craig MD - 06/30/2022 11:53 AM EST I called Gale re: benign findings on pathology. She was very happy. She notes that she also has hadhot flashes and night sweats for years. Wonders if there is something non-hormonal that she can take. I explained Paxil can be helpful. She desired to try it. She will follow up in 2-3 months. Scheduling will call her. documented in this encounter Plan of Treatment Not on file documented as of this encounter Visit Diagnoses Not on filedocumented in this encounter Additional Health Concerns Infection Onset Date Last Indicated Resolved Time COVID-19 Comment:Patient reporting positive test from Sunday 02/1102/11/2023 02/13/2023 documented as of this encounter Care Teams Resident Care Manager Relationship Specialty Start Date End Date Yoana Mckeon MD [address] [place] [address] PCP - General 03/02/1997 documented as of this encounter
--- OUTSIDE RECORDS SUMMARY | 2024-07-31 06:49 | XMS_ITS | Encounter Summary ---
Author Organization [facility] Address [address] [place] [address] Care Team Providers Care Satellite Technician Name Role Phone Yoana Mckeon MD Primary Care Provider Encounter Details Date Type Department Care Team Description 06/08/2014 Credit Manager Report Medical Records [address] [place] [phone] Janice Boone MD Social History Tobacco Use [...] documented as of this encounter Care Teams Satellite Technician Relationship Specialty Start Date End Date Yoana Mckeon MD [address] [place] [address] [phone] PCP - General 03/02/1997 documented as of this encounter
--- OUTSIDE RECORDS SUMMARY | 2024-07-31 06:49 | XMS_ITS | Encounter Summary ---
Author Organization [facility] Address [address] [place] [address] Care Team Providers Care Case Loader Operator Name Role Phone Yoana Mckeon MD Primary Care Provider [phone] Encounter Details Date Type Department Care Team Description 05/14/2018 Transfer Records Medical Records [address] [place] [address] Abstract, Provider Social History Tobacco Use Types [...] documented as of this encounter Care Teams Case Loader Operator Relationship Specialty Start Date End Date Yoana Mckeon MD [address] [place] [address] PCP - General 03/02/1997 documented as of this encounter
--- OUTSIDE RECORDS SUMMARY | 2024-07-31 06:49 | XMS_ITS | Encounter Summary ---
Author Organization [facility] Address [address] [place] [address] Care Team Providers Care Paper Cone Maker Name Role Phone Yoana Mckeon MD Primary Care Provider [phone] Encounter Details Date Type Department Care Team Description 03/15/2023 [address] Repairer Report Medical Records [address] [place] [address] Davion Garcia MD Social History Tobacco Use [...] documented as of this encounter Care Teams Paper Cone Maker Relationship Specialty Start Date End Date Yoana Mckeon MD [address] [place] [address] PCP - General 03/02/1997 documented as of this encounter
--- OUTSIDE RECORDS SUMMARY | 2024-07-31 06:49 | XMS_ITS | Encounter Summary ---
Author Organization [facility] Address [address] [place] [address] Care Team Providers Care Mutuel Department Manager Name Role Phone Yoana Mckeon MD Primary Care Provider [phone] Encounter Details Date Type Department Care Team Description 11/25/2019 [facility] Medical Records [address] [place] [address] [facility] Social History Tobacco Use Types Packs/Day [...] documented as of this encounter Care Teams Mutuel Department Manager Relationship Specialty Start Date End Date Yoana Mckeon MD [address] [place] [address] [phone] PCP - General 03/02/1997 documented as of this encounter
[2024-07-31 07:37] LABS: Anion Gap 12 (12-20); Blood Urea Nitrogen 23 mg/dL (9-16); Calcium 9.4 mg/dL (8.4-10.2); Carbon Dioxide 32 mmol/L (22-29); Chloride 104 mmol/L (96-108); Estimated Glomerular Filt Rate 40; Glucose Random 87 mg/dL (60-115); Sodium 144 mmol/L (135-145)
== END 2024-07-31 06:45 | disposition home or self-care (01) ==
LOC: HO.LAB 06:44
PROVIDERS: PCP Internal Medicine; Visit Provider Internal Medicine Cardiovascular Disease
DX: I48.0 Paroxysmal atrial fibrillation (principal)
CPT/HCPCS: 36415; 80048

== ENCOUNTER → 2024-09-29 23:59 | Outpatient (BNV) | payer OTHER, SELFPAY ==
--- NOTE | 2024-10-01 12:24 | MHC.OFFVIS ---
Intake Visit Reasons: Remote device check- [employer] Allergies valacyclovir [VALACYCLOVIR] Allergy (Intermediate, Verified 07/18/23 10:32) AMS rivaroxaban [From Xarelto] Adverse Reaction (Severe, Verified 07/18/23 10:32) GI bleed PHENOTHYLINE Allergy (Unknown, Uncoded 07/18/23 10:32) BLISTERS PFSH Medical History ICD (implantable cardioverter-defibrillator) battery depletion GI bleed HTN (hypertension) CKD (chronic kidney disease) VF (ventricular fibrillation) ICD (implantable cardioverter-defibrillator) in place Paroxysmal atrial fibrillation Nonischemic cardiomyopathy Chronic HFrEF (heart failure with reduced ejection fraction) Presence of Watchman left atrial appendage closure device Surgical History H/O mastectomy History of cardiac pacemaker (~2017) Family History Father No problems noted. Mother No problems noted. Social History Alcohol intake: never Patient Tobacco Use Status: Never used Tobacco Office Procedures Cardiac Device Check Cardiac Device Check Details: Remote ICD report generated 09/29/2024. ICD function is adequate. System impedance is stable. Battery life is at 87%. Multiple episodes of atrial fibrillation noted with total burden of 1% [id number] Cardiac Interrogation, implant defibrillator w/interim Procedure code (CPT) selection complete Assessment & Plan Assessment & Plan (1) ICD (implantable cardioverter-defibrillator) in place: Code(s): Z95.810 - Presence of automatic (implantable) cardiac defibrillator Category: Medical Plan: See above Coding Level of Care Code Procedure Only Diagnoses ICD (implantable cardioverter-defibrillator) in place Z95.810 CPT Codes Cardiac Device Check - Cardiac Device 13: [id number] Cardiac Interrogation, implant defibrillator w/interim ([id number])
== END ==
PROVIDERS: PCP Internal Medicine; Visit Provider Internal Medicine Cardiovascular Disease
DX: I48.91 Unspecified atrial fibrillation (principal); Z95.810 Presence of automatic (implantable) cardiac defibrillator
CPT/HCPCS: 93295

== ENCOUNTER → 2024-12-30 23:59 | Outpatient (BNV) | payer OTHER, SELFPAY ==
--- NOTE | 2025-01-01 09:19 | MHC.OFFVIS ---
Intake Visit Reasons: Remote ICD check- [employer] Allergies valacyclovir (VALACYCLOVIR) Allergy (Intermediate, Verified 07/18/23 10:32) AMS rivaroxaban (From Xarelto) Adverse Reaction (Severe, Verified 07/18/23 10:32) GI bleed PHENOTHYLINE Allergy (Unknown, Uncoded 07/18/23 10:32) BLISTERS PFSH Medical History ICD (implantable cardioverter-defibrillator) battery depletion GI bleed HTN (hypertension) CKD (chronic kidney disease) VF (ventricular fibrillation) ICD (implantable cardioverter-defibrillator) in place Paroxysmal atrial fibrillation Nonischemic cardiomyopathy Chronic HFrEF (heart failure with reduced ejection fraction) Presence of Watchman left atrial appendage closure device Surgical History H/O mastectomy History of cardiac pacemaker (~2017) Family History Father No problems noted. Mother No problems noted. Social History Alcohol intake: never Patient Tobacco Use Status: Never used Tobacco Office Procedures Cardiac Device Check Cardiac Device Check Details: Remote subcutaneous ICD report generated 12/30/2024. Battery life is 84%. No arrhythmias detected. Sensing configuration is okay [id number] Cardiac Interrogation, implant defibrillator w/interim Procedure code (CPT) selection complete Assessment & Plan Assessment & Plan (1) ICD (implantable cardioverter-defibrillator) in place: Code(s): Z95.810 - Presence of automatic (implantable) cardiac defibrillator Category: Medical Plan: See above Coding Level of Care Code Procedure Only Diagnoses ICD (implantable cardioverter-defibrillator) in place Z95.810 CPT Codes Cardiac Device Check - Cardiac Device 13: [id number] Cardiac Interrogation, implant defibrillator w/interim ([id number])
== END ==
PROVIDERS: PCP Internal Medicine; Visit Provider Internal Medicine Cardiovascular Disease
DX: Z45.02 Encounter for adjustment and management of automatic implantable cardiac defibrillator (principal)
CPT/HCPCS: 93295

== ENCOUNTER 2025-01-26 13:31 | Outpatient (AMB) | payer OTHER, SELFPAY ==
--- NOTE | 2025-01-26 13:53 | A.OFFVIS_ITS ---
Vital Signs 01/26/25 13:54 Height 5 ft 2.5 in BP 124/62 Blood Pressure Location Lt brachial Position Sitting Pulse 63 Pulse Source Monitor Intake Visit Reasons: [employer] then appt Manager Entry Required: No Allergies valacyclovir (VALACYCLOVIR) Allergy (Intermediate, Verified 01/26/25 13:56) AMS rivaroxaban (From Xarelto) Adverse Reaction (Severe, Verified 01/26/25 13:56) GI bleed PHENOTHYLINE Allergy (Unknown, Uncoded 01/26/25 13:56) BLISTERS Medication List - Last Reconciled 01/26/25 by Yolie Neil, [employer] ERP ARCHITECT-C amiodarone 200 mg PO DAILY 90 days aspirin 81 mg PO DAILY 90 days atorvastatin 40 mg PO DAILY carvedilol 12.5 mg PO BID ferrous sulfate 325 mg PO DAILY sacubitril-valsartan 24-26 mg (Entresto) 1 tab PO BID 90 days torsemide 40 mg orally Two tabs in the morning and 1 tab at noon time; 90 days HPI HPI [facility] [employer] then appt: Details: Gale is a 79-year-old female with past medical history of hypertension, chronic kidney disease, heart failure with reduced EF, nonischemic cardiomyopathy, subcutaneous ICD, paroxysmal atrial fibrillation, Watchman device, mild aortic stenosis who presents for follow-up. Today she reports that she has been doing well since her last visit in July. She has no concerning symptoms to report. No chest discomfort, shortness of breath, heart palpitations, edema. She reports good activity tolerance. 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 Taking all meds as directed. Significant other present. [facility] Medical History ICD (implantable cardioverter-defibrillator) battery depletion GI bleed HTN (hypertension) CKD (chronic kidney disease) VF (ventricular fibrillation) ICD (implantable cardioverter-defibrillator) in place Paroxysmal atrial fibrillation Nonischemic cardiomyopathy Chronic HFrEF (heart failure with reduced ejection fraction) Presence of Watchman left atrial appendage closure device Surgical History H/O mastectomy History of cardiac pacemaker (~2018) Family History Father No problems noted. Mother No problems noted. Social History Alcohol intake: never Patient Tobacco Use Status: Never used Tobacco Review of Systems Const All systems reviewed & are unremarkable except as noted in HPI and below ENT Denies dizziness Card Denies chest pain, Denies chest pain at rest, Denies chest pain with activity, Denies rapid heart rate, Denies pedal edema, Denies edema, Denies leg edema, Denies lightheadedness, Denies palpitations, Denies dyspnea, Denies dyspnea on exertion and Denies orthopnea Resp Denies cough, Denies dyspnea and Denies dyspnea on exertion GI Denies hematochezia and Denies change in stool character Musc Denies abnormal gait, Denies limited range of motion, Denies muscle cramps, Denies muscle weakness, Denies numbness, Denies radiating pain into limb, Denies stiffness and Denies tingling Neuro Denies abnormal gait, Denies dizziness, Denies numbness and Denies tingling Endo Denies palpitations Physical Exam Vital Signs: Last Vital Signs Pulse 63 01/26/25 13:54 BP 124/62 01/26/25 13:54 Const General: cooperative, healthy appearing, comfortable and no acute distress Orientation/consciousness: patient oriented x3 Neck Neck: Yes normal visual inspection Resp Effort & Inspection: normal respiratory effort Auscultation: clear to auscultation bilaterally, no crackles, no rales, no rhonchi and no wheezes Cardio Rate: regular rate Rhythm: regular rhythm Heart sounds: S1 normal heart sound present, S2 normal heart sound present, no gallops, no murmurs and no rubs Neuro General: patient oriented x3 Extrem General: Yes normal to inspection, No no pedal edema and No calf tenderness Psych Appearance: grossly normal Mental Status: mental status grossly normal Speech and movement: Normal speech and movement present Office Procedures Cardiac Device Check Cardiac Device Check Details: Rebelle Bridal was battery 84%, no ventricular alerts, AFib 6% of time, no shocks, shock impedance 90 Ohms [id number] Device Interrogation, implantable defibrillator Procedure code (CPT) selection complete EKG Details: Today, read by me, sinus rhythm with first-degree AV block, LVH with nonspecific intraventricular conduction delay, T-wave abnormality lateral leads -unchanged from prior EKG, rate 63, QTC 493 millisecond [id number], Complete Assessment & Plan Assessment & Plan (1) Paroxysmal atrial fibrillation: Code(s): I48.0 - Paroxysmal atrial fibrillation Category: Medical Plan: History of paroxysmal atrial fibrillation, asymptomatic. Device interrogation today shows AFib burden 6%. She is on amiodarone for rhythm control and carvedilol for heart rate control. Will check labs for amiodarone monitoring including liver and thyroid tests. Will update chest x-ray. Plan to call her with results. Cardiology follow-up 6 months, sooner if needed. (2) Presence of Watchman left atrial appendage closure device: Code(s): Z95.818 - Presence of other cardiac implants and grafts Category: Medical Plan: Watchman device in place. Continue on daily aspirin. (3) ICD (implantable cardioverter-defibrillator) in place: Code(s): Z95.810 - Presence of automatic (implantable) cardiac defibrillator Category: Medical Plan: [place] subcutaneous ICD in place. Interrogation today shows device is functioning normally. Continue remote monitoring. Next office interrogation due in 6 months. 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 She is due for a repeat echocardiogram which is scheduled on 01/28/2025. She is not appear fluid overloaded on exam. Continue carvedilol and Entresto for neurohormonal modulation. Continue torsemide. (5) Aortic stenosis: Code(s): I35.0 - Nonrheumatic aortic (valve) stenosis Category: Medical Plan: Mild aortic stenosis on last echo. Repeat echo being done. (6) Chronic HFrEF (heart failure with reduced ejection fraction): Code(s): I50.22 - Chronic systolic (congestive) heart failure Category: Medical Plan: Stable as above (7) HTN (hypertension): Code(s): I10 - Essential (primary) hypertension Category: Medical Plan: Blood pressure goal less than 130/80. Well controlled at this time. No med changes made. (8) On amiodarone therapy: Code(s): Z79.899 - Other alf (current) drug therapy Category: Medical Plan: On amiodarone to help with rhythm control for paroxysmal AFib. Will check labs and chest x-ray to assess for signs of toxicity. Plan Time spent on chart review, documentation, interview and assessment Orders: Orders Comprehensive Met. Panel Today Z79.899 - Other superintendent container terminal (current) drug therapy XR chest 2V Today Z79.899 - Other alf (current) drug therapy TSH reflex Free T4 Today Z79.899 - Other superintendent container terminal (current) drug therapy Coding Level of Care Code Est Pt Level 4 (83248) Complex EM visit Add On G2211 Diagnoses Paroxysmal atrial fibrillation I48.0 Presence of Watchman left atrial appendage closure device Z95.818 ICD (implantable cardioverter-defibrillator) in place Z95.810 Nonischemic cardiomyopathy I42.8 Aortic stenosis I35.0 Chronic HFrEF (heart failure with reduced ejection fraction) I50.22 HTN (hypertension) I10 On amiodarone therapy Z79.899 CPT Codes Cardiac Device Check - Cardiac Device 9: [id number] Device Interrogation, implantable defibrillator ([id number]) EKG - CPT: 30265-Gfquhqqveopahhxkh, Complete ([id number]) Time Spent (min) 32
[2025-01-26 13:54] VITALS: BP 124/62; PULSE 63
--- OUTSIDE RECORDS SUMMARY | 2025-01-26 14:24 | XMS_ITS | Clinical Summary ---
Author Organization [facility] [address] [place] [address] [place] [phone] Phone Care Team Providers Care Change Analyst Name Role Phone Yoana Mckeon MD Primary Care Provider [phone] Allergies Active Allergy Reactions Criticality Noted Date [...] a day. 180 tablet 1 5 Active torsemide (DEMADEX) 20 mg tablet 1 tab am 2 tabs pm 270 tablet 1 5 Active atorvastatin (LIPITOR) 40 mg tablet TAKE 1 TABLET BY MOUTH EVERY DAY 90 tablet 5 Active Active Problems Problem Noted Date Diagnosed Date Gout 03/26/2023 Chronic HFrEF (heart failure with reduced ejection fraction) ([facility] [place], [facility] V28) 04/05/2022 Overview (03/26/2024): Dr. Noel Post herpetic neuralgia 03/07/2019 Nonsustained ventricular tac hycardia ([facility] V24, [facility] V28) 02/06/2019 Overview (03/26/2024): 01/27 syncope, AICD fired Vitamin D deficiency 05/29/2018 Atrial fibrillation ([facility] V24, [facility] V28) 1 06/29/2017 Overview (03/26/2024): s/p Watchman device Tuberculosis 04/29/2018 AICD (automatic cardioverter/defibrillator) pres ent 08/09/2017 Lower GI bleed 04/23/2014 Overview (03/26/2024): CN and EGD negative for source of bleed 04/24, negative EGD and CN for bleeding source 11/28 - polyps removed 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 Garcia) Hypercholesterolemia 05/23/2005 Non-ischemic cardiomyopathy (CMS/HCC V24, CMS/HC C V28) 05/23/2005 Overview (03/26/2024): 01/2021: EF 35-45% (Dr. Noel) 08/2016: EF 15-20% 11/2013: EF 40-45% Encounters Date Type Department Care Team Description 01/13/2025 Telephone Adult Medicine [address] [phone] Sheryl Dickens [place] missed appt from Last 3 Months Immunizations Name Administration Dates Next Due Influenza trivalent, 0.5mL ( Fluad) 65yo and older 07/10/2024,03/26/2023,04/05/2022,2020,03/18/2020,03/06/2019,03/08/2017,1 ,03/17/2014 PPD Test 12/08/2009 [employer] SARS-CoV-2 COVID-19, mRNA, LNP-S, preservative free 03/22/2022,03/22/2021,08/12/2020,2020 [...] AICD (automatic cardioverter/defibrillator) present 08/09/2017 Atrial fibrillation ([facility] V24, [facility] V28) 04/29/2018 Vitamin D deficiency 05/29/2018 Tuberculosis 04/29/2018 Nonsustained ventricular tac hycardia ([facility] V24, [facility] V28) 02/06/201901/27 syncope, AICD fired Post herpetic neuralgia 03/07/2019 Gout 03/26/2023 Breast cancer ([facility] V24, [facility] V28) 1990: Left mastectomy, chemo with adriamycin - declines BRCA testing 07/2021: right breast carcinoma in situ; right mastectomy 02/2022: declining aromatase inhibitor therapy (Dr. Garcia) Crohn's disease ([facility] V24, [facility] V28) 12/08 In remission Non-ischemic cardiomyopathy ([facility] V24, [facility] V28) 05/23/200501/2021: EF 35-45% (Dr. Fabricio dailey) 08/2016: EF 15-20% 11/2013: EF 40-45% Family [...] 56 07/10/2024 9:06 AM EST Temperature 36.2 C (97.1 F) 07/10/2024 9:06 AM EST Respiratory Rate 16 07/10/2024 9:06 AM EST Oxygen Saturation 97% 07/10/2024 9:06 AM EST Inhaled Oxygen Concentration - - Weight 79.2 kg (174 lb 8 oz) 07/10/2024 9:06 AM EST Height 158.8 cm (5' 2.5 ) 07/10/2024 9:06 AM EST Body Mass Index 31.41 07/10/2024 9:06 AM EST Plan of Treatment Upcoming Encounters Date Type Department Care Team (Late st Contact Info) Description 02/04/2025 9:30 AM EDT Office Visit Adult Medicine [facility] [address] [place] [phone] Yoana Mckeon MD [address] [place] [address] 02/25/2025 1:15 PM EDT Office Visit Breast Care [facility] [address] [place] [phone] Danna Medina MD [address] [phone] Health Maintenance Due Date Last Done Comments Pneumococcal Vaccine: 50+ Years (2 of 2 - PPSV23) 05/03/2017 03/08/2017 RSV Immunization Adult Patients (1 - 1-dose 75+ series) 2021 Falls Risk Assessment 05/19/2022 Hepatitis C Screening 05/19/2022 Osteoporosis Screening (Bone Density Screening) 05/19/2022 Social Influencers of Health Screening 05/19/2022 COVID-19 Vaccine ( season) 2024 08/02/2023, 03/22/2022, 03/22/2021, Additional history exists Depression Screening 06/11/2024 07/16/2023 Influenza Vaccine (#1) 2025 , 03/26/2023, 04/05/2022, Additional history exists Hypertension/CHF/CAD Annual BMP Blood Test 07/14/2025 07/14/2024, 10/31/2023, 10/31/2023 DTaP,Tdap,and Td Vaccines (4 - Td or Tdap) 08/10/2027 08/09/2017, 11/06/2007, 11/09/1997 Cholesterol Screening (Lipid Panel) 07/14/2029 07/14/2024, 10/31/2023, 10/31/2023 Zoster Vaccines Completed 02/17/2021, 12/22/2019 HIB Vaccines Aged Out No longer eligi [...] age to complete this topic Meningococcal B Vaccine Aged Out No l onger eligible based on patient's age to complete this topic RSV Immunization Patients Under 20 months Aged Out No longer eligible based on patient's age to complete this topic Varicella Vaccines Aged Out No longer eligible based on patient's age to complete this topic Procedures Procedure Name Priority Date/Time Associated Diagnosis Comments BASIC METABOLIC PANEL Routine 07/14/2024 8:05 AM EST Chronic HFrEF (heart failure with reduced ejection fraction) (CMS/HCC V24, CMS/HCC V28) LIPID PANEL WITH REFLEX TO DIRECT LDL Routine 07/14/2024 8:05 AM EST Hypercholesterolemi a HM DEPRESSION SCREENING Routine 07/16/2023 from Last 3 Months or Most Recently Relevant to Health Maintenance Results * (ABNORMAL) Lipid panel with reflex to direct LDL (07/14/2024 8:05 AM EST) Cholesterol 242(H) 0 - 200 mg/dL LAB CHEMISTRY METHOD 07/14/2024 11:09 AM [facility] Triglycerides 89 0 - 150 mg/dL LAB CHEMISTRY METHOD 07/14/2024 11:09 AM [facility] HDL 82 >=40 mg/dL LAB CHEMISTRY METHOD 07/14/2024 11:09 AM [facility] LDL Calculated 142(H) 0 - 100 mg/dL LAB CHEMISTRY METHOD 07/14/2024 11:09 AM [facility] VLDL Cholesterol Mynor 17.8 mg/dL LAB CHEMISTRY METHOD 07/14/2024 11:09 AM [facility] Non HDL Chol. (LDL+VLDL) 160(H) <145 mg/dL LAB CHEMISTRY METHOD 07/14/2024 11:09 AM [facility] Chol/HDL Ratio 3.0 0.0 - 4.4 LAB CHEMISTRY METHOD 07/14/2024 11:09 AM [facility] Blood Venous blood specimen / Unknown Venipuncture / Unknown 07/14/2024 8:05 AM EST 07/14/2024 8:05 AM EST us Yoana Mckeon MD LAB BLOOD ORDERABLES Final Resul t [facility] [address] [place] [address], * (ABNORMAL) Basic metabolic panel (07/14/2024 8:05 AM EST) Pathologist [facility] Sodium 139 133 - 145 mmol/L LAB CHEMISTRY METHOD 07/14/2024 11:09 AM [facility] Potassium 3.9 3.5 - 5.5 mmol/L LAB CHEMISTRY METHOD 07/14/2024 11:09 AM [facility] Chloride 104 96 - 110 mmol/L LAB CHEMISTRY METHOD 07/14/2024 11:09 AM [facility] CO2 30 21 - 32 mmol/L LAB CHEMISTRY METHOD 07/14/2024 11:09 AM [facility] Anion Gap 5 3 - 11 LAB CHEMISTRY METHOD 07/14/2024 11:09 AM [facility] Glucose 101(H) 70 - 100 mg/dL LAB CHEMISTRY METHOD 07/14/2024 11:09 AM [facility] BUN 27(H) 5 - 25 mg/dL LAB CHEMISTRY METHOD 07/14/2024 11:09 AM [facility] Creatinine 1.51(H) 0.50 - 1.10 mg/dL LAB CHEMISTRY METHOD 07/14/2024 11:09 AM [facility] eGFR 35(L) >=60 mL/min/1. 73m2 LAB CHEMISTRY METHOD 07/14/2024 11:09 AM [facility] Comment:Calculation based on the Chronic Kidney Disease Epidemiology Collaboration (CKD-EPI) equation refit without adjustment for race. BUN/Creatinine Ratio 17.9 LAB CHEMISTRY METHOD 07/14/2024 11:09 AM [facility] Calcium 9.6 8.5 - 10.5 mg/dL LAB CHEMISTRY METHOD 07/14/2024 11:09 AM [facility] Blood Venous blood specimen / Unknown Venipuncture / Unknown 07/14/2024 8:05 AM EST 07/14/2024 8:05 AM EST us Yoana Mckeon MD LAB BLOOD ORDERABLES Final Resul t [facility] [address] [place] [address], * Depression Screening (07/16/2023) [facility] Depression Screening abstracted us Historical Provider HEALTH MAINTENANCE Final Result from Last 3 Months or Most Recently Relevant to Health [place] [address] MEDICAID - [place] [facility] Care Teams Change Analyst Relationship Specialty Start Date End Date Yoana Mckeon MD [address] [place] [id number] PCP - General 03/02/1997
--- OUTSIDE RECORDS SUMMARY | 2025-01-26 14:24 | XMS_ITS | Clinical Summary ---
Author Organization [facility] Address [address] [place] [address] Care Team Providers Care Certified Genetic Counselor Name Role Phone Yoana Mckeon MD Primary Care Provider [phone] Allergies No known active allergies Medications Medication [...] 49 03/18/2024 8:35 AM EDT Temperature 35.8 C (96.5 F) 03/18/2024 8:35 AM EDT Respiratory Rate - - Oxygen Saturation 100% [...] 08/12/2020, Additional history exists Influenza Vaccine (#1) 2025 3, 03/26/2023, 04/05/2022, Additional history exists Shingrix-Zoster Vaccine Completed 02/17/2021, 12/21 Hepatitis B Vaccines Aged Out No long er eligible based on patient's age to complete this topic RSV Ped < 20 months Aged Out No longe r eligible based on patient's age to complete this topic Care Teams Certified Genetic Counselor Relationship Specialty Start Date End Date Yoana Mckeon MD PCP - General Internal Medicine 08/18/21
--- OUTSIDE RECORDS SUMMARY | 2025-01-26 14:24 | XMS_ITS ---
Author Name Kandis JOSE, MS. Hancock M Address [address] [place] [id number] Phone [phone] [facility] Care Team Providers Care Slagger Name Role Phone Karissa Marquis Unavailable [phone] Unavailable Unavailable Unavailable RAUL BIRD Unavailable [phone] KHADIJAH FRY Unavailable [phone] Yoana Mckeon Unavailable [phone] Reason for Referral Not Available Allergies, adverse [...] mg Tab TAKE 1 TABLET BY MO UTH EVERY MORNING 2022-06-30 2022-10-17 Ketorolac Tromethamine 0.5 [...] DAY OF INJECTION 2022-08-24 No Data Available [employer] COVID-[address] KIT TEST DIRECTED TODAY 2022-09-21 2022-10-17 Benzonatate 100 mg Cap TAKE 1 CAPSULE [...] List Problem Status Onset Date Resolved Date Synopsis Sacroiliitis, not elsewhere classifiedOsteoarthritis Active 2022-10-17 N/A right h ip injection gabapentin prnconservative measures 02/26/23: Stable. Encouraged pain management and relaxation techniques as needed. Maintain safety and fall precautions. Follow up as indicated.05/10/23: Requesting bedside commode due to sacroiliitis, hip and back pain, with mobility impairment. DME task placed. Z74.09, M19.90, M46.1 Post herpetic neuralgia Active 2023-06-19 N/A V oltaren Gel Crohn's disease, unspecified , without complications Active 2024-03-26 N/A Education on exercising regularly, eating a healthy diet, and quitting smoking. Reducing stress can also help prevent flare ups. In addition, avoiding problem foods such as :Caffeine, alcohol, and spicy foods may make symptoms worse, reduce dairy, limit fiber, avoid large meals. Stay hydrated and drink plenty of water. 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 Gout Active 2024-03-26 N/A Recommend medi cation compliance and low purine diet. Avoid beer/alcohol, high fructose corn syrup, wild game meat, red meat, liver, shellfish, shrimp, anchovies, and turkey. Stay well hydrated. Atrial fibrillation & Hypercoagulability due to atrial fibrillation Active 2022-04-03 N/A atrial fibri llation with CHADsVASc score=4 (female gender, >75 years of age, heart failure)daily ASA History of ventricular fibrillation Active 2024-03-26 N/A Noted in Outside careContinue to follow with PCP Obesity Active 2024-03-26 N/A BMI: 31.46Educ ation provided as follows: Eat a healthy diet. Limit portion sizes. Do not drink sweetened sodas or tea. Walk as often as able. Follow up with PCP as scheduled. Other problems related to medical facilities and other health care Active 2024-03-26 N/A HYPERTENSION CONTINGENCY PLANLast updated: 03/26/2024Member to call for the following symptoms: BP >180/100 / Chest pain / Headache/ HR <50 / HR >100 Planned intervention: Assess for signs of end organ damage (headache, vision changes, chest pain)/ Project Technician on proper BP monitoring technique and reassess/ Increase current medication dose:/ Encourage low sodium diet/ Discuss breathing exercises/ Encourage medication adherence Chronic kidney disease, stag e 3b Active 2022-03-31 N/A Outside care 10/31/2023 gfr = 42Avoid nephrotoxic medications (NSAIDS, high dose Gabapentin, Baclofen, Fleet Enema, Morphine/Codeine) History of breast cancer Active 2022-03-31 N/A no acute issues or concernss/p mastectomy 09/2021first mastectomy was in 1990Patient reports that she is continuing to follow with PCP- but oncologist cleared her last week and doesn't have to follow with him any longer. Encounters Encounters Type Facility Date of Service Diagnosis/Co mplaint Medication List Documented (1159F) [facility] Medication List Documented (1159F) [facility] [place] Medication List Documented (1159F) [facility] [place] Medication List Documented (1159F) [facility] [place] Medication List Documented (1159F) [facility] [place] Medication List Documented (1159F) [facility] [place] Unspecified systolic (conges tive) heart failureUnspecified atrial fibrillationChronic kidney disease, unspecifiedPersonal history of malignant neoplasm of breast Medication List Documented (1159F) [facility] [place] Medication List Documented (1159F) [facility] [place] No Data Available [facility] [place]2022 Hyp hrt & chr kdny dis w hrt fail and stg 1-4/unsp chr kdnyUnspecified systolic (congestive) heart failureChronic kidney disease, stage 3bSecondary hyperaldosteronismMalignant neoplasm of unspecified site of unspecified female breastOther thrombophiliaUnspecified atrial fibrillationSacroiliitis, not elsewhere classifiedUnspecified osteoarthritis, unspecified site No Data Available [facility] [place]2022 No Data Available [facility] [place] No Data Available [facility] [place] No Data Available [facility] [place] No Data Available [facility] [place] No Data Available [facility] [place] No Data Available [facility] [place] Data Available [facility] [place] Data Available [facility] [place] Estab. patient 10-29min; 1 minor problem; add add modifier 95 for video, modifier 93 for phone [facility] [place] 02[place]2023 Hypertensive heart disease w ith heart failureUnspecified systolic (congestive) heart failureSecondary hyperaldosteronismSacroiliitis, not elsewhere classifiedUnspecified osteoarthritis, unspecified site Estab. patient 10-29min; 1 minor problem; add add modifier 95 for video, modifier 93 for phone [facility] [place] 02/[place]/2023 Estab. patient 10-29min; 1 minor problem; add add modifier 95 for video, modifier 93 for phone [facility] [place]23 Estab. patient 10-29min; 1 minor problem; add add modifier 95 for video, modifier 93 for phone [facility] [place] 02[place]26/2023 Estab. patient 10-29min; 1 minor problem; add add modifier 95 for video, modifier 93 for phone [facility] [place] 02/[place]23 Estab. patient 10-29min; 1 minor problem; add add modifier 95 for video, modifier 93 for phone [facility] [place] 02/26/2023 Unlisted special service; to be used for medical record reviews and reporting CPTII codes (1111F, etc) [facility] [place]2023 Unspecified systolic (conges tive) heart failureHyp hrt & chr kdny dis w hrt fail and stg 1-4/unsp chr kdnySecondary hyperaldosteronismPersonal history of malignant neoplasm of breastChronic kidney disease, stage 3bOther thrombophiliaUnspecified atrial fibrillationSacroiliitis, not elsewhere classifiedUnspecified osteoarthritis, unspecified siteOther reduced mobility Unlisted special service; to be used for medical record reviews and reporting CPTII codes (1111F, etc) [facility] [place]23 Unlisted special service; to be used for medical record reviews and reporting CPTII codes (1111F, etc) [facility] [place]23 Unlisted special service; to be used for medical record reviews and reporting CPTII codes (1111F, etc) [facility] [place] Unlisted special service; to be used for medical record reviews and reporting CPTII codes (1111F, etc) [facility] [place]2023 Hyp hrt & chr kdny dis w hrt fail and stg 1-4/unsp chr kdnyUnspecified systolic (congestive) heart failureChronic kidney disease, stage 3bSecondary hyperaldosteronismMalignant neoplasm of unspecified site of unspecified female breastOther thrombophiliaUnspecified atrial fibrillationUnspecified osteoarthritis, unspecified siteSacroiliitis, not elsewhere classifiedOther reduced mobilityOther postherpetic nervous system involvement Unlisted special service; to be used for medical record reviews and reporting CPTII codes (1111F, etc) [facility] [place] 06[place]19/2023 Unlisted special service; to be used for medical record reviews and reporting CPTII codes (1111F, etc) [facility] [place]2023 Unlisted special service; to be used for medical record reviews and reporting CPTII codes (1111F, etc) [facility] [place]23 Estab. patient 30-39min; chronic exacerbation, 2 stable chronic or 1 acute illness add add modifier 95 for video, (do not use for phone, instead use 74611-49) [facility] [place]2024 Heart failure, unspecifiedSecondary hyperaldosteronismChronic kidney disease, [...] (do not use for phone, instead use 78086-49) [facility] [place] Estab. patient 30-39min; chronic exacerbation, 2 stable chronic or 1 acute illness add add modifier 95 for video, (do not use for phone, instead use 32993-00) [facility] [place] Estab. patient 30-39min; chronic exacerbation, 2 stable chronic or 1 acute illness add add modifier 95 for video, (do not use for phone, instead use 37707-15) [facility] [place] Estab. patient 30-39min; chronic exacerbation, 2 stable chronic or 1 acute illness add add modifier 95 for video, (do not use for phone, instead use 66761-87) [facility] [place] Estab. patient 30-39min; chronic exacerbation, 2 stable chronic or 1 acute illness add add modifier 95 for video, (do not use for phone, instead use 14074-15) [facility] [place] Estab. patient 30-39min; chronic exacerbation, 2 stable chronic or 1 acute illness add add modifier 95 for video, (do not use for phone, instead use 14438-73) [facility] [place] Estab. patient 20-29min; 1 stable chronic or 2 minor; add add modifier 95 for video, modifier 93 for phone [facility] [place]/2024 Heart failure, unspecifiedSecondary hyperaldosteronismPersonal history of malignant neoplasm of breastChronic kidney disease, stage 3bUnspecified atrial fibrillationOther thrombophiliaSacroiliitis, not elsewhere classifiedUnspecified osteoarthritis, unspecified siteOther reduced mobilityOther postherpetic nervous system involvementCrohn's disease, unspecified, without complicationsPersonal history of other diseases of the circulatory systemObesity, unspecifiedGout, unspecifiedOther problems related to medical facilities and other health careBody mass index (bmi) 32.0-32.9, adult Estab. patient 20-29min; 1 stable chronic or 2 minor; add add modifier 95 for video, modifier 93 for phone [facility] [place] Estab. patient 20-29min; 1 stable chronic or 2 minor; add add modifier 95 for video, modifier 93 for phone [facility] [place] Estab. patient 20-29min; 1 stable chronic or 2 minor; add add modifier 95 for video, modifier 93 for phone [facility] [place] Estab. patient 20-29min; 1 stable chronic or 2 minor; add add modifier 95 for video, modifier 93 for phone [facility] [place]/2024 Estab. patient 20-29min; 1 stable chronic or 2 minor; add add modifier 95 for video, modifier 93 for phone [facility] [place] 09[place]/2024 Estab. patient 20-29min; 1 stable chronic or 2 minor; add add modifier 95 for video, modifier 93 for phone [facility] [place] 09/[place]/2024 Vital Signs Date of Collection Vitals 2022-03-31 [...] - 120.0 mm[Hg]Pain Scale - 0.0 {score} 2024-09-26 07:00:44 Height - 157.48 cmWe ight - 79.38 kgBody Mass Index (BMI) - 32.01 kg/m2BP Diastolic - 70.0 mm[Hg]BP Systolic - 110.0 mm[Hg]Pain Scale - 0.0 {score} Social History Social History Social History Observation Description Effec tive Time Current Smoking Status Never smoker 2025-01-09 8 Sex Female Gender identity Woman History [...] (do not use for phone, instead use 33926-77) 12440 2022-03-31 No Data Available No Data Availa ble SBP < 130 (3074F) 3074F 2022-03-31 No Data Available No Data Available DBP <80 (3078F) 3078F 2022-03-31 No Data Available No Data Available No Data Available 21247 2022-10-17 No Data Available No Data Available [...] Available Advance care planning discussed and documented advance care plan or surrogate decision-maker was documented in the medical record. (1123F) 1123F 2022-10-17 No Data Available No Data Availa ble Estab. patient 10-29min; 1 minor problem; add add modifier 95 for video, modifier 93 for phone 83534 2023-02-26 No Data Available No Data Availa [...] reviews and reporting CPTII codes (1111F, etc) 10062 2023-05-10 No Data Available No Data Availa ble BMI obtained (3008F) 3008F 2023-05-10 No Data Availab le No Data Available Medication List Documented (1159F) 1159F 2023-05-10 No Data Available No Data Aletha ilable Functional Status Assessed (1170F) 1170F 2023-05-10 No Data Available No Data Avail able Unlisted special service; to be used for medical record reviews and reporting CPTII codes (1111F, etc) 64532 2023-06-19 No Data Available No Data Availa [...] (do not use for phone, instead use 46329-30) 31404 2024-03-26 No Data Available No Data Availa [...] ble Advance care planning discussed and documented advance care plan or surrogate decision-maker was documented in the medical record. (1123F) 1123F 2024-03-26 No Data Available No Data Availa ble Functional Status Assessed (1170F) 1170F 2024-03-26 No Data Available No Data Avail able Estab. patient 20-29min; 1 stable chronic or 2 minor; add add modifier 95 for video, modifier 93 for phone 00123 2024-09-26 No Data Available No Data Availa ble Medication List Documented (1159F) 1159F 2024-09-26 No Data Available No Data Aletha ilable Medication Review by prescribing provider or pharmacist documented (1160F) 1160F 2024-09-26 No Data Available No Data Aletha ilable Functional Status Assessed (1170F) 1170F 2024-09-26 No Data Available No Data Avail able Advance Care Directive Advance care planning discussion documented in the medical record (1158F) 1158F 2024-09-26 No Data Available No Data Availa ble Advance care planning discussed and documented advance care plan or surrogate decision-maker was documented in the medical record. (1123F) 1123F 2024-09-26 No Data Available No Data Availa ble Pain Assessment - NO pain present (1126F) 1126F 2024-09-26 No Data Available No Data A vailable Functional Status Functional Category Effective Dates Do you feel unsteady on your feet? No 20 03-04-16 DME used with ambulation: Cane 2024-03-11 [...] to medical facilities and other health care 2024-09-26 07:00:44 Other problems relat ed to medical facilities and other health careCHF (congestive heart failure) with Secondary hyperaldosteronismHistory of breast cancerChronic [...] modifier 95Continue to see PCP. Follow-up with Tammy as needed for any acute or disease [...] <80 (3078F)Advance care planning discussed and documented advance care plan or surrogate decision-maker was documented in the medical record. (1123F)Phone (patient, parent, or guardian); 21-30 minutes of medical discussion (no modifier 95)Pain Assessment - NO pain documented (1126F)Continue to see PCP. Follow-up with Tammy as needed for any acute or disease [...] labs and plan of care as per PCP cardioshelton acute issues or concernss/p mastectomy 09/2021first mastectomy was in 1990pt to continue follow [...] modifier 95Continue to see PCP. Follow-up with Tammy as needed for any acute or disease [...] obtained (3008F)Continue to see PCP. Follow-up with [facility] as [...] or concernss/p mastectomy 09/2021first mastectomy was in 1990pt to continue follow [...] or concernss/p mastectomy 09/2021first mastectomy was in 1990pt to continue follow [...] record (1158F)Advance care planning discussed and documented advance care plan or surrogate decision-maker was documented in the medical record. (1123F)Medication Review by prescribing provider or pharmacist documented (1160F)Medication List Documented (1159F)SBP < 130 (3074F)DBP <80 (3078F)Continue to see PCP. Follow-up with Tammy as needed for any acute or disease [...] to call for the following symptoms: BP >180/100 / Chest pain / Headache/ HR <50 / HR >100 Planned intervention: Assess for signs of end organ damage (headache, vision changes, chest pain)/ Project Technician on proper BP monitoring technique and reassess/ Increase current medication dose:/ Encourage low sodium diet/ Discuss breathing exercises/ Encourage medication adherence 2024-09-26 07:00:44 Functional Status As sessed (1170F)Advance Care Directive Advance care planning discussion documented in the medical record (1158F)Advance care planning discussed and documented advance care plan or surrogate decision-maker was documented in the medical record. (1123F)SBPDBPEstab. patient 20-29min; 1 stable chronic or 2 minor; add add modifier 95 for video, modifier 93 for phoneMedication List Documented (1159F)Medication Review by prescribing provider or pharmacist documented (1160F)Pain Assessment - NO pain present (1126F)Continue to see PCP. [facility] or disease education needs that may arise.<Add contingency plans here>Rx: Amiodarone ,Carvedilol , Entresto ,Torsemide -important for patient to have a low Na Diet or no sodium, daily weights, no alcohol, no smoking, importance of exercise, and weight loss.no acute issues or concernss/p mastectomy 09/2021first mastectomy was in 1990Patient reports that she is continuing to follow with PCP- but oncologist cleared her last week and doesn't have to follow with him any longer.Outside care 10/31/2023 gfr = 42Avoid nephrotoxic medications [...] to call for the following symptoms: BP >180/100 / Chest pain / Headache/ HR <50 / HR >100 Planned intervention: Assess for signs of end organ damage (headache, vision changes, chest pain)/ Project Technician on proper BP monitoring technique and reassess/ [...] PCP and Specialist. Health Concerns Date Concern 2024-09-26 Visit completed usin g audio/video. Patient/Guardian agreed to visit via telehealth. Today, patient has chief complaint of: follow up care and comprehensive review.Reviewed Allergies, Medications, Active Medical conditions, past medical/surgical history, Social history. 2024-09-26 <add details of Adva nce Care Planning conversation using .acp FastKey> Advance Care Plan ConversationDate of Conversation: 09/26/2024Life Limiting Diagnosis: Diagnosis: noneCurrently on Hospice NoCode Status: YES CPR: Attempt ResuscitationGoals of Care: Curative: Attempt to sustain life by all medically effective meansNutrition goals: No decision made about nutrition today; not discussedDo you have a Durable Power of Breaker Up for Healthcare, or Healthcare Proxy Or Guardianship? Yes, POAIf so, Who? sons Syed Calixto and Dee Calixto, Tunde Welch and Ex Nicholas Apple you have a written Advance Directive? Has no formal documentationOther details of discussion: (Who was present, patients description of wishes/goals)Today's plan: Advised patient to discuss wishes with [id number] : AD or surrogate was documented in the medical record. 2024-09-26 Most recent hospital stay(s) or ER visit(s) and precipitating factors: (use <.>1111F if completing PH visit) 2024-09-26 Open HEDIS Measure floyd nj: reviewed
--- OUTSIDE RECORDS SUMMARY | 2025-01-26 14:24 | XMS_ITS | Clinical Summary ---
Author Organization Merged With [facility] Address [address] [place] [id number] Phone Care Team Providers Care Rn Maternity Name Role Phone Unknown, Unknown Primary Care Provider Tami pickard Social History Tobacco Use Types Packs/Day Years Used Date Smoking Tobacco: Never Assessed Comments Unknown Sex and Gender Information Value Date Recorded Sex Assigned at Not on file Legal Sex Female 11:29 AM EDT Gender Identity Not on file Sexual Orientation Not on file Plan of Treatment Not on file Medical Devices Not on file Insurance MEDICARE PART A & B [facility] [place] PART [place] [employer] MED[employer] PART A & B [employer] [place] PART [place] Care Teams Rn Maternity Relationship Specialty Start Date End Date Unknown, Unknown, PCP - General 03/14/18 Additional Source Comments The information contained in this document represents components of the legal health record. It is not the complete legal health record.[facility]
--- OUTSIDE RECORDS SUMMARY | 2025-01-26 14:24 | XMS_ITS | Clinical Summary ---
Author Organization [facility] Address [address] [place] [address] Care Team Providers Care Antique Clock Repairer Name Role Phone Yoana Mckeon MD Primary Care Provider Unavailab le Allergies Active Allergy Reactions Criticality Noted Date Comments Other Unknown/Patient and Family Unable to Define Medium 03/15/2018 Phenethylamine Medications cetirizine (ZyrTEC) 10 MG tabletIndicatio ns:Abnormal LFTs Take 1 tablet (10 mg total) by mouth daily. 30 tablet 8 Active ethambutol (MYAMBUTOL) 400 mg tabletIndicatio ns:Abnormal LFTs Take 2 tablets (800 mg total) by mouth every 24 hours around the clock. 60 tablet 8 Active isoniazid (NYDRAZID) 300 MG tabletIndicatio ns:Abnormal LFTs Take 1 tablet (300 mg total) by mouth every 24 hours around the clock. 30 tablet 8 Active pyrazinamide 500 MG tabletIndicatio ns:Abnormal LFTs Take 4 tablets (2,000 mg total) by mouth every 24 hours around the clock. 120 tablet 8 Active riFAmpin (RIFADIN) 300 MG capsuleIndicati ons:Abnormal LFTs Take 2 capsules (600 mg total) by mouth every 24 hours around the clock. Take on an empty stomach with a glass of water. 60 capsule 8 Active carvedilol (COREG) 3.125 MG tabletIndicatio ns:Abnormal LFTs Take 1 tablet (3.125 mg total) by mouth 2 (two) times a day with meals. 60 tablet 8 Active digoxin (LANOXIN) 0.25 mg tabletIndicatio ns:Abnormal LFTs Take 1 tablet (0.25 mg total) by mouth daily. 30 tablet 8 Active miconazole (ZEASORB-AF) 2 % powderIndicatio ns:Abnormal LFTs Apply topically 2 (two) times a day. 43 g 8 Active furosemide (LASIX) 40 MG tabletIndicatio ns:Abnormal LFTs Take 1 tablet (40 mg total) by mouth daily. 30 tablet 8 Active nystatin (MYCOSTATIN) 415770 UNIT/ML suspensionIndic ations:Abnormal LFTs Take 5 mL (500,000 Units total) by mouth 4 (four) times a day. 60 mL 8 Active fluticasone (FloNASE) 50 mcg/spray nasal sprayIndication s:Abnormal LFTs 1 spray into each nostril daily. 15.8 Bottle 8 Active ergocalciferol (VITAMIN D2,DRISDOL) 22810 units CapIndications: Abnormal LFTs Take 1 capsule (50,000 Units total) by mouth once a week. 4 capsule 8 Active pyridoxine (B-6) 50 MG tabletIndicatio ns:Abnormal LFTs Take 1 tablet (50 mg total) by mouth daily. 30 tablet 8 Active rivaroxaban (XARELTO) 15 MG tabletIndicatio ns:Abnormal LFTs Take 1 tablet (15 mg total) by mouth every evening with dinner. Take with meals. 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 Pancytopenia 03/16/2018 Chronic HFrEF (heart failure with reduced ejection fraction) 03/16/2018 Diarrhea 03/16/2018 Chronic a-fib 03/16/2018 HTN (hypertension) 03/16/2018 Jaundice 03/15/2018 Resolved Problems Problem Noted Date Diagnosed Date Resolved Date Fever 03/20/2018 08/23/2023 Immunizations Immunization Administration Dates Next Due Influenza Inactivated/Split Preservative [...] of Binge Drinking Not on file 10/2017 Comments Unknown Sex and Gender Information Value Date Recorded Sex Assigned at Not on file Legal Sex Female 1:46 PM EDT Gender Identity Not on file Sexual Orientation Not on file Last Filed Vital Signs Vital Sign Reading Time Taken Comments Blood Pressure 108/56 04/05/2018 1:31 PM EDT Pulse 62 04/05/2018 1:31 PM EDT Temperature 38 C (100.4 F) 04/05/2018 1:31 PM EDT Respiratory Rate 18 [...] Patients (1 - 1-dose 75+ series) 2021 COVID-19 Vaccine (1 - 2023-2 5 season) 2024 Influenza Vaccine 01/09/2025 Hepatitis B Vaccines Aged Out No long er eligible based on patient's age to complete this topic Insurance MEDICARE PART A & B [facility] Member Subscriber Plan / Payer (Ef fective 2018-Present) Name:Gale Oden Relation to Subscriber:Self Name:Gale Oden Payer ID:Not on file Group ID:Not on file Type:Not on file Address: [address] [id number] Advance Directives * Full Code (Latest Code Status on File) Date Activated Date Inactivated Comments 03/15/2018 1:04 PM Care Teams Antique Clock Repairer Relationship Specialty Start Date End Date Yoana Mckeon MD PCP - General 03/15/18
== END 2025-01-26 14:30 | disposition home or self-care (01) ==
LOC: HO.HCS 13:32
PROVIDERS: PCP Internal Medicine; Visit Provider Nurse Practitioner Family
DX: I48.0 Paroxysmal atrial fibrillation (principal); Z95.818 Presence of other cardiac implants and grafts; Z95.810 Presence of automatic (implantable) cardiac defibrillator; I42.8 Other cardiomyopathies; I35.0 Nonrheumatic aortic (valve) stenosis; I11.0 Hypertensive heart disease with heart failure; I50.22 Chronic systolic (congestive) heart failure; Z79.899 Other long term (current) drug therapy; I44.0 Atrioventricular block, first degree
CPT/HCPCS: 93010; 93289; 99214; G2211

== ENCOUNTER → 2025-01-26 13:31 | Outpatient (BNVA) | payer OTHER, SELFPAY | PROVIDERS: PCP Internal Medicine; Visit Provider Nurse Practitioner Family | DX: Z45.02 Encounter for adjustment and management of automatic implantable cardiac defibrillator (principal); I48.0 Paroxysmal atrial fibrillation; I42.8 Other cardiomyopathies; I35.0 Nonrheumatic aortic (valve) stenosis; I13.0 Hypertensive heart and chronic kidney disease with heart failure and stage 1 through stage 4 chronic kidney disease, or unspecified chronic kidney disease; I50.22 Chronic systolic (congestive) heart failure; N18.9 Chronic kidney disease, unspecified; Z79.899 Other long term (current) drug therapy | CPT/HCPCS: 93005; 93289; 99212 ==

== ENCOUNTER → 2025-04-06 23:59 | Outpatient (BNV) | payer OTHER, SELFPAY ==
--- NOTE | 2025-04-08 13:00 | A.OFFVIS_ITS ---
Intake Visit Reasons: Remote ICD check- [employer] Allergies valacyclovir (VALACYCLOVIR) Allergy (Intermediate, Verified 01/26/25 13:56) AMS rivaroxaban (From Xarelto) Adverse Reaction (Severe, Verified 01/26/25 13:56) GI bleed PHENOTHYLINE Allergy (Unknown, Uncoded 01/26/25 13:56) BLISTERS PFSH Medical History ICD (implantable cardioverter-defibrillator) battery depletion GI bleed HTN (hypertension) CKD (chronic kidney disease) VF (ventricular fibrillation) ICD (implantable cardioverter-defibrillator) in place Paroxysmal atrial fibrillation Nonischemic cardiomyopathy Chronic HFrEF (heart failure with reduced ejection fraction) Presence of Watchman left atrial appendage closure device Surgical History H/O mastectomy History of cardiac pacemaker (~2017) Family History Father No problems noted. Mother No problems noted. Social History Alcohol intake: never Patient Tobacco Use Status: Never used Tobacco Office Procedures Cardiac Device Check Cardiac Device Check Details: Remote ICD report generated 04/06/2025. ICD function is adequate. Reported episodes of AFib. Will follow up with traditional Holter monitor [id number] Cardiac Interrogation, implant defibrillator w/interim Procedure code (CPT) selection complete Assessment & Plan Assessment & Plan (1) ICD (implantable cardioverter-defibrillator) in place: Code(s): Z95.810 - Presence of automatic (implantable) cardiac defibrillator Category: Medical Plan: See above Coding Level of Care Code Procedure Only Diagnoses ICD (implantable cardioverter-defibrillator) in place Z95.810 CPT Codes Cardiac Device Check - Cardiac Device 13: [id number] Cardiac Interrogation, implant defibrillator w/interim ([id number])
== END ==
PROVIDERS: PCP Internal Medicine; Visit Provider Internal Medicine Cardiovascular Disease
DX: I48.91 Unspecified atrial fibrillation (principal); Z95.810 Presence of automatic (implantable) cardiac defibrillator
CPT/HCPCS: 93295

== ENCOUNTER 2025-04-16 08:44 | Outpatient (REF) | payer OTHER, SELFPAY ==
--- OUTSIDE RECORDS SUMMARY | 2024-03-18 07:18 | XMS_ITS | Encounter Summary ---
Author Organization [facility] Address [address] [place] [address] Care Team Providers Care Director Fraud Name Role Phone Yoana Mckeon MD Primary Care Provider Encounter Details Date Type Department Care Team (Late st Contact Info) Description 03/18/2024 8:18 AM EDT Hospital Encounter TH HISTORIC ENCOUNTERS EASTERN CONVERSION ONLY Davion Garcia MD [address] [place] [id number] Social History Tobacco Use Types Packs/Day Years Used Date Smoking Tobacco: Never Smokeless Tobacco: Never Alcohol Use Standard Drinks/Week Comments Never 0 (1 standard drink = 0.6 oz pur e alcohol) Comments Unknown Sex and Gender Information Value Date Recorded Sex Assigned at Not on file Legal Sex Female 8:45 PM EST Gender Identity Not on file Sexual Orientation Not on file documented as of this encounter Last Filed Vital Signs Vital Sign Reading Time Taken Comments Blood Pressure 138/84 03/18/2024 8:35 AM EDT Sitting Left arm Pulse 49 03/18/2024 8:35 AM EDT Temperature - - Respiratory Rate - - Oxygen Saturation - - Inhaled Oxygen Concentration - - Weight 79.9 kg (176 lb 3.2 oz) 03/18/2024 8:35 AM EDT Height - - Body Mass Index 32.23 10/31/2023 8:12 AM EDT documented in this encounter Progress Notes * Davion Garcia MD - 03/18/2024 8:30 AM EDT CHIEF COMPLAINT: Follow-up IDENTIFIER:Gale Oden is a 78 y.o. female. HPI: Patient is a very pleasant 78-year-old -[place]oz[place] female, who had invasive carcinoma of left breast diagnosed 33 years ago, patient had mastectomy, patient couple years ago found to have subcentimeter ER/WV positive HER2/tata negative invasive carcinoma of right breast, patient underwent mastectomy and she was not to have any adjuvant endocrine therapy, patient came for routine follow-up ROS: Patient has been feeling very well Patient denies any anorexia or weight loss Patient denies any chest wall pain Patient denies any GI/ symptom Oncology History Overview Note Patient initially had invasive carcinoma of left breast in 1990 when she had locally advanced disease, 4 out of 11 lymph nodes were positive for malignancy, patient underwent adjuvant chemoradiation after mastectomy and did very well for decades Patient underwent screening mammogram in July 2021 showed some abnormal microcalcification in the right breast patient underwent further diagnostic work-up and finally stereotactic biopsy in August of this year of the right breast that showed high-grade DCIS. Patient saw Dr. Danna Klein and decided to have a mastectomy, patient underwent mastectomy withlymph node sampling on 09/22/2021, final pathology showed central lymph node negative for malignancybut there was a 7 mm invasive ductal carcinoma along with DCIS. Patient saw me on 10/06/2021, I discussed with the patient about adjuvant endocrine therapy, its risk and benefit, initially patient decided to start anastrozole but after discussing with family members and herself, decided not to take endocrine therapy because of limited survival benefit and potential side effects PAST MEDICAL HISTORY: Cardiac arrhythmia Atrial fibrillation Cardiomyopathy AICD placed Dyslipidemia Postherpetic neuralgia Vitamin D deficiency Tuberculosis Lower GI bleed Pulmonary embolism Crohn's disease Tubular adenoma History of breast cancer in 1989 one of the left breast History of breast cancer of right breast in 2021 ?? PAST SURGICAL HISTORY: Mastectomy, of left breast in and right breast in September 30 ?? 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 FAMILY HISTORY: Noncontributory Current Outpatient Medications: ??? amiodarone (PACERONE) 200 MG tablet, Take 1 tablet (200 mg total) by mouth daily., Disp: , Rfl: ??? aspirin EC 81 MG tablet, Take 1 tablet (81 mg total) by mouth daily., Disp: , Rfl: ??? atorvastatin (LIPITOR) tablet 40 mg, Take 1 tablet (40 mg total) by mouth daily., Disp: , Rfl: ??? carvedilol (COREG) 12.5 MG tablet, Take 1 tablet (12.5 mg total) by mouth 2 (two) times a day with meals., Disp: , Rfl: ??? ferrous sulfate 325 (65 FE) MG tablet, Take 1 tablet (325 mg total) by mouth every morning withbreakfast., Disp: , Rfl: lidocaine (LIDODERM) 5 %, Place 1 patch onto the skin daily. Remove & Discard patch within 12 hours or as directed by MD, Disp: , Rfl: ??? sacubitril-valsartan (ENTRESTO) 24-26 MG per tablet, Take by mouth., Disp: , Rfl: ??? torsemide (DEMADEX) 20 MG tablet, Take 1 tablet (20 mg total) by mouth daily., Disp: , Rfl: You are allergic to the following Date Reviewed: 03/18/2024 No active allergies PHYSICAL EXAM: BP 138/84 (BP Location: Left arm) Pulse (!) 49 Temp 96.5 ??F (35.8 ??C) (Temporal) Wt 79.9 kg(176 lb 3.2 oz) SpO2 100% ECOG 0 APPEARANCE: Alert and oriented in no acute distress EYES: nonicteric sclera pink conjunctiva ORAL CAVITY: No erythema or exudates NECK: Neck supple, no adenopathy, Chest wall; bilateral mastectomy scar, without any local recurrence LYMPH NODES: No palpable superficial adenopathy ABDOMEN: soft, nontender and no organomegaly appreciated EXTREMITIES: No edema erythema tenderness IMPRESSION: SNOMED CT(R) 1. 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 Patient has been on surveillance, there is no sign symptoms suggestive of recurrence I discussed with the patient that adjuvant endocrine therapy at her age not Nestl?? have significant benefit especially with her early stage disease. I told patient she does not necessarily need to follow-up with me, since she has been following with Dr. Meidna and her PCP Dr. Magalie Baldwin PLAN: Return to office as needed Davion Garcia MD documented in this encounter Plan of Treatment Upcoming Encounters Date Type Department Care Team (Late st Contact Info) Description 03/03/2026 1:15 PM EDT [facility] [address] [phone] Danna Medina MD [address] [place] [phone] documented as of this encounter Visit Diagnoses Not on filedocumented in this encounter Care Teams Director Fraud Relationship Specialty Start Date End Date Yoana Mckeon MD [address] [place] [address] PCP - General 03/02/1997 documented as of this encounter
--- NOTE | ~2025-04-16 | XR_ITS ---
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 FINDINGS: PA and lateral views of the chest are submitted. A stimulator is again noted with lead anterior to the sternum. The lungs are expanded and clear. There is no pleural effusion, pneumothorax, or pulmonary vascular congestion. The heart remains enlarged. There is degenerative disc disease of the spine. There are surgical clips in the left axilla. An IVC filter is seen in place. XR/XR chest 2V IMPRESSION: Cardiomegaly. No acute cardiopulmonary abnormality. Electronically signed by: Nicholas Junior MD 04/16/2025 09:16 AM [facility]
--- OUTSIDE RECORDS SUMMARY | 2025-04-16 09:21 | XMS_ITS | Clinical Summary ---
Author Organization [facility] Address [address] [place] [address] Care Team Providers Care Family And Consumer Education Teacher Name Role Phone Yoana Mckeon MD Primary Care Provider [phone] Allergies No known active allergies Medications Medication [...] Assessment 2011 Osteoporosis Screening (DEXA Scan) 2011 DTap / Tdap / Td (2 - Td or Tdap) 11/05/2017 11/06/2007 Pneumococcal Vaccine (2 of 2 - PPSV23 or PCV20) 03/08/2018 03/08/2017 RSV Adult > 60+ Yrs or (1 - 1-dose 75+ series) 2021 COVID-19 Vaccine ( - season) 2025 03/22/2022, 03/22/2021, 08/12/2020, Additional history exists Influenza Vaccine (#1) 2025 3, 03/26/2023, 04/05/2022, Additional history exists Shingrix-Zoster Vaccine Completed 02/17/2021, 12/21 Hepatitis B Vaccines Aged Out No long er eligible based on patient's age to complete this topic RSV Ped < 20 months Aged Out No longe r eligible based on patient's age to complete this topic Care Teams Family And Consumer Education Teacher Relationship Specialty Start Date End Date Yoana Mckeon MD PCP - General Internal Medicine 08/18/21
--- OUTSIDE RECORDS SUMMARY | 2025-04-16 09:21 | XMS_ITS | Clinical Summary ---
Author Organization [facility] Address [address] [place] [phone] Phone Care Team Providers Care Business Department Chair Name Role Phone Unknown, Unknown Primary Care [...] file Insurance MEDICARE PART A & B [facility] [place] & B [facility] [employer] MEDICARE PART A & B [employer] MEDICARE PART A & [place] Care Teams Business Department Chair Relationship Specialty Start Date End Date Unknown, Unknown, PCP - General 03/14/18 Additional Source Comments The information contained in this document represents components of the legal health record. It is not the complete legal health record.[facility]
--- OUTSIDE RECORDS SUMMARY | 2025-04-16 09:21 | XMS_ITS | Clinical Summary ---
Author Organization [facility] [address] [place] [address] [place] [phone] Phone Care Team Providers Care Handle Bar Assembler Name Role Phone Yoana Mckeon MD Primary Care Provider [phone] Allergies Active Allergy Reactions Criticality Noted Date Comments Amoxicillin-Pot Clavulanate 07/08/19 19 rash Phenolphthalein 05/23/2005 Medications diclofenac (VOLTAREN) 1 % topical gel APPLY 4 GRAMS TOPICALLY TO AFFECTED AREA FOUR TIMES DAILY NEEDED 06/19/19 24 Active lidocaine (LIDODERM) 5 % patch UNWRAP AND APPLY 1 PATCH TO SKIN EVERY DAY 12 HOURS ON AND 12 HOURS OFF 07/16/19 24 Active sacubitriL-kervin sartan (Entresto) 24-26 mg per tablet Take 1 tablet by mouth 2 (two) times a day. 07/13/19 21 Active aspirin 81 mg EC tablet Take 81 mg by mouth daily. 06/20/19 21 Active amiodarone (PACERONE) 200 mg tablet Take 200 mg by mouth daily. 04/26/20 19 Active ferrous sulfate 325 mg (65 mg elemental iron) tablet Take 325 mg by mouth daily. Active PARoxetine (PAXIL) 10 mg tablet Take 1 tablet (10 mg total) by mouth 1 (one) time each day in the morning. 90 tablet 1 07/10/19 25 Active torsemide (DEMADEX) 20 mg tablet 1 tab am 2 tabs pm 270 tablet 1 07/10/19 25 Active atorvastatin (LIPITOR) 40 mg tablet TAKE 1 TABLET BY MOUTH EVERY DAY 90 tablet 12/19/19 25 Active carvediloL (COREG) 12.5 mg tablet Take 1 tablet (12.5 mg total) by mouth 2 (two) times a day. 14 tablet 04/10/20 Active carvediloL (COREG) 12.5 mg tablet Take 1 tablet (12.5 mg total) by mouth 2 (two) times a day. 180 tablet 1 07/10/19 25 025 Discontinued Active Problems Problem Noted Date Diagnosed Date Gout 03/26/2023 Chronic HFrEF (heart failure with reduced ejection fraction) ([facility] V24, [facility] V28) 04/05/2022 Overview (03/26/2024): Dr. Noel Post herpetic neuralgia 03/07/2019 Nonsustained ventricular tac hycardia ([facility] [place]24, [facility] V28) 02/06/2019 Overview (03/26/2024): 01/27 syncope, AICD fired Vitamin D deficiency 05/29/2018 Atrial fibrillation ([facility] [place], [facility] V28) 1 06/29/2017 Overview (03/26/2024): s/p Watchman device Tuberculosis 04/29/2018 AICD (automatic cardioverter/defibrillator) pres ent 08/09/2017 Lower GI bleed 04/23/2014 Overview (03/26/2024): CN and EGD negative for source of bleed 04/24, negative EGD and CN for bleeding source 11/28 - 2 polyps removed 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 Overview (03/26/2024): 12/18 19 mm Crohn's disease ([facility] V24, [facility] V28) 12/08 Overview (03/26/2024): In remission Tubular adenoma 10/08/2008 Overview (03/26/2024): 09/17 Breast cancer ([facility] V24, [facility] V28) 005 Overview (03/26/2024): 1990: Left mastectomy, chemo with adriamycin - declines BRCA testing 07/2021: right breast carcinoma in situ; right mastectomy 02/2022: declining aromatase inhibitor therapy (Dr. Garcia) Hypercholesterolemia 05/23/2005 Non-ischemic cardiomyopathy (CMS/HCC V24, CMS/HC C V28) 05/23/2005 Overview (03/26/2024): 01/2021: EF 35-45% (Dr. Noel) 08/2016: EF 15-20% 11/2013: EF 40-45% Encounters Date Type Department Care Team Description 02/25/2025 1:15 PM EDT Office Visit [address] [phone] Danna Medina MD History of invasive breast cancer (Primary Dx); History of bilateral mastectomy; History of antineoplastic chemotherapy from Last 3 Months Immunizations Immunization Administration Dates Next Due Influenza trivalent, 0.5mL ( Fluad) 65yo and older 07/10/2024,03/26/2023,04/05/2022,2020,03/18/2020,03/06/2019,03/08/2017,1 ,03/17/2014 PPD Test 12/08/2009 [employer] SARS-CoV-2 COVID-19, mRNA, LNP-S, preservative free 03/22/2022,03/22/2021,08/12/2020,2020 [...] remove COLONOSCOPY 04/1999 UPPER GASTROINTESTINAL ENDOSCOPY 04/16/2014 HH; small HH. BREAST BIOPSY lt.bx.-cancer 1990 Medical History Medical History Date Comments Congestive heart failure, unspecified 05/23/2005 Pure hypercholesterolemia 05/23/2005 AICD (automatic cardioverter/defibrillator) present 08/09/2017 Atrial fibrillation ([facility] V24, [facility] V28) 04/29/2018 Vitamin D deficiency 05/29/2018 Tuberculosis 04/29/2018 Nonsustained ventricular tac hycardia ([facility]/HCC V24, [facility]/HCC V28) 02/06/201901/27 syncope, AICD fired Post herpetic neuralgia 03/07/2019 Gout 03/26/2023 Breast cancer ([facility]/HCC V24, CMS/HCC V28) 1990: Left mastectomy, chemo with adriamycin - declines BRCA testing 07/2021: right breast carcinoma in situ; right mastectomy 02/2022: declining aromatase inhibitor therapy (Dr. Garcia) Crohn's disease ([facility]/HCC V24, CMS/HCC V28) 12/08 In remission Non-ischemic cardiomyopathy ([facility]/HCC V24, CMS/HCC V28) 05/23/200501/2021: EF 35-45% (Dr. Fabricio dailey) [...] Sign Reading Time Taken Comments Blood Pressure 132/83 02/25/2025 1:12 PM EDT Pulse 61 02/25/2025 1:12 PM EDT Temperature 36.7 C (98 F) 02/25/2025 1:12 PM EDT Respiratory Rate 16 07/10/2024 9:06 AM EST Oxygen Saturation 97% 07/10/2024 9:06 AM EST Inhaled Oxygen Concentration - - Weight 80.3 kg (177 lb) 02/25/2025 1:12 PM EDT Height 158.8 cm (5' 2.5 ) 07/10/2024 9:06 AM EST Body Mass Index 31.86 07/10/2024 9:06 AM EST Plan of Treatment Upcoming Encounters Date Type Department Care Team (Late st Contact Info) Description 03/03/2026 1:15 PM EDT Office Visit [address] [phone] Danna Medina MD [address] [place] [phone] Health Maintenance Due Date Last Done Comments Pneumococcal Vaccine: 50+ Years (2 of 2 - PPSV23, PCV20, or PCV21) 05/03/2017 03/08/2017 RSV Immunization Adult Patients (1 - 1-dose 75+ series) 2021 Falls Risk Assessment 05/19/2022 Hepatitis C Screening 05/19/2022 Osteoporosis Screening (Bone Density Screening) 05/19/2022 Social Influencers of Health Screening 05/19/2022 Depression Screening 06/11/2024 07/16/2023 COVID-19 Vaccine ( season) 2025 08/02/2023, 03/22/2022, 03/22/2021, Additional history exists Influenza Vaccine (#1) 2025 , 03/26/2023, 04/05/2022, [...] mg/dL LAB CHEMISTRY METHOD 07/14/2024 11:09 AM [facility] Triglycerides 89 0 - 150 mg/dL LAB CHEMISTRY METHOD 07/14/2024 11:09 AM [facility] HDL 82 >=40 mg/dL LAB CHEMISTRY METHOD 07/14/2024 11:09 AM [facility] LDL Calculated 142(H) 0 - 100 mg/dL LAB CHEMISTRY METHOD 07/14/2024 11:09 AM [facility] VLDL Cholesterol Mynor 17.8 mg/dL LAB CHEMISTRY METHOD 07/14/2024 11:09 AM [facility] Non HDL Chol. (LDL+VLDL) 160(H) <145 mg/dL LAB CHEMISTRY METHOD 07/14/2024 11:09 AM [facility] Chol/HDL Ratio 3.0 0.0 - 4.4 LAB CHEMISTRY METHOD 07/14/2024 11:09 AM [facility] Blood Venous blood specimen / Unknown Venipuncture / Unknown 07/14/2024 8:05 AM EST 07/14/2024 8:05 AM EST us Yoana Mckeon MD LAB BLOOD ORDERABLES Final Resul t [facility] [address] [place] [address], * (ABNORMAL) Basic metabolic panel (07/14/2024 8:05 AM EST) Pathologist [facility] Sodium 139 133 - 145 mmol/L LAB CHEMISTRY METHOD 07/14/2024 11:09 AM [facility] Potassium 3.9 3.5 - 5.5 mmol/L LAB CHEMISTRY METHOD 07/14/2024 11:09 AM [facility] Chloride 104 96 - 110 mmol/L LAB CHEMISTRY METHOD 07/14/2024 11:09 AM [facility] CO2 30 21 - 32 mmol/L LAB CHEMISTRY METHOD 07/14/2024 11:09 AM [facility] Anion Gap 5 3 - 11 LAB CHEMISTRY METHOD 07/14/2024 11:09 AM [facility] Glucose 101(H) 70 - 100 mg/dL LAB CHEMISTRY METHOD 07/14/2024 11:09 AM [facility] BUN 27(H) 5 - 25 mg/dL LAB CHEMISTRY METHOD 07/14/2024 11:09 AM [facility] Creatinine 1.51(H) 0.50 - 1.10 mg/dL LAB CHEMISTRY METHOD 07/14/2024 11:09 AM [facility] eGFR 35(L) >=60 mL/min/1. 73m2 LAB CHEMISTRY METHOD 07/14/2024 11:09 AM [facility] Comment:Calculation based on the Chronic Kidney Disease Epidemiology Collaboration (CKD-EPI) equation refit without adjustment for race. BUN/Creatinine Ratio 17.9 LAB CHEMISTRY METHOD 07/14/2024 11:09 AM [facility] Calcium 9.6 8.5 - 10.5 mg/dL LAB CHEMISTRY METHOD 07/14/2024 11:09 AM [facility] Blood Venous blood specimen / Unknown Venipuncture / Unknown 07/14/2024 8:05 AM EST 07/14/2024 8:05 AM EST us Yoana Mckeon MD LAB BLOOD ORDERABLES Final Resul t [facility] [address] [place] [address], [place] [phone] * Depression Screening (07/16/2023) [facility] Depression Screening abstracted us Historical Provider HEALTH MAINTENANCE Final Result from Last 3 Months or Most Recently Relevant to Health Maintenance Insurance [place]ICAID - [place] [facility] Care Teams Handle Bar Assembler Relationship Specialty Start Date End Date Yoana Mckeon MD [address] [place] [phone] PCP - General 03/02/1997
--- OUTSIDE RECORDS SUMMARY | 2025-04-16 09:21 | XMS_ITS ---
Author Name Kandis JOSE, MS. Karissa Brown Address [address] [place] [address] Phone [phone] [facility] Care Team Providers Care Gis Software Engineer Name Role Phone Karissa Marquis Unavailable [phone] Lorna Rae Unavailable [phone] RAUL BIRD Unavailable [phone] KHADIJAH FRY Unavailable [phone] Yoana Mckeon Unavailable [phone] Reason for Referral Not Available Allergies, adverse [...] Active 2024-03-26 N/A HYPERTENSION CONTINGENCY PLANLast updated: 03/26/2024[place] to call for the following symptoms: BP >180/100 / Chest pain / Headache/ HR <50 / HR >100 Planned intervention: Assess for signs of end organ damage (headache, vision changes, chest pain)/ Practice Physician on proper BP monitoring technique and reassess/ [...] Medication List Documented (1159F) [facility] [place] Medication List Documented (1159F) [facility] [place] Medication List Documented (1159F) [facility] [place] Medication List Documented (1159F) [facility] [place] 03[place]2022 Unspecified systolic (conges tive) heart failureUnspecified atrial fibrillationChronic kidney disease, unspecifiedPersonal history of malignant neoplasm of breast Medication List Documented (1159F) [facility] [place] 03/[place]/2022 Medication List Documented (1159F) [facility] [...] 10/17/2022 No Data Available [facility] [place] 10/17/2022 No Data Available [facility] [place] 10/17/2022 No Data Available [facility] [place] 10/17/2022 Estab. patient 10-29min; 1 minor problem; add add modifier 95 for video, modifier 93 for phone [facility] [place] 02/26/2023 Hypertensive heart disease w ith heart failureUnspecified systolic (congestive) heart failureSecondary hyperaldosteronismSacroiliitis, not elsewhere classifiedUnspecified osteoarthritis, unspecified site Estab. patient 10-29min; 1 minor problem; add add modifier 95 for video, modifier 93 for phone [facility] [place] 02/26/2023 Estab. patient 10-29min; 1 minor problem; add add modifier 95 for video, modifier 93 for phone [facility] [place] 02/26/2023 Estab. patient 10-29min; 1 minor problem; add add modifier 95 for video, modifier 93 for phone [facility] [place] 02/26/2023 Estab. patient 10-29min; 1 minor problem; add add modifier 95 for video, modifier 93 for phone [facility] [place] 02/26/2023 Estab. patient 10-29min; 1 minor problem; add add modifier 95 for video, modifier 93 for phone [facility] [place] 02/26/2023 Unlisted special service; to be used for medical record reviews and reporting CPTII codes (1111F, etc) [facility] [place] 05/10/2023 Unspecified systolic (conges tive) heart failureHyp hrt & chr kdny dis w hrt fail and stg 1-4/unsp chr kdnySecondary hyperaldosteronismPersonal history of malignant neoplasm of breastChronic kidney disease, stage 3bOther thrombophiliaUnspecified atrial fibrillationSacroiliitis, not elsewhere classifiedUnspecified osteoarthritis, unspecified siteOther reduced mobility Unlisted special service; to be used for medical record reviews and reporting CPTII codes (1111F, etc) [facility] [place] 05/10/2023 Unlisted special service; to be used for medical record reviews and reporting CPTII codes (1111F, etc) [facility] [place] 05/10/2023 Unlisted special service; to be used for medical record reviews and reporting CPTII codes (1111F, etc) [facility] [place] 05/10/2023 Unlisted special service; to be used for medical record reviews and reporting CPTII codes (1111F, etc) [facility] ([place] 06/19/2023 Hyp hrt & chr kdny dis w hrt fail and stg 1-4/unsp chr kdnyUnspecified systolic (congestive) heart failureChronic kidney disease, stage 3bSecondary hyperaldosteronismMalignant neoplasm of unspecified site of unspecified female breastOther thrombophiliaUnspecified atrial fibrillationUnspecified osteoarthritis, unspecified siteSacroiliitis, not elsewhere classifiedOther reduced mobilityOther postherpetic nervous system involvement Unlisted special service; to be used for medical record reviews and reporting CPTII codes (1111F, etc) [facility] [place] 06/19/2023 Unlisted special service; to be used for medical record reviews and reporting CPTII codes (1111F, etc) [facility] ([place] 06/19/2023 Unlisted special service; to be used for medical record reviews and reporting CPTII codes (1111F, etc) [facility] [place] 06/19/2023 Estab. patient 30-39min; chronic exacerbation, 2 stable chronic or 1 acute illness add add modifier 95 for video, (do not use for phone, instead use 11316-23) [facility] ([place] 03/26/2024 Heart failure, unspecifiedSecondary hyperaldosteronismChronic kidney disease, [...] (do not use for phone, instead use 73866-93) [facility] [place] 03/26/2024 Estab. patient 30-39min; chronic exacerbation, 2 stable chronic or 1 acute illness add add modifier 95 for video, (do not use for phone, instead use 40611-44) [facility] [place] 03/26/2024 Estab. patient 30-39min; chronic exacerbation, 2 stable chronic or 1 acute illness add add modifier 95 for video, (do not use for phone, instead use 53557-08) [facility] [place] 03/26/2024 Estab. patient 30-39min; chronic exacerbation, 2 stable chronic or 1 acute illness add add modifier 95 for video, (do not use for phone, instead use 84350-44) [facility] [place] 03/26/2024 Estab. patient 30-39min; chronic exacerbation, 2 stable chronic or 1 acute illness add add modifier 95 for video, (do not use for phone, instead use 18541-82) [facility] [place] 03/26/2024 Estab. patient 30-39min; chronic exacerbation, 2 stable chronic or 1 acute illness add add modifier 95 for video, (do not use for phone, instead use 13141-14) [facility] [place] 03/26/2024 Estab. patient 20-29min; 1 stable chronic or 2 minor; add add modifier 95 for video, modifier 93 for phone [facility] [place] 09/26/2024 Heart failure, unspecifiedSecondary hyperaldosteronismPersonal history of [...] 95 for video, modifier 93 for phone [facility] [place] Estab. patient 20-29min; 1 stable chronic or 2 minor; add add modifier 95 for video, modifier 93 for phone [facility] [place] 09/26/20[place] Estab. patient 20-29min; 1 stable chronic or 2 minor; add add modifier 95 for video, modifier 93 for phone [facility] [place] 09[place] Estab. patient 20-29min; 1 stable chronic or 2 minor; add add modifier 95 for video, modifier 93 for phone [facility] [place] 09[place]26/20[place] Estab. patient 20-29min; 1 stable chronic or 2 minor; add add modifier 95 for video, modifier 93 for phone [facility] [place] 09/26/20[place] Estab. patient 20-29min; 1 stable chronic or 2 minor; add add modifier 95 for video, modifier 93 for phone [facility] [place] 09/26/2024 Vital Signs Date of Collection [...] tive Time Current Smoking Status Never smoker 6 Sex Female Gender identity Woman History of [...] (do not use for phone, instead use 38433-43) 21661 2022-03-31 No Data Available No Data Availa ble SBP < 130 (3074F) 3074F 2022-03-31 No Data Available No Data Available DBP <80 (3078F) 3078F 2022-03-31 No Data Available No Data Available No Data Available 28799 2022-10-17 No Data Available No Data Available [...] 95 for video, modifier 93 for phone 02742 2023-02-26 No Data Available No Data Availa [...] reviews and reporting CPTII codes (1111F, etc) 41150 2023-05-10 No Data Available No Data Availa ble BMI obtained (3008F) 3008F 2023-05-10 No Data Availab le No Data Available Medication List Documented (1159F) 1159F 2023-05-10 No Data Available No Data Aletha ilable Functional Status Assessed (1170F) 1170F 2023-05-10 No Data Available No Data Avail able Unlisted special service; to be used for medical record reviews and reporting CPTII codes (1111F, etc) 30635 2023-06-19 No Data Available No Data Availa [...] (do not use for phone, instead use 90439-93) 48622 2024-03-26 No Data Available No Data Availa [...] 95 for video, modifier 93 for phone 94824 2024-09-26 No Data Available No Data Availa [...] modifier 95Continue to see PCP. Follow-up with [facility] as needed for any acute or disease education needs that may arise.on torsemide ef 25%amiodaronecarvedilolsp mastectomy in mastectomy was in 1990from [place] 4 years agomed list states gabapentin , [...] PCP, cardiono acute issues or concernss/p mastectomy 09/2021first mastectomy [...] plan of care as per PCP, cardio 9/18/23: Stable. Continue current treatment plan as directed. [...] modifier 95)Continue to see PCP. Follow-up with [facility] as [...] organ damage (headache, vision changes, chest pain)/ Practice Physician on proper BP monitoring technique and reassess/ [...] present (1126F)Continue to see PCP. Follow-up with [facility] as needed for any acute or [...] organ damage (headache, vision changes, chest pain)/ Practice Physician on proper BP monitoring technique and reassess/ [...] Social history. 2024-09-26 <add details of Adva ine Care Planning conversation using .acp FastKey> Advance Care Plan ConversationDate of Conversation: 09/26/2024Life Limiting Diagnosis: Diagnosis: noneCurrently on Hospice NoCode Status: YES CPR: Attempt ResuscitationGoals of Care: Curative: Attempt to sustain life by all medically effective meansNutrition goals: No decision made about nutrition today; not discussedDo you have a Durable Power of Director Targeted Marketing for Healthcare, or Healthcare Proxy Or Guardianship? Yes, POAIf so, Who? sons Syed Calixto and Dee Calixto, Tunde Welch and Ex Nicholas WelchDo you have a written Advance Directive? Has no formal documentationOther details of discussion: (Who was present, patients description of wishes/goals)Today's plan: Advised patient to discuss wishes with [id number] : AD or surrogate was documented in the medical record. 2024-09-26 Most recent hospital stay(s) or ER visit(s) and precipitating factors: (use <.>1111F if completing PH visit) 2024-09-26 Open HEDIS Measure floyd [place]: reviewed
--- OUTSIDE RECORDS SUMMARY | 2025-04-16 09:21 | XMS_ITS | Clinical Summary ---
Author Organization [facility] Address [address] [place] [address] Care Team Providers Care Silo Filler Name Role Phone Yoana Mckeon MD Primary [...] daily. 30 tablet 8 Active nystatin (MYCOSTATIN) 593726 UNIT/ML suspensionIndic ations:Abnormal LFTs Take 5 mL (500,000 Units total) by mouth 4 (four) times a day. 60 mL 8 Active fluticasone (FloNASE) 50 mcg/spray nasal sprayIndication s:Abnormal LFTs 1 spray into each nostril daily. 15.8 Bottle 8 Active ergocalciferol (VITAMIN D2,DRISDOL) 00817 units CapIndications: Abnormal LFTs Take 1 capsule [...] Health Maintenance Due Date Last Done Comments Advance Care Planning 1945 Hepatitis C Virus Screening 1945 DTaP/Tdap/Td Vaccines (1 - Tdap) 1965 Pneumococcal Vaccines 50+ (1 of 2 - PCV) 1965 Zoster (Shingles) Vaccine (1 of 2) 1996 DXA Bone Density (Females,Ag es 65 and older) 2011 RSV Vaccine 50 years and old er and Patients (1 - 1-dose 75+ series) 2021 Influenza Vaccine 01/09/2025 COVID-19 Vaccine ( - 2023-2 5 season) 2025 Hepatitis B Vaccines Aged Out No long er eligible based on patient's age to complete this topic Insurance MEDICARE PART A & B [facility] Member Subscriber Plan / Payer (Ef fective 2018-Present) Name:Gale Oden Relation to Subscriber:Self Name:Gale Oden Payer ID:Not on file Group ID:Not on file Type:Not on file Address: [address] [place] [address] Advance Directives * Full Code (Latest Code Status on File) Date Activated Date Inactivated Comments 03/15/2018 1:04 PM Care Teams Silo Filler Relationship Specialty Start Date End Date Yoana Mckeon MD PCP - General 03/15/18
[2025-04-16 10:27] LABS: Alanine Aminotransferase 46 U/L (0-31); Albumin Level 4.5 g/dL (3.5-5.0); Alkaline Phosphatase 77 U/L (39-117); Anion Gap 11 (12-20); Aspartate Amino Transferase 28 U/L (5-31); Blood Urea Nitrogen 28 mg/dL (9-16); Calcium 9.6 mg/dL (8.4-10.2); Carbon Dioxide 32 mmol/L (22-29); Chloride 105 mmol/L (96-108); Estimated Glomerular Filt Rate 35; Potassium 4.2 mmol/L (3.3-5.1); Sodium 144 mmol/L (135-145); Total Protein 7.6 g/dL (6.5-8.0)
== END 2025-04-16 08:45 | disposition home or self-care (01) ==
LOC: HO.XRAY 08:44
PROVIDERS: PCP Internal Medicine; Visit Provider Nurse Practitioner Family
DX: Z79.899 Other long term (current) drug therapy (principal)
CPT/HCPCS: 36415; 71046; 80053; 84443

== ENCOUNTER → 2025-04-16 09:00 | Outpatient (BNV) | payer OTHER, SELFPAY | PROVIDERS: PCP Internal Medicine; Visit Provider Radiology Diagnostic Radiology | DX: I51.7 Cardiomegaly (principal) | CPT/HCPCS: 71046 ==

== ENCOUNTER → 2025-05-04 08:31 | Outpatient (REF) | payer OTHER, SELFPAY ==
--- OUTSIDE RECORDS SUMMARY | 2024-03-18 07:18 | XMS_ITS | Encounter Summary ---
Author Organization [facility] Address [address] [place] [address] Care Team Providers Care Hospice Clinical Supervisor Name Role Phone Yoana Mckeon MD Primary Care Provider [phone] Encounter Details Date Type Department Care Team (Late st Contact Info) Description 03/18/2024 8:18 AM EDT Hospital Encounter TH HISTORIC ENCOUNTERS EASTERN CONVERSION ONLY Davion Garcia MD [address] [place] [phone] Social History Tobacco Use Types Packs/Day Years [...] HPI: Patient is a very pleasant 78-year-old -Sudanese female, who had invasive carcinoma of left breast diagnosed 33 years ago, patient had mastectomy, patient couple years ago found to have subcentimeter ER/NM positive HER2/tata negative invasive carcinoma of right [...] DUCT CARCINOMA OF RIGHT FEMALE BREAST 78-year-old -Sudanese female who had locally advanced invasive carcinoma [...] since she has been following with Dr. Medina and her PCP Dr. Magalie Baldwin PLAN: Return to office as needed Davion Garcia MD documented in this encounter Plan of Treatment Upcoming Encounters Date Type Department Care Team (Late st Contact Info) Description 03/03/2026 1:15 PM EDT [facility] [address] [phone] Danna Medina MD [address] [place] [phone] documented as of this encounter Visit Diagnoses Not on filedocumented in this encounter Care Teams Hospice Clinical Supervisor Relationship Specialty Start Date End Date Yoana Mckeon MD [address] [place] [phone] PCP - General 03/02/1997 documented as of this encounter
--- OUTSIDE RECORDS SUMMARY | 2025-05-04 08:43 | XMS_ITS | Clinical Summary ---
Author Organization [facility] [address] [place] [address] [place] [phone] Phone Care Team Providers Care Wicker Molded Candles Name Role Phone Yoana Mckeon MD Primary Care Provider [phone] Allergies Active Allergy Reactions Criticality Noted Date [...] pm 270 tablet 1 07/10/19 25 Active carvediloL (COREG) 12.5 mg tablet Take 1 tablet (12.5 mg total) by mouth 2 (two) times a day. 14 tablet 04/10/20 25 Active atorvastatin (LIPITOR) 40 mg tablet Take 1 tablet (40 mg total) by mouth at bedtime. 30 tablet 04/27/20 Active carvediloL (COREG) 12.5 mg tablet Take 1 tablet (12.5 mg total) by mouth 2 (two) times a day. 180 tablet 1 07/10/19 25 025 Discontinued atorvastatin (LIPITOR) 40 mg tablet TAKE 1 TABLET BY MOUTH EVERY DAY 90 tablet 12/19/19 25 025 Discontinued Active Problems Problem Noted Date Diagnosed Date Gout 03/26/2023 Chronic HFrEF (heart failure with reduced ejection fraction) ([facility] V24, [facility] V28) 04/05/2022 Overview (03/26/2024): Dr. Noel Post herpetic neuralgia 03/07/2019 Nonsustained ventricular tac hycardia ([facility] V24, [facility] V28) 02/06/2019 Overview (03/26/2024): 01/27 syncope, AICD fired Vitamin D deficiency 05/29/2018 Atrial fibrillation ([facility] V24, [facility] V28) 1 06/29/2017 Overview (03/26/2024): s/p Watchman device Tuberculosis 04/29/2018 AICD (automatic cardioverter/defibrillator) pres ent 08/09/2017 Lower GI bleed 04/23/2014 Overview (03/26/2024): CN and EGD negative for source of bleed 04/24, negative EGD and CN for bleeding source 11/28 - 2 polyps removed 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 Overview (03/26/2024): 12/18 19 mm Crohn's disease ([facility] V24, [facility] V28) 12/08 Overview (03/26/2024): In remission Tubular adenoma 10/08/2008 Overview (03/26/2024): 09/17 Breast cancer ([facility] V24, [facility] V28) 005 Overview (03/26/2024): 1990: Left mastectomy, chemo with adriamycin - declines BRCA testing 07/2021: right breast carcinoma in situ; right mastectomy 02/2022: declining aromatase inhibitor therapy (Dr. Garcia) Hypercholesterolemia 05/23/2005 Non-ischemic cardiomyopathy ([facility] V24, [facility] V28) 05/23/2005 Overview (03/26/2024): 01/2021: EF 35-45% (Dr. Noel) 08/2016: EF 15-20% 11/2013: EF 40-45% Encounters Date Type Department Care Team Description 02/25/2025 1:15 PM EDT Office Visit [address] [phone] Danna Medina MD History of invasive breast cancer (Primary Dx); History of bilateral mastectomy; History of antineoplastic chemotherapy from Last 3 Months Immunizations Immunization Administration Dates Next Due Influenza trivalent, 0.5mL ( Fluad) 65yo and older 07/10/2024,03/26/2023,04/05/2022,2020,03/18/2020,03/06/2019,03/08/2017,1 ,03/17/2014 PPD Test 12/08/2009 Safe N Clear SARS-CoV-2 COVID-19, mRNA, LNP-S, preservative free 03/22/2022,03/22/2021,08/12/2020,2020 [...] AICD (automatic cardioverter/defibrillator) present 08/09/2017 Atrial fibrillation ([facility] V24, [facility] V28) 04/29/2018 Vitamin D deficiency 05/29/2018 Tuberculosis 04/29/2018 Nonsustained ventricular tac hycardia ([facility] V24, [facility] V28) 02/06/201901/27 syncope, AICD fired Post herpetic neuralgia 03/07/2019 Gout 03/26/2023 Breast cancer ([facility] V24, [facility] V28) 1990: Left mastectomy, chemo with adriamycin - declines BRCA testing 07/2021: right breast carcinoma in situ; right mastectomy 02/2022: declining aromatase inhibitor therapy (Dr. Garcia) Crohn's disease ([facility] V24, [facility] V28) 12/08 In remission Non-ischemic cardiomyopathy ([facility] V24, [facility] V28) 05/23/200501/2021: EF 35-45% (Dr. Fabricio dailey) [...] PM EDT [facility] [address] [phone] Danna Medina MD [address] [place] [phone] Health Maintenance Due Date Last Done [...] mg/dL LAB CHEMISTRY METHOD 07/14/2024 11:09 AM [facility] Triglycerides 89 0 - 150 mg/dL LAB CHEMISTRY METHOD 07/14/2024 11:09 AM [facility] HDL 82 >=40 mg/dL LAB CHEMISTRY METHOD 07/14/2024 11:09 AM [facility] LDL Calculated 142(H) 0 - 100 mg/dL LAB CHEMISTRY METHOD 07/14/2024 11:09 AM [facility] VLDL Cholesterol Mynor 17.8 mg/dL LAB CHEMISTRY METHOD 07/14/2024 11:09 AM [facility] Non HDL Chol. (LDL+VLDL) 160(H) <145 mg/dL LAB CHEMISTRY METHOD 07/14/2024 11:09 AM [facility] Chol/HDL Ratio 3.0 0.0 - 4.4 LAB CHEMISTRY METHOD 07/14/2024 11:09 AM [facility] Blood Venous blood specimen / Unknown Venipuncture / Unknown 07/14/2024 8:05 AM EST 07/14/2024 8:05 AM EST us Yoana Mckeon MD LAB BLOOD ORDERABLES Final Resul t [facility] [address] [place] [address], [place] [phone] * (ABNORMAL) Basic metabolic panel (07/14/2024 8:05 AM EST) Sodium 139 133 - 145 mmol/L LAB CHEMISTRY METHOD 07/14/2024 11:09 AM [facility] Potassium 3.9 3.5 - 5.5 mmol/L LAB CHEMISTRY METHOD 07/14/2024 11:09 AM [facility] Chloride 104 96 - 110 mmol/L LAB CHEMISTRY METHOD 07/14/2024 11:09 AM [facility] CO2 30 21 - 32 mmol/L LAB CHEMISTRY METHOD 07/14/2024 11:09 AM [facility] Anion Gap 5 3 - 11 LAB CHEMISTRY METHOD 07/14/2024 11:09 AM [facility] Glucose 101(H) 70 - 100 mg/dL LAB CHEMISTRY METHOD 07/14/2024 11:09 AM [facility] BUN 27(H) 5 - 25 mg/dL LAB CHEMISTRY METHOD 07/14/2024 11:09 AM [facility] Creatinine 1.51(H) 0.50 - 1.10 mg/dL LAB CHEMISTRY METHOD 07/14/2024 11:09 AM [facility] eGFR 35(L) >=60 mL/min/1. 73m2 LAB CHEMISTRY METHOD 07/14/2024 11:09 AM [facility] Comment:Calculation based on the Chronic Kidney Disease Epidemiology Collaboration (CKD-EPI) equation refit without adjustment for race. BUN/Creatinine Ratio 17.9 LAB CHEMISTRY METHOD 07/14/2024 11:09 AM [facility] Calcium 9.6 8.5 - 10.5 mg/dL LAB CHEMISTRY METHOD 07/14/2024 11:09 AM [facility] Blood Venous blood specimen / Unknown Venipuncture / Unknown 07/14/2024 8:05 AM EST 07/14/2024 8:05 AM EST us Yoana Mckeon MD LAB BLOOD ORDERABLES Final Resul t [facility] [address] [place] [address], * Depression Screening (07/16/2023) Depression Screening abstracted us Historical Provider HEALTH MAINTENANCE Final Result from Last 3 Months or Most Recently Relevant to Health Maintenance Insurance MEDICAID - [place] [facility] Care Teams Wicker Molded Candles Relationship Specialty Start Date End Date Yoana Mckeon MD [address] [place] [phone] PCP - General 03/02/1997
--- OUTSIDE RECORDS SUMMARY | 2025-05-04 08:43 | XMS_ITS ---
Author Name Mio WATKINS, MRS. Black Address [address] [place] [address] Phone [phone] [facility] [employer] [facility] Care Team Providers Care Stave And Bolt Equalizer Name Role Phone Sofia Lieberman Unavailable [phone] Lorna Rae Unavailable [phone] RAUL BIRD Unavailable [phone] KHADIJAH FRY Unavailable [phone] Yoana Mckeon Unavailable [phone] Reason for Referral Not Available Allergies, adverse [...] organ damage (headache, vision changes, chest pain)/ School Year Nanny on proper BP monitoring technique and reassess/ [...] Service Diagnosis/Co mplaint Medication List Documented (1159F) [facility] Medication List Documented (1159F) [facility] [place] Medication List Documented (1159F) [facility] [place] Medication List Documented (1159F) [facility] [place] Medication List Documented (1159F) [facility] Medication List Documented (1159F) [facility] [place]22 Unspecified systolic (conges tive) heart failureUnspecified atrial fibrillationChronic kidney disease, unspecifiedPersonal history of malignant neoplasm of breast Medication List Documented (1159F) [facility] [place] Medication List Documented (1159F) [facility] [place] 03[place]2022 No Data Available [facility] [place]/17[place]2022 Hyp hrt & chr kdny dis w hrt fail and stg 1-4/unsp chr kdnyUnspecified systolic (congestive) heart failureChronic kidney disease, stage 3bSecondary hyperaldosteronismMalignant neoplasm of unspecified site of unspecified female breastOther thrombophiliaUnspecified atrial fibrillationSacroiliitis, not elsewhere classifiedUnspecified osteoarthritis, unspecified site No Data Available [facility] [place]2022 No Data Available [facility] [place] No Data Available [facility] [place] No Data Available [facility] [place] No Data Available [facility] [place] No Data Available [facility] [place] No Data Available [facility] [place]/17[place] No Data Available [facility] [place] No Data Available [facility] [place] 10/17/2022 Estab. patient 10-29min; 1 minor problem; add add modifier 95 for video, modifier 93 for phone [facility] [place] 02/26/2023 Hypertensive heart disease w ith heart failureUnspecified systolic (congestive) heart failureSecondary hyperaldosteronismSacroiliitis, not elsewhere classifiedUnspecified osteoarthritis, unspecified site Estab. patient 10-29min; 1 minor problem; add add modifier 95 for video, modifier 93 for phone [facility] [place] 02/26/2023 Estab. patient 10-29min; 1 minor problem; add add modifier 95 for video, modifier 93 for phone [facility] [place] 02/26/2023 Estab. patient 10-29min; 1 minor problem; add add modifier 95 for video, modifier 93 for phone [facility] [place] 02/26/2023 Estab. patient 10-29min; 1 minor problem; add add modifier 95 for video, modifier 93 for phone [facility] [place] 02/26/2023 Estab. patient 10-29min; 1 minor problem; add add modifier 95 for video, modifier 93 for phone [facility] [place] 02/26/2023 Unlisted special service; to be used for medical record reviews and reporting CPTII codes (1111F, etc) [facility] [place] 05/10/2023 Unspecified systolic (conges tive) heart failureHyp hrt & chr kdny dis w hrt fail and stg 1-4/unsp chr kdnySecondary hyperaldosteronismPersonal history of malignant neoplasm of breastChronic kidney disease, stage 3bOther thrombophiliaUnspecified atrial fibrillationSacroiliitis, not elsewhere classifiedUnspecified osteoarthritis, unspecified siteOther reduced mobility Unlisted special service; to be used for medical record reviews and reporting CPTII codes (1111F, etc) [facility] [place] 05/10/2023 Unlisted special service; to be used for medical record reviews and reporting CPTII codes (1111F, etc) [facility] [place]/2023 Unlisted special service; to be used for medical record reviews and reporting CPTII codes (1111F, etc) [facility] [place] 05/10/2023 Unlisted special service; to be used for medical record reviews and reporting CPTII codes (1111F, etc) [facility] ([place] 06/19/2023 Hyp hrt & chr kdny dis w hrt fail and stg 1-4/unsp chr kdnyUnspecified systolic (congestive) heart failureChronic kidney disease, stage 3bSecondary hyperaldosteronismMalignant neoplasm of unspecified site of unspecified female breastOther thrombophiliaUnspecified atrial fibrillationUnspecified osteoarthritis, unspecified siteSacroiliitis, not elsewhere classifiedOther reduced mobilityOther postherpetic nervous system involvement Unlisted special service; to be used for medical record reviews and reporting CPTII codes (1111F, etc) [facility] [place] 06/19/2023 Unlisted special service; to be used for medical record reviews and reporting CPTII codes (1111F, etc) [facility] ([place] 06/19/2023 Unlisted special service; to be used for medical record reviews and reporting CPTII codes (1111F, etc) [facility] ([place] 06/19/2023 Estab. patient 30-39min; chronic exacerbation, 2 stable chronic or 1 acute illness add add modifier 95 for video, (do not use for phone, instead use 10892-51) [facility] [place] 03/26/2024 Heart failure, unspecifiedSecondary hyperaldosteronismChronic kidney disease, [...] (do not use for phone, instead use 02262-57) [facility] [place] 03/26/2024 Estab. patient 30-39min; chronic exacerbation, 2 stable chronic or 1 acute illness add add modifier 95 for video, (do not use for phone, instead use 11316-37) [facility] [place] 03/26/2024 Estab. patient 30-39min; chronic exacerbation, 2 stable chronic or 1 acute illness add add modifier 95 for video, (do not use for phone, instead use 45999-29) [facility] [place] 03/26/2024 Estab. patient 30-39min; chronic exacerbation, 2 stable chronic or 1 acute illness add add modifier 95 for video, (do not use for phone, instead use 90732-04) [facility] [place] 03/26/2024 Estab. patient 30-39min; chronic exacerbation, 2 stable chronic or 1 acute illness add add modifier 95 for video, (do not use for phone, instead use 47401-24) [facility] [place] 03/26/2024 Estab. patient 30-39min; chronic exacerbation, 2 stable chronic or 1 acute illness add add modifier 95 for video, (do not use for phone, instead use 13485-82) [facility] [place] 03/26/2024 Estab. patient 20-29min; 1 stable chronic or 2 minor; add add modifier 95 for video, modifier 93 for phone [facility] [place] 09/26/2024 Heart failure, unspecifiedSecondary hyperaldosteronismPersonal history of [...] 95 for video, modifier 93 for phone [facility] [place] Vital Signs [...] tive Time Current Smoking Status Never smoker 2025-04-12 4 Sex Female Gender identity Woman History of [...] (do not use for phone, instead use 98874-40) 88262 2022-03-31 No Data Available No Data Availa ble SBP < 130 (3074F) 3074F 2022-03-31 No Data Available No Data Available DBP <80 (3078F) 3078F 2022-03-31 No Data Available No Data Available No Data Available 30397 2022-10-17 No Data Available No Data Available [...] 95 for video, modifier 93 for phone 08172 2023-02-26 No Data Available No Data Availa [...] reviews and reporting CPTII codes (1111F, etc) 22966 2023-05-10 No Data Available No Data Availa ble BMI obtained (3008F) 3008F 2023-05-10 No Data Availab le No Data Available Medication List Documented (1159F) 1159F 2023-05-10 No Data Available No Data Aletha ilable Functional Status Assessed (1170F) 1170F 2023-05-10 No Data Available No Data Avail able Unlisted special service; to be used for medical record reviews and reporting CPTII codes (1111F, etc) 05846 2023-06-19 No Data Available No Data Availa [...] (do not use for phone, instead use 84633-37) 89850 2024-03-26 No Data Available No Data Availa [...] 95 for video, modifier 93 for phone 08701 2024-09-26 No Data Available No Data Availa [...] modifier 95Continue to see PCP. Follow-up with [facility] as needed for any acute or [...] obtained (3008F)Continue to see PCP. Follow-up with Tammy as [...] modifier 95)Continue to see PCP. Follow-up with Tammy as [...] turkey. Stay well hydrated.HYPERTENSION CONTINGENCY PLANLast updated: 03/26/2024Menakul to call for the following symptoms: BP >180/100 / Chest pain / Headache/ HR <50 / HR >100 Planned intervention: Assess for signs of end organ damage (headache, vision changes, chest pain)/ School Year Nanny on proper BP monitoring technique and reassess/ [...] present (1126F)Continue to see PCP. [facility] or disease [...] organ damage (headache, vision changes, chest pain)/ School Year Nanny on proper BP monitoring technique and reassess/ [...] Social history. 2024-09-26 <add details of Adva pae Care Planning conversation using .acp FastKey> Advance Care Plan ConversationDate of Conversation: 09/26/2024Life Limiting Diagnosis: Diagnosis: noneCurrently on Hospice NoCode Status: YES CPR: Attempt ResuscitationGoals of Care: Curative: Attempt to sustain life by all medically effective meansNutrition goals: No decision made about nutrition today; not discussedDo you have a Durable Power of Sterile Products Processor for Healthcare, or Healthcare Proxy Or Guardianship? Yes, POAIf so, Who? sons Syed Calixto and Dee Calixto, Tunde Welch and Ex Nicholas WelchDo you have a written Advance Directive? Has no formal documentationOther details of discussion: (Who was present, patients description of wishes/goals)Today's plan: Advised patient to discuss wishes with [id number] : AD or surrogate was documented in the medical record. 2024-09-26 Most recent hospital stay(s) or ER visit(s) and precipitating factors: (use <.>1111F if completing PH visit) 2024-09-26 Open HEDIS Measure floyd [place]: reviewed
--- OUTSIDE RECORDS SUMMARY | 2025-05-04 08:44 | XMS_ITS | Clinical Summary ---
Author Organization [facility] Address [address] [place] [id number] Phone Care Team Providers Care Bottle Blower Name Role Phone Unknown, Unknown Primary Care [...] file Insurance MEDICARE PART A & B [facility] [place] B [employer] MED[place] PART A & B [employer] [place] Care Teams Bottle Blower Relationship Specialty Start Date End Date Unknown, Unknown, PCP - General 03/14/18 Additional Source Comments The information contained in this document represents components of the legal health record. It is not the complete legal health record.[facility]
--- OUTSIDE RECORDS SUMMARY | 2025-05-04 08:44 | XMS_ITS | Clinical Summary ---
Author Organization [facility] Address [address] [place] [id number] Care Team Providers Care Robotics Engineer Name Role Phone Yoana Mckeon MD [...] daily. 30 tablet 8 Active nystatin (MYCOSTATIN) 528838 UNIT/ML suspensionIndic ations:Abnormal LFTs Take 5 mL (500,000 Units total) by mouth 4 (four) times a day. 60 mL 8 Active fluticasone (FloNASE) 50 mcg/spray nasal sprayIndication s:Abnormal LFTs 1 spray into each nostril daily. 15.8 Bottle 8 Active ergocalciferol (VITAMIN D2,DRISDOL) 62915 units CapIndications: Abnormal LFTs Take 1 capsule [...] series) 2021 Influenza Vaccine 01/09/2025 COVID-19 Vaccine (1 - 2023-2 5 season) 2025 Hepatitis B Vaccines Aged Out No long er eligible based on patient's age to complete this topic Insurance MEDICARE PART A & B [facility] Advance Directives * Full Code (Latest Code Status on File) Date Activated Date Inactivated Comments 03/15/2018 1:04 PM Care Teams Robotics Engineer Relationship Specialty Start Date End Date Yoana Mckeon MD PCP - General 03/15/18
--- OUTSIDE RECORDS SUMMARY | 2025-05-04 08:44 | XMS_ITS | Clinical Summary ---
Author Organization [facility] Address [address] [place] [address] Care Team Providers Care Bed Control Specialist Name Role Phone Yoana Mckeon MD Primary Care Provider [phone] Allergies No known active allergies Medications Medication [...] age to complete this topic Care Teams Bed Control Specialist Relationship Specialty Start Date End Date Yoana Mckeon MD PCP - General Internal Medicine 08/18/21
== END ==
LOC: HO.CARD 08:31
PROVIDERS: PCP Internal Medicine; Visit Provider Internal Medicine Cardiovascular Disease
DX: I48.0 Paroxysmal atrial fibrillation (principal); Z95.810 Presence of automatic (implantable) cardiac defibrillator
CPT/HCPCS: 93242

== ENCOUNTER → 2025-05-04 08:56 | Outpatient (BNV) | payer OTHER, SELFPAY | PROVIDERS: PCP Internal Medicine; Visit Provider Internal Medicine | DX: I49.3 Ventricular premature depolarization (principal); I48.0 Paroxysmal atrial fibrillation | CPT/HCPCS: 93244 ==